=== PATIENT | female | born 1940 | race Caucasian/White ===

== ENCOUNTER 2022-09-30 20:20 | Inpatient (IN) | payer MEDICARE, SELFPAY ==
--- NOTE | ~2022-09-30 | XR_ITS ---
EXAMINATION: XR chest 1V portable DATE: 10/03/2022 05:40 INDICATION: Cough. TECHNIQUE: A single frontal view of the chest was obtained. COMPARISON: Chest one view 10/02/2022, CT abdomen and pelvis 10/02/2022 FINDINGS: There are airspace opacities in all left lung zones with a lower lung predominance, consist ent with pneumonia. There is a small left pleural effusion. No pneumothorax. The heart size is normal . IMPRESSION: 1. Worsened left-sided pneumonia. 2. Stable small left pleural effusion. Reviewed, dictated and finalized at location A. ONAL MARKETING MANAGER
--- NOTE | ~2022-09-30 | XR_ITS ---
EXAMINATION: XR chest 2V DATE: 10/04/2022 11:00 INDICATION: Aspiration pneumonitis. TECHNIQUE: Frontal and lateral views of the chest were obtained. COMPARISON: Chest single view 10/03/2022, CT abdomen and pelvis 10/02/2022 FINDINGS: There are airspace opacities in left mid and lower lung zones. There is mild atelectasis at right lung base. There is a small left pleural effusion. No pneumothorax. The heart size is normal. IMPRESSION: 1. Stable airspace opacities in left mid and lower lung zones, consistent with pneumonia. 2. Stable small left pleural effusion. Reviewed, dictated and finalized at location A. TRIC INSTALLER
--- NOTE | ~2022-09-30 | CT_ITS ---
EXAMINATION: CT abdomen pelvis w con DATE: 10/02/2022 16:44 INDICATION: Cecal mass. TECHNIQUE: Computed tomography (CT) of the abdomen and pelvis was performed with 100 mL Omnipaque 350 intravenous contrast. Automated exposure control and iterative reconstruction technique were employe d. The dose-length product was 605.52 mGy-cm. COMPARISON: None. FINDINGS: The visualized portions of the lung bases demonstrate airspace opacities in left lower lobe and lingula. There are centrilobular nodules in right lower lobe. There is a small left pleural effu franklyn. There is a right posterior diaphragmatic hernia containing fat. The heart size is normal. No pe ricardial effusion. The liver is normal. There are changes of cholecystectomy. There is a 6 mm low-at tenuation mass in the spleen, likely a benign mass such as granulomatous disease or a cyst. The pancr eas and adrenal glands are normal. There is cortical thinning of the kidneys. There are no dilated lo ops of bowel. The appendix is nonvisualized. There is calcified atherosclerosis of the aorta and many of the other arteries. There is moderate stenosis of superior mesenteric artery. There are no pathol ogically enlarged lymph nodes. There is trace pelvic ascites. There is severe lumbar spondylosis. IMPRESSION: 1. No evidence of metastatic disease. 2. Pneumonia, left worse than right. 3. Small left pleural effusion. Reviewed, dictated and finalized at location A. OR CHEMICAL ENGINEER
--- NOTE | ~2022-09-30 | XR_ITS ---
EXAMINATION: XR chest 1V portable DATE: 10/02/2022 08:54 INDICATION: Hypoxia. Vomiting during EGD. Heaviness in the chest. TECHNIQUE: frontal view of the chest was obtained. COMPARISON: None FINDINGS: Airspace opacities in the left lower lung zone. There is asymmetric left perihilar bronchial wall thi ckening. Blunting at the left costophrenic angle which could represent a possible small left pleural effusion. Right lung is clear with no right-sided pleural effusion. No pneumothorax. The cardiomedias tinal silhouette is normal. IMPRESSION: 1. Left perihilar bronchial wall thickening and airspace opacities in the lower lung zone which could represent aspiration and/or pneumonia potentially with small left pleural effusion. Reviewed, dictated and finalized at location A. ET AND DIE CUTTER IMPRESSION: 1. Left perihilar bronchial wall thickening and airspace opacities in the lower lung zone which could represent aspiration and/or pneumonia potentially with s mall left pleural effusion.
--- NOTE | 2022-09-30 20:18 | PC.NURSE ---
This patient, Delilah Wynne, was admitted to IMU Room 204-01. Patient/family oriented to hospital policies and general routines including ID bracelet, bed and alarms, visiting hours, pain management, procedures, bathroom and other care routines, personal items, smoking policy, room service/diet, and visiting hours. Information on how to activate the Rapid Response Team has been discussed. Patient/Family are encouraged to report perceived risks to care and to ask questions if they do not understand what they are told or what they should do.
[2022-09-30 20:20] VITALS: BP 169/91; PULSE 114; RESP 16; TEMP 36.5; O2SAT 98
[2022-09-30 20:30] VITALS: O2SAT 98
[2022-09-30 20:45] VITALS: BMI 29.0
--- NOTE | 2022-09-30 21:47 | PM.IMHP ---
H&P: HPI History of Present Illness Date/Time: 09/30/22 21:47 Chief Complaint: This is an 82-year-old female patient who has a history of anemia and congestive heart failure. The patient was brought to [facility] by her daughter due to complaints of shortness of breath. This shortness of breath is worse with activity. The patient has been sleeping in a recliner and has had some swelling in her lower extremities. The patient does take Lasix for her CHF. The patient has been complaining of itching to her back and she is unable to rest due to the itching. States that she has had dark stools x1 month and the patient has a history of AFib and is taking Xarelto. Patient's hemoglobin was found to be 4.8. The patient was given 2 units of packed red blood cells at [facility] prior to her being transferred to [facility]. Patient's blood pressure is 122/68 and her pulse was 116. The patient was found to be negative for influenza a and B. her creatinine was 1.13. Magnesium 2.1 anion gap 11.8. Her hematocrit was 17.1. Patient's stool for occult blood was positive. The patient was given Bumex 0.5 mg as well as prednisone and Benadryl at [facility]. She was also given IV fluids. The patient's EKG was read as AFib. Her iron was 12. The patient was also started on Protonix. It was reported that GI has already been consulted and agreed to see the patient at [facility]. The patient was transferred from [facility] and was seen by Dr. Rojas. The patient is being admitted here for observation status on the date of service of 09/30/2022. Review of Systems Review of Systems: See HPI All systems reviewed & are unremarkable except as noted in HPI and below Constitutional: Constitutional: Reports as per HPI and Reports no additional constitutional complaints Eyes: Eyes: Reports as per HPI and Reports no additional eye complaints ENT: Reports system reviewed and no additional complaints, except as documented and Reports Normal hearing present Cardiovascular: Cardiovascular: Reports no additional cardiovascular complaints Respiratory: Respiratory: Reports no additional respiratory complaints and Reports no additional respiratory complaints Gastrointestinal: Gastrointestinal: Reports as per HPI and Reports no additional gastrointestinal complaints Musculoskeletal: Musculoskeletal: Reports no additional musculoskeletal complaints Integumentary/Breasts: Skin/Breast: Reports system reviewed and no additional complaints, except as docu and Reports as per HPI Neurologic: Reports system reviewed and no additional complaints, except as documented, Reports as per HPI and Reports Normal hearing present Psychiatric: Psychiatric: Reports no additional psychiatric complaints and Reports as per HPI Endocrine: Endocrine: Reports no additional endocrine complaints Hematologic/Lymphatic: Hematologic/Lymphatic: Reports no additional hematologic/lymphatic complaints Allergic/Immunologic: Allergic/Immunologic: Reports no additional allergic/immunologic complaints FORMERLY [facility], 1928–1983 Past Medical History Medical History (Updated 09/30/22 @ 22:29 by Beckie Rice NP) Abnormal colonoscopy Anemia Arthritis Atrial fibrillation Congestive heart failure COPD (chronic obstructive pulmonary disease) Hyperlipidemia Hypertension Obstructive sleep apnea Surgical History Surgical History (Updated 09/30/22 @ 22:04 by Beckie Rice NP) H/O cervical polypectomy History of bilateral cataract extraction History of colonoscopy with polypectomy Hx of cholecystectomy Family History Family History (Updated 09/30/22 @ 22:04 by Beckie Rice NP) Sibling Cancer Carcinoma of colon Father Acute myocardial infarction Social History Social History (Updated 09/30/22 @ 22:05 by Beckie Rice NP) Social History: The patient lives home alone. She is now . She has 3 children. She has decided to make al
--- NOTE | 2022-09-30 21:50 | ECG_ITS ---
Measurements Intervals [place] Rate: 107 P: [place]: 0 QRS: 42 QRSD: 68 T: 49 QT: 342 QTc: 457 Interpretive Statements ATRIAL FIBRILLATION WITH RAPID VENTRICULAR RESPONSE ABNORMAL ECG NO PREVIOUS ECG AVAILABLE FOR COMPARISON Electronically Signed On 10-01-2022 7:56:12 ADMINISTRATIVE COORDINATOR by Vladislav Mcgarry D.O.
[2022-09-30 22:00] VITALS: PULSE 114
[2022-09-30] MEDS: CLOBETASOL PROPIONATE 0.05% CREAM 15 GM 1 APPLIC TOPICAL (22:29)
[2022-09-30] MEDS: diphenhydrAMINE HCl CAP 25 MG CAPSULE PO (22:29)
[2022-09-30] MEDS: SODIUM CHLORIDE 0.9% IV 1,000 ML 75 ML IV CONT (22:29)
[2022-09-30 22:35] LABS: Basophils Percent Auto 0.5 % (0.2-1.2); Hematocrit 29.7 % (37.0-47.0); Hemoglobin 9.3 g/dL (12.0-15.0); Immature Granulocyte Absolute 0.05 K/mm3 (0.00-0.031); Immature Granulocyte Percent A 0.9 % (0-0.5); Lymphocytes Absolute Auto 0.69 K/mm3 (0.9-3.2); Lymphocytes Percent Auto 11.9 % (18.3-44.2); Mean Corpuscular HGB Conc 31.3 g/dl (32-36); Mean Corpuscular Hemoglobin 25.8 pg (26-34); Mean Corpuscular Volume 82.5 fl (80-100); Mean Platelet Volume 9.5 fl (7.4-10.4); Monocytes Absolute Auto 0.1 K/mm3 (0.1-0.6); Monocytes Percent Auto 1.2 % (2.6-8.5); Neutrophils Absolute Auto 4.9 K/mm3 (1.3-6.7); Neutrophils Percent Auto 85.5 % (45.5-73.1); Platelet Count Result 308 k/mm3 (150-375); Red Cell Distribution Width 19.6 % (11.5-14.5); White Blood Count 5.8 K/mm3 (4.5-10.0)
[2022-09-30] MEDS: ATORVASTATIN 20 MG TABLET PO (22:44)
[2022-09-30] MEDS: DORZOLAMIDE/TIMOLOL OPHTH SOL 10 ML BOTTLE 1 DROP EACH EYE (22:44)
[2022-09-30 22:45] VITALS: PULSE 117
[2022-09-30] MEDS: METOPROLOL TARTRATE INJ 5 MG/5 ML VIAL IV PUSH (22:45)
[2022-09-30 22:46] LABS: Phosphorus 3.5 mg/dL (2.5-4.5)
[2022-09-30 22:48] LABS: Lactic Acid Reflex 1.3 mmol/L (0.7-2.0)
[2022-09-30 23:50] VITALS: BP 147/97; PULSE 125; RESP 20; TEMP 36.3; O2SAT 99
[2022-10-01] VITALS (15 sets, daily range): BP systolic 128–149; BP diastolic 69–89; PULSE 87–115; RESP 12–20; TEMP 36.2–36.6; O2SAT 99–100
--- NOTE | 2022-10-01 | ECHO_ITS ---
Patient Info Name: Delilah Wynne Age: 82 years : 1940 Gender: Female Ht: 61 in Wt: 153 lbs BSA: 1.75 m2 HR: 101 bpm BP: 149 / 72 mmHg Heart Rhythm: Atrial Fibrillation Technical Quality: Good Exam Date: 10/01/2022 7:13 AM Exam Location: [facility] Pulmonary Patient Status: Outpatient Admit Date: 09/30/2022 Staff Ordering Physician: Beckie Rice NP Shop Assistant: Tereza Singleton RDCS Attending Provider: Conrad Raya MD Referring Physician: Dwayne OSHEA; Exam Type: CA echo doppler color flow Study Info Indications I50.20 - Unspecified systolic (congestive) heart failure Complete two-dimensional, color flow and Doppler transthoracic echocardiogram is performed. Summary 1. Complete two-dimensional, color flow and Doppler transthoracic echocardiogram is performed. 2. Left ventricular chamber dimension is normal. 3. Left ventricular systolic function is hyperdynamic, estimated at >70%. 4. There is mildly increased left ventricular wall thickness. 5. Left ventricular septal wall motion is normal. 6. The left ventricular diastolic function is indeterminate. 7. Left atrial chamber dimension is severely enlarged. 8. Right atrial chamber dimension is severely enlarged. 9. There is mild to moderate mitral valve regurgitation. 10. The mitral valve annulus is severely calcified. 11. There is moderate tricuspid valve regurgitation. 12. Moderate pulmonary hypertension, estimated pulmonary arterial systolic pressure is 53 mmHg. Left Ventricle Left ventricular chamber dimension is normal. Left ventricular systolic function is hyperdynamic, estimated at >70%. There is mildly increased left ventricular wall thickness. Left ventricular septal wall motion is normal. The left ventricular diastolic function is indeterminate. Right Ventricle Right ventricular chamber dimension is normal. Right ventricular systolic function is normal. Left Atria Left atrial chamber dimension is severely enlarged. Right Atria Right atrial chamber dimension is severely enlarged. Atrial Septum Intact interatrial septum visualized by color flow imaging. Aortic Valve The aortic valve is trileaflet. There is mild aortic valve sclerosis. There is no aortic valve stenosis. There is trace aortic valve regurgitation. Pulmonic Valve The pulmonic valve is normal. There is no pulmonic valve stenosis. There is trace pulmonic regurgitation. Mitral Valve The mitral valve has thickened leaflets. There is mild mitral valve stenosis. There is mild to moderate mitral valve regurgitation. The mitral valve annulus is severely calcified. Tricuspid Valve The tricuspid valve leaflets are normal. There is no significant tricuspid valve stenosis. There is moderate tricuspid valve regurgitation. Moderate pulmonary hypertension, estimated pulmonary arterial systolic pressure is 53 mmHg. Pericardium/Pleural The pericardium appears normal. There is no pericardial effusion. Inferior Vena Cava Dilated inferior vena cava with <50% collapse upon inspiration consistent with elevated right atrial pressure, 15 mmHg. Aorta The aortic root size at the sinus of Valsalva is normal. There is moderate aortic atherosclerosis. Left Ventricular Outflow Tract Name Value Normal LVOT 2D ----
[2022-10-01 04:44] LABS: Basophils Percent Auto 0.6 % (0.2-1.2); Eosinophils Percent Auto 0.1 % (0-4.4); Hematocrit 26.5 % (37.0-47.0); Hemoglobin 8.5 g/dL (12.0-15.0); Immature Granulocyte Absolute 0.02 K/mm3 (0.00-0.031); Immature Granulocyte Percent A 0.3 % (0-0.5); Lymphocytes Absolute Auto 0.92 K/mm3 (0.9-3.2); Lymphocytes Percent Auto 13.8 % (18.3-44.2); Mean Corpuscular HGB Conc 32.1 g/dl (32-36); Mean Corpuscular Hemoglobin 25.4 pg (26-34); Mean Corpuscular Volume 79.1 fl (80-100); Mean Platelet Volume 10.1 fl (7.4-10.4); Monocytes Absolute Auto 0.4 K/mm3 (0.1-0.6); Monocytes Percent Auto 5.7 % (2.6-8.5); Neutrophils Absolute Auto 5.3 K/mm3 (1.3-6.7); Neutrophils Percent Auto 79.5 % (45.5-73.1); Nucleated Red Blood Cells Perc 0.3 % (0.0-0.2); Platelet Count Result 310 k/mm3 (150-375); Red Blood Count 3.35 M/mm3 (4.2-5.4); Red Cell Distribution Width 19.4 % (11.5-14.5); White Blood Count 6.7 K/mm3 (4.5-10.0)
[2022-10-01 04:53] LABS: Alanine Aminotransferase 23 U/L (6-35); Albumin Level 3.8 g/dL (3.5-5.1); Alkaline Phosphatase 74 U/L (38-126); Anion Gap 15 mmol/L (8-16); Aspartate Amino Transferase 25 U/L (14-36); Bilirubin,Total 0.7 mg/dL (0.2-1.3); Blood Urea Nitrogen 13 mg/dL (7-17); Calcium 8.6 mg/dL (8.4-10.2); Carbon Dioxide 23 mmol/L (22-30); Chloride 102 mmol/L (98-107); Estimated CRCL calculation 38 ml/min; Estimated Glomerular Filt Rate 60; Glucose 120 mg/dL (65-110); Potassium 3.1 mmol/L (3.4-5.0); Sodium 140 mmol/L (137-145)
[2022-10-01 05:25] LABS: Appearance Urine Clear (Clear); Bilirubin Urine Negative (Negative); Blood Urine Negative (Negative); Color Urine Yellow (Yellow); Glucose Urine UA Negative (Negative); Ketones Urine Trace mg/dL (Negative); Leukocyte Esterase Ur Negative LEU/UL (NEGATIVE); Nitrate Urine Negative (Negative); Protein Urine Negative (Negative); Specific Grav Ur 1.015 (1.001-1.035); Urobilinogen Urine 0.2 mg/dL (<2.0); pH Urine 5.5 (5.0-9.0)
[2022-10-01 05:27] LABS: Squamous Epithelial Cell Urine Rare /hpf (Few); WBC Urine 0-3 /hpf (0-3)
[2022-10-01 05:33] LABS: Add Urine Microscopic? YES
[2022-10-01] MEDS: FLUTICASONE/SALMETEROL 45-21 MCG INHALER 1 PUFF 2 PUFF INHALATION ×2 (07:47→20:31)
[2022-10-01] MEDS: VITAMIN B COMPLEX CAPSULE 1 CAP PO (09:06)
[2022-10-01] MEDS: diphenhydrAMINE HCl CAP 25 MG CAPSULE PO ×2 (09:06→17:21)
[2022-10-01] MEDS: METOPROLOL SUCCINATE EXT REL 25 MG TABCR PO (09:07)
[2022-10-01] MEDS: CLOBETASOL PROPIONATE 0.05% CREAM 15 GM 1 APPLIC TOPICAL ×2 (09:08→21:01)
[2022-10-01] MEDS: DORZOLAMIDE/TIMOLOL OPHTH SOL 10 ML BOTTLE 1 DROP EACH EYE ×2 (09:08→21:00)
[2022-10-01] MEDS: ASCORBIC ACID 250 MG TABLET PO (09:09)
[2022-10-01] MEDS: PANTOPRAZOLE SODIUM IV 40 MG VIAL IV PUSH ×2 (09:10→21:00)
--- NOTE | 2022-10-01 09:22 | PM.IMPN ---
Progress Note: A&P Assessment and Plan (1) GI bleed: Code(s): K92.2 - Gastrointestinal hemorrhage, unspecified Status: Acute Assessment and Plan: -H&H every 6 hours. -check stool for occult blood. previous stool for occult blood was positive at [facility] -the patient is on Xarelto and we will hold this for now. -GI has been consulted per Dr. Rojas from [facility]. -IV Protonix. -the patient's last colonoscopy was in 2019 Which was negative. Patient received 2 units of blood transfusion at [facility] before being transferred (2) Congestive heart failure: Code(s): I50.9 - Heart failure, unspecified Status: Acute Assessment and Plan: I stopped the Lasix and switched her to metolazone. due to possible allergy to Lasix -an echo is pending. -continue with metoprolol (3) Hyperlipidemia: Code(s): E78.5 - Hyperlipidemia, unspecified Status: Acute (4) COPD (chronic obstructive pulmonary disease): Code(s): J44.9 - Chronic obstructive pulmonary disease, unspecified Status: Acute Assessment and Plan: Patient advice to quit smoking. Bronchodilators. Evaluation for home O2 if saturations less than 88% on room air (5) Hypertension: Code(s): I10 - Essential (primary) hypertension Status: Acute Assessment and Plan: -continue with metoprolol (6) Atrial fibrillation: Code(s): I48.91 - Unspecified atrial fibrillation Status: Acute Assessment and Plan: continue metoprolol. Heart rate well controlled. No chest pain. Xarelto still on hold due to GI bleed Plan DVT prophylaxis. GI prophylaxis. All records reviewed Discussed plan of care with the nursing staff and with the patient in detail. Answered all questions and concerns from the patient. All labs have been reviewed. Code status updated dictation may have been done utilizing a voice recognition system. Attempts have been made to correct errors. However, there may be uncorrected grammatical, spelling, and recognition errors present. Subjective Date/time seen: 10/01/22 09:22 Exam Narrative: GENERAL: Well appearing, well-nourished, non-toxic, in no acute distress. HEAD: Normocephalic, atraumatic. NECK: Supple. No adenopathy, no masses. RESPIRATORY: Airway patent, respirations nonlabored. Clear to auscultation bilaterally, no rales, rhonchi, wheezing. CARDIOVASCULAR: irRegular rate and rhythm without murmurs, rubs, or gallops. Peripheral pulses 2+ and equal bilaterally. ABDOMINAL: Soft, nontender, nondistended, no hepatosplenomegaly. Normoactive BS. MUSCULOSKELETAL: no Epigastric and no hypochondrial tenderness SKIN: Warm, dry, normal color. No rashes. NEURO: A&O X3. Moves all extremities PSYCHIATRIC: Appropriate mood and affect. Normal interaction. Objective Data Vital Signs Vital Signs: Vital Signs - 24 hr 09/30/22 20:20 09/30/22 20:30 09/30/22 22:45 Temperature 36.5 C Pulse Rate 114 H 117 H Respiratory Rate 16 Blood Pressure 169/91 H Pulse Oximetry 98 98 Oxygen Delivery Room Air 09/30/22 22:00 09/30/22 23:50 10/01/22 00:00 Temperature 36.3 C L Pulse Rate 114 H 125 H 107 H Respiratory Rate 20 Blood Pressure 147/97 H Pulse Oximetry 99 Oxygen Delivery 10/01/22 00:00 10/01/22 02:00 10/01/22 04:00 Temperature Pulse Rate 113 H 104 H Respiratory Rate Blood Pressure Pulse Oximetry 99 Oxygen Delivery Room Air 10/01/22 04:00 10/01/22 04:00 10/01/22 06:00 Temperature 36.4 C Pulse Rate 112 H 107 H Respiratory Rate 18 Blood Pressure 149/72 H Pulse Oximetry 99 99 Oxygen Delivery Room Air 10/01/22 08:00 10/01/22 09:07 Temperature 36.2 C L Pulse Rate 112 H 98 Respiratory Rate 14 Blood Pressure 148/89 H Pulse Oximetry 100 Oxygen Delivery Intake/Output Intake/Output: Intake & Output 09/28/22 09/29/22 09/30/22 10/01/22 23:59
[2022-10-01] MEDS: metOLazone 5 MG TABLET PO (10:08)
[2022-10-01 10:35] LABS: Hemoglobin 8.3 g/dL (12.0-15.0)
[2022-10-01] MEDS: SODIUM CHLORIDE 0.9% IV 1,000 ML 75 ML IV CONT (11:38)
[2022-10-01] MEDS: UMECLIDINIUM BROMIDE 62.5 MCG ELLIPTA 1 PUFF INHALATION (12:00)
--- NOTE | 2022-10-01 13:32 | WPDGICN ---
Assessment and Plan Assessment and plan (1) Acute on chronic blood loss anemia: Code(s): D62 - Acute posthemorrhagic anemia Status: Acute Assessment and Plan: s/p blood transfusion and feeling better probably chronic blood loss and could be due to xarelto use we will proceed with egd and colonoscopy to assess if gi blood loss on protonix (2) GI bleed: Code(s): K92.2 - Gastrointestinal hemorrhage, unspecified Status: Acute Assessment and Plan: stable now trend h/h scopes tomorrow (3) Occult blood in stools: Code(s): R19.5 - Other fecal abnormalities Status: Acute Assessment and Plan: will assess with scopes (4) Atrial fibrillation: Code(s): I48.91 - Unspecified atrial fibrillation Status: Acute Assessment and Plan: xarelto on hold for now (5) Congestive heart failure: Code(s): I50.9 - Heart failure, unspecified Status: Acute GI Consult Note Consult date/time: 10/01/22 13:32 Reason for consult: acute on chronic anemia, FOBT + HPI: Delilah Wynne is a 82 year old female with history of congestive heart failure, A fib on xarelto for almost 3 months.? She first went to [facility] ER because progressive shortness of breath on exertion for last few days, also noted her stools darker than usual for almost 2 weeks but denies otherwise bleeding. No previous history of gib, her last colonoscopy 2019, denies nausea or abdominal pain. Patient's hemoglobin was found to be 4.8, given 2 units of packed red blood cells at [facility] prior to her being transferred to [facility].? The patient was found to be negative for influenza a and B. her creatinine was 1.13.? Patient's stool for occult blood was positive.?? Review of Systems Constitutional: Constitutional: Reports fatigue Eyes: Eyes: Denies blurry vision ENT: Reports Normal hearing present Cardiovascular: Cardiovascular: Reports palpitations Respiratory: Respiratory: Reports dyspnea on exertion Gastrointestinal: Gastrointestinal: Denies abdominal pain Genitourinary: Genitourinary: Denies hematuria Musculoskeletal: Musculoskeletal: Denies back pain Integumentary/Breasts: Skin/Breast: Denies rash Neurologic: Denies Abnormal speech present Psychiatric: Psychiatric: Denies behavioral changes [facility] Past Medical History Medical History (Updated 10/01/22 @ 13:37 by Abhi England MD) Abnormal colonoscopy Acute on chronic blood loss anemia Anemia Arthritis Atrial fibrillation Congestive heart failure COPD (chronic obstructive pulmonary disease) Hyperlipidemia Hypertension Obstructive sleep apnea Occult blood in stools Surgical History Surgical History (Updated 09/30/22 @ 22:04 by Beckie Rice NP) H/O cervical polypectomy History of bilateral cataract extraction History of colonoscopy with polypectomy Hx of cholecystectomy Family History Family History (Updated 09/30/22 @ 22:04 by Beckie Rice NP) Sibling Cancer Carcinoma of colon Father Acute myocardial infarction Social History Social History (Updated 09/30/22 @ 22:05 by Beckie Rice NP) Social History: The patient lives home alone. She is now . She has 3 children. She has decided to make all 3 of her children the power real estate associate attorney for healthcare. The patient states that she drinks approximately 8 cans of beer per week. Some nights she may not drink another night she may drink 3 beers. She denies any marijuana or illicit drugs. 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 Code status full code Smoking packs per day: 1 Smoking cigarettes per day: 20.0 Years smoked: 35 Smoking pack-years: 35.00 Smoking status: Former smoker Alcohol intake: current Drinks per week: 1 Substance use: never Substance use type: does not use Lack of Transportation: No Lack of Food: Never True Current Housing: I Have Hous
[2022-10-01 16:04] LABS: Hematocrit 26.3 % (37.0-47.0); Hemoglobin 8.2 g/dL (12.0-15.0)
[2022-10-01] MEDS: BISACODYL 5 MG TABLET EC 20 MG PO (17:20)
[2022-10-01] MEDS: polyethylene glycoL 3350 238 GM BOTTLE PO (17:22)
[2022-10-01] MEDS: ONDANSETRON INJ 4 MG/2 ML VIAL IV PUSH (21:00)
[2022-10-01] MEDS: ATORVASTATIN 20 MG TABLET PO (21:01)
[2022-10-02] VITALS (20 sets, daily range): BP systolic 80–153; BP diastolic 50–98; PULSE 84–162; RESP 16–32; TEMP 36.3–36.9; O2SAT 91–100
[2022-10-02] MEDS: DEXTROSE 5%/0.45% SOD CHL 1,000 ML 75 ML IV CONT (01:18)
--- NOTE | 2022-10-02 06:47 | PC.NURSE ---
Report given to GI Lab for EGD/Colonoscopy.
[2022-10-02] MEDS: LACTATED RINGERS 1,000 ML 150 ML IV CONT (07:15)
--- NOTE | 2022-10-02 07:29 | WPDANESEPPF ---
Anes - Initial Pre Proc Eval Procedure: Operation Date: 10/02/22 07:30 Proposed Procedures p Esophagogastroduodenoscopy & Colonoscopy - Abhi England MD Date/Time: 10/02/22 07:29 Surgeon: Conrad Raya MD Pre Op Diagnosis: GI Bleed Patient Data Age: 82 Gender: F Height: 1.55 m Weight: 66.4 kg Last Vital Signs Temp 36.3 C L 10/02/22 07:15 Pulse 95 10/02/22 07:15 Resp 18 10/02/22 07:15 BP 141/98 H 10/02/22 07:15 Pulse Ox 100 10/02/22 07:15 O2 Del Method Room Air 10/02/22 07:15 Allergies Allergy/AdvReac Type Severity Reaction Status Date / Time furosemide [From Lasix] AdvReac Rash Verified 09/30/22 20:54 Home Medications Medication Instructions Recorded Confirmed Type albuterol sulfate 90 mcg/actuation 2 inh inhalation Q6H PRN Shortness 09/30/22 09/30/22 History aerosol inhaler (ProAir HFA) Of Breath Or Wheezing ascorbic acid (vitamin C) 500 mg 250 mg PO DAILY 09/30/22 09/30/22 History tablet atorvastatin 20 mg tablet 20 mg PO HS 09/30/22 09/30/22 History budesonide-formoterol HFA 80 2 inh inhalation DAILY 09/30/22 09/30/22 History mcg-4.5 mcg/actuation aerosol inhaler (Symbicort) dorzolamide 22.3 mg-timolol 6.8 1 drp EACH EYE Q12H 09/30/22 10/01/22 History mg/mL eye drops furosemide 20 mg tablet 20 mg PO DAILY 09/30/22 09/30/22 History hydroxyzine HCl 25 mg tablet 25 mg PO TID PRN Itching 09/30/22 09/30/22 History metoprolol succinate 25 mg 25 mg PO POST-TRANSFUSION 09/30/22 09/30/22 History tablet,extended release 24 hr rivaroxaban 15 mg tablet (Xarelto) 15 mg PO DAILY 09/30/22 09/30/22 History tiotropium bromide 18 mcg capsule 1 cap inhalation DAILY 09/30/22 09/30/22 History with inhalation device (Spiriva with HandiHaler) vitamin B complex (B 1 tablet PO DAILY 09/30/22 09/30/22 History Complex-Vitamin B12 tablet) Laboratory Tests 10/01/22 10/01/22 10:25 15:52 Hgb 8.3 g/dL L g/dL 8.2 g/dL L g/dL (12.0-15.0) (12.0-15.0) Hct 26.0 % L % 26.3 % L % (37.0-47.0) (37.0-47.0) Patient hx anesthesia problems: none Family hx anesthesia problems: none Results Review: All pre-operative results and documents have been reviewed as part of the pre-operative evaluation. [facility] Past Medical History Medical History (Updated 10/02/22 @ 07:29 by Bobby Maria DO) Abnormal colonoscopy Acute on chronic blood loss anemia Anemia Arthritis Atrial fibrillation Congestive heart failure EF 70% COPD (chronic obstructive pulmonary disease) Hyperlipidemia Hypertension Obstructive sleep apnea Occult blood in stools Surgical History Surgical History (Updated 09/30/22 @ 22:04 by Beckie Rice NP) H/O cervical polypectomy History of bilateral cataract extraction History of colonoscopy with polypectomy Hx of cholecystectomy Family History Family History (Updated 09/30/22 @ 22:04 by Beckie Rice NP) Sibling Cancer Carcinoma of colon Father Acute myocardial infarction Social History Social History (Updated 09/30/22 @ 22:05 by Beckie Rice NP) Social History: The patient lives home alone. She is now . She has 3 children. She has decided to make all 3 of her children the power director outpatient services for healthcare. The patient states that she drinks approximately 8 cans of beer per week. Some nights she may not drink another night she may drink 3 beers. She denies any marijuana or illicit drugs. 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 Code status full code Smoking packs per day: 1 Smoking cigarettes per day: 20.0 Years smoked: 35 Smoking pack-years: 35.00 Smoking status: Former smoker Alcohol intake: current Drinks per week: 1 Substance use: never Substance use type: does not use Lack of Transportation: No Lack of Food: Never True Current Housing: I Have Housing Concerned About Future Housing: No Difficulty Paying Gas/Electric Bills: No Difficul
--- NOTE | 2022-10-02 07:59 | SUR.OPER ---
EGD START: 730; END: 733. COLONOSCOPY START: 738; END: 0758.
--- NOTE | 2022-10-02 08:37 | ECG_ITS ---
Measurements Intervals [place] Rate: 105 P: [place]: 0 QRS: 28 QRSD: 74 T: 40 QT: 338 QTc: 447 Interpretive Statements ATRIAL FIBRILLATION WITH RAPID VENTRICULAR RESPONSE LOW QRS VOLTAGE IN PRECORDIAL LEADS BASELINE ARTIFACT- I, II, III, AVR, AVL, AVF, V2-V6 ABNORMAL ECG COMPARED TO ECG 09/30/2022 23:36:16 NO SIGNIFICANT CHANGES Electronically Signed On 10-02-2022 10:56:58 SENIOR ENGINEERING ASSOCIATE by Vladislav Mcgarry D.O.
--- NOTE | 2022-10-02 08:57 | SUR.PHASEII ---
Bernard RN on IMU updated to pt's status re low O2 sats/c/o chest pain post procedures. Dr Maria spoke with pt's hospitalist who requested CXR/EKG/trop be done prior to pt being taken back to floor. Requested testing/lab work in process.
[2022-10-02 09:51] LABS: Troponin I < 0.012 ng/mL (0.000-0.034)
--- NOTE | 2022-10-02 10:40 | WPDANESPN ---
Anes - Prog Note Post-Op Date/Time: 10/02/22 10:40 Vital Signs: Last Vital Signs Temp 36.3 C L 10/02/22 07:15 Pulse 95 10/02/22 08:43 Resp 22 H 10/02/22 08:43 BP 140/81 10/02/22 08:43 Pulse Ox 91 10/02/22 08:43 O2 Del Method Room Air 10/02/22 08:43 O2 Flow Rate 10 10/02/22 08:33 Pain Score (VAS): 6 I/O: Intake & Output 10/01/22 10/02/22 10/02/22 23:59 07:59 15:59 Intake Total 50 1800 150 Output Total 1950 1400 Balance -1900 400 150 Laboratory Tests 10/01/22 15:52 10/01/22 04:06 10/01/22 10/02/22 15:52 08:58 Hgb 8.2 L Hct 26.3 L Troponin I < 0.012 Other Findings: Patient O2 saturations dropped to 80% intraoperatively and continued to be low while still sedated after procedure had ended even with oxygen supplementation. When patient was arousable, oxygen level went up to 100% although she still had a facemask with 10L. There was a possible aspiration of bile secretions as bile secretions were present on pillow, however it was not witnessed if it did. Once patient was awake she coughed quite a bit and was complaining of chest pain that she described as a heaviness initially. Chest X ray, EKG and troponin ordered. Chest X ray showed possible aspiration or pneumonia in left lung, with nothing to compare this X ray to, it is hard to know if this is new due to the possible aspiration or not. EKG showed A fib which patient has a history of but no ST changes. Troponin negative so far. Patient stated chest pain was improving and more of a tightness now. Dr. Mast was notified of these events and patient transferred back to IMU for further care.
--- NOTE | 2022-10-02 11:14 | PM.IMPN ---
Progress Note: A&P Assessment and Plan (1) GI bleed: Code(s): K92.2 - Gastrointestinal hemorrhage, unspecified Status: Acute Assessment and Plan: Cecal mass noted on colonoscopy biopsies pending - Status post EGD and colonoscopy. -IV Protonix. -the patient's last colonoscopy was in 2019 Which was negative. (2) Congestive heart failure: Code(s): I50.9 - Heart failure, unspecified Status: Acute Assessment and Plan: appears euvolemic. Continue diuretic. (3) Hyperlipidemia: Code(s): E78.5 - Hyperlipidemia, unspecified Status: Acute (4) COPD (chronic obstructive pulmonary disease): Code(s): J44.9 - Chronic obstructive pulmonary disease, unspecified Status: Acute Assessment and Plan: Patient advice to quit smoking. Bronchodilators. Evaluation for home O2 if saturations less than 88% on room air (5) Hypertension: Code(s): I10 - Essential (primary) hypertension Status: Acute Assessment and Plan: -continue with metoprolol (6) Atrial fibrillation: Code(s): I48.91 - Unspecified atrial fibrillation Status: Acute Assessment and Plan: continue metoprolol. Heart rate well controlled. No chest pain. Xarelto still on hold due to GI bleed (7) Cough: Code(s): R05.9 - Cough, unspecified Status: Acute Assessment and Plan: noted after her EGD. Chest x-ray noted. Mild chest pain noted which has resolved. Will check troponin this afternoon. Repeat chest x-ray in the morning appears to be much improved Subjective Date/time seen: 10/02/22 11:14 patient had a procedure this morning, cecal mass was noted. Biopsies pending. Otherwise after her procedure she was complaining of a little bit of chest pain. This has subsequently resolved. She is having a cough as well. Chest x-ray and workup in the postop area was negative. Exam Narrative: GENERAL: Well appearing, well-nourished, non-toxic, in no acute distress. HEAD: Normocephalic, atraumatic. NECK: Supple. No adenopathy, no masses. RESPIRATORY: Airway patent, respirations nonlabored. Clear to auscultation bilaterally, no rales, rhonchi, wheezing. CARDIOVASCULAR: irRegular rate and rhythm without murmurs, rubs, or gallops. Peripheral pulses 2+ and equal bilaterally. ABDOMINAL: Soft, nontender, nondistended, no hepatosplenomegaly. Normoactive BS. MUSCULOSKELETAL: no Epigastric and no hypochondrial tenderness SKIN: Warm, dry, normal color. No rashes. NEURO: A&O X3. Moves all extremities PSYCHIATRIC: Appropriate mood and affect. Normal interaction. Objective Data Vital Signs Vital Signs: Vital Signs - 24 hr 10/01/22 12:05 10/01/22 12:00 10/01/22 12:00 Temperature 97.6 F Pulse Rate 115 H 99 109 H Respiratory Rate 18 14 Blood Pressure 141/70 H Pulse Oximetry 100 Oxygen Delivery Oxygen Flow Rate 10/01/22 14:00 10/01/22 16:00 10/01/22 16:00 Temperature 97.6 F Pulse Rate 89 87 94 Respiratory Rate 12 Blood Pressure 138/69 Pulse Oximetry 100 Oxygen Delivery Oxygen Flow Rate 10/01/22 16:00 10/01/22 18:00 10/01/22 20:00 Temperature 97.9 F Pulse Rate 87 101 H 103 H Respiratory Rate 20 Blood Pressure 128/86 Pulse Oximetry 99 Oxygen Delivery Room Air Oxygen Flow Rate 10/01/22 20:33 10/01/22 20:00 10/01/22 20:00 Temperature Pulse Rate 104 H 95 Respiratory Rate 18 Blood Pressure Pulse Oximetry 99 Oxygen Delivery Room Air Oxygen Flow Rate 10/01/22 22:00 10/02/22 00:00 10/02/22 00:00 Temperature 97.8 F Pulse Rate 102 H 101 H 114 H Respiratory Rate 16 Blood Pressure 153/83 H Pulse Oximetry 100 Oxygen Delivery Oxygen Flow Rate 10/02/22 00:00 10/02/22 02:00 10/02/22 04:00 Temperature Pulse Rate 90 98 Respiratory Rate Blood Pressure Pulse Oximetry 100 Oxygen Delivery Room Air Oxygen Flow Rate
[2022-10-02] MEDS: METOPROLOL SUCCINATE EXT REL 25 MG TABCR PO (11:25)
[2022-10-02] MEDS: DORZOLAMIDE/TIMOLOL OPHTH SOL 10 ML BOTTLE 1 DROP EACH EYE ×2 (11:27→20:25)
[2022-10-02] MEDS: CLOBETASOL PROPIONATE 0.05% CREAM 15 GM 1 APPLIC TOPICAL ×2 (11:29→20:25)
[2022-10-02] MEDS: PANTOPRAZOLE SODIUM IV 40 MG VIAL IV PUSH (11:32)
[2022-10-02] MEDS: METOPROLOL TARTRATE INJ 5 MG/5 ML VIAL IV PUSH (11:59)
--- NOTE | 2022-10-02 13:59 | PM.CNGS ---
Assessment and Plan Assessment and plan (1) Mass of cecum: Code(s): K63.89 - Other specified diseases of intestine Status: Acute Assessment and Plan: I have reviewed the colonoscopy. Patient has a malignant-appearing mass in the cecum. This does not appear to be actively bleeding. CT abdomen and pelvis as well as CEA level have already been ordered by GI. Will await this further workup to determine best surgical options. Discussed with her that hand assisted laparoscopic right hemicolectomy might be an option, but will await the metastatic workup 1st. Will follow up with patient after imaging done and discuss the next course of action. (2) Acute on chronic blood loss anemia: Code(s): D62 - Acute posthemorrhagic anemia Status: Acute (3) Atrial fibrillation: Code(s): I48.91 - Unspecified atrial fibrillation Status: Acute (4) GI bleed: Code(s): K92.2 - Gastrointestinal hemorrhage, unspecified Status: Acute (5) Congestive heart failure: Code(s): I50.9 - Heart failure, unspecified Status: Acute (6) Obstructive sleep apnea: Code(s): G47.33 - Obstructive sleep apnea (adult) (pediatric) Status: Acute (7) COPD (chronic obstructive pulmonary disease): Code(s): J44.9 - Chronic obstructive pulmonary disease, unspecified Status: Acute (8) Hypertension: Code(s): I10 - Essential (primary) hypertension Status: Acute History of Present Illness Consult details Consult date: 10/02/22 Reason for consult: other (Cecal mass, anemia) Requesting physician: Abhi England MD Narrative: This is an 82-year-old woman who I am asked to see for a newly diagnosed cecal mass. She was transferred here from [facility] in [facility]. She presented to their emergency department with weakness and shortness of breath. She was found to be profoundly anemic with a hemoglobin of 4.8. Fecal occult blood test was positive. She was transfused 2 units of packed red blood cells at [facility] and has been hemodynamically stable since. She states that her last colonoscopy was in 2019 in [place], [place]. She underwent EGD and colonoscopy here this morning and was found to have a malignant appearing mass in the cecum. She takes Xarelto for AFib. That has been held since being transferred. She was noted to have some shortness of breath and chest pain after the colonoscopy this morning. So far cardiac workup has been negative. Her main complaint now is just feeling very cold. Review of Systems Review of Systems: All systems reviewed & are unremarkable except as noted in HPI and below Eyes: Eyes: Denies change in vision ENT: Denies hearing loss, Denies neck pain and Denies sore throat Cardiovascular: Cardiovascular: Reports chest pain and Reports dyspnea Respiratory: Respiratory: Denies cough, Reports dyspnea and Denies wheezing Gastrointestinal: Gastrointestinal: Reports as per HPI Genitourinary: Genitourinary: Denies hematuria and Denies dysuria Musculoskeletal: Musculoskeletal: Denies arthralgias, Denies joint swelling and Denies neck pain Allergic/Immunologic: Allergic/Immunologic: Denies wheezing [facility] Past Medical History Medical History Abnormal colonoscopy Acute on chronic blood loss anemia Anemia Arthritis Atrial fibrillation Congestive heart failure EF 70% COPD (chronic obstructive pulmonary disease) Hyperlipidemia Hypertension Obstructive sleep apnea Occult blood in stools Surgical History Surgical History H/O cervical polypectomy History of bilateral cataract extraction History of colonoscopy with polypectomy Hx of cholecystectomy Family History Family History Sibling Cancer Carcinoma of colon Father
[2022-10-02 14:37] LABS: Anion Gap 12 mmol/L (8-16); Blood Urea Nitrogen 9 mg/dL (7-17); Calcium 8.7 mg/dL (8.4-10.2); Carbon Dioxide 21 mmol/L (22-30); Chloride 103 mmol/L (98-107); Estimated CRCL calculation 37 ml/min; Estimated Glomerular Filt Rate 60; Glucose 103 mg/dL (65-110); Potassium 3.5 mmol/L (3.4-5.0); Sodium 136 mmol/L (137-145)
[2022-10-02 17:50] LABS: Troponin I < 0.012 ng/mL (0.000-0.034)
[2022-10-02] MEDS: ATORVASTATIN 20 MG TABLET PO (20:25)
[2022-10-02] MEDS: FLUTICASONE/SALMETEROL 45-21 MCG INHALER 1 PUFF 2 PUFF INHALATION (20:50)
[2022-10-03] VITALS (11 sets, daily range): BP systolic 111–137; BP diastolic 52–64; PULSE 88–111; RESP 16–20; TEMP 36.6–37.4; O2SAT 94–99
[2022-10-03 04:48] LABS: Anion Gap 8 mmol/L (8-16); Blood Urea Nitrogen 14 mg/dL (7-17); Calcium 7.8 mg/dL (8.4-10.2); Carbon Dioxide 26 mmol/L (22-30); Chloride 99 mmol/L (98-107); Estimated CRCL calculation 26 ml/min; Estimated Glomerular Filt Rate 39; Glucose 122 mg/dL (65-110); Potassium 3.3 mmol/L (3.4-5.0); Sodium 133 mmol/L (137-145)
[2022-10-03 05:53] LABS: Carcinoembryonic Antigen 89.2 ng/mL (0.0-3.0)
[2022-10-03] MEDS: FLUTICASONE/SALMETEROL 45-21 MCG INHALER 1 PUFF 2 PUFF INHALATION ×2 (06:32→20:46)
[2022-10-03] MEDS: UMECLIDINIUM BROMIDE 62.5 MCG ELLIPTA 1 PUFF INHALATION (06:32)
[2022-10-03] MEDS: DORZOLAMIDE/TIMOLOL OPHTH SOL 10 ML BOTTLE 1 DROP EACH EYE ×2 (09:10→20:57)
[2022-10-03] MEDS: VITAMIN B COMPLEX CAPSULE 1 CAP PO (09:10)
[2022-10-03] MEDS: ASCORBIC ACID 250 MG TABLET PO (09:10)
[2022-10-03] MEDS: METOPROLOL SUCCINATE EXT REL 25 MG TABCR PO (09:10)
[2022-10-03] MEDS: POTASSIUM CHLORIDE 20 MEQ PACKET (FOR LIQUID) 40 MEQ PO (09:10)
--- NOTE | 2022-10-03 10:11 | PM.IMPN ---
Progress Note: A&P Assessment and Plan (1) GI bleed: Code(s): K92.2 - Gastrointestinal hemorrhage, unspecified Status: Acute Assessment and Plan: Cecal mass noted on colonoscopy biopsies pending appreciate surgical evaluation. CT scan did not show any metastatic disease oncology consult (2) Congestive heart failure: Code(s): I50.9 - Heart failure, unspecified Status: Acute Assessment and Plan: appears euvolemic. Continue diuretic. (3) Hyperlipidemia: Code(s): E78.5 - Hyperlipidemia, unspecified Status: Acute (4) COPD (chronic obstructive pulmonary disease): Code(s): J44.9 - Chronic obstructive pulmonary disease, unspecified Status: Acute Assessment and Plan: Patient advice to quit smoking. Bronchodilators. Evaluation for home O2 if saturations less than 88% on room air (5) Hypertension: Code(s): I10 - Essential (primary) hypertension Status: Acute Assessment and Plan: -continue with metoprolol (6) Atrial fibrillation: Code(s): I48.91 - Unspecified atrial fibrillation Status: Acute Assessment and Plan: continue metoprolol. Heart rate well controlled. No chest pain. Xarelto still on hold due to GI bleed (7) Cough: Code(s): R05.9 - Cough, unspecified Status: Acute Assessment and Plan: noted after her EGD. Chest x-ray noted. Mild chest pain noted which has resolved. Will check troponin this afternoon. Repeat chest x-ray in the morning appears to be much improved Subjective Date/time seen: 10/03/22 10:11 no more bleeding, hemoglobin stable Exam Narrative: GENERAL: Well appearing, well-nourished, non-toxic, in no acute distress. HEAD: Normocephalic, atraumatic. NECK: Supple. No adenopathy, no masses. RESPIRATORY: Airway patent, respirations nonlabored. Clear to auscultation bilaterally, no rales, rhonchi, wheezing. CARDIOVASCULAR: irRegular rate and rhythm without murmurs, rubs, or gallops. Peripheral pulses 2+ and equal bilaterally. ABDOMINAL: Soft, nontender, nondistended, no hepatosplenomegaly. Normoactive BS. MUSCULOSKELETAL: no Epigastric and no hypochondrial tenderness SKIN: Warm, dry, normal color. No rashes. NEURO: A&O X3. Moves all extremities PSYCHIATRIC: Appropriate mood and affect. Normal interaction. Objective Data Vital Signs Vital Signs: Vital Signs - 24 hr 10/02/22 11:25 10/02/22 11:59 10/02/22 12:00 Temperature 98.4 F Pulse Rate 150 H 162 H 95 Respiratory Rate 32 H Blood Pressure 151/90 H Pulse Oximetry 92 Oxygen Delivery Oxygen Flow Rate 10/02/22 12:00 10/02/22 12:00 10/02/22 14:00 Temperature Pulse Rate 95 95 95 Respiratory Rate 32 H Blood Pressure Pulse Oximetry 92 Oxygen Delivery Room Air Oxygen Flow Rate 10/02/22 16:00 10/02/22 16:00 10/02/22 16:00 Temperature 98.4 F Pulse Rate 95 114 H Respiratory Rate 16 Blood Pressure 80/55 L Pulse Oximetry 92 95 Oxygen Delivery Room Air Oxygen Flow Rate 10/02/22 18:00 10/02/22 20:00 10/02/22 20:00 Temperature 98.0 F Pulse Rate 110 H 96 104 H Respiratory Rate 18 Blood Pressure 95/50 L Pulse Oximetry 94 Oxygen Delivery Oxygen Flow Rate 10/02/22 20:00 10/02/22 22:00 10/02/22 20:50 Temperature Pulse Rate 104 H 103 H 100 Respiratory Rate 18 20 Blood Pressure Pulse Oximetry 94 Oxygen Delivery Room Air Oxygen Flow Rate 10/02/22 23:19 10/03/22 00:00 10/03/22 00:00 Temperature 97.7 F Pulse Rate 99 103 H 103 H Respiratory Rate 20 20 Blood Pressure 91/60 L Pulse Oximetry 94 94 Oxygen Delivery Nasal Cannula Oxygen Flow Rate 2 10/03/22 02:00 10/03/22 04:00 10/03/22 04:00 Temperature Pulse Rate 104 H 106 H 106 H Respiratory Rate 20 Blood Pressure Pulse Oximetry 94 Oxygen Delivery Nasal Cannula Oxygen Flow Rate 2 10/03/22 04:00 10/03/22 06:0
[2022-10-03] MEDS: AMPICILLIN SULB 1.5 GM/NS 50ML 1.5 GM/50 ML VIAL IVPB ×2 (10:47→18:28)
--- NOTE | 2022-10-03 12:18 | P.CDI_ITS ---
CDI Query Clarification Request chronic, combines systolic and diastolic <Amilcar Mast MD - Last Filed: 10/04/22 07:12> Clarified Diagnosis Clarified Diagnosis: Patient with documented history of CHF. CHF noted as problem under Assessment and Plan Patient on PO Lasix at home Patient receiving Metolazone while admitted. Patient with documented edema. Please specify type and acuity of heart failure if known. * Acute * Chronic * Acute on Chronic * Unknown * Systolic * Diastolic * Combined Systolic and Diastolic * Unknown <Mary Miller RN - Last Filed: 10/03/22 12:23>
--- NOTE | 2022-10-03 12:44 | WPDGIPROGNO ---
Progress Note: A&P Assessment and Plan (1) Mass of cecum: Code(s): K63.89 - Other specified diseases of intestine Status: Acute Assessment and Plan: CT scan reviewed, awaiting on path surgery on board most likely cause of yonatan and FOBT + (2) Acute on chronic blood loss anemia: Code(s): D62 - Acute posthemorrhagic anemia Status: Acute Assessment and Plan: no overt gib from cecal mass (3) Atrial fibrillation: Code(s): I48.91 - Unspecified atrial fibrillation Status: Acute Assessment and Plan: blood thinner on hold (4) Pneumonia: Code(s): J18.9 - Pneumonia, unspecified organism Status: Acute Assessment and Plan: on unasyn, no more cough Subjective Date/time seen: 10/03/22 12:44 Interval history: colonoscopy found cecal mass, also after anesthesia with cough and respiratory discomfort, CT scan showed pneumonia, no mets. Today no more cough and she is not even using oxygen, doing better. Review of Systems Review of Systems: All systems reviewed & are unremarkable except as noted in HPI and below Exam Const: General: comfortable and no acute distress HENMT: Face/Nose/Sinus: Normal nares present Eyes: General: appearance normal, both eyes and all related structures Neck: Neck: no JVD Resp: Auscultation: clear to auscultation bilaterally Cardio: Rate: regular rate Rhythm: regular rhythm GI: Inspection: non-distended GI Palp: Yes Soft to palpation Auscultation: normal bowel sounds Skin: General skin exam: normal color Neuro: Speech: normal speech Extrem: General: normal to inspection Psych: Mental Status: mental status grossly normal Objective Data Vital Signs Vital Signs: Vital Signs - 24 hr 10/02/22 14:00 10/02/22 16:00 10/02/22 16:00 Temperature Pulse Rate 95 95 Respiratory Rate Blood Pressure Pulse Oximetry 92 Oxygen Delivery Room Air Oxygen Flow Rate 10/02/22 16:00 10/02/22 18:00 10/02/22 20:00 Temperature 98.4 F 98.0 F Pulse Rate 114 H 110 H 96 Respiratory Rate 16 18 Blood Pressure 80/55 L 95/50 L Pulse Oximetry 95 94 Oxygen Delivery Oxygen Flow Rate 10/02/22 20:00 10/02/22 20:00 10/02/22 22:00 Temperature Pulse Rate 104 H 104 H 103 H Respiratory Rate 18 Blood Pressure Pulse Oximetry 94 Oxygen Delivery Room Air Oxygen Flow Rate 10/02/22 20:50 10/02/22 23:19 10/03/22 00:00 Temperature 97.7 F Pulse Rate 100 99 103 H Respiratory Rate 20 20 Blood Pressure 91/60 L Pulse Oximetry 94 Oxygen Delivery Oxygen Flow Rate 10/03/22 00:00 10/03/22 02:00 10/03/22 04:00 Temperature Pulse Rate 103 H 104 H 106 H Respiratory Rate 20 Blood Pressure Pulse Oximetry 94 Oxygen Delivery Nasal Cannula Oxygen Flow Rate 2 10/03/22 04:00 10/03/22 04:00 10/03/22 06:00 Temperature 97.9 F Pulse Rate 106 H 108 H 110 H Respiratory Rate 20 20 Blood Pressure 121/55 L Pulse Oximetry 94 97 Oxygen Delivery Nasal Cannula Oxygen Flow Rate 2 10/03/22 06:33 10/03/22 08:00 10/03/22 09:10 Temperature 99.3 F Pulse Rate 88 107 H 111 H Respiratory Rate 18 18 Blood Pressure 126/64 Pulse Oximetry 99 Oxygen Delivery Oxygen Flow Rate 10/03/22 08:00 10/03/22 09:10 10/03/22 08:00 Temperature Pulse Rate 110 H Respiratory Rate Blood Pressure Pulse Oximetry 99 98 Oxygen Delivery Nasal Cannula Room Air Oxygen Flow Rate 2 10/03/22 12:00 Temperature 98.9 F Pulse Rate 107 H Respiratory Rate 18 Blood Pressure 111/52 L Pulse Oximetry 98 Oxygen Delivery Oxygen Flow Rate Intake/Output Intake/Output: Intake & Output 09/30/22 10/01/22 10/02/22 10/03/22 23:59 23:59 23:59 23:59 Intake Total 1590 2430 290 Output Total 400 2750 2100 Balance -400 -1160 330 290 Meds/Results Medications: Active Medications Generic Name Dose Route Start Last Admin Trade Name Freq PRN Reason
--- NOTE | 2022-10-03 12:58 | PM.PNGS ---
Progress Note: A&P Assessment and Plan (1) Mass of cecum: Code(s): K63.89 - Other specified diseases of intestine Status: Acute Assessment and Plan: I reviewed the CT. She does not appear to have any evidence of metastases. Her CEA level is elevated. This would be operable mass based on the findings. Patient appears to have aspirated during the endoscopy yesterday and her imaging is showing sign of pneumonia. Since she is not actively bleeding, it would be safest to treat the pneumonia and improve her pulmonary function before undergoing a major abdominal surgery. I discussed this with the hospitalist and can plan to follow up with the patient as an outpatient to schedule hand assisted laparoscopic right hemicolectomy soon. I discussed with patient that she will need to have another bowel prep for this procedure and will be in the hospital anywhere from 3 days to a week. (2) Pneumonia: Code(s): J18.9 - Pneumonia, unspecified organism Status: Acute (3) Acute on chronic blood loss anemia: Code(s): D62 - Acute posthemorrhagic anemia Status: Acute (4) Atrial fibrillation: Code(s): I48.91 - Unspecified atrial fibrillation Status: Acute Subjective Subjective Date/Time Seen: 10/03/22 12:58 Interval history: patient was having some cough yesterday but says that she is feeling better today. No blood in her stool so far. Exam GI: Inspection: normal to inspection and non-distended GI Palp: Yes Soft to palpation, Yes Tenderness to palpation present (GI) ( Mild lower abdominal tenderness) and No Guarding due to palpation present (GI) Auscultation: normal bowel sounds Objective Data Vital Signs Vital Signs: Vital Signs - 24 hr 10/02/22 14:00 10/02/22 16:00 10/02/22 16:00 Temperature Pulse Rate 95 95 Respiratory Rate Blood Pressure Pulse Oximetry 92 Oxygen Delivery Room Air Oxygen Flow Rate 10/02/22 16:00 10/02/22 18:00 10/02/22 20:00 Temperature 36.9 C 36.7 C Pulse Rate 114 H 110 H 96 Respiratory Rate 16 18 Blood Pressure 80/55 L 95/50 L Pulse Oximetry 95 94 Oxygen Delivery Oxygen Flow Rate 10/02/22 20:00 10/02/22 20:00 10/02/22 22:00 Temperature Pulse Rate 104 H 104 H 103 H Respiratory Rate 18 Blood Pressure Pulse Oximetry 94 Oxygen Delivery Room Air Oxygen Flow Rate 10/02/22 20:50 10/02/22 23:19 10/03/22 00:00 Temperature 36.5 C Pulse Rate 100 99 103 H Respiratory Rate 20 20 Blood Pressure 91/60 L Pulse Oximetry 94 Oxygen Delivery Oxygen Flow Rate 10/03/22 00:00 10/03/22 02:00 10/03/22 04:00 Temperature Pulse Rate 103 H 104 H 106 H Respiratory Rate 20 Blood Pressure Pulse Oximetry 94 Oxygen Delivery Nasal Cannula Oxygen Flow Rate 2 10/03/22 04:00 10/03/22 04:00 10/03/22 06:00 Temperature 36.6 C Pulse Rate 106 H 108 H 110 H Respiratory Rate 20 20 Blood Pressure 121/55 L Pulse Oximetry 94 97 Oxygen Delivery Nasal Cannula Oxygen Flow Rate 2 10/03/22 06:33 10/03/22 08:00 10/03/22 09:10 Temperature 37.4 C Pulse Rate 88 107 H 111 H Respiratory Rate 18 18 Blood Pressure 126/64 Pulse Oximetry 99 Oxygen Delivery Oxygen Flow Rate 10/03/22 08:00 10/03/22 09:10 10/03/22 08:00 Temperature Pulse Rate 110 H Respiratory Rate Blood Pressure Pulse Oximetry 99 98 Oxygen Delivery Nasal Cannula Room Air Oxygen Flow Rate 2 10/03/22 12:00 Temperature 37.2 C Pulse Rate 107 H Respiratory Rate 18 Blood Pressure 111/52 L Pulse Oximetry 98 Oxygen Delivery Oxygen Flow Rate Intake/Output Intake/Output: Intake & Output 09/30/22 10/01/22 10/02/22 10/03/22 23:59 23:59 23:59 23:59 Intake Total 1590 2430 290 Output Total 400 2750 2100 Balance -400 -1160 330 290 Meds/Results Medications: Active Medications Generic Name Dose Route Start Last Admin Trade Name Freq PRN Reason Stop Dose Admin
--- NOTE | 2022-10-03 14:27 | PC.NURSE ---
This patient, Delilah Wynne, was transferred to [[facility] ] on 10/03/22 at 1427. Personal belongings sent with patient. Report given to [ALEJANDRO García @ [id number] ]. Appropriate documentation sent with patient.
--- NOTE | 2022-10-03 14:45 | PC.NURSE ---
pt transferred in to room 317 via bed, reviewed plan of care and MD orders, daughters at bedside
[2022-10-03 17:01] LABS: Hematocrit 24.5 % (37.0-47.0); Hemoglobin 7.4 g/dL (12.0-15.0); Mean Corpuscular HGB Conc 30.2 g/dl (32-36); Mean Corpuscular Hemoglobin 24.8 pg (26-34); Mean Corpuscular Volume 82.2 fl (80-100); Platelet Count Result 261 k/mm3 (150-375); Red Blood Count 2.98 M/mm3 (4.2-5.4); Red Cell Distribution Width 20.7 % (11.5-14.5); White Blood Count 16.2 K/mm3 (4.5-10.0)
--- NOTE | 2022-10-03 18:20 | PDONCCN ---
HPI - Date of Consult Date/Time: 10/03/22 18:20 Requesting Physician: Conrad Raya MD Primary Care Provider: Marissa Blas, - Consult Narrative Reason for consult: Colon cancer Narrative: Delilah Wynne is a 82 year old female who has a history of COPD, CHF, atrial fibrillation and anemia came into the hospital transfer from [facility] where she presented with shortness of breath. Patient has been taking Xarelto for atrial fibrillation and has been having some dark maroonish stool for last 1 month duration. She has lost 20 lb weight in last several months. Her labs showed hemoglobin of 4.8. She received 2 units of packed red blood cell prior to the transfer. CT scan showed no evidence of metastatic disease. EGD was performed on October 10 came back normal. Colonoscopy showed malignant appearing colonic mass at the cecum. CEA was elevated at 89.2. Patient prior colonoscopy was done in 2019 and came back normal. She is also complain of constipation for 1 week duration. Denies any abdominal pain. Review of Systems - Review of Systems All systems reviewed & are unremarkable except as noted in HPI and bel - Neurologic Reports system reviewed and no additional complaints, except as documented, Reports hearing normal, Denies abnormal speech, Denies behavioral changes [facility] Medical History: Medical History (Last Updated 10/03/22 @ 12:45 by Abhi England MD) Abnormal colonoscopy Acute on chronic blood loss anemia Anemia Arthritis Atrial fibrillation Congestive heart failure EF 70% COPD (chronic obstructive pulmonary disease) Hyperlipidemia Hypertension Obstructive sleep apnea Occult blood in stools Pneumonia Surgical History: Surgical History (Last Reviewed 10/02/22 @ 14:07 by Jermaine Cruz DO) H/O cervical polypectomy History of bilateral cataract extraction History of colonoscopy with polypectomy Hx of cholecystectomy Family History: Family History (Last Reviewed 10/02/22 @ 14:07 by Jermaine Cruz DO) Sibling Cancer Carcinoma of colon Father Acute myocardial infarction - Social History Social History: Social History (Last Reviewed 10/02/22 @ 14:07 by Jermaine Cruz DO) Alcohol Use: Alcohol intake: current Drinks per week: 1 Substance Use: Substance use: never Substance use type: does not use Others: Spiritual care concerns: No Smoking Status: Smoking status: Former smoker Approximate Smoking End Date: 1998 Smoking Pack-years: Smoking packs per day: 1 Smoking cigarettes per day: 20.0 Years smoked: 35 Smoking pack-years: 35.00 Social Determinants of Health: Has the Lack of Transportation Kept You From Medical Appointments or From Getting Medications?: No Within the Past 12 Months, Were You Worried Whether Your Food Would Run Out Before You Got Money to Buy More?: Never True What is Your Housing Situation Today?: I Have Housing Are You Worried That in the Next 2 Months, You May Not Have Your Own Housing to Live In?: No Do You Have Trouble Paying Your Heating Or Electricity Bill?: No Do You Have Trouble Paying For Medicines?: No Are You Currently Unemployed and Looking for Work?: No Highest Level of Education Completed: Grade School Do You Have Trouble With Childcare or the Care of a Family Member?: No Exam - Vital Signs Vital Signs - 24 hr 10/02/22 20:00 10/02/22 20:00 10/02/22 20:00 Temperature 36.7 C Pulse Rate 96 104 H 104 H Respiratory Rate 18 18 Blood Pressure 95/50 L Pulse Oximetry 94 94 Oxygen Delivery Room Air Oxygen Flow Rate 10/02/22 22:00 10/02/22 20:50 10/02/22 23:19 Temperature 36.5 C Pulse Rate 103 H 100 99 Respiratory Rate 20 20 Blood Pressure 91/60 L Pulse Oximetry 94 Oxygen Delivery Oxygen Flow Rate 10/03/22 00:00 10/03/22 00:00 10/03/22 02:00 Temperature
[2022-10-03 19:02] LABS: Iron 18 ug/dL (37-170)
[2022-10-03 19:21] LABS: Percent Iron Saturation 5 % (20-50)
[2022-10-03 20:29] LABS: Folic Acid 7.4 ng/mL (2.76->20); Vitamin B12 > 1000.0 pg/mL (239-931)
[2022-10-03] MEDS: CLOBETASOL PROPIONATE 0.05% CREAM 15 GM 1 APPLIC TOPICAL (20:50)
[2022-10-03] MEDS: ATORVASTATIN 20 MG TABLET PO (20:56)
[2022-10-04] MEDS: AMPICILLIN SULB 1.5 GM/NS 50ML 1.5 GM/50 ML VIAL IVPB ×4 (00:17→16:49)
[2022-10-04 06:36] LABS: Hematocrit 24.3 % (37.0-47.0); Hemoglobin 7.5 g/dL (12.0-15.0); Mean Corpuscular HGB Conc 30.9 g/dl (32-36); Mean Corpuscular Hemoglobin 25.2 pg (26-34); Mean Corpuscular Volume 81.5 fl (80-100); Mean Platelet Volume 10.2 fl (7.4-10.4); Platelet Count Result 252 k/mm3 (150-375); Red Blood Count 2.98 M/mm3 (4.2-5.4); White Blood Count 15.8 K/mm3 (4.5-10.0)
[2022-10-04 06:44] LABS: Alanine Aminotransferase 13 U/L (6-35); Alkaline Phosphatase 62 U/L (38-126); Anion Gap 9 mmol/L (8-16); Aspartate Amino Transferase 15 U/L (14-36); Bilirubin,Total 0.8 mg/dL (0.2-1.3); Blood Urea Nitrogen 15 mg/dL (7-17); Carbon Dioxide 27 mmol/L (22-30); Chloride 96 mmol/L (98-107); Estimated CRCL calculation 37 ml/min; Estimated Glomerular Filt Rate 60; Glucose 136 mg/dL (65-110); Potassium 3.9 mmol/L (3.4-5.0); Sodium 132 mmol/L (137-145)
[2022-10-04 07:55] VITALS: BP 118/64; PULSE 105; RESP 20; TEMP 36.3; O2SAT 93
[2022-10-04 08:31] VITALS: PULSE 103
[2022-10-04] MEDS: VITAMIN B COMPLEX CAPSULE 1 CAP PO (08:31)
[2022-10-04] MEDS: METOPROLOL SUCCINATE EXT REL 50 MG TABCR PO (08:31)
[2022-10-04] MEDS: ASCORBIC ACID 250 MG TABLET PO (08:31)
[2022-10-04] MEDS: IRON SUCROSE COMPLEX 500 MG in SODIUM CHLORIDE 0.9% IV 250 ML 78.57 MG IVPB (08:32)
[2022-10-04] MEDS: DORZOLAMIDE/TIMOLOL OPHTH SOL 10 ML BOTTLE 1 DROP EACH EYE ×2 (08:32→22:19)
[2022-10-04] MEDS: FLUTICASONE/SALMETEROL 45-21 MCG INHALER 1 PUFF 2 PUFF INHALATION ×2 (09:05→20:07)
--- NOTE | 2022-10-04 11:45 | PM.IMPN ---
Progress Note: A&P Assessment and Plan (1) GI bleed: Code(s): K92.2 - Gastrointestinal hemorrhage, unspecified Status: Acute Assessment and Plan: Cecal mass noted on colonoscopy biopsies pending appreciate surgical evaluation. CT scan did not show any metastatic disease oncology consult (2) Congestive heart failure: Code(s): I50.9 - Heart failure, unspecified Status: Acute Assessment and Plan: appears euvolemic. Continue diuretic. (3) Hyperlipidemia: Code(s): E78.5 - Hyperlipidemia, unspecified Status: Acute (4) COPD (chronic obstructive pulmonary disease): Code(s): J44.9 - Chronic obstructive pulmonary disease, unspecified Status: Acute Assessment and Plan: Patient advice to quit smoking. Bronchodilators. Evaluation for home O2 if saturations less than 88% on room air (5) Hypertension: Code(s): I10 - Essential (primary) hypertension Status: Acute Assessment and Plan: -continue with metoprolol (6) Atrial fibrillation: Code(s): I48.91 - Unspecified atrial fibrillation Status: Acute Assessment and Plan: continue metoprolol. Heart rate well controlled. No chest pain. Xarelto still on hold due to GI bleed (7) Cough: Code(s): R05.9 - Cough, unspecified Status: Acute Assessment and Plan: question of aspiration. During her EGD procedure IV Unasyn, chest x-ray did show possible (8) Acute on chronic blood loss anemia: Code(s): D62 - Acute posthemorrhagic anemia Status: Acute Assessment and Plan: Status post transfusion. Hemoglobin stable. IV iron x3 days. Appreciate Hematology input. Plan Can likely be discharged after IV iron. Will need to follow up with General surgery for surgical removal of colon cancer Subjective Date/time seen: 10/04/22 11:45 no bleeding. Exam Narrative: GENERAL: Well appearing, well-nourished, non-toxic, in no acute distress. HEAD: Normocephalic, atraumatic. NECK: Supple. No adenopathy, no masses. RESPIRATORY: Airway patent, respirations nonlabored. Clear to auscultation bilaterally, no rales, rhonchi, wheezing. CARDIOVASCULAR: irRegular rate and rhythm without murmurs, rubs, or gallops. Peripheral pulses 2+ and equal bilaterally. ABDOMINAL: Soft, nontender, nondistended, no hepatosplenomegaly. Normoactive BS. MUSCULOSKELETAL: no Epigastric and no hypochondrial tenderness SKIN: Warm, dry, normal color. No rashes. NEURO: A&O X3. Moves all extremities PSYCHIATRIC: Appropriate mood and affect. Normal interaction. Objective Data Vital Signs Vital Signs: Vital Signs - 24 hr 10/03/22 12:00 10/03/22 16:00 10/03/22 20:48 Temperature 98.9 F 97.9 F Pulse Rate 107 H 108 H 100 Respiratory Rate 18 16 16 Blood Pressure 111/52 L 113/63 Pulse Oximetry 98 95 Oxygen Delivery 10/03/22 21:38 10/03/22 19:00 10/04/22 07:55 Temperature 98.1 F 97.3 F L Pulse Rate 103 H 105 H Respiratory Rate 18 20 Blood Pressure 137/52 L 118/64 Pulse Oximetry 96 93 Oxygen Delivery Room Air 10/04/22 08:31 10/04/22 08:00 Temperature Pulse Rate 103 H Respiratory Rate Blood Pressure Pulse Oximetry Oxygen Delivery Room Air Intake/Output Intake/Output: Intake & Output 10/01/22 10/02/22 10/03/22 10/04/22 23:59 23:59 23:59 23:59 Intake Total 1590 2430 1260 290 Output Total 2750 2100 200 Balance -7106 508 4624 290 Meds/Results Medications: Active Medications Generic Name Dose Route Start Last Admin Trade Name Freq PRN Reason Stop Dose Admin Albuterol 2 puff 09/30/22 22:05 Albuterol Sulfate (*Sp) Aerosol 1 Puff INHALATION Q6H PRN Shortness Of Breath Or Wheezing Ascorbic Acid 250 mg 10/01/22 09:00 10/04/22 08:31 Ascorbic Acid 250 Mg Tablet PO 250 mg DAILY DAINA Administration Atorvastatin Calcium 20 mg 09/30/22 22:15 10/03/22 20:56 Atorvastat
--- NOTE | 2022-10-04 12:10 | WPDGIPROGNO ---
Progress Note: A&P Assessment and Plan (1) Mass of cecum: Code(s): K63.89 - Other specified diseases of intestine Status: Acute Assessment and Plan: CT scan reviewed, awaiting on path surgery on board most likely cause of yonatan and FOBT + (2) Acute on chronic blood loss anemia: Code(s): D62 - Acute posthemorrhagic anemia Status: Acute Assessment and Plan: no overt gib from cecal mass hb low and she is also getting iv iron (3) Atrial fibrillation: Code(s): I48.91 - Unspecified atrial fibrillation Status: Acute Assessment and Plan: blood thinner on hold (4) Pneumonia: Code(s): J18.9 - Pneumonia, unspecified organism Status: Acute Assessment and Plan: on unasyn, no more cough Subjective Date/time seen: 10/04/22 12:10 Interval history: no changes, no gib. She is getting iv iron infusion Review of Systems Review of Systems: All systems reviewed & are unremarkable except as noted in HPI and below Exam Const: General: comfortable and no acute distress HENMT: Face/Nose/Sinus: Normal nares present Eyes: General: appearance normal, both eyes and all related structures Neck: Neck: no JVD Resp: Auscultation: clear to auscultation bilaterally Cardio: Rate: regular rate Rhythm: regular rhythm GI: Inspection: non-distended GI Palp: Yes Soft to palpation Auscultation: normal bowel sounds Skin: General skin exam: normal color Neuro: Speech: normal speech Extrem: General: normal to inspection Psych: Mental Status: mental status grossly normal Objective Data Vital Signs Vital Signs: Vital Signs - 24 hr 10/03/22 16:00 10/03/22 20:48 10/03/22 21:38 Temperature 97.9 F 98.1 F Pulse Rate 108 H 100 103 H Respiratory Rate 16 16 18 Blood Pressure 113/63 137/52 L Pulse Oximetry 95 96 Oxygen Delivery 10/03/22 19:00 10/04/22 07:55 10/04/22 08:31 Temperature 97.3 F L Pulse Rate 105 H 103 H Respiratory Rate 20 Blood Pressure 118/64 Pulse Oximetry 93 Oxygen Delivery Room Air 10/04/22 08:00 Temperature Pulse Rate Respiratory Rate Blood Pressure Pulse Oximetry Oxygen Delivery Room Air Intake/Output Intake/Output: Intake & Output 11/19/10/02/22 10/03/22 10/04/22 23:59 23:59 23:59 23:59 Intake Total 1590 2430 1260 290 Output Total 2750 2100 200 Balance -5822 107 7208 290 Meds/Results Medications: Active Medications Generic Name Dose Route Start Last Admin Trade Name Freq PRN Reason Stop Dose Admin Albuterol 2 puff 09/30/22 22:05 Albuterol Sulfate (*Sp) Aerosol 1 Puff INHALATION Q6H PRN Shortness Of Breath Or Wheezing Ascorbic Acid 250 mg 10/01/22 09:00 10/04/22 08:31 Ascorbic Acid 250 Mg Tablet PO 250 mg DAILY DAINA Administration Atorvastatin Calcium 20 mg 09/30/22 22:15 10/03/22 20:56 Atorvastatin 20 Mg Tablet PO 20 mg HS DAINA Administration Clobetasol Propionate 1 applic 09/30/22 21:55 10/04/22 08:32 Clobetasol Propionate 0.05% Cream 15 Gm TOPICAL Not Given Q12HR DAINA Diphenhydramine HCl 25 mg 09/30/22 21:52 10/01/22 17:21 Diphenhydramine Hcl Cap 25 Mg Capsule PO 25 mg Q6H PRN Administration Itching Dorzolamide/Timolol 1 drop 10/01/22 21:00 10/04/22 08:32 Dorzolamide/Timolol Ophth Dede 10 Ml Bottle EACH EYE 1 drop Q12HR DAINA Administration Ampicillin Sodium/Sulbactam Sodium 1.5 gm in 50 mls @ 100 mls/hr 10/03/22 10:20 10/04/22 05:57 Unasyn 1.5 Gm/Ns 50 Ml IVPB 100 mls/hr Q6HR DAINA Administration Iron Sucrose 500 mg/ Sodium 275 mls @ 78.571 mls/hr 10/04/22 09:00 10/04/22 08:32 Chloride IVPB 10/06/22 08:59 78.57 mls/hr DAILY DAINA Administration Metoprolol Succinate 50 mg 10/04/22 09:00 10/04/22 08:31 Metoprolol Succinate Ext Rel 50 Mg Tabcr PO 50 mg QAM DAINA Administration Ondansetron HCl 4 mg 09/30/22 21:47 10/01/22 21:00 Ondansetron Inj 4 Mg/2 Ml Vial IV PU
--- NOTE | 2022-10-04 14:00 | PM.PNGS ---
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 Mcgee and patient. Due to significant anemia and risk of ongoing bleeding, it would be safest to proceed with surgery during this hospitalization. This will largely depend on her pulmonary status, but if her respiratory status improves over the next couple days, could proceed with hand assisted laparoscopic right hemicolectomy. She is currently getting iron infusions for the next couple days. Continue inhalers/nebulizers, will add on incentive spirometry and have respiratory therapy see patient. Encourage ambulation to prehabilitate for surgery. (2) Acute on chronic blood loss anemia: Code(s): D62 - Acute posthemorrhagic anemia Status: Acute (3) Congestive heart failure: Code(s): I50.9 - Heart failure, unspecified Status: Acute (4) COPD (chronic obstructive pulmonary disease): Code(s): J44.9 - Chronic obstructive pulmonary disease, unspecified Status: Acute (5) Pneumonia: Code(s): J18.9 - Pneumonia, unspecified organism Status: Acute Subjective Subjective Date/Time Seen: 10/04/22 14:00 Interval history: Patient doing ok. Says she doesn't feel short of breath at rest, but does feel short of breath with walking. No fevers or productive cough. Breathing comfortably on room air. No abdominal pain. Tolerating diet. No BM since colonoscopy. Exam GI: Inspection: non-distended GI Palp: Yes Soft to palpation, No Tenderness to palpation present (GI) and No Guarding due to palpation present (GI) Objective Data Vital Signs Vital Signs: Vital Signs - 24 hr 10/03/22 16:00 10/03/22 20:48 10/03/22 21:38 Temperature 36.6 C 36.7 C Pulse Rate 108 H 100 103 H Respiratory Rate 16 16 18 Blood Pressure 113/63 137/52 L Pulse Oximetry 95 96 Oxygen Delivery 10/03/22 19:00 10/04/22 07:55 10/04/22 08:31 Temperature 36.3 C L Pulse Rate 105 H 103 H Respiratory Rate 20 Blood Pressure 118/64 Pulse Oximetry 93 Oxygen Delivery Room Air 10/04/22 08:00 Temperature Pulse Rate Respiratory Rate Blood Pressure Pulse Oximetry Oxygen Delivery Room Air Intake/Output Intake/Output: Intake & Output 10/01/22 10/02/22 10/03/22 10/04/22 23:59 23:59 23:59 23:59 Intake Total 1590 2430 1260 830 Output Total 2750 2100 200 Balance -6509 560 2033 830 Meds/Results Medications: Active Medications Generic Name Dose Route Start Last Admin Trade Name Freq PRN Reason Stop Dose Admin Albuterol 2 puff 09/30/22 22:05 Albuterol Sulfate (*Sp) Aerosol 1 Puff INHALATION Q6H PRN Shortness Of Breath Or Wheezing Ascorbic Acid 250 mg 10/01/22 09:00 10/04/22 08:31 Ascorbic Acid 250 Mg Tablet PO 250 mg DAILY DAINA Administration Atorvastatin Calcium 20 mg 09/30/22 22:15 10/03/22 20:56 Atorvastatin 20 Mg Tablet PO 20 mg HS DAINA Administration Clobetasol Propionate 1 applic 09/30/22 21:55 10/04/22 08:32 Clobetasol Propionate 0.05% Cream 15 Gm TOPICAL Not Given Q12HR DAINA Diphenhydramine HCl 25 mg 09/30/22 21:52 10/01/22 17:21 Diphenhydramine Hcl Cap 25 Mg Capsule PO 25 mg Q6H PRN Administration Itching Dorzolamide/Timolol 1 drop 10/01/22 21:00 10/04/22 08:32 Dorzolamide/Timolol Ophth Dede 10 Ml Bottle EACH EYE 1 drop Q12HR DAINA Administration Ampicillin Sodium/Sulbactam Sodium 1.5 gm in 50 mls @ 100 mls/hr 10/03/22 10:20 10/04/22 12:23 Unasyn 1.5 Gm/Ns 50 Ml IVPB 100 mls/hr Q6HR DAINA Administration Iron Sucrose 500 mg/ Sodium 275 mls @ 78.571 mls/hr 10/04/22 09:00 10/04/22 12:03 Chloride IVPB 10/06/22 08:59 78.57 mls/hr DAILY DAINA Infusion Metoprolol Succinate 50 mg 10/04/22 09:00 10/04/22 08:31 Metoprolol Succinate Ext Rel 50 Mg Tabcr PO 50 mg QAM DAINA Administration Ondans
[2022-10-04 16:00] VITALS: BP 139/83; PULSE 109; RESP 20; TEMP 36.4; O2SAT 94
[2022-10-04 20:10] VITALS: PULSE 99; RESP 22; O2SAT 92
[2022-10-04 21:29] VITALS: BP 136/66; PULSE 99; RESP 22; TEMP 36.8; O2SAT 92
[2022-10-04] MEDS: CLOBETASOL PROPIONATE 0.05% CREAM 15 GM 1 APPLIC TOPICAL (22:19)
[2022-10-04] MEDS: ATORVASTATIN 20 MG TABLET PO (22:19)
[2022-10-05] MEDS: AMPICILLIN SULB 1.5 GM/NS 50ML 1.5 GM/50 ML VIAL IVPB ×3 (00:28→12:41)
[2022-10-05 06:00] VITALS: BP 128/67; PULSE 103; RESP 22; TEMP 36.5; O2SAT 90
[2022-10-05 07:27] LABS: Hematocrit 23.6 % (37.0-47.0); Hemoglobin 7.1 g/dL (12.0-15.0); Mean Corpuscular HGB Conc 30.1 g/dl (32-36); Mean Corpuscular Hemoglobin 24.7 pg (26-34); Mean Corpuscular Volume 82.2 fl (80-100); Platelet Count Result 244 k/mm3 (150-375); Red Blood Count 2.87 M/mm3 (4.2-5.4)
[2022-10-05 08:00] VITALS: BP 130/72; PULSE 62; RESP 18; TEMP 36.4; O2SAT 95
[2022-10-05] MEDS: DORZOLAMIDE/TIMOLOL OPHTH SOL 10 ML BOTTLE 1 DROP EACH EYE ×2 (08:35→21:13)
[2022-10-05] MEDS: IRON SUCROSE COMPLEX 500 MG in SODIUM CHLORIDE 0.9% IV 250 ML 78.57 MG IVPB (08:41)
[2022-10-05 08:46] VITALS: PULSE 100
[2022-10-05] MEDS: METOPROLOL SUCCINATE EXT REL 50 MG TABCR PO (08:46)
[2022-10-05] MEDS: CLOBETASOL PROPIONATE 0.05% CREAM 15 GM 1 APPLIC TOPICAL ×2 (08:46→21:14)
[2022-10-05] MEDS: VITAMIN B COMPLEX CAPSULE 1 CAP PO (08:46)
[2022-10-05] MEDS: ASCORBIC ACID 250 MG TABLET PO (08:48)
[2022-10-05] MEDS: FLUTICASONE/SALMETEROL 45-21 MCG INHALER 1 PUFF 2 PUFF INHALATION ×2 (09:35→20:42)
--- NOTE | 2022-10-05 10:16 | WPDGIPROGNO ---
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 Status: Acute (3) Acute on chronic blood loss anemia: Code(s): D62 - Acute posthemorrhagic anemia Status: Acute Assessment and Plan: no overt gib from cecal mass hb low and she is also getting iv iron hem-onc on board (4) Atrial fibrillation: Code(s): I48.91 - Unspecified atrial fibrillation Status: Acute Assessment and Plan: blood thinner on hold (5) Pneumonia: Code(s): J18.9 - Pneumonia, unspecified organism Status: Acute Assessment and Plan: on unasyn, no more cough Subjective Date/time seen: 10/05/22 10:16 Interval history: no new events, path c/w adenocarcinoma of colon Review of Systems Review of Systems: All systems reviewed & are unremarkable except as noted in HPI and below Exam Const: General: comfortable and no acute distress HENMT: Face/Nose/Sinus: Normal nares present Eyes: General: appearance normal, both eyes and all related structures Neck: Neck: no JVD Resp: Auscultation: clear to auscultation bilaterally Cardio: Rate: regular rate Rhythm: regular rhythm GI: Inspection: non-distended GI Palp: Yes Soft to palpation Auscultation: normal bowel sounds Skin: General skin exam: normal color Neuro: Speech: normal speech Extrem: General: normal to inspection Psych: Mental Status: mental status grossly normal Objective Data Vital Signs Vital Signs: Vital Signs - 24 hr 10/04/22 14:50 10/04/22 16:00 10/04/22 21:29 Temperature 97.5 F L 98.2 F Pulse Rate 109 H 99 Respiratory Rate 20 22 H Blood Pressure 139/83 136/66 Pulse Oximetry 94 92 Oxygen Delivery Room Air 10/04/22 20:10 10/05/22 06:00 10/05/22 08:00 Temperature 97.7 F 97.5 F L Pulse Rate 99 103 H 62 Respiratory Rate 22 H 22 H 18 Blood Pressure 128/67 130/72 Pulse Oximetry 92 90 95 Oxygen Delivery Room Air 10/05/22 08:46 10/05/22 09:27 Temperature Pulse Rate 100 Respiratory Rate Blood Pressure Pulse Oximetry Oxygen Delivery Room Air Intake/Output Intake/Output: Intake & Output 10/02/22 10/03/22 10/04/22 10/05/22 23:59 23:59 23:59 23:59 Intake Total 2430 1260 2135 250 Output Total 2100 200 Balance 330 1060 2135 250 Meds/Results Medications: Active Medications Generic Name Dose Route Start Last Admin Trade Name Freq PRN Reason Stop Dose Admin Albuterol 2 puff 09/30/22 22:05 Albuterol Sulfate (*Sp) Aerosol 1 Puff INHALATION Q6H PRN Shortness Of Breath Or Wheezing Ascorbic Acid 250 mg 10/01/22 09:00 10/05/22 08:48 Ascorbic Acid 250 Mg Tablet PO 250 mg DAILY DAINA Administration Atorvastatin Calcium 20 mg 09/30/22 22:15 10/04/22 22:19 Atorvastatin 20 Mg Tablet PO 20 mg HS DAINA Administration Clobetasol Propionate 1 applic 09/30/22 21:55 10/05/22 08:46 Clobetasol Propionate 0.05% Cream 15 Gm TOPICAL 1 applic Q12HR DAINA Administration Diphenhydramine HCl 25 mg 09/30/22 21:52 10/01/22 17:21 Diphenhydramine Hcl Cap 25 Mg Capsule PO 25 mg Q6H PRN Administration Itching Dorzolamide/Timolol 1 drop 10/01/22 21:00 10/04/22 22:19 Dorzolamide/Timolol Ophth Dede 10 Ml Bottle EACH EYE 1 drop Q12HR DAINA Administration Ampicillin Sodium/Sulbactam Sodium 1.5 gm in 50 mls @ 100 mls/hr 10/03/22 10:20 10/05/22 06:17 Unasyn 1.5 Gm/Ns 50 Ml IVPB 100 mls/hr Q6HR DAINA Administration Iron Sucrose 500 mg/ Sodium 275 mls @ 78.571 mls/hr 10/04/22 09:00 10/05/22 08:41 Chloride IVPB 10/06/22 08:59 78.57 mls/hr DAILY DAINA Administration
--- NOTE | 2022-10-05 13:00 | PM.IMPN ---
Progress Note: A&P Assessment and Plan (1) GI bleed: Code(s): K92.2 - Gastrointestinal hemorrhage, unspecified Status: Acute Assessment and Plan: Cecal mass noted on colonoscopy biopsies suggestive for adenocarcinoma appreciate surgical evaluation. Patient may undergo surgery during this admission CT scan did not show any metastatic disease oncology consult (2) Pneumonia: Code(s): J18.9 - Pneumonia, unspecified organism Status: Acute Assessment and Plan: Discontinue IV Unasyn. Start oral Augmentin (3) Acute on chronic blood loss anemia: Code(s): D62 - Acute posthemorrhagic anemia Status: Acute Assessment and Plan: Status post transfusion. Hemoglobin stable. IV iron x3 days. Appreciate Hematology input. (4) COPD (chronic obstructive pulmonary disease): Code(s): J44.9 - Chronic obstructive pulmonary disease, unspecified Status: Acute Assessment and Plan: Patient advice to quit smoking. Continue Bronchodilators. (5) Hypertension: Code(s): I10 - Essential (primary) hypertension Status: Acute Assessment and Plan: -continue with metoprolol (6) Atrial fibrillation: Code(s): I48.91 - Unspecified atrial fibrillation Status: Acute Assessment and Plan: continue metoprolol. Heart rate well controlled. No chest pain. Xarelto still on hold due to GI bleed (7) Congestive heart failure: Code(s): I50.9 - Heart failure, unspecified Status: Acute Assessment and Plan: appears euvolemic. Subjective Date/time seen: 10/05/22 13:00 Patient reports some nausea and constipation. No other complaints. No abdominal pain Review of Systems Review of Systems: All systems reviewed & are unremarkable except as noted in HPI and below Exam Const: General: comfortable and no acute distress HENMT: Face/Nose/Sinus: Normal nares present Eyes: General: appearance normal, both eyes and all related structures Neck: Neck: no JVD Resp: Auscultation: clear to auscultation bilaterally Cardio: Rate: regular rate Rhythm: regular rhythm GI: Inspection: non-distended GI Palp: Yes Soft to palpation Auscultation: normal bowel sounds Skin: General skin exam: normal color Neuro: Speech: normal speech Extrem: General: normal to inspection Psych: Mental Status: mental status grossly normal Objective Data Vital Signs Vital Signs: Vital Signs - 24 hr 10/04/22 14:50 10/04/22 16:00 10/04/22 21:29 Temperature 97.5 F L 98.2 F Pulse Rate 109 H 99 Respiratory Rate 20 22 H Blood Pressure 139/83 136/66 Pulse Oximetry 94 92 Oxygen Delivery Room Air 10/04/22 20:10 10/05/22 06:00 10/05/22 08:00 Temperature 97.7 F 97.5 F L Pulse Rate 99 103 H 62 Respiratory Rate 22 H 22 H 18 Blood Pressure 128/67 130/72 Pulse Oximetry 92 90 95 Oxygen Delivery Room Air 10/05/22 08:46 10/05/22 09:27 10/05/22 08:00 Temperature Pulse Rate 100 Respiratory Rate Blood Pressure Pulse Oximetry Oxygen Delivery Room Air Room Air Intake/Output Intake/Output: Intake & Output 10/02/22 10/03/22 10/04/22 10/05/22 23:59 23:59 23:59 23:59 Intake Total 2430 / 2430 1260 / 1260 2135 / 2135 540 / 540 Output Total 2100 / 2100 200 / 200 Balance 330 / 330 1060 / 1060 2135 / 2135 540 / 540 Meds/Results Medications: Active Medications Generic Name Dose Route Start Last Admin Trade Name Freq PRN Reason Stop Dose Admin Albuterol 2 puff 09/30/22 22:05 Albuterol Sulfate (*Sp) Aerosol 1 Puff INHALATION Q6H PRN Shortness Of Breath Or Wheezing Amoxicillin/Clavulanate Potassium 1 tablet 10/05/22 13:00 Amoxicillin/Clavulanate K 875-125 Mg Tab PO Q12HR DAINA Ascorbic Acid 250 mg 10/01/22 09:00 10/05/22 08:48 Ascorbic Acid 250 Mg Tablet PO 250 mg DAILY DAINA Administration Atorvastatin Calcium 20 mg 09/30/22 22:15 10/04/22 2
--- NOTE | 2022-10-05 15:07 | PM.PNGS ---
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 She is currently getting iron infusions. If hemoglobin drops any further, then I would recommend keeping patient here proceeding with hand assisted laparoscopic right hemicolectomy. If hemoglobin is up tomorrow, okay to discharge home and will schedule surgery soon. Place patient clear liquids tomorrow morning in case she needs to be prepped for surgery. Also will start stimulating bowels with stool softener and laxative today. She has not had a bowel movement since colonoscopy. Discussed plan with case management and anesthesia. (2) Acute on chronic blood loss anemia: Code(s): D62 - Acute posthemorrhagic anemia Status: Acute (3) Congestive heart failure: Code(s): I50.9 - Heart failure, unspecified Status: Acute (4) COPD (chronic obstructive pulmonary disease): Code(s): J44.9 - Chronic obstructive pulmonary disease, unspecified Status: Acute (5) Pneumonia: Code(s): J18.9 - Pneumonia, unspecified organism Status: Acute Subjective Subjective Date/Time Seen: 10/05/22 15:07 Interval history: Patient only feels short of breath with ambulating. Denies cough or shortness of breath at rest. Bowels have not moved since colonoscopy. Exam GI: Inspection: non-distended GI Palp: Yes Soft to palpation, No Tenderness to palpation present (GI) and No Guarding due to palpation present (GI) Objective Data Vital Signs Vital Signs: Vital Signs - 24 hr 10/04/22 16:00 10/04/22 21:29 10/04/22 20:10 Temperature 36.4 C L 36.8 C Pulse Rate 109 H 99 99 Respiratory Rate 20 22 H 22 H Blood Pressure 139/83 136/66 Pulse Oximetry 94 92 92 Oxygen Delivery Room Air 10/05/22 06:00 10/05/22 08:00 10/05/22 08:46 Temperature 36.5 C 36.4 C L Pulse Rate 103 H 62 100 Respiratory Rate 22 H 18 Blood Pressure 128/67 130/72 Pulse Oximetry 90 95 Oxygen Delivery 10/05/22 09:27 10/05/22 08:00 Temperature Pulse Rate Respiratory Rate Blood Pressure Pulse Oximetry Oxygen Delivery Room Air Room Air Intake/Output Intake/Output: Intake & Output 10/02/22 10/03/22 10/04/22 10/05/22 23:59 23:59 23:59 23:59 Intake Total 2430 1260 2135 780 Output Total 2100 200 Balance 330 1060 2135 780 Meds/Results Medications: Active Medications Generic Name Dose Route Start Last Admin Trade Name Freq PRN Reason Stop Dose Admin Albuterol 2 puff 09/30/22 22:05 Albuterol Sulfate (*Sp) Aerosol 1 Puff INHALATION Q6H PRN Shortness Of Breath Or Wheezing Amoxicillin/Clavulanate Potassium 1 tablet 10/05/22 13:00 10/05/22 13:43 Amoxicillin/Clavulanate K 875-125 Mg Tab PO Not Given Q12HR DAINA Ascorbic Acid 250 mg 10/01/22 09:00 10/05/22 08:48 Ascorbic Acid 250 Mg Tablet PO 250 mg DAILY DAINA Administration Atorvastatin Calcium 20 mg 09/30/22 22:15 10/04/22 22:19 Atorvastatin 20 Mg Tablet PO 20 mg HS DAINA Administration Clobetasol Propionate 1 applic 09/30/22 21:55 10/05/22 08:46 Clobetasol Propionate 0.05% Cream 15 Gm TOPICAL 1 applic Q12HR DAINA Administration Diphenhydramine HCl 25 mg 09/30/22 21:52 10/01/22 17:21 Diphenhydramine Hcl Cap 25 Mg Capsule PO 25 mg Q6H PRN Administration Itching Docusate Sodium 100 mg 10/05/22 21:00 Docusate Sodium 100 Mg Capsule PO Q12HR DAINA Dorzolamide/Timolol 1 drop 10/01/22 21:00 10/04/22 22:19 Dorzolamide/Timolol Ophth Dede 10 Ml Bottle EACH EYE 1 drop Q12HR DAINA Administration Iron Sucrose 500 mg/ Sodium 275 mls @ 78.571 mls/hr 10/04/22 09:00 10/05/22 08:41 Chloride IVPB 10/06/22 08:59 78.57 mls/hr DAILY DAINA Administration Metoprolol Succinate 50 mg 10/04/22 09:00 10/05/22 08:46 Metoprolol Succinate Ext Rel
[2022-10-05 16:00] VITALS: BP 119/65; PULSE 86; RESP 18; TEMP 36.1; O2SAT 95
[2022-10-05 20:00] VITALS: PULSE 75; RESP 18; O2SAT 94
[2022-10-05] MEDS: DOCUSATE SODIUM 100 MG CAPSULE PO (21:12)
[2022-10-05] MEDS: ATORVASTATIN 20 MG TABLET PO (21:12)
[2022-10-05] MEDS: AMOXICILLIN/CLAVULANATE K 875-125 MG TAB 1 TABLET PO (21:13)
[2022-10-05 21:31] VITALS: BP 125/72; PULSE 75; RESP 18; TEMP 36.6; O2SAT 94
[2022-10-06 05:25] VITALS: BP 131/74; PULSE 95; RESP 20; TEMP 36.5; O2SAT 94
[2022-10-06 05:57] LABS: Mean Corpuscular HGB Conc 30.9 g/dl (32-36); Mean Corpuscular Hemoglobin 25.4 pg (26-34); Mean Corpuscular Volume 82.1 fl (80-100); Mean Platelet Volume 10.8 fl (7.4-10.4); Platelet Count Result 262 k/mm3 (150-375); Red Cell Distribution Width 20.9 % (11.5-14.5)
[2022-10-06 06:01] LABS: Hemoglobin 7.1 g/dL (12.0-15.0)
[2022-10-06 06:02] LABS: Anion Gap 9 mmol/L (8-16); Blood Urea Nitrogen 11 mg/dL (7-17); Carbon Dioxide 24 mmol/L (22-30); Chloride 98 mmol/L (98-107); Estimated CRCL calculation 38 ml/min; Estimated Glomerular Filt Rate 60; Glucose 115 mg/dL (65-110); Potassium 3.5 mmol/L (3.4-5.0); Sodium 131 mmol/L (137-145)
[2022-10-06] MEDS: DOCUSATE SODIUM 100 MG CAPSULE PO (08:57)
[2022-10-06 08:58] VITALS: PULSE 95
[2022-10-06] MEDS: VITAMIN B COMPLEX CAPSULE 1 CAP PO (08:58)
[2022-10-06] MEDS: METOPROLOL SUCCINATE EXT REL 50 MG TABCR PO (08:58)
[2022-10-06] MEDS: AMOXICILLIN/CLAVULANATE K 875-125 MG TAB 1 TABLET PO (08:58)
[2022-10-06] MEDS: ASCORBIC ACID 250 MG TABLET PO (08:59)
[2022-10-06] MEDS: DORZOLAMIDE/TIMOLOL OPHTH SOL 10 ML BOTTLE 1 DROP EACH EYE (09:00)
--- NOTE | 2022-10-06 09:37 | PM.IMPN ---
Progress Note: A&P Assessment and Plan (1) GI bleed: Code(s): K92.2 - Gastrointestinal hemorrhage, unspecified Status: Acute Assessment and Plan: Cecal mass noted on colonoscopy. biopsies suggestive for adenocarcinoma appreciate surgical evaluation. Patient may undergo surgery during this admission if hemoglobin remains low CT scan did not show any metastatic disease oncology consult (2) Pneumonia: Code(s): J18.9 - Pneumonia, unspecified organism Status: Acute Assessment and Plan: on oral Augmentin (3) Acute on chronic blood loss anemia: Code(s): D62 - Acute posthemorrhagic anemia Status: Acute Assessment and Plan: Status post transfusion. IV iron x3 days. Hemoglobin remains low Appreciate Hematology input. (4) COPD (chronic obstructive pulmonary disease): Code(s): J44.9 - Chronic obstructive pulmonary disease, unspecified Status: Acute Assessment and Plan: Patient advice to quit smoking. Continue Bronchodilators. (5) Hypertension: Code(s): I10 - Essential (primary) hypertension Status: Acute Assessment and Plan: -continue with metoprolol (6) Atrial fibrillation: Code(s): I48.91 - Unspecified atrial fibrillation Status: Acute Assessment and Plan: continue metoprolol. Heart rate well controlled. Xarelto on hold due to GI bleed (7) Congestive heart failure: Code(s): I50.9 - Heart failure, unspecified Status: Acute Assessment and Plan: appears euvolemic. Subjective Date/time seen: 10/06/22 09:37 No nausea vomiting. No bowel movement yet Review of Systems Review of Systems: All systems reviewed & are unremarkable except as noted in HPI and below Exam Const: General: comfortable HENMT: Face/Nose/Sinus: Normal nares present Eyes: General: appearance normal, both eyes and all related structures Resp: Effort & Inspection: normal respiratory effort Cardio: Rate: regular rate Heart sounds: no murmurs GI: Inspection: non-distended GI Palp: Yes Soft to palpation, No Tenderness to palpation present (GI) and No Guarding due to palpation present (GI) Neuro: General: gait normal Motor exam (neuro): 5/5 motor strength present throughout Sensory Exam: normal sensation Extrem: General: normal to inspection Psych: Mental Status: mental status grossly normal Objective Data Vital Signs Vital Signs: Vital Signs - 24 hr 10/05/22 16:00 10/05/22 21:31 10/05/22 20:00 Temperature 97.0 F L 97.8 F Pulse Rate 86 75 75 Respiratory Rate 18 18 18 Blood Pressure 119/65 125/72 Pulse Oximetry 95 94 94 Oxygen Delivery Room Air 10/06/22 05:25 10/06/22 08:58 Temperature 97.7 F Pulse Rate 95 95 Respiratory Rate 20 Blood Pressure 131/74 Pulse Oximetry 94 Oxygen Delivery Intake/Output Intake/Output: Intake & Output 10/03/22 10/04/22 10/05/22 10/06/22 23:59 23:59 23:59 23:59 Intake Total 1260 / 1260 2135 / 2135 1370 / 1370 150 / 150 Output Total 200 / 200 Balance 1060 / 1060 2135 / 2135 1370 / 1370 150 / 150 Meds/Results Medications: Active Medications Generic Name Dose Route Start Last Admin Trade Name Freq PRN Reason Stop Dose Admin Albuterol 2 puff 09/30/22 22:05 Albuterol Sulfate (*Sp) Aerosol 1 Puff INHALATION Q6H PRN Shortness Of Breath Or Wheezing Amoxicillin/Clavulanate Potassium 1 tablet 10/05/22 13:00 10/06/22 08:58 Amoxicillin/Clavulanate K 875-125 Mg Tab PO 1 tablet Q12HR DAINA Administration Ascorbic Acid 250 mg 10/01/22 09:00 10/06/22 08:59 Ascorbic Acid 250 Mg Tablet PO 250 mg DAILY DAINA Administration Atorvastatin Calcium 20 mg 09/30/22 22:15 10/05/22 21:12 Atorvastatin 20 Mg Tablet PO 20 mg HS DAINA Administration Clobetasol Propionate 1 applic 09/30/22 21:55 10/06/22 09:00 Clobetasol Propionate 0.05% Cream 15 Gm TOPICAL Not Given Q12HR DAINA
--- NOTE | 2022-10-06 12:00 | PM.PNGS ---
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 - Malignant neoplasm of cecum Status: Acute Assessment and Plan: no evidence of further acute bleeding at this point, long d/w pt and she would like to go home and proceed with elective resection at a later date, ok to dc from surgical standpoint c plans to f/u as outpt for R colectomy (2) Pneumonia: Code(s): J18.9 - Pneumonia, unspecified organism Status: Acute Assessment and Plan: still quite compromised, cont supportive mgmt Subjective Subjective Date/Time Seen: 10/06/22 12:00 feels ok, still c/o SOB sampson c exertion, no further s/s active GI bleed Review of Systems Review of Systems: All systems reviewed & are unremarkable except as noted in HPI and below Exam Const: General: cooperative, comfortable, no acute distress and ill appearing Resp: Auscultation: diminished lung sounds Cardio: Rate: regular rate Rhythm: regular rhythm GI: Inspection: normal to inspection and non-distended GI Palp: No abdominal tenderness, Yes Soft to palpation, No Tenderness to palpation present (GI), No Guarding due to palpation present (GI) and No Rigid due to palpation Objective Data Vital Signs Vital Signs: Vital Signs - 24 hr 10/05/22 16:00 10/05/22 21:31 10/05/22 20:00 Temperature 36.1 C L 36.6 C Pulse Rate 86 75 75 Respiratory Rate 18 18 18 Blood Pressure 119/65 125/72 Pulse Oximetry 95 94 94 Oxygen Delivery Room Air 10/06/22 05:25 10/06/22 08:58 Temperature 36.5 C Pulse Rate 95 95 Respiratory Rate 20 Blood Pressure 131/74 Pulse Oximetry 94 Oxygen Delivery Intake/Output Intake/Output: Intake & Output 10/03/22 10/04/22 10/05/22 10/06/22 23:59 23:59 23:59 23:59 Intake Total 1260 2135 1370 150 Output Total 200 Balance 1060 2135 1370 150 Meds/Results Medications: Active Medications Generic Name Dose Route Start Last Admin Trade Name Freq PRN Reason Stop Dose Admin Albuterol 2 puff 09/30/22 22:05 Albuterol Sulfate (*Sp) Aerosol 1 Puff INHALATION Q6H PRN Shortness Of Breath Or Wheezing Amoxicillin/Clavulanate Potassium 1 tablet 10/05/22 13:00 10/06/22 08:58 Amoxicillin/Clavulanate K 875-125 Mg Tab PO 1 tablet Q12HR DAINA Administration Ascorbic Acid 250 mg 10/01/22 09:00 10/06/22 08:59 Ascorbic Acid 250 Mg Tablet PO 250 mg DAILY DAINA Administration Atorvastatin Calcium 20 mg 09/30/22 22:15 10/05/22 21:12 Atorvastatin 20 Mg Tablet PO 20 mg HS [facility] Administration Clobetasol Propionate 1 applic 09/30/22 21:55 10/06/22 09:00 Clobetasol Propionate 0.05% Cream 15 Gm TOPICAL Not Given Q12HR [facility] Diphenhydramine HCl 25 mg 09/30/22 21:52 10/01/22 17:21 Diphenhydramine Hcl Cap 25 Mg Capsule PO 25 mg Q6H PRN Administration Itching Docusate Sodium 100 mg 10/05/22 21:00 10/06/22 08:57 Docusate Sodium 100 Mg Capsule PO 100 mg Q12HR DAINA Administration Dorzolamide/Timolol 1 drop 10/01/22 21:00 10/06/22 09:00 Dorzolamide/Timolol Ophth Dede 10 Ml Bottle EACH EYE 1 drop Q12HR DAINA Administration Metoprolol Succinate 50 mg 10/04/22 09:00 10/06/22 08:58 Metoprolol Succinate Ext Rel 50 Mg Tabcr PO 50 mg QAM DAINA Administration Ondansetron HCl 4 mg 09/30/22 21:47 10/01/22 21:00 Ondansetron Inj 4 Mg/2 Ml Vial IV PUSH 4 mg Q6H PRN Administration Nausea And Vomiting Polyethylene Glycol 17 gm 10/05/22 13:41 Polyethylene Glycol 3350 17 Gm Powd.Pack PO QAM PRN Constipation Fluticasone/Salmeterol 2 puff 10/01/22 08:00 10/05/22 20:42 Fluticasone/Salmeterol 45-21 Mcg Inhaler 1 Puff INHALATION 2 puff Q12HRT [facility] Administration Umeclidinium [place] 1 puff 10/01/22 09:00 10/05/22 09:35 Umeclidinium [place] 62.5 Mcg Ellipta INHALATION Not Given DAILY [facility] Vitamin B Complex 1 cap 10/01/22 09:00 10/06/22 08:58 Vitamin B Complex Capsule
[2022-10-06 14:00] VITALS: BP 166/72; PULSE 90; RESP 18; TEMP 36.4; O2SAT 97
--- NOTE | 2022-10-06 14:29 | PCRCNOTE ---
Window of time for administration has passed. See next scheduled administration.
[2022-10-06] MEDS: UMECLIDINIUM BROMIDE 62.5 MCG ELLIPTA 1 PUFF INHALATION (15:12)
--- NOTE | 2022-10-06 15:16 | PM.DS ---
DS: Admitting Diagnosis Discharge Date 10/06/22 Admitting Diagnosis anemia DS: Summary Hospital Course Hospital Course: (1) GI bleed: ?Code(s): K92.2 - Gastrointestinal hemorrhage, unspecified ?Status:?Acute ?Assessment and Plan: Cecal mass noted on colonoscopy.? biopsies suggestive for adenocarcinoma ?appreciate surgical evaluation.? plan for elective surgery after patient discussion with surgeon. ? CT scan did not show any metastatic? disease ?oncology consult (2) Pneumonia: ?Code(s): J18.9 - Pneumonia, unspecified organism ?Status:?Acute ?Assessment and Plan: on oral Augmentin. finished 5 day course of abx total. (3) Acute on chronic blood loss anemia: ?Code(s): D62 - Acute posthemorrhagic anemia ?Status:?Acute ?Assessment and Plan: ? Status post transfusion.? ? IV iron x3 days.? Hemoglobin remains low but stable. ? Appreciate Hematology input. (4) COPD (chronic obstructive pulmonary disease): ?Code(s): J44.9 - Chronic obstructive pulmonary disease, unspecified ?Status:?Acute ?Assessment and Plan: ?Patient advice to quit smoking. Continue Bronchodilators. (5) Hypertension: ?Code(s): I10 - Essential (primary) hypertension ?Status:?Acute ?Assessment and Plan: -continue with metoprolol (6) Atrial fibrillation: ?Code(s): I48.91 - Unspecified atrial fibrillation ?Status:?Acute ?Assessment and Plan: ?continue metoprolol.? Heart rate well controlled.? hold?Xarelto due to gi bleed. (7) Congestive heart failure: ?Code(s): I50.9 - Heart failure, unspecified ?Status:?Acute ?Assessment and Plan: ?appears euvolemic. patient is stable and is being discharged home. patient to discuss with PCP abut restatring Xarelto if Hb remains stable. Time Spent with Patient Time attestation: Total time spent providing and/or coordinating discharge services: Exam Const: General: cooperative, comfortable, no acute distress and ill appearing Resp: Auscultation: diminished lung sounds Cardio: Rate: regular rate Rhythm: regular rhythm GI: Inspection: normal to inspection and non-distended GI Palp: No abdominal tenderness, Yes Soft to palpation, No Tenderness to palpation present (GI), No Guarding due to palpation present (GI) and No Rigid due to palpation DS: Data Data Completed and Pending Completed studies during hospitalization: Pending at discharge 10/02/22 08:01 Surgical [PTH] Routine Labs on day of discharge: Labs from last 24 hours 10/06/22 10/06/22 05:32 05:32 WBC 9.0 RBC 2.80 L Hgb 7.1 L Hct 23.0 L MCV 82.1 MCH 25.4 L MCHC 30.9 L RDW 20.9 H Plt Count 262 MPV 10.8 H Sodium 131 L Potassium 3.5 Chloride 98 Carbon Dioxide 24 Anion Gap 9 BUN 11 Creatinine 0.90 Estim Creat Clear Calc 38 Estimated GFR 60 Glucose 115 H Calcium 8.0 L Discharge Plan Discharge Consulting providers: Abhi England ; Jermaine Cruz ; Waldemar Mcgee Discharging Clinician: Jf Schilling Anticipated Discharge Date/Time: 10/06/22 15:13 Patient Disposition: Home, Self-Care Activity: march shower Diet: heart healthy Patient Instructions: Antibiotic Form, Rivaroxaban (By mouth), Heart Failure (DC), A-fib (Atrial Fibrillation) (DC), Gastrointestinal Bleeding (DC) Stand Alone Forms: General Discharge Information Follow-up/Referrals: Jermaine Cruz DO [Physician] - Discharge Medications: New docusate sodium 100 mg Capsule 100 mg PO Q12HR PRN (Reason: Constipation) Qty: 30 0RF Continued atorvastatin 20 mg tablet 20 mg PO HS hydroxyzine HCl 25 mg tablet 25 mg PO TID PRN (Reason: Itching) furosemide 20 mg tablet 20 mg PO DAILY metoprolol succinate 25 mg tablet extended release 24 hr 25 mg PO POST-TRANSFUSION albuterol sulfate [ProAir HFA] 90 mcg/actuation HFA aerosol inhaler 2 inh INHALA
== END 2022-10-06 15:40 | disposition home or self-care (01) | DRG 374 ==
LOC: ANHIMU 10-03 10:48 → ANH3MEDSUR 10-03 14:46
PROVIDERS: Anesthesiology; Chiropractor; Internal Medicine Gastroenterology; Internal Medicine Hematology & Oncology; Nurse Practitioner; Nurse Practitioner Family; Surgery; Admitting Provider Internal Medicine; PCP Internal Medicine; Visit Provider Hospitalist
PROC: 0DJ08ZZ Inspection of Upper Intestinal Tract, Via Natural or Artificial Opening Endoscopic (ICD-10-PCS; CPT 43235; principal; 2022-10-02 07:30)
DX: C18.0 Malignant neoplasm of cecum (principal); J69.0 Pneumonitis due to inhalation of food and vomit; D62 Acute posthemorrhagic anemia; I50.42 Chronic combined systolic (congestive) and diastolic (congestive) heart failure; K57.30 Diverticulosis of large intestine without perforation or abscess without bleeding; E78.5 Hyperlipidemia, unspecified; G47.33 Obstructive sleep apnea (adult) (pediatric); I48.91 Unspecified atrial fibrillation; I11.0 Hypertensive heart disease with heart failure; J44.9 Chronic obstructive pulmonary disease, unspecified; K64.8 Other hemorrhoids; L30.9 Dermatitis, unspecified; M19.90 Unspecified osteoarthritis, unspecified site; R19.5 Other fecal abnormalities; Z79.01 Long term (current) use of anticoagulants; Z90.49 Acquired absence of other specified parts of digestive tract; Z98.41 Cataract extraction status, right eye; Z98.42 Cataract extraction status, left eye; Z87.891 Personal history of nicotine dependence
CPT/HCPCS: 36415; 71045; 71046; 74177; 80048; 80053; 81001; 82378; 82607; 82728; 82746; 83540; 83550; 83605; 83735; 84100; 84484; 85014; 85018; 85025; 85027; 86850; 86900; 86901; 88305; 93005; 93306; 94640; 96361; 96374; 97161; 97166; 97535; A9270; C9113; G0378; G0379; J0295; J1756; J2405; J2704; J7030; J7050; J7120; Q9967

== ENCOUNTER 2022-10-14 11:32 | Outpatient (CLI) | payer MEDICARE, SELFPAY ==
[2022-10-14 13:07] LABS: Hematocrit 31.7 % (37.0-47.0); Hemoglobin 9.7 g/dL (12.0-15.0)
[2022-10-14 13:13] LABS: Sodium 129 mmol/L (137-145)
== END 2022-10-14 11:33 | disposition home or self-care (01) ==
LOC: ANHSURGERY 11:36
PROVIDERS: Anesthesiology; PCP Internal Medicine; Visit Provider Surgery
DX: C18.0 Malignant neoplasm of cecum (principal); I10 Essential (primary) hypertension
CPT/HCPCS: 36415; 84295; 85014; 85018

== ENCOUNTER 2022-10-21 16:27 | Inpatient (IN) | payer MEDICARE, SELFPAY ==
[2022-10-14 12:29] VITALS: BMI 26.9
--- NOTE | 2022-10-14 12:30 | PC.NURSE ---
Addendum entered by Ailyn Escobar RN 10/14/22 12:38: [place] SHOWER DAY BEFORE SURGERY AND MORNING OF SURGERY Original Note: Report to the Outpatient Waiting Room, entrance under the green pavilion located off [address], at time __1000 on date __10/21/22 . Planned Procedure Time: _1200 . Time changes happen often and if your time is changed the preop area will call you the afternoon before. - You and your visitor will be asked to self-screen and do not enter if you have any COVID symptoms. - Only one visitor is requested with a max of two and NO children visitors are allowed at this time. - The patient visitor may be requested to leave or wait in car when not with patient due to distancing restrictions. - A mask is optional within the hospital. Patients may have clear liquids (water, carbonated beverages, clear teas, apple juice) until 3 hours prior to surgery with a maximum of 20 ounces. - No food from midnight until time of surgery - Infants may have breast milk until 4 hours before surgery, formula 6 hours prior to surgery. - Children will be allowed to drink immediately following surgery. If applicable, please bring a bottle or sippy cup to assist with drinking. Juice, water, soda, and popsicles are readily available. For infants on formula, please bring formula the day of surgery. Pacifiers are allowed. Take the following medications with a SIP of water the morning of surgery: ____SPIRIVA INHALER,SYMBICORT INHALER, EYE DROPS AND METOPROLOL Medications to discontinue per physician __PT STATES LAST DOSE OF XARELTO WAS 10/06/22 ALL VITAMINS AND SUPPLEMENTS 3 DAYS PRE OP Date to take last dose____10/17/22 Please no make-up, nail bengali, hairspray, perfume, deodorant, or body powder the day of surgery. No jewelry (including any body piercings) or valuables the day of surgery, leave them at home. Please take a shower or bath the night before, or the morning of, surgery with an antibacterial soap. Wear comfortable, loose fitting clothing. Children are encouraged to wear pajamas. - Jewelry must be removed prior to entering the operating room. Rings and piercings that are not removed may be cut off. - The hospital will not accept responsibility for valuables. - Please leave all valuables, including medications, at home the day of surgery. If you are going home after surgery, a licensed regional otr company driver must drive you home. - NO public transportation without another adult if you receive anesthesia. - We recommend that an adult stay with you for 24 hours following discharge. - We also recommend that you do not drive, make important decision, drink alcoholic beverages, or take any drugs that were not prescribed by your health care provider for at least 24 hours after your discharge time. For Pediatric surgeries, we recommend two adults accompany the child home. Follow any additional instructions given to you from your surgeon. If you or anyone in your household have experienced Covid symptoms in the past week, please notify your surgeon or the nurse liaison at the phone number below for possible testing. VERBAL AND WRITTEN instructions given to ___PATIENT AND DAUGHTER BALA and asked if any additional questions and then verbalized understanding. Patient advised to call surgeon office or pre surgery nurse liaison [phone] if any additional questions.
[2022-10-14 12:58] VITALS: BP 150/98; PULSE 67; RESP 18; TEMP 36.6; O2SAT 96
[2022-10-21] VITALS (16 sets, daily range): BP systolic 85–158; BP diastolic 46–91; PULSE 82–109; RESP 14–20; TEMP 36.2–36.5; O2SAT 2–100
--- NOTE | 2022-10-21 11:18 | PM.IMHP ---
H&P: HPI History of Present Illness Date/Time: 10/21/22 11:18 Chief Complaint: colon cancer Narrative: 82 yo woman presents for right hemicolectomy for colon cancer. She was recently hospitalized with severe anemia and colonoscopy showed evidence of a cecal mass. Biopsies confirmed adenocarcinoma. Review of Systems Review of Systems: All systems reviewed & are unremarkable except as noted in HPI and below Constitutional: Constitutional: Denies chills, Denies fever(s), Denies headache(s) and Denies weight loss Eyes: Eyes: Denies change in vision ENT: Denies dizziness, Denies headache(s), Denies neck mass and Denies throat swelling Cardiovascular: Cardiovascular: Denies chest pain, Denies lightheadedness and Denies dyspnea Respiratory: Respiratory: Denies cough, Denies dyspnea and Denies wheezing Gastrointestinal: Gastrointestinal: Denies abdominal pain, Denies change in bowel habits, Denies nausea and Denies vomiting Genitourinary: Genitourinary: Denies hematuria and Denies dysuria Musculoskeletal: Musculoskeletal: Reports as per HPI Integumentary/Breasts: Skin/Breast: Reports as per HPI Neurologic: Denies dizziness and Denies headache(s) Allergic/Immunologic: Allergic/Immunologic: Denies throat swelling and Denies wheezing [facility] Past Medical History Medical History (Updated 10/04/22 @ 14:02 by Jermaine Cruz DO) Abnormal colonoscopy Acute on chronic blood loss anemia Anemia Arthritis Atrial fibrillation Congestive heart failure EF 70% COPD (chronic obstructive pulmonary disease) Hyperlipidemia Hypertension Obstructive sleep apnea Occult blood in stools Pneumonia Surgical History Surgical History (Updated 10/03/22 @ 18:25 by Waldemar Mcgee MD) H/O cervical polypectomy History of bilateral cataract extraction History of colonoscopy with polypectomy Hx of cholecystectomy Family History Family History Sibling Cancer Carcinoma of colon Father Acute myocardial infarction Social History Social History Social History: The patient lives home alone. She is now . She has 3 children. She has decided to make all 3 of her children the power employment attorney for healthcare. The patient states that she drinks approximately 8 cans of beer per week. Some nights she may not drink another night she may drink 3 beers. She denies any marijuana or illicit drugs. 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 Code status full code Smoking packs per day: 1 Smoking cigarettes per day: 20.0 Years smoked: 35 Smoking pack-years: 35.00 Smoking status: Former smoker Tobacco type: cigarettes Smoking end date: 11/13/98 Alcohol intake: current Drinks per week: 6 Alcohol use details: BEER Substance use: never Substance use type: does not use Lack of Transportation: No Lack of Food: Never True Current Housing: I Have Housing Concerned About Future Housing: No Difficulty Paying Gas/Electric Bills: No Difficulty Paying for Meds: No Currently Unemployed: No Education: Grade School Difficulty w/ Childcare or Family Care: No Living arrangements: alone Spiritual care concerns: No Meds Home Medications and Allergies Home Medications Medication Instructions Recorded Confirmed Type albuterol sulfate 90 mcg/actuation 2 inh inhalation Q6H PRN Shortness 09/30/22 10/14/22 History aerosol inhaler (ProAir HFA) Of Breath Or Wheezing ascorbic acid (vitamin C) 500 mg 250 mg PO DAILY 09/30/22 10/14/22 History tablet atorvastatin 20 mg tablet 20 mg PO HS 09/30/22 10/14/22 History budesonide-formoterol HFA 80 2 inh inhalation DAILY 09/30/22 10/14/22 History mcg-4.5 mcg/actuation aerosol inhaler (Symbicort) dorzolamide 22.3 mg-timolol 6.8 1 drp EACH EYE Q12H 09/30/22 10/14/22 History mg/mL eye drops hydroxyzine HCl 25 mg tablet 25 mg PO
--- NOTE | 2022-10-21 11:19 | WPDANESEPPF ---
Anes - Initial Pre Proc Eval Procedure: Operation Date: 10/21/22 12:00 Proposed Procedures p Hand Assisted Laparoscopic Right Hemicolectomy - Jermaine Cruz DO Date/Time: 10/21/22 11:19 Surgeon: Jermaine Cruz DO Pre Op Diagnosis: Adenocarcinoma of Cecum Patient Data Age: 82 Gender: F Height: 1.52 m Weight: 62.7 kg Last Vital Signs Temp 36.6 C 10/14/22 12:58 Pulse 67 10/14/22 12:58 Resp 18 10/14/22 12:58 BP 150/98 H 10/14/22 12:58 Pulse Ox 96 10/14/22 12:58 O2 Del Method Room Air 10/14/22 12:58 Allergies Allergy/AdvReac Type Severity Reaction Status Date / Time furosemide [From Lasix] AdvReac Itching Verified 10/14/22 11:51 Home Medications Medication Instructions Recorded Confirmed Type albuterol sulfate 90 mcg/actuation 2 inh inhalation Q6H PRN Shortness 09/30/22 10/14/22 History aerosol inhaler (ProAir HFA) Of Breath Or Wheezing ascorbic acid (vitamin C) 500 mg 250 mg PO DAILY 09/30/22 10/14/22 History tablet atorvastatin 20 mg tablet 20 mg PO HS 09/30/22 10/14/22 History budesonide-formoterol HFA 80 2 inh inhalation DAILY 09/30/22 10/14/22 History mcg-4.5 mcg/actuation aerosol inhaler (Symbicort) dorzolamide 22.3 mg-timolol 6.8 1 drp EACH EYE Q12H 09/30/22 10/14/22 History mg/mL eye drops hydroxyzine HCl 25 mg tablet 25 mg PO TID PRN Itching 09/30/22 10/14/22 History metoprolol succinate 25 mg 25 mg PO POST-TRANSFUSION 09/30/22 10/14/22 History tablet,extended release 24 hr tiotropium bromide 18 mcg capsule 1 cap inhalation DAILY 09/30/22 10/14/22 History with inhalation device (Spiriva with HandiHaler) docusate sodium 100 mg capsule 100 mg PO Q12HR PRN Constipation 10/06/22 10/14/22 Rx #30 caps ciprofloxacin HCl 500 mg tablet See Rx Instructions .Route 10/12/22 10/14/22 Rx (Cipro) .COMPLEX #2 tabs metronidazole 500 mg tablet See Rx Instructions .Route 10/12/22 10/14/22 Rx .COMPLEX #3 tabs cyanocobalamin (vitamin B-12) 2,500 mcg PO DAILY 10/14/22 10/14/22 History 2,500 mcg tablet rivaroxaban 15 mg tablet (Xarelto) 15 mg PO DAILY 10/14/22 10/14/22 History Laboratory Tests 10/21/22 10:58 Sodium Pending Patient hx anesthesia problems: none Family hx anesthesia problems: none Results Review: All pre-operative results and documents have been reviewed as part of the pre-operative evaluation. REPLACED BY [facility] Past Medical History Medical History Abnormal colonoscopy Acute on chronic blood loss anemia Anemia Arthritis Atrial fibrillation Congestive heart failure EF 70% COPD (chronic obstructive pulmonary disease) Hyperlipidemia Hypertension Obstructive sleep apnea Occult blood in stools Pneumonia Surgical History Surgical History H/O cervical polypectomy History of bilateral cataract extraction History of colonoscopy with polypectomy Hx of cholecystectomy Family History Family History Sibling Cancer Carcinoma of colon Father Acute myocardial infarction Social History Social History Social History: The patient lives home alone. She is now . She has 3 children. She has decided to make all 3 of her children the power claim attorney for healthcare. The patient states that she drinks approximately 8 cans of beer per week. Some nights she may not drink another night she may drink 3 beers. She denies any marijuana or illicit drugs. 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 Code status full code Smoking packs per day: 1 Smoking cigarettes per day: 20.0 Years smoked: 35 Smoking pack-years: 35.00 Smoking status: Former smoker Tobacco type: cigarettes Smoking end date: 11/13/98 Alcohol intake: current Drinks per week: 6 Alcohol use details: BE
[2022-10-21 11:22] LABS: Sodium 125 mmol/L (137-145)
--- NOTE | 2022-10-21 11:27 | WPDHPUPDATE1 ---
History and Physical Update Update Date/Time: 10/21/22 11:27 History and Physical has been reviewed, including an updated exam of the patient. There are NO changes in the patient's condition. Risks, benefits, and alternatives have been discussed and questions answered. Patient agrees to proceed with procedure.
[2022-10-21] MEDS: KETOROLAC 15 MG/ML VIAL (*BKC) IV PUSH (11:45)
[2022-10-21] MEDS: LACTATED RINGERS 1,000 ML 30 ML IV CONT (11:45)
[2022-10-21] MEDS: ACETAMINOPHEN 500 MG TABLET 1000 MG PO ×2 (11:45→17:15)
[2022-10-21] MEDS: ceFAZolin 2 GM/D5W 50 ML 2 GM/50 ML BAG IVPB (12:11)
[2022-10-21] MEDS: SODIUM CHLORIDE 0.9% IV 1,000 ML 30 ML IV CONT (12:12)
[2022-10-21] MEDS: metroNIDAZOLE 500 MG/ISO 100ML 500 MG/100 ML BAG 100 MG IVPB (12:29)
[2022-10-21] MEDS: INDOCYANINE GREEN 25 MG VIAL IV PUSH (13:17)
--- NOTE | 2022-10-21 14:07 | SUR.OPER ---
200mL of clear yellow urine drained from bales. Bales removed at the end of the case per Dr. Cruz
--- NOTE | 2022-10-21 14:35 | W.PM.PROC2 ---
Procedure Note - Detailed Date of Procedure 10/21/22 Pre-op Diagnosis Adenocarcinoma of Cecum Post-op Diagnosis Same Procedure Performed Hand assisted laparoscopic right hemicolectomy with ileocolic anastomosis Surgeon Jermaine Cruz, DO Anesthesia General and Local (Exparel) Indications This is an 82-year-old woman who presented with anemia and a cecal mass. She was admitted to the hospital 2 weeks ago for severe anemia and was transfused 2 units of packed red blood cells. Colonoscopy was performed and biopsies of the cecal mass confirmed adenocarcinoma. She had aspirated after the EGD and colonoscopy therefore she was not taken urgently for colon resection. Her anemia appeared stable with no further signs of bleeding and her blood thinners were held due to risk of recurrent bleeding. Discussions were made with the patient about treatment options and decision was made to proceed with hand assisted laparoscopic right hemicolectomy, possible open. Findings Hand assisted laparoscopic right hemicolectomy was performed. The patient had a few adhesions in her right upper quadrant from her previous cholecystectomy. Otherwise no significant intra-abdominal abnormalities were noted. The mass was palpable at the cecum, but no clearly enlarged lymph nodes were identified. A high ligation of the ileocolic vessels was performed. ICG was used to confirm adequate perfusion to the proximal and distal margins. Right hemicolectomy was then performed with a [id number] ileocolic anastomosis. The right colon was sent to the lab for pathology. Description of Procedure Procedure as well as risks benefits and alternatives were explained to the patient. Written consent was obtained and placed in chart prior to procedure. Patient was brought back to surgical suite. She was placed supine on operating table. Time-out was done to confirm patient procedure. She was then intubated by the anesthesia department. Her abdomen was prepped and draped in sterile fashion using chlorhexidine prep. A 7 centimeter vertical incision was made just superior to the umbilicus using a 15 blade scalpel. Electrocautery was used for hemostasis and for dissection down through Mp's fascia. The linea alba was identified, and incised using electrocautery. Two Valeriano clamps were used to lift the fascia anteriorly, and the peritoneum was then entered using electrocautery. The abdomen was inspected and no acute abnormalities were noted. The wound protector was placed at this incision, and the GelPort was applied with a 5 millimeter port placed through it. Carbon dioxide insufflation was used to create a pneumoperitoneum. The camera was inserted and the abdominal cavity was inspected. The mass was identified at the cecum, and no other abnormalities were noted. The patient was placed in Trendelenburg position and rotated slightly to the left. A 5 millimeter incision was made in the lower midline and a 5 millimeter trocar was inserted under direct visualization. Another 5 millimeter incision was made in the left lower quadrant, and a 5 millimeter trocar was inserted under direct visualization. A transversus abdominis plane block with Exparel was performed under laparoscopic visualization bilaterally. After carefully inspecting the abdominal cavity, I began my dissection from a medial to lateral direction along the ileocolic pedicle. The cecum was tented anteriorly and laterally and this allowed me to visualize the ileocolic pedicle. The medial side and inferior side of the peritoneum was scored using hook electrocautery and the retroperitoneal plane was entered. Careful dissection was performed using hook electrocautery in this relatively avascular plane. The duodenum was identified and swept posteriorly. I then continued to dissect proximally along the ileocolic pedicle. I isolated the ileocolic vein and artery individually and performed a high ligation using bipolar cautery. Aditya
[2022-10-21] MEDS: NEOSTIGMINE 1:1000 10 MG/10 ML VIAL 2 MG IV PUSH (14:52)
[2022-10-21] MEDS: SUGAMMADEX SODIUM 200 MG/2 ML VIAL IV PUSH (14:52)
[2022-10-21] MEDS: GLYCOPYRROLATE INJ (*SP) 0.2 MG/ML VIAL IV PUSH (14:52)
[2022-10-21] MEDS: diazePAM INJ (*CRX) 10 MG/2 ML SYRINGE 2 MG IV PUSH (15:14)
[2022-10-21] MEDS: SODIUM CHLORIDE 0.9% IV 1,000 ML 100 ML IV CONT (17:15)
--- NOTE | 2022-10-21 20:16 | PM.IMCN ---
Assessment and Plan Assessment and plan (1) Chronic hyponatremia: Code(s): E87.1 - Hypo-osmolality and hyponatremia Status: Acute (2) Adenocarcinoma of colon: Code(s): C18.9 - Malignant neoplasm of colon, unspecified Status: Acute (3) COPD (chronic obstructive pulmonary disease): Code(s): J44.9 - Chronic obstructive pulmonary disease, unspecified Status: Acute (4) Obstructive sleep apnea: Code(s): G47.33 - Obstructive sleep apnea (adult) (pediatric) Status: Acute Plan Her consult for management of hyponatremia. The patient's sodium was down to 125. But the patient does have some component of chronic hyponatremia ever since her last hospitalization with sodium of 129 at time of her last discharge. She did undergo bowel prep for surgery with probably exacerbated her hyponatremia. Patient has received IV fluids after surgery. Repeat sodium after IV fluid hydration has improved up to 130. This is likely the patient's new baseline is setting of her chronic COPD and colon cancer. Will repeat sodium in the morning and monitor fluid status. The patient does have COPD but is had no change in her shortness of breath from baseline. She reports that her shortness of breath from her aspiration pneumonia has finally resolved. Will continue the patient's home p.r.n. albuterol and scheduled inhaled corticosteroid/bronchodilator. The patient had a colectomy with reanastomosis. Will monitor hemoglobin as the patient did did need blood transfusion during her last hospitalization. Postoperative management including DVT prophylaxis and pain and nausea management per Surgical Service. The patient does not want CPAP currently. HPI Data of Consult Consult date: 10/22/22 Requesting Physician: Jermaine Cruz DO Primary Care Provider: Marissa BlasMD Consult Narrative Reason for consult: Hyponatremia, COPD Narrative: Delilah Wynne is a 82 year old female with past medical history of adenocarcinoma of colon, recent GI bleed, COPD and pulmonary hypertension who presented to the hospital today for planned/scheduled right hemicolectomy due to recent diagnosis of colon cancer. The patient recently presented to outside hospital and was transferred here on 09/30/2022 with symptoms of shortness of breath and was found to be profoundly anemic. She received blood transfusions of 2 units and colonoscopy that demonstrated a cecal mass. Biopsies confirmed adenocarcinoma. She also had an EGD at that time and aspirated during the EGD and was treated for aspiration pneumonia. Today she will underwent hand assisted laparoscopic right hemicolectomy with ileaocolic anastomosis. She had a reported estimated blood loss of 20 mL. The patient has been stable since surgery. During last hospitalization the patient was noted to be hyponatremic. Her sodium at that time ranged from 140 down to 131. She had outpatient sodium performed preop on October 14 which was 129. She had repeat sodiums postop today which is down to 125. Her hemoglobin on discharge from hospital on 10/06 was 7.1. Her preop hemoglobin on 08/14/2022 with 9.7. The patient reports that postoperatively she has not having any pain unless her abdomen is palpated. She has not yet passed gas. She denies any current shortness of breath. She denies any chest pain. She has not noticed any lower extremity swelling. She reports poor appetite for the last 6-8 months. She thinks her weight is relatively stable. However on review over prior weights it looks like she has down somewhere between 2-4 kg from her last hospital stay. She denies any further hematochezia or melena since her last hospital stay. She denies any dysuria your or difficulty urinating prior to surgery. However, she has not yet voided since surgery. Review of Systems Review of Systems: 12 systems were reviewed with pertinent positives and negatives per HPI. Except as
[2022-10-21] MEDS: ATORVASTATIN 20 MG TABLET PO (20:30)
[2022-10-21] MEDS: DORZOLAMIDE/TIMOLOL OPHTH SOL 10 ML BOTTLE 1 DROP EACH EYE (20:35)
[2022-10-21 21:21] LABS: Basophils Percent Auto 0.2 % (0.2-1.2); Hematocrit 31.2 % (37.0-47.0); Hemoglobin 9.6 g/dL (12.0-15.0); Immature Granulocyte Absolute 0.05 K/mm3 (0.00-0.031); Immature Granulocyte Percent A 0.4 % (0-0.5); Lymphocytes Absolute Auto 0.57 K/mm3 (0.9-3.2); Lymphocytes Percent Auto 4.9 % (18.3-44.2); Mean Corpuscular HGB Conc 30.8 g/dl (32-36); Mean Corpuscular Hemoglobin 27.6 pg (26-34); Mean Corpuscular Volume 89.7 fl (80-100); Mean Platelet Volume 9.6 fl (7.4-10.4); Monocytes Absolute Auto 0.3 K/mm3 (0.1-0.6); Monocytes Percent Auto 2.5 % (2.6-8.5); Neutrophils Absolute Auto 10.7 K/mm3 (1.3-6.7); Platelet Count Result 352 k/mm3 (150-375); Red Blood Count 3.48 M/mm3 (4.2-5.4); Red Cell Distribution Width 24.7 % (11.5-14.5); White Blood Count 11.6 K/mm3 (4.5-10.0)
[2022-10-21 21:33] LABS: Alanine Aminotransferase 16 U/L (6-35); Albumin Level 3.1 g/dL (3.5-5.1); Alkaline Phosphatase 76 U/L (38-126); Anion Gap 8 mmol/L (8-16); Aspartate Amino Transferase 22 U/L (14-36); Bilirubin,Total 0.3 mg/dL (0.2-1.3); Blood Urea Nitrogen 9 mg/dL (7-17); Calcium 7.7 mg/dL (8.4-10.2); Carbon Dioxide 22 mmol/L (22-30); Chloride 100 mmol/L (98-107); Estimated CRCL calculation 31 ml/min; Estimated Glomerular Filt Rate 53; Glucose 169 mg/dL (65-110); Magnesium 1.7 mg/dL (1.6-2.3); Potassium 3.6 mmol/L (3.4-5.0); Sodium 130 mmol/L (137-145)
[2022-10-21 21:41] LABS: Platelet Estimate Adequate (Adequate)
[2022-10-21 21:42] LABS: Anisocytosis 2+ (NORMAL); Poikilocytosis 1+ (NORMAL)
[2022-10-21] MEDS: FLUTICASONE/SALMETEROL 45-21 MCG INHALER 1 PUFF 2 PUFF INHALATION (21:50)
[2022-10-22 03:25] VITALS: BP 124/65; PULSE 96; RESP 18; TEMP 36.3; O2SAT 93
[2022-10-22] MEDS: SODIUM CHLORIDE 0.9% IV 1,000 ML 100 ML IV CONT ×2 (05:02→19:01)
[2022-10-22] MEDS: ACETAMINOPHEN 500 MG TABLET 1000 MG PO ×4 (05:06→23:00)
[2022-10-22] MEDS: DORZOLAMIDE/TIMOLOL OPHTH SOL 10 ML BOTTLE 1 DROP EACH EYE ×2 (05:07→17:25)
[2022-10-22 06:10] LABS: Creatinine Urine 138.9 mg/dL; Total Protein Urine Random 9 mg/dL; Ur Ttl Prot Creatinine Ratio 0.06 mg/mg (0-0.20)
[2022-10-22 06:11] LABS: Sodium Urine Random 23 meq/L
[2022-10-22 06:22] LABS: Basophils Percent Auto 0.3 % (0.2-1.2); Eosinophils Percent Auto 0.1 % (0-4.4); Hemoglobin 9.3 g/dL (12.0-15.0); Immature Granulocyte Absolute 0.05 K/mm3 (0.00-0.031); Immature Granulocyte Percent A 0.5 % (0-0.5); Lymphocytes Absolute Auto 0.86 K/mm3 (0.9-3.2); Mean Corpuscular Hemoglobin 26.6 pg (26-34); Mean Corpuscular Volume 88.8 fl (80-100); Mean Platelet Volume 9.7 fl (7.4-10.4); Monocytes Absolute Auto 0.5 K/mm3 (0.1-0.6); Monocytes Percent Auto 4.3 % (2.6-8.5); Neutrophils Absolute Auto 9.3 K/mm3 (1.3-6.7); Neutrophils Percent Auto 86.8 % (45.5-73.1); Platelet Count Result 371 k/mm3 (150-375); Red Blood Count 3.49 M/mm3 (4.2-5.4); Red Cell Distribution Width 24.5 % (11.5-14.5); White Blood Count 10.7 K/mm3 (4.5-10.0)
[2022-10-22 06:36] LABS: Anion Gap 6 mmol/L (8-16); Blood Urea Nitrogen 8 mg/dL (7-17); Calcium 7.9 mg/dL (8.4-10.2); Carbon Dioxide 22 mmol/L (22-30); Chloride 100 mmol/L (98-107); Estimated CRCL calculation 37 ml/min; Estimated Glomerular Filt Rate 60; Glucose 113 mg/dL (65-110); Potassium 3.8 mmol/L (3.4-5.0); Sodium 128 mmol/L (137-145)
--- NOTE | 2022-10-22 07:42 | PM.IMPN ---
Progress Note: A&P Assessment and Plan (1) Chronic hyponatremia: Code(s): E87.1 - Hypo-osmolality and hyponatremia Status: Acute Assessment and Plan: Consult for management of hyponatremia. Patient's sodium was down to 125. Pt does have hx of hyponatremia, Na of 129, from last hospitalization. Pt underwent bowel prep for surgery with probably exacerbated her hyponatremia. Patient has received IV fluids after surgery. Repeat sodium after IV fluid hydration has improved up to 130. This is likely the patient's new baseline is setting of her chronic COPD and colon cancer. Morning sodium of 128. Continue to monitor sodium Q6hr FENa: 0.1% (2) Adenocarcinoma of colon: Code(s): C18.9 - Malignant neoplasm of colon, unspecified Status: Acute Assessment and Plan: Admitted under care of surgery for colectomy with reanastomosis (3) COPD (chronic obstructive pulmonary disease): Code(s): J44.9 - Chronic obstructive pulmonary disease, unspecified Status: Acute Assessment and Plan: The patient does have COPD but is had no change in her shortness of breath from baseline. She reports that her shortness of breath from her aspiration pneumonia has finally resolved. Will continue the patient's home p.r.n. albuterol and scheduled inhaled corticosteroid/bronchodilator. (4) Obstructive sleep apnea: Code(s): G47.33 - Obstructive sleep apnea (adult) (pediatric) Status: Acute Assessment and Plan: The patient does not want CPAP currently. (5) Anemia: Code(s): D64.9 - Anemia, unspecified Status: Acute Assessment and Plan: The patient had a colectomy with reanastomosis. Will monitor hemoglobin as the patient did did need blood transfusion during her last hospitalization. Hbg of 9.3 H&H q6hr Continue to monitor Plan Postoperative management including DVT prophylaxis and pain and nausea management per Surgical Service. Subjective Date/time seen: 10/22/22 07:42 Interval history: E 2-year-old female admitted to the hospital under surgery for colectomy and reanastomosis of adenocarcinoma. Hospitalist consulted due to hyponatremia and anemia. When interviewing patient patient states that she does have abdominal pain postoperatively. Patient has asthma and chronic shortness of breath. Denies fever, fatigue, body aches, chills, lightheadedness, worsening shortness of breath, chest pain, nausea and vomiting. Review of Systems Review of Systems: All systems reviewed & are unremarkable except as noted in HPI and below Exam Narrative: GENERAL: Comfortable, no acute distress HENMT: moist mucous membranes EYES: EOM intact b/l NECK: no lymphadenopathy RESPIRATORY: clear to auscultation CARDIO: RRR GI: soft, tenderness, bandages over surgical site, bowel sounds present SKIN: no rashes EXTREMITIES: no edema, redness or tenderness Objective Data Vital Signs Vital Signs: Vital Signs - 24 hr 10/21/22 11:47 10/21/22 14:32 10/21/22 14:45 Temperature 97.7 F Pulse Rate 96 100 109 H Respiratory Rate 14 15 19 Blood Pressure 158/81 H 114/66 148/71 H Pulse Oximetry 100 100 99 Oxygen Delivery Room Air Simple Face Mask Simple Face Mask Oxygen Flow Rate 8 8 10/21/22 15:00 10/21/22 15:15 10/21/22 15:30 Temperature Pulse Rate 99 106 H 94 Respiratory Rate 20 16 18 Blood Pressure 115/91 H 108/83 90/51 L Pulse Oximetry 98 95 100 Oxygen Delivery Nasal Cannula Simple Face Mask Simple Face Mask Oxygen Flow Rate 2 10 5 10/21/22 15:45 10/21/22 16:00 10/21/22 16:15 Temperature Pulse Rate 90 92 86 Respiratory Rate 20 18 20 Blood Pressure 85/46 L 96/54 L 103/62 Pulse Oximetry 2 L 97 99 Oxygen Delivery Nasal Cannula Nasal Cannula Nasal Cannula Oxygen Flow Rate 2 2 2 10/21/22 16:25 10/21/22 16:45 10/21/22 17:00 Temperature 97.5 F L 97.6 F Pulse Rate 82 83 90 Respiratory Rate 16 16 16 Blood Pressure 105/62 106/60 109/60 Pul
[2022-10-22] MEDS: ENOXAPARIN 40 MG/0.4 ML SYRINGE SUB-Q (09:34)
[2022-10-22 10:42] LABS: Hematocrit 32.1 % (37.0-47.0); Hemoglobin 9.7 g/dL (12.0-15.0)
[2022-10-22 10:49] VITALS: BP 145/74; PULSE 86; RESP 18; TEMP 36.3; O2SAT 97
[2022-10-22 10:50] LABS: Sodium 126 mmol/L (137-145)
--- NOTE | 2022-10-22 11:18 | WPDANESPN ---
Anes - Prog Note Post-Op Date/Time: 10/22/22 11:18 Cardiovascular status: normal Respiratory status: normal Airway patency: baseline Mental status: baseline Post-Op hydration status: normal Vital Signs: Last Vital Signs Temp 36.3 C L 10/22/22 10:49 Pulse 86 10/22/22 10:49 Resp 18 10/22/22 10:49 BP 145/74 H 10/22/22 10:49 Pulse Ox 97 10/22/22 10:49 O2 Del Method Room Air 10/22/22 09:36 O2 Flow Rate 2 10/21/22 16:25 Pain Score (VAS): 12/23 I/O: Intake & Output 10/21/22 10/22/22 10/22/22 23:59 07:59 15:59 Intake Total 230 1300 240 Output Total 400 Balance 230 900 240 Laboratory Tests 10/22/22 10:14 10/22/22 10:14 10/21/22 10/21/22 10/21/22 10:58 10:58 20:58 WBC 11.6 H RBC 3.48 L Hgb 9.6 L Hct 31.2 L MCV 89.7 MCH 27.6 MCHC 30.8 L RDW 24.7 H Plt Count 352 MPV 9.6 Immature Gran % (Auto) 0.4 Neut % (Auto) 92.0 H Lymph % (Auto) 4.9 L Bradford % (Auto) 2.5 L Eos % (Auto) 0.0 Baso % (Auto) 0.2 Lymph # (Auto) 0.57 L Bradford # (Auto) 0.3 Eos # (Auto) 0.0 Baso # (Auto) 0.0 Abs Immat Gran (auto) 0.05 H Absolute Neuts (auto) 10.7 H Absolute Nucleated RBC 0.0 Nucleated RBC % 0.0 Platelet Estimate Adequate Poikilocytosis 1+ Anisocytosis 2+ Schistocytes Not Reportable Sodium 125 L Potassium Chloride Carbon Dioxide Anion Gap BUN Creatinine Estim Creat Clear Calc Estimated GFR Glucose Calcium Magnesium Total Bilirubin AST ALT Alkaline Phosphatase Total Protein Albumin Urine Osmolality Ur Random Creatinine U Random Total Protein Ur Random Sodium Ur Random Chloride U Random Chloride/Creat Urine Creatinine Protein/Creat Ratio 2 Blood Type A Positive Antibody Screen Negative 10/21/22 10/22/22 10/22/22 20:58 05:50 05:50 WBC RBC Hgb Hct MCV MCH MCHC RDW Plt Count MPV Immature Gran % (Auto) Neut % (Auto) Lymph % (Auto) Bradford % (Auto) Eos % (Auto) Baso % (Auto) Lymph # (Auto) Bradford # (Auto) Eos # (Auto) Baso # (Auto) Abs Immat Gran (auto) Absolute Neuts (auto) Absolute Nucleated RBC Nucleated RBC % Platelet Estimate Poikilocytosis Anisocytosis Schistocytes Sodium 130 L Potassium 3.6 Chloride 100 Carbon Dioxide 22 Anion Gap 8 BUN 9 Creatinine 1.00 Estim Creat Clear Calc 31 Estimated GFR 53 L Glucose 169 H Calcium 7.7 L Magnesium 1.7 Total Bilirubin 0.3 AST 22 ALT 16 Alkaline Phosphatase 76 Total Protein 6.0 L Albumin 3.1 L Urine Osmolality Pending Ur Random Creatinine Pending U Random Total Protein 9 Ur Random Sodium 23 Ur Random Chloride Pending U Random Chloride/Creat Pending Urine Creatinine 138.9 Protein/Creat Ratio 2 0.06 Blood Type Antibody Screen 10/22/22 10/22/22 10/22/22 06:07 06:07 10:14 WBC 10.7 H RBC 3.49 L Hgb 9.3 L Hct 31.0 L MCV 88.8 MCH 26.6 MCHC 30.0 L RDW 24.5 H Plt Count 371 MPV 9.7 Immature Gran % (Auto) 0.5 Neut % (Auto) 86.8 H Lymph % (Auto) 8.0 L Bradford % (Auto) 4.3 Eos % (Auto) 0.1 Baso % (Auto) 0.3 Lymph # (Auto) 0.86 L Bradford # (Auto) 0.5 Eos # (Auto) 0.0 Baso # (Auto) 0.0 Abs Immat Gran (auto) 0.05 H Absolute Neuts (auto) 9.3 H Absolute Nucleated RBC 0.0 Nucleated RBC % 0.0 Platelet Estimate Poikilocytosis Anisocytosis Schistocytes Sodium 128 L 126 L Potassium 3.8 Chloride 100 Carbon Dioxide 22 Anion Gap 6 L BUN 8 Creatinine 0.90 Estim Creat Clear Calc 37 Estimated GFR 60 Glucose 113 H Calcium 7.9 L Magnesium Total Bilirubin AST ALT Alkaline Phosphatase Total Protein Albumin Urine Osmolality Ur Random Creatinine
[2022-10-22] MEDS: UMECLIDINIUM BROMIDE 62.5 MCG ELLIPTA 1 PUFF INHALATION (12:24)
[2022-10-22] MEDS: FLUTICASONE/SALMETEROL 45-21 MCG INHALER 1 PUFF 2 PUFF INHALATION ×2 (12:31→20:36)
[2022-10-22 14:40] VITALS: BP 150/80; PULSE 90; RESP 18; TEMP 36.4; O2SAT 97
--- NOTE | 2022-10-22 14:56 | PM.PNGS ---
Progress Note: A&P Assessment and Plan (1) Mass of cecum: Code(s): K63.89 - Other specified diseases of intestine Status: Acute Assessment and Plan: Doing well postop day 1. Tolerating clear liquids well so will advance to full liquids now. (2) Chronic hyponatremia: Code(s): E87.1 - Hypo-osmolality and hyponatremia Status: Acute Assessment and Plan: Sodium 126 today. (3) Atrial fibrillation: Code(s): I48.91 - Unspecified atrial fibrillation Status: Acute Assessment and Plan: Holding anticoagulation until discharge and were sure she is doing well after surgery (4) Anemia: Code(s): D64.9 - Anemia, unspecified Status: Acute Assessment and Plan: H&H stable at this time. Hemoglobin 9.7 (5) Obstructive sleep apnea: Code(s): G47.33 - Obstructive sleep apnea (adult) (pediatric) Status: Acute Assessment and Plan: Recommend usual care. (6) COPD (chronic obstructive pulmonary disease): Code(s): J44.9 - Chronic obstructive pulmonary disease, unspecified Status: Acute Assessment and Plan: Hospitalist on board to help treat as necessary (7) Hypertension: Code(s): I10 - Essential (primary) hypertension Status: Acute Assessment and Plan: Hospitalist on board to help treat as necessary. Subjective Subjective Date/Time Seen: 10/22/22 11:56 Post Op day: 1 (Seems to be doing well) Patient reports: tolerating liquids well and no bowel movement Interval history: Patient states that she does not yet remembering being able to void. Early this morning the night nurse did have to straight catheter for 200 cc. Patient does not feel right now that she needs to have either a bowel movement or to urinate. Denies nausea and is not in very much pain. Review of Systems Review of Systems: All systems reviewed & are unremarkable except as noted in HPI and below Constitutional: Constitutional: Reports as per HPI, Denies chills and Denies fever(s) Cardiovascular: Cardiovascular: Denies chest pain and Denies dyspnea Respiratory: Respiratory: Reports no additional respiratory complaints and Denies dyspnea Gastrointestinal: Gastrointestinal: Reports as per HPI and Denies bloating Musculoskeletal: Musculoskeletal: Reports no additional musculoskeletal complaints Psychiatric: Psychiatric: Denies anxiety Exam Const: General: cooperative, comfortable, alert and awake Orientation/consciousness: patient oriented x3 HENMT: Head: normal to inspection Mouth: Yes moist mucous membranes Eyes: Sclera: sclerae normal Pupils: Equal, round and reactive pupils present Neck: Neck: normal visual inspection Chest: Chest palpation & inspection: normal inspection of the chest Resp: Effort & Inspection: normal respiratory effort Auscultation: clear to auscultation bilaterally Cardio: Jugular venous distension: no JVD Rate: regular rate GI: Inspection: incision (Clean and dry with surgical glue in place) GI Palp: Yes abdominal tenderness (Appropriate for recent surgery) Auscultation: Hypoactive bowel sounds present Rectal Exam: deferred Neuro: General: patient oriented x3 Objective Data Vital Signs Vital Signs: Vital Signs - 24 hr 10/21/22 15:00 10/21/22 15:15 10/21/22 15:30 Temperature Pulse Rate 99 106 H 94 Respiratory Rate 20 16 18 Blood Pressure 115/91 H 108/83 90/51 L Pulse Oximetry 98 95 100 Oxygen Delivery Nasal Cannula Simple Face Mask Simple Face Mask Oxygen Flow Rate 2 10 5 10/21/22 15:45 10/21/22 16:00 10/21/22 16:15 Temperature Pulse Rate 90 92 86 Respiratory Rate 20 18 20 Blood Pressure 85/46 L 96/54 L 103/62 Pulse Oximetry 2 L 97 99 Oxygen Delivery Nasal Cannula Nasal Cannula Nasal Cannula Oxygen Flow Rate 2 2 2 10/21/22 16:25 10/21/22 16:45 10/21/22 17:00 Temperature 36.4 C L 36.4 C Pulse Rate 82 83 90 Respiratory Rate 16 16 16 Blood Pressure 105/62 106/60
[2022-10-22 17:09] LABS: Hemoglobin 9.7 g/dL (12.0-15.0)
[2022-10-22 17:17] LABS: Sodium 129 mmol/L (137-145)
[2022-10-22 18:42] VITALS: BP 160/82; PULSE 98; RESP 18; TEMP 36.4; O2SAT 98
[2022-10-22 19:27] VITALS: BP 166/75; PULSE 87; RESP 16; TEMP 36.4; O2SAT 100
[2022-10-22] MEDS: diphenhydrAMINE HCl CAP 25 MG CAPSULE PO (20:12)
[2022-10-22] MEDS: ATORVASTATIN 20 MG TABLET PO (20:12)
[2022-10-23 01:22] VITALS: BP 146/78; PULSE 84; RESP 16; TEMP 36.5; O2SAT 98
[2022-10-23 01:39] LABS: Hematocrit 28.5 % (37.0-47.0); Hemoglobin 8.4 g/dL (12.0-15.0)
[2022-10-23 01:45] LABS: Sodium 128 mmol/L (137-145)
[2022-10-23] MEDS: SODIUM CHLORIDE 0.9% IV 1,000 ML 100 ML IV CONT (05:08)
[2022-10-23] MEDS: ACETAMINOPHEN 500 MG TABLET 1000 MG PO ×3 (05:11→17:27)
[2022-10-23] MEDS: DORZOLAMIDE/TIMOLOL OPHTH SOL 10 ML BOTTLE 1 DROP EACH EYE ×2 (05:11→17:27)
[2022-10-23 05:15] VITALS: BP 162/85; PULSE 93; RESP 16; TEMP 36.5; O2SAT 97
--- NOTE | 2022-10-23 07:56 | PM.IMPN ---
Progress Note: A&P Assessment and Plan (1) Chronic hyponatremia: Code(s): E87.1 - Hypo-osmolality and hyponatremia Status: Acute Assessment and Plan: Consult for management of hyponatremia. Patient's sodium was down to 125. Pt does have hx of hyponatremia, Na of 129, from last hospitalization. Pt underwent bowel prep for surgery with probably exacerbated her hyponatremia. Patient has received IV fluids after surgery. Repeat sodium after IV fluid hydration has improved up to 130. This is likely the patient's new baseline is setting of her chronic COPD and colon cancer. Continue to monitor sodium Q6hr FENa: 0.1% 10/23 Patient's sodium this morning was 130. Repeat sodium at noon was 133. Patient has a history of hyponatremia and has sodium in the low 130s. Patient stable and may be discharged from hospitalist point of view. (2) Adenocarcinoma of colon: Code(s): C18.9 - Malignant neoplasm of colon, unspecified Status: Acute Assessment and Plan: Admitted under care of surgery for colectomy with reanastomosis (3) COPD (chronic obstructive pulmonary disease): Code(s): J44.9 - Chronic obstructive pulmonary disease, unspecified Status: Acute Assessment and Plan: The patient does have COPD but is had no change in her shortness of breath from baseline. She reports that her shortness of breath from her aspiration pneumonia has finally resolved. Will continue the patient's home p.r.n. albuterol and scheduled inhaled corticosteroid/bronchodilator. (4) Obstructive sleep apnea: Code(s): G47.33 - Obstructive sleep apnea (adult) (pediatric) Status: Acute Assessment and Plan: The patient does not want CPAP currently. (5) Anemia: Code(s): D64.9 - Anemia, unspecified Status: Acute Assessment and Plan: The patient had a colectomy with reanastomosis. Will monitor hemoglobin as the patient did did need blood transfusion during her last hospitalization. Patient's hemoglobin this morning was 9.6. H&H q6hr Discussed with General surgery today and stated that a hemoglobin this low after surgery is not uncommon. Continue to monitor Plan Postoperative management including DVT prophylaxis and pain and nausea management per Surgical Service. Time Spent With Patient Time with patient: Greater than 35 minutes Subjective Date/time seen: 10/23/22 07:56 Interval history: E 2-year-old female admitted to the hospital under surgery for colectomy and reanastomosis of adenocarcinoma. Hospitalist consulted due to hyponatremia and anemia. Patient sitting up in bed pleasantly. General surgeon in the room at the time of consult. Patient continues to have abdominal pain postoperatively. Patient has asthma and chronic shortness of breath. Denies fever, fatigue, body aches, chills, lightheadedness, worsening shortness of breath, chest pain, nausea and vomiting. Review of Systems Review of Systems: All systems reviewed & are unremarkable except as noted in HPI and below Exam Narrative: GENERAL: Comfortable, no acute distress HENMT: moist mucous membranes EYES: EOM intact b/l NECK: no lymphadenopathy RESPIRATORY: clear to auscultation CARDIO: RRR GI: soft, tenderness, bandages over surgical site, bowel sounds present SKIN: no rashes EXTREMITIES: no edema, redness or tenderness Objective Data Vital Signs Vital Signs: Vital Signs - 24 hr 10/22/22 09:36 10/22/22 10:49 10/22/22 14:40 Temperature 97.4 F L 97.6 F Pulse Rate 86 90 Respiratory Rate 18 18 Blood Pressure 145/74 H 150/80 H Pulse Oximetry 97 97 Oxygen Delivery Room Air 10/22/22 18:42 10/22/22 19:27 10/22/22 20:00 Temperature 97.5 F L 97.6 F Pulse Rate 98 87 Respiratory Rate 18 16 Blood Pressure 160/82 H 166/75 H Pulse Oximetry 98 100 Oxygen Delivery Room Air 10/23/22 01:22 10/23/22 05:15 Temperature 97.7 F
[2022-10-23 08:14] LABS: Hematocrit 31.2 % (37.0-47.0); Hemoglobin 9.6 g/dL (12.0-15.0)
[2022-10-23 08:22] LABS: Sodium 130 mmol/L (137-145)
[2022-10-23] MEDS: UMECLIDINIUM BROMIDE 62.5 MCG ELLIPTA 1 PUFF INHALATION (08:43)
[2022-10-23] MEDS: ENOXAPARIN 40 MG/0.4 ML SYRINGE SUB-Q (08:43)
[2022-10-23] MEDS: FLUTICASONE/SALMETEROL 45-21 MCG INHALER 1 PUFF 2 PUFF INHALATION (08:43)
[2022-10-23 09:35] VITALS: BP 137/81; PULSE 88; RESP 16; TEMP 36.4; O2SAT 99
[2022-10-23 10:42] LABS: Transferrin 158 mg/dL (206-381)
[2022-10-23 10:48] LABS: Iron 45 ug/dL (37-170); Percent Iron Saturation 19 % (20-50)
[2022-10-23 11:47] LABS: Folic Acid 10.3 ng/mL (2.76->20); Vitamin B12 > 1000.0 pg/mL (239-931)
[2022-10-23 11:59] LABS: Hematocrit 29.5 % (37.0-47.0)
[2022-10-23 12:16] LABS: Sodium 133 mmol/L (137-145)
[2022-10-23 13:54] VITALS: BP 143/54; PULSE 95; RESP 16; TEMP 36.5; O2SAT 100
--- NOTE | 2022-10-23 18:06 | PM.DS ---
DS: Admitting Diagnosis Discharge Date 10/23/2022 Admitting Diagnosis adenocarcinoma of the cecum with bleeding DS: Discharge Diagnosis Discharge Diagnosis (1) Adenocarcinoma of cecum: Code(s): C18.0 - Malignant neoplasm of cecum Status: Acute Assessment and Plan: This was the main reason for the patient's admission. She had a hand assisted laparoscopic right hemicolectomy on 10/21/2022. She had a fight fairly uneventful postoperative course. She was passing gas on the day following surgery. She had a little bit of urinary retention for the 1st 24 hours but this resolved and on the day of discharge she had a 24 cc residual by bladder scan after voiding. She was tolerating a soft diet upon discharge and requiring only Tylenol for pain every 6 hours. Appropriate instructions given see details below. (2) Chronic hyponatremia: Code(s): E87.1 - Hypo-osmolality and hyponatremia Status: Acute Assessment and Plan: This was checked several times through her hospital stay and was always in the range of 128-130 but this is fairly normal for her. (3) Occult blood in stools: Code(s): R19.5 - Other fecal abnormalities Status: Acute Assessment and Plan: This is however her tumor was discovered preop. (4) Acute on chronic blood loss anemia: Code(s): D62 - Acute posthemorrhagic anemia Status: Acute Assessment and Plan: Patient's hemoglobin remains stable at drop some after surgery. Multiple rechecks tire on the day prior to discharge showed it to be stable without significant decrease. (5) Atrial fibrillation: Code(s): I48.91 - Unspecified atrial fibrillation Status: Acute Assessment and Plan: Patient was off her Xarelto for several days prior to her admission and surgery. Since she is doing well she will resume it on the day following her discharge. (6) COPD (chronic obstructive pulmonary disease): Code(s): J44.9 - Chronic obstructive pulmonary disease, unspecified Status: Acute Assessment and Plan: Inhalers an appropriate medication resume once she was able to take p.o. meds. She will continue these at home. DS: Summary Hospital Course Hospital Course: The previously discovered adenocarcinoma of the cecum was the main reason for the patient's admission. She had a hand assisted laparoscopic right hemicolectomy on 10/21/2022. She had a fight fairly uneventful postoperative course. She was passing gas on the day following surgery. She had a little bit of urinary retention for the 1st 24 hours but this resolved and on the day of discharge she had a 24 cc residual by bladder scan after voiding. She was tolerating a soft diet upon discharge and requiring only Tylenol for pain every 6 hours. Appropriate instructions given see details below. because of her atrial fibrillation she will resume her Xarelto day following her discharge home. Status at Discharge Cognitive/behavioral status at discharge: Normal for her Functional status at discharge: independent ambulation Overall status at discharge: patient is not back to baseline ( moving slower but beginning to return to baseline.) Time Spent with Patient Time attestation: Total time spent providing and/or coordinating discharge services: Time spent: Less than 30 minutes Exam Const: General: cooperative, comfortable, alert and awake Orientation/consciousness: patient oriented x3 HENMT: Head: normal to inspection Mouth: Yes moist mucous membranes Eyes: Sclera: sclerae normal Pupils: Equal, round and reactive pupils present Neck: Neck: normal visual inspection Chest: Chest palpation & inspection: normal inspection of the chest Resp: Effort & Inspection: normal respiratory effort Auscultation: clear to auscultation bilaterally Cardio: Rate: regular rate GI: Inspection: normal to inspection, incision ( Clean and dry with surgical glue in place) and no
[2022-10-26 21:28] LABS: Osmolality, Urine 414 mOsm/kg (50-1200)
[2022-10-27 16:08] LABS: Chloride Rand Ur 20 mmol/L (32-290); Chloride/Creatinine Rand Ur 17 (38-318); Creatinine Random Urine 117 mg/dL (20-275)
== END 2022-10-23 18:30 | disposition home or self-care (01) | DRG 330 ==
LOC: ANH2MED 17:44
PROVIDERS: Anesthesiology; Internal Medicine; Internal Medicine Critical Care Medicine; Admitting Provider Surgery; PCP Internal Medicine; Visit Provider Surgery
PROC: 0DTF4ZZ Resection of Right Large Intestine, Percutaneous Endoscopic Approach (ICD-10-PCS; CPT 44204; principal; 2022-10-21 12:00)
DX: C18.0 Malignant neoplasm of cecum (principal); D62 Acute posthemorrhagic anemia; E87.1 Hypo-osmolality and hyponatremia; J44.9 Chronic obstructive pulmonary disease, unspecified; G47.33 Obstructive sleep apnea (adult) (pediatric); I48.91 Unspecified atrial fibrillation; Z80.0 Family history of malignant neoplasm of digestive organs; Z82.49 Family history of ischemic heart disease and other diseases of the circulatory system; Z87.891 Personal history of nicotine dependence; Z79.51 Long term (current) use of inhaled steroids; Z79.899 Other long term (current) drug therapy; Z79.01 Long term (current) use of anticoagulants
CPT/HCPCS: 36415; 80048; 80053; 81301; 82436; 82570; 82607; 82728; 82746; 83540; 83550; 83735; 83935; 84156; 84295; 84300; 84466; 85014; 85018; 85025; 86850; 86900; 86901; 88309; 88341; 88342; 88381; 94640; A9270; C9290; J0690; J1100; J1170; J1650; J1885; J2370; J2405; J2704; J2710; J3010; J3360; J7030; J7120

== ENCOUNTER 2022-10-27 15:53 | Inpatient (IN) | payer MEDICARE, SELFPAY ==
[2022-10-27] VITALS (21 sets, daily range): BP systolic 148–175; BP diastolic 95–103; PULSE 106–124; RESP 15–23; TEMP 36.9–37.2; O2SAT 92–95
--- NOTE | ~2022-10-27 | XR_ITS ---
EXAMINATION: XR abdomen/kub 1V DATE: 11/14/2022 06:18 INDICATION: Abdominal pain. Adynamic ileus. TECHNIQUE: A supine view of the abdomen on 2 radiographs was obtained. COMPARISON: CT abdomen and pelvis 11/12/2022 FINDINGS: There are mildly dilated loops of small bowel. The colon is decompressed. Surgical clips in the right upper quadrant are likely from cholecystectomy. IMPRESSION: 1. Persistently dilated small bowel, likely adynamic ileus. Reviewed, dictated and finalized at location A. TREATING BLUER
--- NOTE | ~2022-10-27 | US_ITS ---
EXAMINATION: US paracentesis abd w/image DATE: 11/15/2022 13:21 INDICATION: Ascites. TECHNIQUE: The procedure and its risks, benefits, and alternatives were discussed with the patient. P otential risks discussed included bleeding and infection. The skin was prepped and draped in sterile fashion. 1% lidocaine was used for local anesthesia. Under ultrasound guidance, a 5 Fr catheter with trochar was advanced into the ascites in the right upper quadrant. Fluid was aspirated. The catheter was removed, and a dressing was applied. There were no immediate complications. FINDINGS: Ultrasound images demonstrate ascites and the catheter within the fluid. IMPRESSION: 1. Successful ultrasound-guided paracentesis yielding 100 mL of opaque, yellow-mcnair fluid. Reviewed, dictated and finalized at location A. ING SPECIALIST IMPRESSION: 1. Successful ultrasound-guided paracentesis yielding 100 mL of opaque, yellow -mcnair fluid.
--- NOTE | ~2022-10-27 | XR_ITS ---
EXAMINATION: XR chest 1V portable DATE: 11/21/2022 06:28 INDICATION: Intubated. TECHNIQUE: A single frontal view of the chest was obtained. COMPARISON: Chest single view 11/20/2022, CT abdomen and pelvis 11/20/2022 FINDINGS: There is a small left pleural effusion. There is mild atelectasis at left lung base. No pne umothorax. The heart size is normal. The endotracheal tube tip is 3.2 cm above the rashi. The nasoga stric tube tip is in the stomach. A right upper extremity peripherally inserted central venous cathet er (PICC) is seen with tip in the superior vena cava. IMPRESSION: 1. Stable small left pleural effusion. 2. Mild atelectasis at left lung base. Reviewed, dictated and finalized at location A. NESS HEALTH COACH
--- NOTE | ~2022-10-27 | XR_ITS ---
Portable chest x-ray Comparison: 10/27/2022 Clinical History: Shortness of breath Findings: Small left pleural effusion is present. Right lung remains clear. Cardiomediastinal silho uette is stable. Bones and soft tissues are unremarkable. Impression: Stable small left pleural effusion and probable left basilar atelectasis. Reviewed, dictated and finalized at [facility]. OR VALIDATION ENGINEER Impression: Stable small left pleural effusion and probable left basilar atelectasis.
--- NOTE | ~2022-10-27 | XR_ITS ---
EXAMINATION: XR chest 1V portable DATE: 11/03/2022 06:31 INDICATION: Shortness of breath. TECHNIQUE: A single frontal view of the chest was obtained. COMPARISON: Chest single view 11/02/2022, CT abdomen and pelvis 10/02/2022 FINDINGS: There are airspace opacities in left mid and lower lung zones with a basilar predominance. There are interstitial opacities in right lower lung zone. There is a small left pleural effusion. No pneumothorax. The heart size is normal. IMPRESSION: 1. Interstitial opacities in right lower lung zone and airspace opacities in left mid and lower lung zones with slight improvement, consistent with mild pulmonary edema and left-sided atelectasis versus pneumonia. 2. Stable small left pleural effusion. Reviewed, dictated and finalized at location A. MEAT PROCESSOR IMPRESSION: 1. Interstitial opacities in right lower lung zone and airspace opacities in le ft mid and lower lung zones with slight improvement, consistent with mild pulmo nary edema and left-sided atelectasis versus pneumonia. 2. Stable small left pleural effusion.
--- NOTE | ~2022-10-27 | XR_ITS ---
EXAMINATION: XR chest 1V portable DATE: 11/22/2022 05:39 INDICATION: Intubated. TECHNIQUE: A single frontal view of the chest was obtained. COMPARISON: Chest single view 11/21/2022, CT abdomen and pelvis 11/20/2022 FINDINGS: There is a small left pleural effusion. There are airspace opacities at left lung base. No pneumothorax. The heart size is normal. The endotracheal tube tip is 2.4 cm above the rashi. A right upper extremity peripherally inserted central venous catheter (PICC) is seen with tip in the superio r vena cava. The nasogastric tube tip is in the stomach. IMPRESSION: 1. Stable small left pleural effusion. 2. Stable airspace opacities at left lung base, likely atelectasis. Reviewed, dictated and finalized at location A. ETTER
--- NOTE | ~2022-10-27 | CT_ITS ---
Clinical Indication: Right lower quadrant pain, influenza CT Scan of the Chest, Abdomen, and Pelvis with Contrast: Technique: Contiguous sections were acquired throughout the chest, abdomen, and pelvis after intraven ous administration of 100 cc of Omnipaque 350. Dose reduction technique was used on this scan by uti lizing automated exposure control and iterative reconstruction technique. The dose-length product (DL P) was 748.19 mGy-cm. COMPARISON: 10/02/2022 Findings: There is no evidence of any significant mediastinal, hilar or axillary lymphadenopathy. The mediastin al soft tissues and vascular structures appear normal. No pericardial effusion. Small left pleural effusion is present, with partial left lower lobe atelectasis. There are mild patc hy groundglass opacities in the lungs bilaterally, predominantly peripherally, most extensive, slight ly more confluent, in the lingula. The liver, pancreas, gallbladder, adrenals and kidneys are within normal limits. Large area in the ce ntral aspect of the spleen demonstrates slightly decreased enhancement as compared to the surrounding portions. No evidence of aortic aneurysm. No lymphadenopathy. No bowel obstruction or bowel wall thickening. Evidence of prior partial right colectomy. No abscess or free air. Nguyen catheter in place. No adnexal mass evident. Trace free fluid noted in the pelvis. Impression: Small left pleural effusion with partial left lower lobe atelectasis. Patchy ground glass opacities in the lungs, with most extensive confluent involvement in the lingula. Findings are consistent with atypical or viral infection, including possibility of influenza and/or Covid 19. Large area of decreased enhancement in the central spleen, raising possibility of splenic infarct. Trace free fluid in the pelvis. Reviewed, dictated and finalized at [facility]. NCT PHLEBOTOMY INSTRUCTOR Impression: Small left pleural effusion with partial left lower lobe atelectasis. Patchy ground glass opacities in the lungs, with most extensive confluent invol vement in the lingula. Findings are consistent with atypical or viral infection , including possibility of influenza and/or Covid 19. Large area of decreased enhancement in the central spleen, raising possibility of splenic infarct. Trace free fluid in the pelvis.
--- NOTE | ~2022-10-27 | CT_ITS ---
EXAMINATION: CT chest abdomen pelvis w con DATE: 11/12/2022 13:21 INDICATION: Cough. Chest pain. Abdominal pain. TECHNIQUE: Computed tomography (CT) of the chest, abdomen, and pelvis was performed with 100 mL Omnip aque 350 intravenous contrast. Automated exposure control and iterative reconstruction technique were employed. The dose-length product was 1062.98 mGy-cm. COMPARISON: CT 11/03/2022 FINDINGS: CHEST CT: There is a moderate-sized left pleural effusion. There are centrilobular nodules in right upper lobe and right lower lobe. There are small groundglass opacities in the upper lobes. Cardiomegaly is noted . There are coronary artery calcifications. No pericardial effusion. A right upper extremity peripher ally inserted central venous catheter (PICC) is seen with tip in the superior vena cava. There is sev ere thoracic spondylosis. ABDOMEN/PELVIS CT: There is liver surface nodularity. There is focal steatosis in the liver adjacent to the falciform li gament. There is geographic decreased attenuation in the spleen, consistent with infarct. The pancrea s and adrenal glands are normal. There are changes of cholecystectomy. There is cortical thinning of the kidneys. There is a Nguyen catheter in expected position. There is wall thickening of the sigmoid colon. There are changes of right hemicolectomy. There is prominent stool in the distal ileum and pro ximal colon. There is wall thickening of ileum. There are dilated loops of small bowel without focal transition point. There is a small volume of ascites with peritoneal thickening and enhancement. Ther e is calcified atherosclerosis of the aorta and many of the other arteries. There is moderate stenosi s of celiac axis and superior mesenteric artery. There is total occlusion of proximal inferior mesent angela artery. There are no pathologically enlarged lymph nodes. There is severe lumbar spondylosis. IMPRESSION: 1. Mild bilateral pneumonia with interval improvement. 2. Stable moderate-sized left pleural effusion. 3. Subacute splenic infarct. 4. Worsened small volume of ascites with peritoneal thickening and enhancement. Consider diagnostic p aracentesis. 5. Dilated small bowel without focal transition point, likely adynamic ileus. 6. Wall thickening of the ileum and sigmoid colon, consistent with interstitial edema versus enteroco litis. 7. Liver surface nodularity suspicious for cirrhosis. 8. 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 Reviewed, dictated and finalized at location A. SALES CONSULTANT IMPRESSION: 1. Mild bilateral pneumonia with interval improvement. 2. Stable moderate-sized left pleural effusion. 3. Subacute splenic infarct. 4. Worsened small volume of ascites with peritoneal thickening and enhancement. Consider diagnostic paracentesis. 5. Dilated small bowel without focal transition point, likely adynamic ileus. 6. Wall thickening of the ileum and sigmoid colon, consistent with interstitial edema versus enterocolitis. 7. Liver surface nodularity suspicious for cirrhosis. 8. 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 Total occlu franklyn of proximal inferior mesenteric artery.
--- NOTE | ~2022-10-27 | XR_ITS ---
EXAM: XR abdomen/kub 1V DATE: 11/09/2022 15:05 HISTORY: RLQ pain . COMPARISON: 11/04/2022. FINDINGS: Left basilar airspace disease and costophrenic angle blunting. Interval NG tube removal Ch olecystectomy clips Normal bowel gas pattern. No organomegaly. Vascular calcifications. Degenerative changes in the lumbar spine and bilateral hips. IMPRESSION: No radiographic evidence of obstruction or ileus. Left basilar atelectasis/consolidation and possible small effusion. Reviewed, dictated and finalized at location K. INE CERAMIC COATER IMPRESSION: No radiographic evidence of obstruction or ileus. Left basilar atel ectasis/consolidation and possible small effusion.
--- NOTE | ~2022-10-27 | XR_ITS ---
Portable chest x-ray Comparison: 11/01/2022 Clinical History: Shortness of breath Findings: Small layering left pleural effusion present with probable left basilar atelectasis. There is mild bibasilar pulmonary edema. Cardiomediastinal silhouette is stable. Bones and soft tissues a re unremarkable. Impression: Small left pleural effusion and probable left lower lobe atelectasis. Mild bibasilar pulmonary edema. Reviewed, dictated and finalized at location . IAL INVESTIGATOR Impression: Small left pleural effusion and probable left lower lobe atelectasis. Mild bibasilar pulmonary edema.
--- NOTE | ~2022-10-27 | XR_ITS ---
EXAMINATION: XR fl guid NG/feed tube insert DATE: 11/04/2022 12:19 INDICATION: Nasogastric tube placement TECHNIQUE: Portable AP supine view of the abdomen was obtained. COMPARISON: CT dated 11/03/2022 FINDINGS: Nasogastric tube tip in proximal side port in the body of the stomach. No dilated loops of gas-filled bowel to suggest obstruction. Cholecystectomy clips in right upper quadrant. Opacities at the bilate ral lung bases, left greater than right which could represent atelectasis and/or pneumonia. Heart siz e is normal. Dense mitral annular calcification. Severe lower lumbar spondylosis. IMPRESSION: 1. Nasogastric tube in stomach. Reviewed, dictated and finalized at location A. HASING SUPERVISOR
--- NOTE | ~2022-10-27 | XR_ITS ---
EXAMINATION: XR chest ET placement DATE: 11/20/2022 22:09 INDICATION: Declining respiratory drive. TECHNIQUE: A single frontal view of the chest was obtained. COMPARISON: Chest single view 11/03/2022, CT abdomen and pelvis 11/20/22 FINDINGS: There is mild atelectasis at the lung bases. There is a small left pleural effusion. No pne umothorax. The heart size is normal. The endotracheal tube tip is 4.8 cm above the rashi. A right up per extremity peripherally inserted central venous catheter (PICC) is seen with tip in the superior v venkata cava. The nasogastric tube tip is beyond the inferior margin of the radiograph, but at least to t he stomach. IMPRESSION: 1. Small left pleural effusion with improvement from 11/03/2022. 2. Mild atelectasis at the lung bases. Reviewed, dictated and finalized at location A. NOLOGY STRATEGIST
--- NOTE | ~2022-10-27 | CT_ITS ---
EXAMINATION: CT brain wo con DATE: 11/20/2022 23:58 INDICATION: Mental status change. TECHNIQUE: Computed tomography (CT) of the head was performed without intravenous contrast. The mA wa s adjusted according to patient size. Iterative reconstruction technique was employed. The dose-lengt h product was 605.33 mGy-cm. COMPARISON: None FINDINGS: There are scattered areas of low attenuation in the cerebral white matter. There is no intr acranial hemorrhage, acute infarction, or abnormal intracranial mass lesion. The ventricles are therese l in size. There are likely changes of right ocular lens replacement surgery. There is mucosal thicke bret in the paranasal sinuses. The mastoid air cells are normal. IMPRESSION: 1. Moderate nonspecific cerebral white matter disease, which likely represents chronic small vessel i schemic disease. Reviewed, dictated and finalized at location A. GER FILE IMPRESSION: 1. Moderate nonspecific cerebral white matter disease, which likely represents chronic small vessel ischemic disease.
--- NOTE | ~2022-10-27 | US_ITS ---
EXAMINATION: US venous doppler UE RT DATE: 11/15/2022 13:16 INDICATION: Right upper limb swelling. TECHNIQUE: Grayscale ultrasound images without and with compression and Doppler ultrasound images of the right upper extremity veins were obtained. COMPARISON: Ultrasound 11/10/2022 FINDINGS: The visualized portions of the right internal jugular vein, subclavian vein, axillary vein, brachial veins, basilic vein, cephalic vein, radial vein, and ulnar vein are patent. IMPRESSION: 1. No deep venous thrombosis. Reviewed, dictated and finalized at location A. ING MACHINE OPERATOR
--- NOTE | ~2022-10-27 | NM_ITS ---
EXAMINATION: NM GI bleeding DATE: 11/08/2022 15:24 INDICATION: Gastrointestinal bleed with acute anemia TECHNIQUE: 20 mCi Tc 99m in vitro labeled red cells administered intravenously. Scintigraphic images of the abdomen were obtained through 1 hour. FINDINGS: No pattern of abnormal activity is seen in the abdomen or pelvis to suggest gastrointestina l hemorrhage. IMPRESSION: 1. No scintigraphic evidence for active gastrointestinal bleeding. Reviewed, dictated and finalized at location A. F DEVELOPMENT OFFICER
--- NOTE | ~2022-10-27 | CT_ITS ---
EXAMINATION: CT abdomen pelvis wo con DATE: 11/20/2022 13:04 INDICATION: Peritonitis. TECHNIQUE: Computed tomography (CT) of the abdomen and pelvis was performed without intravenous contr ast. The dose-length product was 774.64 mGy-cm. Automated exposure control and iterative reconstructi on technique were employed. COMPARISON: CT dated 11/12/2022. FINDINGS: Persistent moderate left and small right pleural effusions. There is underlying compressive atelectasis. Cannot exclude superimposed pneumonia. Heart size normal. There is atherosclerosis. The re is an NG tube in the stomach. There is a single locule of free air in the upper abdomen, image 62, possibly from recent paracentesis procedure there is cirrhosis of the liver. There is ascites. There is diffuse subcutaneous edema. There is Nguyen catheter in a decompressed bladder. There is stenosis at the origin of the celiac axis and SMA. There is residual barium in the bowel. No definite obstruct ion. There is severe lumbar spondylosis. No pathologically enlarged lymph nodes. IMPRESSION: 1. Bilateral pleural effusions, left greater than right with underlying compressive atelectasis. Unde rlying pneumonia not excluded. 2: Small volume of ascites. Mild mesenteric edema. 3: Cirrhosis of the liver. 4: Single locule of free gas in the nondependent aspect of the upper abdomen anteriorly, image 62. T his likely relates to recent paracentesis procedure. 5: Improved small bowel dilation which may represent resolving ileus. Reviewed, dictated and finalized at location A. Y SPECIALISTS IMPRESSION: 1. Bilateral pleural effusions, left greater than right with underlying juanis sive atelectasis. Underlying pneumonia not excluded. 2: Small volume of ascites. Mild mesenteric edema. 3: Cirrhosis of the liver. 4: Single locule of free gas in the nondependent aspect of the upper abdomen a nteriorly, image 62. This likely relates to recent paracentesis procedure. 5: Improved small bowel dilation which may represent resolving ileus.
--- NOTE | ~2022-10-27 | XR_ITS ---
Clinical Indication: Shortness of breath AP and lateral views of the chest: Comparison: 10/04/2022 Findings: Fbwhx-en-gubhlnlk left pleural effusion present. Minimal right pleural effusion present.. Cardiomediastinal silhouette is within normal limits. Bones and soft tissues are unremarkable. Impression: Jbadv-yh-fjeqzgzq left pleural effusion. Minimal right pleural effusion. Reviewed, dictated and finalized at location [] ER CASHIER Impression: Efdqq-sv-[id number] left pleural effusion. Minimal right pleural effusion.
--- NOTE | ~2022-10-27 | XR_ITS ---
Portable chest x-ray Comparison: 11/03/2022 at 5:52 AM Clinical History: PICC line placement Findings: Right-sided PICC line is present, tip in the SVC. Small left pleural effusion present with hazy left basilar airspace disease. Questionable minimal haziness right lung base. Cardiomediastina l silhouette is stable. Bones and soft tissues are unremarkable. Impression: Right-sided PICC line in satisfactory position. Small left pleural effusion with left basilar atelectatic change. Probable associated minimal bibasilar pulmonary edema. Reviewed, dictated and finalized at location . UNT DEVELOPMENT REPRESENTATIVE Impression: Right-sided PICC line in satisfactory position. Small left pleural effusion with left basilar atelectatic change. Probable associated minimal bibasilar pulmonary edema.
--- NOTE | ~2022-10-27 | XR_ITS ---
Portable chest x-ray Comparison: 10/31/2022 Clinical History: Shortness of breath Findings: Bvzae-mn-faoegcfy left pleural effusion is present with hazy left basilar and left perihil ar airspace disease. Right lung remains clear. Cardiomediastinal silhouette is stable. Bones and sof t tissues are unremarkable. Impression: Reity-po-ibonxsud left pleural effusion. Left basilar and left perihilar airspace disease could represent pulmonary edema/atelectasis versus p neumonia. Correlate clinically. Reviewed, dictated and finalized at [facility]. AGENT Impression: Kmkkh-bl-orspuewt left pleural effusion. Left basilar and left perihilar airspace disease could represent pulmonary danita a/atelectasis versus pneumonia. Correlate clinically.
--- NOTE | ~2022-10-27 | XR_ITS ---
EXAMINATION: XR abdomen NG/feed tube insert DATE: 11/14/2022 11:04 INDICATION: Nasogastric tube placement. TECHNIQUE: An upright view of the abdomen was obtained. COMPARISON: Abdomen radiographs 11/14/22 FINDINGS: The lower abdomen is excluded. The nasogastric tube tip is in the stomach. A right upper ex tremity peripherally inserted central venous catheter (PICC) is seen with tip in the superior vena ca va. IMPRESSION: 1. Nasogastric tube tip in the stomach. Reviewed, dictated and finalized at location A. OLL BOOKKEEPER
--- NOTE | ~2022-10-27 | US_ITS ---
EXAMINATION: US venous doppler UE DATE: 11/10/2022 15:59 INDICATION: Upper limb pain and swelling. TECHNIQUE: Grayscale ultrasound images without and with compression and Doppler ultrasound images of the bilateral upper extremity veins were obtained. COMPARISON: None. FINDINGS: The visualized portions of the right internal jugular vein, subclavian vein, axillary vein, brachial veins, basilic vein, cephalic vein, radial vein, and ulnar vein are patent. The visualized portions of the left internal jugular vein, subclavian vein, axillary vein, brachial v eins, basilic vein, cephalic vein, radial vein, and ulnar vein are patent. IMPRESSION: 1. No deep venous thrombosis. Reviewed, dictated and finalized at location A. CHANGE CREW MEMBER
--- NOTE | ~2022-10-27 | XR_ITS ---
SMALL BOWEL SERIES ONLY INDICATION: Abdominal pain. Evaluate for anastomotic leak. TECHNIQUE: Serial plain films and fluoroscopic spot films are performed following in G-tube administr ation of water-soluble contrast. COMPARISON: CT dated 11/12/2022 FINDINGS: Contrast was followed sequentially through the small bowel. There is delayed transit through the small bowel to the colon. Small bowel pattern is nonobstructive. There is mild distention of the distal small bowel without transition point. NG tube in the stomach. No evidence for extravasation of contrast. IMPRESSION: 1: Mildly distended small bowel distally with delayed transit through the small bowel to the colon, most likely adynamic ileus. No definite obstruction or extravasation of contrast. Reviewed, dictated and finalized at location A. CIATE DOCTOR IMPRESSION: 1: Mildly distended small bowel distally with delayed transit through the smal l bowel to the colon, most likely adynamic ileus. No definite obstruction or ex travasation of contrast.
--- NOTE | ~2022-10-27 | XR_ITS ---
EXAM: XR abdomen/kub 1V DATE: 11/13/2022 16:51 HISTORY: low abdominal pain . COMPARISON: 11/01/2022. FINDINGS: Left basilar atelectasis/consolidation. Cholecystectomy clips. Air distended stomach, othe rwise normal bowel gas pattern. No organomegaly. Vascular calcifications. Lumbar degenerative disc di sease. Bilateral hip osteoarthritis. IMPRESSION: Left lower lobe atelectasis/consolidation. Air distended stomach. Reviewed, dictated and finalized at location K. NIZER
--- NOTE | 2022-10-27 15:58 | ECG_ITS ---
Measurements Intervals [place] Rate: 127 P: TN: 0 QRS: 26 QRSD: 74 T: 31 QT: 307 QTc: 446 Interpretive Statements ATRIAL FIBRILLATION WITH RAPID VENTRICULAR RESPONSE NONSPECIFIC ST & T-WAVE ABNORMALITY ABNORMAL RHYTHM ECG COMPARED TO ECG 10/02/2022 09:08:17 HEART RATE IS NOW FASTER Electronically Signed On 10-27-2022 16:13:32 NETWORK OPERATIONS CENTER ENGINEER by Salazar Stroud M.D.
[2022-10-27 16:25] LABS: Basophils Absolute Auto 0.1 K/mm3 (0.0-0.1); Basophils Percent Auto 1.5 % (0.2-1.2); Eosinophils Absolute Auto 0.2 K/mm3 (0-0.3); Eosinophils Percent Auto 1.9 % (0-4.4); Hematocrit 33.6 % (37.0-47.0); Hemoglobin 10.6 g/dL (12.0-15.0); Immature Granulocyte Absolute 0.02 K/mm3 (0.00-0.031); Immature Granulocyte Percent A 0.2 % (0-0.5); Lymphocytes Absolute Auto 0.85 K/mm3 (0.9-3.2); Lymphocytes Percent Auto 9.7 % (18.3-44.2); Mean Corpuscular HGB Conc 31.5 g/dl (32-36); Mean Corpuscular Hemoglobin 27.5 pg (26-34); Mean Platelet Volume 9.6 fl (7.4-10.4); Monocytes Absolute Auto 0.7 K/mm3 (0.1-0.6); Monocytes Percent Auto 7.6 % (2.6-8.5); Neutrophils Absolute Auto 6.9 K/mm3 (1.3-6.7); Neutrophils Percent Auto 79.1 % (45.5-73.1); Platelet Count Result 308 k/mm3 (150-375); Red Blood Count 3.86 M/mm3 (4.2-5.4); Red Cell Distribution Width 24.8 % (11.5-14.5); White Blood Count 8.8 K/mm3 (4.5-10.0)
[2022-10-27 16:27] LABS: Alveolar/Arterial O2 Gradient 40.8 mmHg; Base Excess ABG 2.9 mEq/l (+/-2.0); Carboxyhemoglobin 0.9 % THb (0-2.0); Fractional Inspired Oxygen 21 %; HCO3 ABG 26.7 mEq/l (22.0-26.0); Methemoglobin ABG 0.1 %THb (0-1.5); Oxygen Content ABG 15.1 %vol (16.0-22.0); Oxygen Saturation ABG 93.5 % (95.0-100.0); Oxyhemoglobin 90.9 % THb (90.0-100.0); PO2 ABG 63.4 mmHg (80.0-100.0); PO2 FiO2 Ratio Arterial Blood 3.02 %; Reduced Hemoglobin 8.1 %THb (0-5.0); Total Hemoglobin 11.8 g/dL (12.0-18.0); pH ABG 7.465 (7.350-7.450)
[2022-10-27 16:32] LABS: Modified Allen's Test Pass; Site Drawn LEFT RADIAL
[2022-10-27 16:38] LABS: Alanine Aminotransferase 21 U/L (6-35); Albumin Level 3.6 g/dL (3.5-5.1); Alkaline Phosphatase 83 U/L (38-126); Anion Gap 4 mmol/L (8-16); Aspartate Amino Transferase 32 U/L (14-36); Bilirubin,Total 0.6 mg/dL (0.2-1.3); Blood Urea Nitrogen 4 mg/dL (7-17); Calcium 8.4 mg/dL (8.4-10.2); Carbon Dioxide 30 mmol/L (22-30); Chloride 94 mmol/L (98-107); Estimated Glomerular Filt Rate > 60; Glucose 118 mg/dL (65-110); Potassium 3.5 mmol/L (3.4-5.0); Sodium 128 mmol/L (137-145)
[2022-10-27 16:41] LABS: Anisocytosis 2+ (NORMAL); Hypochromasia 1+ (NORMAL); Platelet Estimate Adequate (Adequate)
[2022-10-27 16:45] LABS: NT Pro B Type Natriuretic Pept 4240 pg/mL (5-100)
[2022-10-27 16:48] LABS: INR 2.3; Prothrombin Time 24.4 Seconds (11.1-14.7)
[2022-10-27 16:49] LABS: Partial Thromboplastin Time 41.4 SECONDS (22.3-36.8)
[2022-10-27 16:53] LABS: Schistocytes None Seen (NORMAL)
[2022-10-27 16:57] LABS: Influenza A QL RT-PCR Positive (Negative); Influenza B QL RT-PCR Negative (Negative); RSV RNA, RT-PCR Negative (Negative); SARS-CoV-2 RNA PCR Negative
[2022-10-27] MEDS: IPRATROPIUM BR 0.02% INH SOLN 0.5 MG/2.5 ML VIAL INHALATION (17:17)
[2022-10-27] MEDS: ALBUTEROL SULFATE NEB 2.5 MG/3 ML INH 5 MG INHALATION (17:18)
[2022-10-27] MEDS: BUMETANIDE INJ 1 MG/4 ML VIAL IV PUSH (17:37)
--- NOTE | 2022-10-27 19:35 | ED.SOB ---
HPI - SOB/Dyspnea General Chief Complaint: Shortness of Breath/Dyspnea Stated Complaint: SOB Time Seen by Provider: 10/27/22 16:11 Source: patient Mode of arrival: wheelchair Limitations: no limitations History of Present Illness HPI Narrative: 82-year-old with a history of CHF, AF on Xarelto COPD not on any home oxygen s/p cholecystectomy a month ago here with complaints of shortness of breath, cough and not feeling well since yesterday. She denies any chest pain. No history of nausea or vomiting or abdominal pain. MD elicited complaint: shortness of breath and cough Pertinent past history: COPD and congestive heart failure Onset (ago): day(s) (1) Severity: moderate Exacerbating factors: exertion Relieving factors: oxygen Known history of: COPD and congestive heart failure Associated symptoms: cough and wheezing Treatment prior to arrival: none Related Data Home oxygen amount: none Home Medications Medication Instructions Recorded Confirmed albuterol sulfate 90 mcg/actuation 2 inh inhalation Q6H PRN Shortness 09/30/22 10/21/22 aerosol inhaler (ProAir HFA) Of Breath Or Wheezing ascorbic acid (vitamin C) 500 mg 250 mg PO DAILY 09/30/22 10/21/22 tablet atorvastatin 20 mg tablet 20 mg PO HS 09/30/22 10/21/22 budesonide-formoterol HFA 80 2 inh inhalation DAILY 09/30/22 10/21/22 mcg-4.5 mcg/actuation aerosol inhaler (Symbicort) dorzolamide 22.3 mg-timolol 6.8 1 drp EACH EYE Q12H 09/30/22 10/21/22 mg/mL eye drops hydroxyzine HCl 25 mg tablet 25 mg PO TID PRN Itching 09/30/22 10/21/22 metoprolol succinate 25 mg 25 mg PO POST-TRANSFUSION 09/30/22 10/21/22 tablet,extended release 24 hr tiotropium bromide 18 mcg capsule 1 cap inhalation DAILY 09/30/22 10/21/22 with inhalation device (Spiriva with HandiHaler) cyanocobalamin (vitamin B-12) 2,500 mcg PO DAILY 10/14/22 10/21/22 2,500 mcg tablet rivaroxaban 15 mg tablet (Xarelto) 15 mg PO DAILY 10/14/22 10/21/22 Allergies Allergy/AdvReac Type Severity Reaction Status Date / Time amlodipine AdvReac Itching Verified 10/21/22 16:50 furosemide [From Lasix] AdvReac Itching Verified 10/21/22 12:03 Review of Systems Review of Systems: All systems reviewed & are unremarkable except as noted in HPI and below Constitutional: Constitutional: Reports no additional constitutional complaints Eyes: Eyes: Reports no additional eye complaints ENT: Reports system reviewed and no additional complaints, except as documented Cardiovascular: Cardiovascular: Reports no additional cardiovascular complaints Respiratory: Respiratory: Reports as per HPI Gastrointestinal: Gastrointestinal: Reports no additional gastrointestinal complaints Musculoskeletal: Musculoskeletal: Reports no additional musculoskeletal complaints Neurologic: Reports system reviewed and no additional complaints, except as documented [facility] Past Medical History Medical History Adenocarcinoma of colon Anemia Anemia due to GI blood loss Arthritis Atrial fibrillation Congestive heart failure EF 70%, indeterminate diastolic function, mildly increased left ventricular wall thickness, severe biatrial enlargement, [id number] mitral valve regurgitation, moderate tricuspid regurgitation moderate pulmonary hypertension COPD (chronic obstructive pulmonary disease) Glaucoma Hyperlipidemia Hypertension Obstructive sleep apnea Pulmonary hypertension Moderate pulmonary hypertension with RVSP of 53 on echocardiogram 09/2022 Surgical History Surgical History H/O cervical polypectomy History of bilateral cataract extraction History of colonoscopy with polypectomy Hx of cholecystectomy Status post cataract extraction of both eyes with insertion of intraocular lens Family History Family History Sibling Cancer Carcinoma of colon Father Acute m
--- NOTE | 2022-10-27 19:49 | PM.IMHP ---
H&P: HPI History of Present Illness Date/Time: 10/27/22 19:49 Chief Complaint: SOB Narrative: This is an 82-year-old female with past medical history significant for colon cancer, COPD,/ emphysema, atrial fibrillation rate controlled anticoagulated, congestive heart failure, hypertension, stroke with sleep apnea, pulmonary hypertension. Patient presented to emergency room due to shortness of breath, she has family members sick with flu she has had a cough that is nonproductive. Patient denies any nausea, vomiting, abdominal pain, diarrhea. Preliminary workup was significant for sodium 128, brain natriuretic peptide upwards force 4000, tested positive for influenza type A. a chest x-ray was reported as: Impression: ? [id number] left pleural effusion. Minimal right pleural effusion. Review of Systems Review of Systems: shortness of breath Constitutional: Constitutional: Denies chills, Reports fatigue, Denies fever(s), Reports lethargy, Reports malaise, Reports poor appetite and Reports weakness Eyes: Eyes: Denies change in vision ENT: Denies dysphagia, Denies vertigo, Denies dizziness, Denies odynophagia and Denies disequilibrium Cardiovascular: Cardiovascular: Denies chest pain, Denies syncope, Denies lightheadedness and Denies palpitations Respiratory: Respiratory: Denies chest congestion, Reports cough, Denies excessive phlegm production and Reports dyspnea Gastrointestinal: Gastrointestinal: Denies abdominal pain, Denies dyspepsia, Denies heartburn, Denies diarrhea, Denies nausea and Denies vomiting Genitourinary: Genitourinary: Denies dysuria Musculoskeletal: Musculoskeletal: Reports myalgias Integumentary/Breasts: Skin/Breast: Denies rash Neurologic: Denies vertigo, Denies dizziness, Denies focal weakness and Denies Sensory deficit (Neuro) Psychiatric: Psychiatric: Reports no additional psychiatric complaints and Reports as per HPI Endocrine: Endocrine: Denies cold intolerance, Denies flushing, Denies heat intolerance, Denies polyphagia, Denies polydipsia and Denies palpitations Hematologic/Lymphatic: Hematologic/Lymphatic: Reports no additional hematologic/lymphatic complaints and Reports as per HPI Allergic/Immunologic: Allergic/Immunologic: Reports no additional allergic/immunologic complaints and Reports as per HPI PMFSH Past Medical History Medical History Adenocarcinoma of colon Anemia Anemia due to GI blood loss Arthritis Atrial fibrillation Congestive heart failure EF 70%, indeterminate diastolic function, mildly increased left ventricular wall thickness, severe biatrial enlargement, [id number] mitral valve regurgitation, moderate tricuspid regurgitation moderate pulmonary hypertension COPD (chronic obstructive pulmonary disease) Glaucoma Hyperlipidemia Hypertension Obstructive sleep apnea Pulmonary hypertension Moderate pulmonary hypertension with RVSP of 53 on echocardiogram 09/2022 Surgical History Surgical History H/O cervical polypectomy History of bilateral cataract extraction History of colonoscopy with polypectomy Hx of cholecystectomy Status post cataract extraction of both eyes with insertion of intraocular lens Family History Family History Sibling Cancer Carcinoma of colon Father Acute myocardial infarction Social History Social History Social History: The patient lives home alone. She is now . She has 3 children. She has decided to make all 3 of her children the power tax attorney for healthcare. The patient states that she drinks approximately 8 cans of beer per week. Some nights she may not drink another night she may drink 3 beers. She denies any marijuana or illicit drugs. 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 Code status full co
[2022-10-27] MEDS: dilTIAZem 100 MG/100 ML 100 MG/100 ML BAG IV CONT (21:35)
--- NOTE | 2022-10-27 21:44 | ADMGEN ---
This patient, Delilah Wynne, was admitted to IMU Room 211-01 at 2144. Patient/family oriented to hospital policies and general routines including ID bracelet, bed and alarms, visiting hours, pain management, procedures, bathroom and other care routines, personal items, smoking policy, room service/diet, and visiting hours. Information on how to activate the Rapid Response Team has been discussed. Patient/Family are encouraged to report perceived risks to care and to ask questions if they do not understand what they are told or what they should do.
--- NOTE | 2022-10-27 23:00 | PCRCNOTE ---
Window of time for administration has passed. See next scheduled administration.
[2022-10-27] MEDS: methylPREDNISolone SOD SUCC 125 MG VIAL 60 MG IV PUSH (23:10)
[2022-10-28] VITALS (25 sets, daily range): BP systolic 123–150; BP diastolic 56–103; PULSE 88–110; RESP 14–24; TEMP 36.2–37.2; O2SAT 90–96
[2022-10-28] MEDS: IPRATROPIUM BR 0.02% INH SOLN 0.5 MG/2.5 ML VIAL INHALATION ×4 (03:00→20:46)
[2022-10-28] MEDS: ALBUTEROL SULFATE NEB 2.5 MG/3 ML INH 5 MG INHALATION ×4 (03:00→20:46)
[2022-10-28 05:04] LABS: Basophils Percent Auto 0.5 % (0.2-1.2); Hematocrit 31.1 % (37.0-47.0); Hemoglobin 9.8 g/dL (12.0-15.0); Immature Granulocyte Absolute 0.02 K/mm3 (0.00-0.031); Immature Granulocyte Percent A 0.5 % (0-0.5); Lymphocytes Absolute Auto 0.66 K/mm3 (0.9-3.2); Lymphocytes Percent Auto 17.1 % (18.3-44.2); Mean Corpuscular HGB Conc 31.5 g/dl (32-36); Mean Corpuscular Hemoglobin 27.7 pg (26-34); Mean Corpuscular Volume 87.9 fl (80-100); Mean Platelet Volume 9.9 fl (7.4-10.4); Monocytes Absolute Auto 0.1 K/mm3 (0.1-0.6); Monocytes Percent Auto 1.8 % (2.6-8.5); Neutrophils Absolute Auto 3.1 K/mm3 (1.3-6.7); Neutrophils Percent Auto 80.1 % (45.5-73.1); Platelet Count Result 268 k/mm3 (150-375); Red Blood Count 3.54 M/mm3 (4.2-5.4); Red Cell Distribution Width 24.8 % (11.5-14.5); White Blood Count 3.9 K/mm3 (4.5-10.0)
[2022-10-28 05:18] LABS: Anion Gap 7 mmol/L (8-16); Blood Urea Nitrogen 6 mg/dL (7-17); Calcium 8.3 mg/dL (8.4-10.2); Carbon Dioxide 30 mmol/L (22-30); Chloride 92 mmol/L (98-107); Estimated Glomerular Filt Rate > 60; Glucose 128 mg/dL (65-110); Potassium 3.3 mmol/L (3.4-5.0); Sodium 129 mmol/L (137-145)
[2022-10-28] MEDS: methylPREDNISolone SOD SUCC 125 MG VIAL 60 MG IV PUSH ×4 (05:30→23:57)
[2022-10-28 06:01] LABS: Hypochromasia 2+ (NORMAL); Platelet Estimate Adequate (Adequate)
[2022-10-28 06:02] LABS: Macrocytosis 2+ (NORMAL)
[2022-10-28 06:03] LABS: Schistocytes None Seen (NORMAL)
[2022-10-28] MEDS: FLUTICASONE/SALMETEROL 45-21 MCG INHALER 1 PUFF 2 PUFF INHALATION (07:47)
--- NOTE | 2022-10-28 09:32 | PC.NURSE ---
27-Pt. in polymorphic v-tach. Pulse present. 28-200 joule shock delivered. 928-another 200 joule shock delivered. 29-150 mg amiodarone IVP administered.
[2022-10-28] MEDS: DORZOLAMIDE/TIMOLOL OPHTH SOL 10 ML BOTTLE 1 DROP EACH EYE ×2 (09:48→21:03)
[2022-10-28] MEDS: ASCORBIC ACID 500 MG TABLET PO (09:49)
[2022-10-28] MEDS: CYANOCOBALAMIN 500 MCG TABLET 2500 MCG PO (09:49)
[2022-10-28] MEDS: METOPROLOL SUCCINATE EXT REL 25 MG TABCR PO (09:49)
[2022-10-28] MEDS: BUMETANIDE INJ 1 MG/4 ML VIAL IV PUSH ×2 (09:50→17:44)
--- NOTE | 2022-10-28 11:15 | PM.IMPN ---
Progress Note: A&P Assessment and Plan (1) CHF (congestive heart failure): Qualifiers: Heart failure chronicity: acute on chronic Heart failure type: unspecified Qualified Code(s): I50.9 - Heart failure, unspecified Code(s): I50.9 - Heart failure, unspecified Status: Acute Assessment and Plan: BNP elevated. Echo 10/01/22 with EF 70%, intermediate diastolic dysfunction, left atrial enlargement, mild to moderate mitral valve regurgitation, moderate pulmonary hypertenison. Had improvement with bumetanide in the morning. Patient has allergy to furosemide, so will continue with bumetanide as this was given in the ED without issue. -Echo -Bumetanide 1 mg IV BID -Scheduled potassium chloride 20 mEq BIDWM -Strict I&Os -Daily weights -Fluid restriction to 1500 cc daily (2) Influenza A: Code(s): J10.1 - Influenza due to other identified influenza virus with other respiratory manifestations Status: Acute Assessment and Plan: Oseltamivir 30 mg BID x 5 days (3) Atrial fibrillation with RVR: Code(s): I48.91 - Unspecified atrial fibrillation Status: Acute Assessment and Plan: Takes metoprolol and rivaroxaban. Continue. (4) Chronic hyponatremia: Code(s): E87.1 - Hypo-osmolality and hyponatremia Status: Acute Assessment and Plan: Stable. Will monitor with diuresis. (5) Obstructive sleep apnea: Code(s): G47.33 - Obstructive sleep apnea (adult) (pediatric) Status: Acute Assessment and Plan: unclear if use of CPAP at nighttime (6) COPD (chronic obstructive pulmonary disease): Qualifiers: COPD type: COPD with acute exacerbation Qualified Code(s): J44.1 - Chronic obstructive pulmonary disease with (acute) exacerbation Code(s): J44.9 - Chronic obstructive pulmonary disease, unspecified Status: Acute Assessment and Plan: Takes Spiriva and Symbicort at home. Will continue home med or formulary equivalent. Subjective Date/time seen: 10/28/22 10:15 Patient says she feels better. Says she feels her breathing is better. Review of Systems Respiratory: Respiratory: Denies dyspnea Exam Narrative: GENERAL: NAD, cooperative HEENT: Normocephalic, atraumatic, anicteric NECK: Supple CV: Normal S1, S2, RRR, No MRG RESP: CTAB, Normal work of breathing. Abdomen: Soft, non-tender, non-distended, +BS EXTREMITIES: Warm and well perfused, no clubbing, cyanosis, or edema. SKIN: warm, dry and intact. NEURO: CN II-XII grossly intact. Objective Data Vital Signs Vital Signs: Vital Signs - 24 hr 10/27/22 23:57 10/28/22 00:00 10/28/22 00:00 Temperature 36.9 C Pulse Rate 110 H 109 H 109 H Respiratory Rate 20 20 Blood Pressure 159/103 H Pulse Oximetry 95 95 Oxygen Delivery Nasal Cannula Oxygen Flow Rate 2 10/28/22 03:07 10/28/22 03:10 10/28/22 03:20 Temperature Pulse Rate 101 H 99 Respiratory Rate 20 20 Blood Pressure Pulse Oximetry 95 Oxygen Delivery Nasal Cannula Oxygen Flow Rate 2 10/28/22 02:00 10/28/22 04:00 10/28/22 04:00 Temperature Pulse Rate 99 104 H 104 H Respiratory Rate 20 Blood Pressure Pulse Oximetry 95 Oxygen Delivery Nasal Cannula Oxygen Flow Rate 2 10/28/22 05:32 10/28/22 06:00 10/28/22 07:49 Temperature 37.0 C Pulse Rate 99 104 H Respiratory Rate 19 Blood Pressure 150/103 H Pulse Oximetry 96 95 Oxygen Delivery Nasal Cannula Oxygen Flow Rate 2 10/28/22 07:49 10/28/22 08:01 10/28/22 08:00 Temperature Pulse Rate 95 102 H 106 H Respiratory Rate 20 20 Blood Pressure Pulse Oximetry Oxygen Delivery Oxygen Flow Rate 10/28/22 08:00 10/28/22 09:49 10/28/22 08:00 Temperature 36.2 C L Pulse Rate 110 H 107 H 107 H Respiratory Rate 24 H 20 Blood Pressure 141/86 H Pulse Oximetry 94 94 Oxygen Delivery Nasal Cannula Oxygen Flow Rate
[2022-10-28] MEDS: dilTIAZem 100 MG/100 ML 100 MG/100 ML BAG IV CONT (13:48)
[2022-10-28] MEDS: RIVAROXABAN 15 MG TABLET PO (17:43)
[2022-10-28] MEDS: ATORVASTATIN 20 MG TABLET PO (21:03)
[2022-10-28] MEDS: OSELTAMIVIR PHOSPHATE 30 MG CAPSULE PO (23:55)
[2022-10-28] MEDS: POTASSIUM CHLORIDE 20 MEQ TABLET 40 MEQ PO (23:55)
[2022-10-28] MEDS: POTASSIUM CHLORIDE 10 MEQ TABLET 20 MEQ PO (23:59)
[2022-10-29] VITALS (26 sets, daily range): BP systolic 131–237; BP diastolic 58–95; PULSE 87–112; RESP 16–20; TEMP 36.3–37.1; O2SAT 88–100
[2022-10-29] MEDS: ALBUTEROL SULFATE NEB 2.5 MG/3 ML INH 5 MG INHALATION ×4 (02:20→21:30)
[2022-10-29] MEDS: IPRATROPIUM BR 0.02% INH SOLN 0.5 MG/2.5 ML VIAL INHALATION ×4 (02:20→21:30)
[2022-10-29] MEDS: methylPREDNISolone SOD SUCC 125 MG VIAL 60 MG IV PUSH ×4 (05:42→23:32)
[2022-10-29] MEDS: CYANOCOBALAMIN 500 MCG TABLET 2500 MCG PO (08:36)
[2022-10-29] MEDS: OSELTAMIVIR PHOSPHATE 30 MG CAPSULE PO ×2 (08:36→21:09)
[2022-10-29] MEDS: ASCORBIC ACID 500 MG TABLET PO (08:36)
[2022-10-29] MEDS: BUMETANIDE INJ 1 MG/4 ML VIAL IV PUSH ×2 (08:37→16:17)
[2022-10-29] MEDS: METOPROLOL SUCCINATE EXT REL 25 MG TABCR PO ×2 (08:37→14:54)
[2022-10-29] MEDS: DORZOLAMIDE/TIMOLOL OPHTH SOL 10 ML BOTTLE 1 DROP EACH EYE ×2 (08:38→21:09)
[2022-10-29] MEDS: FLUTICASONE/SALMETEROL 45-21 MCG INHALER 1 PUFF 2 PUFF INHALATION ×2 (08:41→21:31)
[2022-10-29] MEDS: POTASSIUM CHLORIDE 20 MEQ TABLET.ER 40 MEQ PO (09:06)
[2022-10-29 10:06] LABS: Hematocrit 31.9 % (37.0-47.0); Hemoglobin 10.1 g/dL (12.0-15.0); Mean Corpuscular HGB Conc 31.7 g/dl (32-36); Mean Corpuscular Hemoglobin 28.3 pg (26-34); Mean Corpuscular Volume 89.4 fl (80-100); Mean Platelet Volume 10.1 fl (7.4-10.4); Platelet Count Result 315 k/mm3 (150-375); Red Blood Count 3.57 M/mm3 (4.2-5.4); Red Cell Distribution Width 25.6 % (11.5-14.5); White Blood Count 11.4 K/mm3 (4.5-10.0)
[2022-10-29 10:20] LABS: Anion Gap 7 mmol/L (8-16); Blood Urea Nitrogen 15 mg/dL (7-17); Calcium 8.4 mg/dL (8.4-10.2); Carbon Dioxide 29 mmol/L (22-30); Chloride 93 mmol/L (98-107); Estimated Glomerular Filt Rate 53; Glucose 225 mg/dL (65-110); Magnesium 1.6 mg/dL (1.6-2.3); Sodium 129 mmol/L (137-145)
--- NOTE | 2022-10-29 12:09 | PM.IMPN ---
Progress Note: A&P Assessment and Plan (1) CHF (congestive heart failure): Qualifiers: Heart failure chronicity: acute on chronic Heart failure type: unspecified Qualified Code(s): I50.9 - Heart failure, unspecified Code(s): I50.9 - Heart failure, unspecified Status: Acute Assessment and Plan: BNP elevated. Echo 10/01/22 with EF 70%, intermediate diastolic dysfunction, left atrial enlargement, mild to moderate mitral valve regurgitation, moderate pulmonary hypertenison. Had improvement with bumetanide in the morning. Patient has allergy to furosemide, so will continue with bumetanide as this was given in the ED without issue. -Echo -Bumetanide 1 mg IV BID -Scheduled potassium chloride 20 mEq BIDWM -Strict I&Os -Daily weights -Fluid restriction to 1500 cc daily (2) Influenza A: Code(s): J10.1 - Influenza due to other identified influenza virus with other respiratory manifestations Status: Acute Assessment and Plan: Oseltamivir 30 mg BID x 5 days (3) Atrial fibrillation with RVR: Code(s): I48.91 - Unspecified atrial fibrillation Status: Acute Assessment and Plan: Takes metoprolol and rivaroxaban. Continue. 10/29 Currently on diltiazem at 5 mg/hr, d/c (4) Chronic hyponatremia: Code(s): E87.1 - Hypo-osmolality and hyponatremia Status: Acute Assessment and Plan: Stable. Will monitor with diuresis. 10/29 129 (5) Obstructive sleep apnea: Code(s): G47.33 - Obstructive sleep apnea (adult) (pediatric) Status: Acute Assessment and Plan: unclear if use of CPAP at nighttime (6) COPD (chronic obstructive pulmonary disease): Qualifiers: COPD type: COPD with acute exacerbation Qualified Code(s): J44.1 - Chronic obstructive pulmonary disease with (acute) exacerbation Code(s): J44.9 - Chronic obstructive pulmonary disease, unspecified Status: Acute Assessment and Plan: Takes Spiriva and Symbicort at home. Will continue home med or formulary equivalent. Subjective Date/time seen: 10/29/22 12:09 Interval history: Feeling tired and weak. Had 2 loose bowel movements this morning. No bleeding. No chest pain. Still with dry cough. Short of breath with exertion. No swelling. Review of Systems Review of Systems: All systems reviewed & are unremarkable except as noted in HPI and below Exam Narrative: Elderly female in no acute distress lying comfortably in hospital bed with intermittent dry cough pharyngeal mucosa pink and intact. Sclerae nonicteric. Neck without JVD chest with coarse breath sounds scattered lower lobe rhonchi heart irregular without audible murmur extremities no edema abdomen bowel sounds intact, soft, nontender, no mass musculoskeletal without gross deformity to visual inspection neurologic cranial nerves symmetric to visual inspection Objective Data Vital Signs Vital Signs: Vital Signs - 24 hr 10/28/22 13:48 10/28/22 14:00 10/28/22 14:27 Temperature Pulse Rate 98 102 H 91 Respiratory Rate 20 Blood Pressure 123/67 Pulse Oximetry Oxygen Delivery Oxygen Flow Rate 10/28/22 14:40 10/28/22 16:00 10/28/22 16:00 Temperature 98.3 F Pulse Rate 92 97 91 Respiratory Rate 20 14 22 H Blood Pressure 126/63 Pulse Oximetry 94 94 Oxygen Delivery Room Air Oxygen Flow Rate 10/28/22 16:00 10/28/22 18:00 10/28/22 20:04 Temperature 98.9 F Pulse Rate 88 105 H 96 Respiratory Rate 20 Blood Pressure 126/56 L Pulse Oximetry 90 Oxygen Delivery Oxygen Flow Rate 10/28/22 20:47 10/28/22 20:59 10/28/22 20:00 Temperature Pulse Rate 99 100 105 H Respiratory Rate 22 H 20 Blood Pressure Pulse Oximetry 90 Oxygen Delivery Nasal Cannula Oxygen Flow Rate 1 10/28/22 20:00 10/28/22 22:00 10/29/22 00:03 Temperature 98.7 F Pulse Rate 105 H 98 95 Respira
[2022-10-29] MEDS: MAGNESIUM SULF 2 GM/WATER 50ML 2 GM/50 ML BAG IVPB (13:01)
[2022-10-29] MEDS: RIVAROXABAN 15 MG TABLET PO (16:17)
[2022-10-29] MEDS: POTASSIUM CHLORIDE 20 MEQ TABLET.ER PO (16:17)
[2022-10-29] MEDS: ATORVASTATIN 20 MG TABLET PO (21:09)
[2022-10-30] VITALS (21 sets, daily range): BP systolic 137–176; BP diastolic 91–98; PULSE 53–146; RESP 16–24; TEMP 36.4–37.1; O2SAT 90–98
[2022-10-30 04:59] LABS: Anion Gap 6 mmol/L (8-16); Blood Urea Nitrogen 16 mg/dL (7-17); Calcium 8.4 mg/dL (8.4-10.2); Carbon Dioxide 32 mmol/L (22-30); Chloride 95 mmol/L (98-107); Estimated Glomerular Filt Rate 60; Glucose 159 mg/dL (65-110); Potassium 3.8 mmol/L (3.4-5.0); Sodium 133 mmol/L (137-145)
--- NOTE | 2022-10-30 04:59 | PCRCNOTE ---
Window of time for administration has passed. See next scheduled administration.
[2022-10-30] MEDS: methylPREDNISolone SOD SUCC 125 MG VIAL 60 MG IV PUSH ×3 (05:40→17:56)
[2022-10-30] MEDS: ALBUTEROL SULFATE NEB 2.5 MG/3 ML INH 5 MG INHALATION ×3 (08:34→20:28)
[2022-10-30] MEDS: FLUTICASONE/SALMETEROL 45-21 MCG INHALER 1 PUFF 2 PUFF INHALATION ×2 (08:35→20:28)
[2022-10-30] MEDS: IPRATROPIUM BR 0.02% INH SOLN 0.5 MG/2.5 ML VIAL INHALATION ×3 (08:35→20:28)
[2022-10-30] MEDS: POTASSIUM CHLORIDE 20 MEQ TABLET.ER PO ×2 (08:36→17:56)
[2022-10-30] MEDS: CYANOCOBALAMIN 500 MCG TABLET 2500 MCG PO (08:37)
[2022-10-30] MEDS: ASCORBIC ACID 500 MG TABLET PO (08:37)
[2022-10-30] MEDS: BUMETANIDE INJ 1 MG/4 ML VIAL IV PUSH ×2 (08:37→17:56)
[2022-10-30] MEDS: OSELTAMIVIR PHOSPHATE 30 MG CAPSULE PO ×2 (08:38→21:19)
[2022-10-30] MEDS: DORZOLAMIDE/TIMOLOL OPHTH SOL 10 ML BOTTLE 1 DROP EACH EYE ×2 (08:38→21:20)
[2022-10-30] MEDS: METOPROLOL SUCCINATE EXT REL 50 MG TABCR PO ×2 (08:38→09:34)
--- NOTE | 2022-10-30 13:09 | PM.IMPN ---
Progress Note: A&P Assessment and Plan (1) CHF (congestive heart failure): Qualifiers: Heart failure chronicity: acute on chronic Heart failure type: unspecified Qualified Code(s): I50.9 - Heart failure, unspecified Code(s): I50.9 - Heart failure, unspecified Status: Acute Assessment and Plan: BNP elevated. Echo 10/01/22 with EF 70%, intermediate diastolic dysfunction, left atrial enlargement, mild to moderate mitral valve regurgitation, moderate pulmonary hypertenison. Had improvement with bumetanide in the morning. Patient has allergy to furosemide, so will continue with bumetanide as this was given in the ED without issue. -Echo -Bumetanide 1 mg IV BID -Scheduled potassium chloride 20 mEq BIDWM -Strict I&Os -Daily weights -Fluid restriction to 1500 cc daily (2) Influenza A: Code(s): J10.1 - Influenza due to other identified influenza virus with other respiratory manifestations Status: Acute Assessment and Plan: Oseltamivir 30 mg BID x 5 days (3) Atrial fibrillation with RVR: Code(s): I48.91 - Unspecified atrial fibrillation Status: Acute Assessment and Plan: Takes metoprolol and rivaroxaban. Continue. 10/29 Currently on diltiazem at 5 mg/hr, d/c (4) Chronic hyponatremia: Code(s): E87.1 - Hypo-osmolality and hyponatremia Status: Acute Assessment and Plan: Stable. Will monitor with diuresis. 10/29 129 (5) Obstructive sleep apnea: Code(s): G47.33 - Obstructive sleep apnea (adult) (pediatric) Status: Acute Assessment and Plan: unclear if use of CPAP at nighttime (6) COPD (chronic obstructive pulmonary disease): Qualifiers: COPD type: COPD with acute exacerbation Qualified Code(s): J44.1 - Chronic obstructive pulmonary disease with (acute) exacerbation Code(s): J44.9 - Chronic obstructive pulmonary disease, unspecified Status: Acute Assessment and Plan: Takes Spiriva and Symbicort at home. Will continue home med or formulary equivalent. Subjective Date/time seen: 10/30/22 13:09 no complaints Exam Narrative: Elderly female in no acute distress lying comfortably in hospital bed with intermittent dry cough pharyngeal mucosa pink and intact. Sclerae nonicteric. Neck without JVD chest with coarse breath sounds scattered lower lobe rhonchi heart irregular without audible murmur extremities no edema abdomen bowel sounds intact, soft, nontender, no mass musculoskeletal without gross deformity to visual inspection neurologic cranial nerves symmetric to visual inspection Objective Data Vital Signs Vital Signs: Vital Signs - 24 hr 10/29/22 13:24 10/29/22 13:49 10/29/22 14:00 Temperature Pulse Rate 90 87 98 Respiratory Rate 20 20 Blood Pressure Pulse Oximetry Oxygen Delivery Oxygen Flow Rate 10/29/22 14:54 10/29/22 16:00 10/29/22 16:00 Temperature 97.8 F Pulse Rate 97 90 102 H Respiratory Rate 20 Blood Pressure 159/95 H Pulse Oximetry 96 Oxygen Delivery Oxygen Flow Rate 10/29/22 18:00 10/29/22 19:47 10/29/22 21:30 Temperature 98.4 F Pulse Rate 96 105 H 110 H Respiratory Rate 20 20 Blood Pressure 131/78 Pulse Oximetry 91 Oxygen Delivery Oxygen Flow Rate 10/29/22 21:37 10/29/22 20:00 10/29/22 22:00 Temperature Pulse Rate 109 H 100 Respiratory Rate Blood Pressure Pulse Oximetry 92 Oxygen Delivery Room Air Oxygen Flow Rate 10/29/22 20:00 10/30/22 00:00 10/30/22 02:00 Temperature Pulse Rate 106 H 111 H Respiratory Rate Blood Pressure Pulse Oximetry 94 Oxygen Delivery Room Air Oxygen Flow Rate 10/30/22 04:19 10/30/22 04:00 10/30/22 06:00 Temperature 98.8 F Pulse Rate 108 H 110 H 111 H Respiratory Rate 20 Blood Pressure 150/98 H Pulse Oximetry 90 Oxygen Delivery Oxygen Flow Rate
[2022-10-30] MEDS: RIVAROXABAN 15 MG TABLET PO (17:56)
[2022-10-30] MEDS: ATORVASTATIN 20 MG TABLET PO (21:19)
[2022-10-31] VITALS (23 sets, daily range): BP systolic 138–169; BP diastolic 87–110; PULSE 97–137; RESP 16–20; TEMP 36.4–36.7; O2SAT 92–96
[2022-10-31] MEDS: methylPREDNISolone SOD SUCC 125 MG VIAL 60 MG IV PUSH ×3 (00:21→11:54)
[2022-10-31] MEDS: ALBUTEROL SULFATE NEB 2.5 MG/3 ML INH 5 MG INHALATION ×4 (02:54→21:34)
[2022-10-31] MEDS: IPRATROPIUM BR 0.02% INH SOLN 0.5 MG/2.5 ML VIAL INHALATION ×4 (02:54→21:33)
[2022-10-31] MEDS: OSELTAMIVIR PHOSPHATE 30 MG CAPSULE PO ×2 (08:35→20:28)
[2022-10-31] MEDS: POTASSIUM CHLORIDE 20 MEQ TABLET.ER PO ×2 (08:35→16:49)
[2022-10-31] MEDS: DORZOLAMIDE/TIMOLOL OPHTH SOL 10 ML BOTTLE 1 DROP EACH EYE ×2 (08:35→20:28)
[2022-10-31] MEDS: ASCORBIC ACID 500 MG TABLET PO (08:35)
[2022-10-31] MEDS: METOPROLOL SUCCINATE EXT REL 100 MG TABCR PO ×2 (08:35→13:36)
[2022-10-31] MEDS: CYANOCOBALAMIN 500 MCG TABLET 2500 MCG PO (08:36)
[2022-10-31] MEDS: BUMETANIDE INJ 1 MG/4 ML VIAL IV PUSH (08:36)
[2022-10-31] MEDS: FLUTICASONE/SALMETEROL 45-21 MCG INHALER 1 PUFF 2 PUFF INHALATION ×2 (09:36→21:35)
--- NOTE | 2022-10-31 12:13 | PM.IMPN ---
Progress Note: A&P Assessment and Plan (1) CHF (congestive heart failure): Qualifiers: Heart failure chronicity: acute on chronic Heart failure type: unspecified Qualified Code(s): I50.9 - Heart failure, unspecified Code(s): I50.9 - Heart failure, unspecified Status: Acute Assessment and Plan: BNP elevated. Echo 10/01/22 with EF 70%, intermediate diastolic dysfunction, left atrial enlargement, mild to moderate mitral valve regurgitation, moderate pulmonary hypertenison. Had improvement with bumetanide in the morning. Patient has allergy to furosemide, so will continue with bumetanide as this was given in the ED without issue. -Echo -Bumetanide 1 mg daily -Scheduled potassium chloride 20 mEq BIDWM -Strict I&Os -Daily weights -Fluid restriction to 1500 cc daily (2) Influenza A: Code(s): J10.1 - Influenza due to other identified influenza virus with other respiratory manifestations Status: Acute Assessment and Plan: Oseltamivir 30 mg BID x 5 days (3) Atrial fibrillation with RVR: Code(s): I48.91 - Unspecified atrial fibrillation Status: Acute Assessment and Plan: Takes metoprolol and rivaroxaban. Continue. 10/29 Currently on diltiazem at 5 mg/hr, d/c (4) Chronic hyponatremia: Code(s): E87.1 - Hypo-osmolality and hyponatremia Status: Acute Assessment and Plan: bb continue anticoagulation (5) Obstructive sleep apnea: Code(s): G47.33 - Obstructive sleep apnea (adult) (pediatric) Status: Acute Assessment and Plan: unclear if use of CPAP at nighttime (6) COPD (chronic obstructive pulmonary disease): Qualifiers: COPD type: COPD with acute exacerbation Qualified Code(s): J44.1 - Chronic obstructive pulmonary disease with (acute) exacerbation Code(s): J44.9 - Chronic obstructive pulmonary disease, unspecified Status: Acute Assessment and Plan: Takes Spiriva and Symbicort at home. Will continue home med or formulary equivalent. Subjective Date/time seen: 10/31/22 12:13 Exam Narrative: Elderly female in no acute distress lying comfortably in hospital bed with intermittent dry cough pharyngeal mucosa pink and intact. Sclerae nonicteric. Neck without JVD chest with coarse breath sounds scattered lower lobe rhonchi heart irregular without audible murmur extremities no edema abdomen bowel sounds intact, soft, nontender, no mass musculoskeletal without gross deformity to visual inspection neurologic cranial nerves symmetric to visual inspection Objective Data Vital Signs Vital Signs: Vital Signs - 24 hr 10/30/22 14:05 10/30/22 14:00 10/30/22 16:00 Temperature 98.1 F Pulse Rate 106 H 113 H 53 L Respiratory Rate 18 16 Blood Pressure 137/91 H Pulse Oximetry 94 Oxygen Delivery Oxygen Flow Rate 10/30/22 16:00 10/30/22 18:00 10/30/22 20:33 Temperature Pulse Rate 118 H 115 H 129 H Respiratory Rate 20 Blood Pressure Pulse Oximetry Oxygen Delivery Oxygen Flow Rate 10/30/22 20:34 10/30/22 20:46 10/30/22 21:00 Temperature 97.5 F L Pulse Rate 124 H 146 H Respiratory Rate 20 16 Blood Pressure 145/97 H Pulse Oximetry 93 95 Oxygen Delivery Nasal Cannula Oxygen Flow Rate 1 10/31/22 00:10 10/30/22 20:00 10/30/22 20:00 Temperature 97.5 F L Pulse Rate 101 H 123 H 101 H Respiratory Rate 20 20 Blood Pressure 147/87 H Pulse Oximetry 96 96 Oxygen Delivery Nasal Cannula Oxygen Flow Rate 2 10/31/22 00:00 10/31/22 02:58 10/31/22 03:08 Temperature Pulse Rate 137 H 108 H 110 H Respiratory Rate 20 20 Blood Pressure Pulse Oximetry Oxygen Delivery Oxygen Flow Rate 10/31/22 04:37 10/31/22 04:00 10/31/22 08:00 Temperature 97.6 F 97.7 F Pulse Rate 121 H 130 H 112 H Respiratory Rate 18 18 Blood Pressure 138/96 H 151/104 H Pulse Oximetry 95 93
--- NOTE | 2022-10-31 16:06 | PM.CNCAR ---
Assessment and Plan Assessment and plan (1) CHF (congestive heart failure): Qualifiers: Heart failure chronicity: acute on chronic Heart failure type: unspecified Qualified Code(s): I50.9 - Heart failure, unspecified Code(s): I50.9 - Heart failure, unspecified Status: Acute Assessment and Plan: Heart failure with preserved ejection fraction. Improving with diuresis. Continue IV Bumex for now. Check daily BMP. (2) Influenza A: Code(s): J10.1 - Influenza due to other identified influenza virus with other respiratory manifestations Status: Acute Assessment and Plan: Management per hospitalist. (3) Atrial fibrillation with RVR: Code(s): I48.91 - Unspecified atrial fibrillation Status: Acute Assessment and Plan: History of paroxysmal atrial fibrillation previously rate controlled on metoprolol at. She is anticoagulated with rivaroxaban. Metoprolol dosage has been increased no success in controlling her heart rate. Therefore, will shift her to IV amiodarone. Hopefully her rate will be better controlled with this. Would anticipate that her heart rate would improve as she recovers from her viral illness. Would not want her to be amiodarone long-term. History of Present Illness History of Present Illness Consult date/time: 10/31/22 16:06 Reason For Visit: CHF,Influenza A,Afib w/RVR Narrative: Ms. Wynne is a 82-year-old female with a history of paroxysmal atrial fibrillation, hypertension, dyslipidemia, colon cancer, and COPD who is hospitalized with shortness of breath. She has been found to be positive for influenza A. Her initial EKG for this hospitalization shows that she was in atrial fibrillation with rapid ventricular response. Her metoprolol dosage has been advanced but she remains tachycardic at this time. She denies any symptoms such as chest pain, palpitations, shortness of breath. She is also being treated for mild CHF exacerbation. She reports that her swelling has improved significantly since being in the hospital. Currently, she is lying comfortably in bed and does not have any complaints at the time of my visit. Review of Systems Constitutional: Constitutional: Denies chills, Denies fever(s), Denies headache(s) and Denies malaise Eyes: Eyes: Denies change in vision ENT: Reports Normal hearing present, Denies dizziness, Denies headache(s) and Denies hearing loss Cardiovascular: Cardiovascular: Denies chest pain, Denies chest pain at rest, Denies chest pain with activity, Denies syncope, Reports pedal edema, Reports leg edema, Denies palpitations, Reports dyspnea and Reports dyspnea on exertion Respiratory: Respiratory: Denies cough, Reports dyspnea, Reports dyspnea on exertion and Denies wheezing Gastrointestinal: Gastrointestinal: Denies abdominal pain, Denies constipation and Denies diarrhea Genitourinary: Genitourinary: Denies hematuria and Denies dysuria Musculoskeletal: Musculoskeletal: Denies myalgias, Denies arthralgias and Denies muscle cramps Integumentary/Breasts: Skin/Breast: Denies wounds Neurologic: Reports Normal hearing present, Denies confusion, Denies dizziness, Denies syncope and Denies headache(s) Psychiatric: Psychiatric: Denies anxiety, Denies confusion and Denies depression Endocrine: Endocrine: Denies cold intolerance, Denies flushing, Denies heat intolerance and Denies palpitations Hematologic/Lymphatic: Hematologic/Lymphatic: Denies easy bleeding and Denies easy bruising Allergic/Immunologic: Allergic/Immunologic: Denies wheezing PMFSH Past Medical History Medical History Adenocarcinoma of colon Anemia Anemia due to GI blood loss Arthritis Atrial fibrillation Congestive heart failure EF 70%, indeterminate diastolic function, mildly increased left ventricular wall thickness, severe biatrial enlargement, [id number] mitral valve regurgitation, moderat
[2022-10-31] MEDS: RIVAROXABAN 15 MG TABLET PO (16:49)
[2022-10-31] MEDS: AMIODARONE 150 MG/D5W 100 ML 150 MG/100 ML BAG 600 MG IV CONT (16:54)
[2022-10-31] MEDS: AMIODARONE 360 MG/D5W 200 ML 360 MG/200 ML BAG 33.33 MG IV CONT (17:16)
[2022-10-31] MEDS: ATORVASTATIN 20 MG TABLET PO (20:28)
[2022-10-31] MEDS: AMIODARONE 360 MG/D5W 200 ML 360 MG/200 ML BAG 16.67 MG IV CONT (22:40)
[2022-11-01] VITALS (22 sets, daily range): BP systolic 144–159; BP diastolic 88–106; PULSE 88–124; RESP 18–28; TEMP 36.1–36.6; O2SAT 92–98
[2022-11-01] MEDS: hydrALAZINE HCL 20 MG/ML VIAL 10 MG IV PUSH ×2 (01:25→17:28)
[2022-11-01] MEDS: IPRATROPIUM BR 0.02% INH SOLN 0.5 MG/2.5 ML VIAL INHALATION ×4 (02:36→18:12)
[2022-11-01] MEDS: ALBUTEROL SULFATE NEB 2.5 MG/3 ML INH 5 MG INHALATION ×4 (02:37→18:12)
[2022-11-01 05:05] LABS: Hematocrit 33.7 % (37.0-47.0); Hemoglobin 10.6 g/dL (12.0-15.0); Mean Corpuscular HGB Conc 31.5 g/dl (32-36); Mean Corpuscular Hemoglobin 27.6 pg (26-34); Mean Corpuscular Volume 87.8 fl (80-100); Mean Platelet Volume 10.5 fl (7.4-10.4); Platelet Count Result 332 k/mm3 (150-375); Red Blood Count 3.84 M/mm3 (4.2-5.4); Red Cell Distribution Width 25.3 % (11.5-14.5); White Blood Count 17.3 K/mm3 (4.5-10.0)
[2022-11-01 05:18] LABS: Anion Gap 8 mmol/L (8-16); Blood Urea Nitrogen 33 mg/dL (7-17); Calcium 8.8 mg/dL (8.4-10.2); Carbon Dioxide 36 mmol/L (22-30); Chloride 90 mmol/L (98-107); Estimated Glomerular Filt Rate 48; Glucose 196 mg/dL (65-110); Potassium 3.8 mmol/L (3.4-5.0); Sodium 134 mmol/L (137-145)
[2022-11-01 05:50] LABS: Anisocytosis 1+ (NORMAL); Hypochromasia 2+ (NORMAL); Lymphocytes Absolute Manual 1.73 K/mm3 (1.1-4.5); Macrocytosis 1+ (NORMAL); Microcytosis 1+ (NORMAL); Myelocytes Percent 1 %; Neutrophils Percent Manual 89 % (46-73); Platelet Estimate Adequate (Adequate); Schistocytes 1+ (NORMAL); Total Cells Counted 100
[2022-11-01] MEDS: FLUTICASONE/SALMETEROL 45-21 MCG INHALER 1 PUFF 2 PUFF INHALATION ×2 (09:12→20:31)
--- NOTE | 2022-11-01 09:16 | PM.PNCARD ---
Progress Note: A&P Assessment and Plan (1) CHF (congestive heart failure): Qualifiers: Heart failure chronicity: acute on chronic Heart failure type: unspecified Qualified Code(s): I50.9 - Heart failure, unspecified Code(s): I50.9 - Heart failure, unspecified Status: Acute Assessment and Plan: Heart failure with preserved ejection fraction. IV Bumex has been stopped presumably because of some prerenal azotemia. Increased shortness of breath today perhaps because of worsening CHF. Will check CXR. Hopefully can resume some diuretic tomorrow. Daily BMP. (2) Influenza A: Code(s): J10.1 - Influenza due to other identified influenza virus with other respiratory manifestations Status: Acute Assessment and Plan: Management per hospitalist. (3) Atrial fibrillation with RVR: Code(s): I48.91 - Unspecified atrial fibrillation Status: Acute Assessment and Plan: History of paroxysmal atrial fibrillation previously rate controlled on metoprolol at home. Unable to achieve rate control with increased doses of metoprolol. Therefore, she was shifted to IV amiodarone yesterday and is achieving adequate rate control. Will shift her to p.o. amiodarone today. She is anticoagulated with rivaroxaban. Would prefer that she not be on amiodarone residential. This can be discussed with and decided upon with her vocational ed instructor, Dr. Heller as an outpatient. Subjective Date/time seen: 11/01/22 09:16 Cardiology follow up for atrial fibrillation Remains in atrial fibrillation but rate better controlled with IV amiodarone. She's feeling worse today from a respiratory standpoint, more short of breath. Review of Systems Constitutional: Constitutional: Denies chills, Denies fever(s), Denies headache(s) and Denies malaise Eyes: Eyes: Denies change in vision ENT: Reports Normal hearing present, Denies dizziness, Denies headache(s) and Denies hearing loss Cardiovascular: Cardiovascular: Denies chest pain, Denies chest pain at rest, Denies chest pain with activity, Denies syncope, Reports pedal edema, Reports leg edema, Denies palpitations, Reports dyspnea and Reports dyspnea on exertion Respiratory: Respiratory: Denies cough, Reports dyspnea, Reports dyspnea on exertion and Denies wheezing Gastrointestinal: Gastrointestinal: Denies abdominal pain, Denies constipation and Denies diarrhea Genitourinary: Genitourinary: Denies hematuria and Denies dysuria Musculoskeletal: Musculoskeletal: Denies myalgias, Denies arthralgias and Denies muscle cramps Integumentary/Breasts: Skin/Breast: Denies wounds Neurologic: Reports Normal hearing present, Denies confusion, Denies dizziness, Denies syncope and Denies headache(s) Psychiatric: Psychiatric: Denies anxiety, Denies confusion and Denies depression Endocrine: Endocrine: Denies cold intolerance, Denies flushing, Denies heat intolerance and Denies palpitations Hematologic/Lymphatic: Hematologic/Lymphatic: Denies easy bleeding and Denies easy bruising Allergic/Immunologic: Allergic/Immunologic: Denies wheezing Exam Const: General: comfortable, no acute distress, alert and awake; No confusion Orientation/consciousness: patient oriented x3 and No confusion HENMT: Head: normal to inspection Eyes: General: appearance normal, both eyes and all related structures Pupils: Equal, round and reactive pupils present Neck: Neck: normal visual inspection, supple and no JVD Carotids: normal carotid upstroke Resp: Effort & Inspection: normal respiratory effort Auscultation: not clear to auscultation bilaterally, crackles and diminished lung sounds Cardio: Rate: tachycardic Rhythm: abnormal rhythm Heart sounds: S1 normal heart sound present, S2 normal heart sound present and no murmurs GI: Auscultation: normal bowel sounds Skin: General skin exam: normal color Neuro: General: patient oriented x3 and No confusion Cranial nerves: Yes Equal, ro
--- NOTE | 2022-11-01 09:44 | P.CDI_ITS ---
CDI Query Clarified Diagnosis Clarified Diagnosis: Elevated BNP on 10/27/22 lab work. Pt with documented history of CHF. Pt receiving Bumex. CHF noted on the assessment and plan. Please specify type and acuity of heart failure if known. * Acute * Chronic * Acute on Chronic * Unknown * Systolic * Diastolic * Combined Systolic and Diastolic * Unknown <Mary Miller RN - Last Filed: 11/01/22 09:48> Provider Comments acute on chronic diastolic <Amilcar Mast MD - Last Filed: 11/01/22 11:49>
[2022-11-01] MEDS: OSELTAMIVIR PHOSPHATE 30 MG CAPSULE PO (09:48)
[2022-11-01] MEDS: methylPREDNISolone SOD SUCC 125 MG VIAL 60 MG IV PUSH (09:48)
[2022-11-01] MEDS: ASCORBIC ACID 500 MG TABLET PO (09:49)
[2022-11-01] MEDS: CYANOCOBALAMIN 500 MCG TABLET 2500 MCG PO (09:49)
[2022-11-01] MEDS: DORZOLAMIDE/TIMOLOL OPHTH SOL 10 ML BOTTLE 1 DROP EACH EYE ×2 (09:49→21:02)
[2022-11-01] MEDS: POTASSIUM CHLORIDE 20 MEQ TABLET.ER PO ×2 (09:49→16:11)
[2022-11-01] MEDS: AMIODARONE 360 MG/D5W 200 ML 360 MG/200 ML BAG 16.67 MG IV CONT (10:33)
--- NOTE | 2022-11-01 11:46 | PM.IMPN ---
Progress Note: A&P Assessment and Plan (1) CHF (congestive heart failure): Qualifiers: Heart failure chronicity: acute on chronic Heart failure type: unspecified Qualified Code(s): I50.9 - Heart failure, unspecified Code(s): I50.9 - Heart failure, unspecified Status: Acute Assessment and Plan: Heart failure with preserved ejection fraction. IV Bumex has been stopped presumably because of some prerenal azotemia. Increased shortness of breath today perhaps because of worsening CHF. Volume status appears to be improved. Continue to hold diuretic. (2) Influenza A: Code(s): J10.1 - Influenza due to other identified influenza virus with other respiratory manifestations Status: Acute Assessment and Plan: Management per hospitalist. (3) Atrial fibrillation with RVR: Code(s): I48.91 - Unspecified atrial fibrillation Status: Acute Assessment and Plan: Managed per Cardiology. Continue amiodarone. Currently on Xarelto (4) Chronic hyponatremia: Code(s): E87.1 - Hypo-osmolality and hyponatremia Status: Acute (5) Obstructive sleep apnea: Code(s): G47.33 - Obstructive sleep apnea (adult) (pediatric) Status: Acute (6) COPD (chronic obstructive pulmonary disease): Qualifiers: COPD type: COPD with acute exacerbation Qualified Code(s): J44.1 - Chronic obstructive pulmonary disease with (acute) exacerbation Code(s): J44.9 - Chronic obstructive pulmonary disease, unspecified Status: Acute Subjective Date/time seen: 11/01/22 11:46 still short of breath. No new complaints. No chest pain. Heart rate under better control. Exam Const: General: comfortable, no acute distress, well developed, alert, awake and average body habitus; No confusion Nutritional Appearance: average body habitus Orientation/consciousness: patient oriented x3 and No confusion HENMT: Head: normal to inspection, normocephalic and atraumatic Ears: hearing grossly normal bilaterally Face/Nose/Sinus: normal facial exam Face and sinus: normal facial exam Eyes: General: appearance normal, both eyes and all related structures Pupils: Equal, round and reactive pupils present EOM: EOMs intact bilaterally Neck: Neck: normal visual inspection, full ROM, no lymphadenopathy, supple and no JVD Thyroid: thyroid normal Carotids: normal carotid upstroke Lymphatic: no lymphadenopathy noted Resp: Effort & Inspection: normal respiratory effort and able to speak in complete sentences Auscultation: not clear to auscultation bilaterally, crackles and diminished lung sounds Cardio: Jugular venous distension: no JVD Rate: regular rate and tachycardic Rhythm: regular rhythm and abnormal rhythm Heart sounds: S1 normal heart sound present, S2 normal heart sound present and no murmurs GI: Auscultation: normal bowel sounds : General: Yes deferred Skin: General skin exam: normal color Rashes: no rashes Wounds: no wounds Neuro: General: patient oriented x3, CN's II-XI intact bilaterally, No confusion and Unable to assess gait Cranial nerves: Yes CN's II-XII intact bilaterally, Yes Equal, round and reactive pupils present and Yes Normal hearing present Cognition (Neuro): normal cognition Speech: normal speech Gait exam (Neuro): Unable to assess gait Motor exam (neuro): 5/5 motor strength present throughout Sensory Exam: No Sensory deficit (Neuro) Extrem: General: normal to inspection, full ROM, no joint enlargement and no pedal edema Psych: Appearance: grossly normal Mental Status: mental status grossly normal Objective Data Vital Signs Vital Signs: Vital Signs - 24 hr 10/31/22 12:00 10/31/22 12:00 10/31/22 14:01 Temperature Pulse Rate 123 H 122 H Respiratory Rate 20 Blood Pressure 139/101 H Pulse Oximetry Oxygen Delivery Oxygen Flow Rate 10/31/22 14:12 10/31/22 16:00 10/31/22 16:00 Temperature 98.0 F Pulse Rat
[2022-11-01] MEDS: guaiFENesin 12 HR 600 MG TABCR PO (16:10)
[2022-11-01] MEDS: AMIODARONE HCL 200 MG TABLET 400 MG PO (16:10)
[2022-11-01] MEDS: RIVAROXABAN 15 MG TABLET PO (16:10)
--- NOTE | 2022-11-01 16:25 | PC.NURSE ---
BP 154/106. Dr. Mast made aware. New orders noted for Hydralazine 10mg x 1 dose.
[2022-11-01] MEDS: LOSARTAN POTASSIUM 12.5 MG TABLET PO (17:28)
--- NOTE | 2022-11-01 20:19 | PC.NURSE ---
Pt sitting in room with complaints of SOB. RR 24. O2 97% on 2L. Already received neb tx. ARELIS Butts made aware. New orders noted for 1 mg Bumex IVP x 1 dose and 0.5mg Ativan IVP x 1 dose.
[2022-11-01] MEDS: METOPROLOL TARTRATE 25 MG TABLET PO (21:01)
[2022-11-01] MEDS: BUMETANIDE INJ 1 MG/4 ML VIAL IV PUSH (21:02)
[2022-11-01] MEDS: ATORVASTATIN 20 MG TABLET PO (21:02)
[2022-11-01] MEDS: LORazepam INJ (*CRX) 2 MG/ML VIAL 0.5 MG IV PUSH (21:02)
[2022-11-01] MEDS: OSELTAMIVIR PHOSPHATE ORAL SUSP 30 MG/5 ML SYRINGE PO (21:02)
[2022-11-02] VITALS (21 sets, daily range): BP systolic 154–184; BP diastolic 87–118; PULSE 93–122; RESP 16–36; TEMP 36.3–36.8; O2SAT 90–97
[2022-11-02] MEDS: IPRATROPIUM BR 0.02% INH SOLN 0.5 MG/2.5 ML VIAL INHALATION ×4 (01:39→19:59)
[2022-11-02] MEDS: ALBUTEROL SULFATE NEB 2.5 MG/3 ML INH 5 MG INHALATION ×4 (01:40→19:59)
--- NOTE | 2022-11-02 08:50 | PC.NURSE ---
Resting in bed. Respirations 36, O2 95% on 3L via NC, BP 200/100 manual BP with doppler. Patient speaking in one word sentences. States panic , panic attack . Dr. Davis and Candy Hopper, ARELIS notified. New orders noted to give 5mg Zyprexa IM by Dr. Webster. New orders from Candy Hopper for Nitro and 1 mg Bumex via IVP.
[2022-11-02] MEDS: FLUTICASONE/SALMETEROL 45-21 MCG INHALER 1 PUFF 2 PUFF INHALATION (09:04)
[2022-11-02] MEDS: OLANZapine 10 MG INJ VIAL 5 MG IM (09:08)
[2022-11-02] MEDS: methylPREDNISolone SOD SUCC 125 MG VIAL 60 MG IV PUSH ×2 (09:10→10:36)
[2022-11-02] MEDS: WATER, STERILE FOR INJECTION 10 ML VIAL XX (09:11)
--- NOTE | 2022-11-02 09:15 | PC.NURSE ---
Lying in bed guppy breathing. Unresponsive to verbal and physical stimuli. Provider called at bedside. Charge nurse, Director, and RT at bedside. Patient placed on bipap. Dr. Braswell consulted. New orders noted for STAT ABG and CXR.
[2022-11-02 09:35] LABS: Anion Gap 9 mmol/L (8-16); Blood Urea Nitrogen 34 mg/dL (7-17); Calcium 8.7 mg/dL (8.4-10.2); Carbon Dioxide 32 mmol/L (22-30); Chloride 89 mmol/L (98-107); Estimated Glomerular Filt Rate 60; Glucose 286 mg/dL (65-110); Potassium 5.4 mmol/L (3.4-5.0); Sodium 130 mmol/L (137-145)
--- NOTE | 2022-11-02 10:00 | PC.NURSE ---
Resting in bed with Bipap on. O2 93%. Daughter Becca made aware of respiratory event this morning. Was also notified about event by Dr. Webster.
[2022-11-02 10:33] LABS: Alveolar/Arterial O2 Gradient 224.4 mmHg; Fractional Inspired Oxygen 60 %; HCO3 ABG 36.6 mEq/l (22.0-26.0); Oxygen Content ABG 17.1 %vol (16.0-22.0); Oxygen Saturation ABG 96.3 % (95.0-100.0); Oxyhemoglobin 95.5 % THb (90.0-100.0); PO2 ABG 103.6 mmHg (80.0-100.0); PO2 FiO2 Ratio Arterial Blood 1.73 %; Total Hemoglobin 12.6 g/dL (12.0-18.0)
[2022-11-02 10:35] LABS: PCO2 ABG 90.7 mmHg (35.0-45.0); pH ABG 7.224 (7.350-7.450)
[2022-11-02 10:36] LABS: Device NON-INVASIVE VENT; Site Drawn LEFT RADIAL
[2022-11-02 10:37] LABS: Non-Invasive Expiratory Pressure 6 CMH2O; Non-Invasive Inspiratory Pressure 12 CMH2O; Non-Invasive Vent Rate 14 /MIN
[2022-11-02] MEDS: BUMETANIDE INJ 1 MG/4 ML VIAL IV PUSH ×2 (10:37→16:25)
[2022-11-02 12:18] LABS: Alveolar/Arterial O2 Gradient 167.5 mmHg; Base Excess ABG 9.7 mEq/l (+/-2.0); Fractional Inspired Oxygen 50 %; HCO3 ABG 38.3 mEq/l (22.0-26.0); Oxygen Content ABG 16.7 %vol (16.0-22.0); Oxygen Saturation ABG 97.2 % (95.0-100.0); Oxyhemoglobin 96.4 % THb (90.0-100.0); PO2 ABG 105.3 mmHg (80.0-100.0); PO2 FiO2 Ratio Arterial Blood 2.11 %; Total Hemoglobin 12.2 g/dL (12.0-18.0); pH ABG 7.329 (7.350-7.450)
[2022-11-02 12:19] LABS: PCO2 ABG 74.4 mmHg (35.0-45.0)
[2022-11-02 12:21] LABS: Device NON-INVASIVE VENT; Non-Invasive Expiratory Pressure 5 CMH2O; Non-Invasive Inspiratory Pressure 16 CMH2O; Non-Invasive Vent Rate 20 /MIN; Site Drawn LEFT RADIAL
[2022-11-02] MEDS: ENOXAPARIN 80 MG/0.8 ML SYRINGE 65 MG SUB-Q ×2 (12:57→21:27)
--- NOTE | 2022-11-02 14:42 | PM.PNCARD ---
Progress Note: A&P Assessment and Plan (1) CHF (congestive heart failure): Qualifiers: Heart failure chronicity: acute on chronic Heart failure type: unspecified Qualified Code(s): I50.9 - Heart failure, unspecified Code(s): I50.9 - Heart failure, unspecified Status: Acute Assessment and Plan: Heart failure with preserved ejection fraction. Increased shortness of breath this morning. She did receive 1 dose of IV Bumex last evening. CXR yesterday showed worsening pleural effusions. Pulmonary exam is worse this morning. Will give 1 dose of IV Bumex now as well as 0.4 mg nitroglycerin sublingual now (SBP 200mmHg). (2) Atrial fibrillation with RVR: Code(s): I48.91 - Unspecified atrial fibrillation Status: Acute Assessment and Plan: History of paroxysmal atrial fibrillation previously rate controlled on metoprolol at home. Unable to achieve rate control with increased doses of metoprolol. Started on IV amiodarone then shifted to p.o. amiodarone yesterday. Also on low dose metoprolol tartrate 25mg b.i.d. She is anticoagulated with rivaroxaban. 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 This can be discussed with and decided upon with her corn grinder, Dr. Heller as an outpatient. (3) Influenza A: Code(s): J10.1 - Influenza due to other identified influenza virus with other respiratory manifestations Status: Acute Assessment and Plan: Management per hospitalist. Subjective Date/time seen: 11/02/22 08:54 Cardiology follow up for atrial fibrillation, CHF She's more short of breath this morning. Denies any chest pain or palpitations. Review of Systems Constitutional: Constitutional: Denies chills, Denies fever(s), Denies headache(s) and Denies malaise Eyes: Eyes: Denies change in vision ENT: Reports Normal hearing present, Denies dizziness, Denies headache(s) and Denies hearing loss Cardiovascular: Cardiovascular: Denies chest pain, Denies chest pain at rest, Denies chest pain with activity, Denies syncope, Reports pedal edema, Reports leg edema, Denies palpitations, Reports dyspnea and Reports dyspnea on exertion Respiratory: Respiratory: Denies cough, Reports dyspnea, Reports dyspnea on exertion and Denies wheezing Gastrointestinal: Gastrointestinal: Denies abdominal pain, Denies constipation and Denies diarrhea Genitourinary: Genitourinary: Denies hematuria and Denies dysuria Musculoskeletal: Musculoskeletal: Denies myalgias, Denies arthralgias and Denies muscle cramps Integumentary/Breasts: Skin/Breast: Denies wounds Neurologic: Reports Normal hearing present, Denies confusion, Denies dizziness, Denies syncope and Denies headache(s) Psychiatric: Psychiatric: Denies anxiety, Denies confusion and Denies depression Endocrine: Endocrine: Denies cold intolerance, Denies flushing, Denies heat intolerance and Denies palpitations Hematologic/Lymphatic: Hematologic/Lymphatic: Denies easy bleeding and Denies easy bruising Allergic/Immunologic: Allergic/Immunologic: Denies wheezing Exam Const: General: no acute distress, alert, awake, anxious and uncomfortable; No confusion Orientation/consciousness: patient oriented x3 and No confusion HENMT: Head: normal to inspection Eyes: General: appearance normal, both eyes and all related structures Pupils: Equal, round and reactive pupils present Neck: Neck: normal visual inspection, supple and no JVD Carotids: normal carotid upstroke Resp: Effort & Inspection: tachypneic Auscultation: not clear to auscultation bilaterally, crackles and diminished lung sounds Cardio: Rate: regular rate Rhythm: abnormal rhythm Heart sounds: S1 normal heart sound present, S2 normal heart sound present and no murmurs GI: Auscultation: normal bowel sounds Skin: General skin exam: normal color Neuro: General: patient oriented x3 and No confusion Cranial nerves: Yes Equal, round and reactive pupils pr
[2022-11-02 15:29] LABS: Partial Thromboplastin Time 33.8 SECONDS (22.3-36.8)
[2022-11-02 15:37] LABS: Basophils Percent Auto 0.2 % (0.2-1.2); Eosinophils Percent Auto 0.1 % (0-4.4); Hemoglobin 10.6 g/dL (12.0-15.0); Immature Granulocyte Absolute 0.13 K/mm3 (0.00-0.031); Immature Granulocyte Percent A 0.7 % (0-0.5); Lymphocytes Absolute Auto 0.39 K/mm3 (0.9-3.2); Lymphocytes Percent Auto 2.2 % (18.3-44.2); Mean Corpuscular HGB Conc 30.3 g/dl (32-36); Mean Corpuscular Hemoglobin 28.6 pg (26-34); Mean Corpuscular Volume 94.6 fl (80-100); Mean Platelet Volume 11.1 fl (7.4-10.4); Monocytes Absolute Auto 0.5 K/mm3 (0.1-0.6); Monocytes Percent Auto 2.5 % (2.6-8.5); Neutrophils Absolute Auto 16.8 K/mm3 (1.3-6.7); Neutrophils Percent Auto 94.3 % (45.5-73.1); Nucleated Red Blood Cells Perc 0.1 % (0.0-0.2); Platelet Count Result 302 k/mm3 (150-375); Red Cell Distribution Width 25.2 % (11.5-14.5); White Blood Count 17.8 K/mm3 (4.5-10.0)
[2022-11-02] MEDS: FAT EMULSIONS IV 20% 250 ML 20.83 ML IVPB (16:23)
[2022-11-02] MEDS: AMINO ACIDS 4.25%/D5W/LYTES/CA 2,000 ML 80 ML IV CONT (16:24)
[2022-11-02 16:33] LABS: Alanine Aminotransferase 39 U/L (6-35); Albumin Level 3.4 g/dL (3.5-5.1); Alkaline Phosphatase 58 U/L (38-126); Anion Gap 9 mmol/L (8-16); Aspartate Amino Transferase 44 U/L (14-36); Bilirubin,Total 0.8 mg/dL (0.2-1.3); Blood Urea Nitrogen 37 mg/dL (7-17); Calcium 8.6 mg/dL (8.4-10.2); Carbon Dioxide 31 mmol/L (22-30); Chloride 94 mmol/L (98-107); Estimated CRCL calculation 33 ml/min; Estimated Glomerular Filt Rate 53; Glucose 150 mg/dL (65-110); Magnesium 1.9 mg/dL (1.6-2.3); Potassium 4.9 mmol/L (3.4-5.0); Sodium 134 mmol/L (137-145)
[2022-11-02 16:39] LABS: Transferrin 178 mg/dL (206-381)
[2022-11-02 17:44] LABS: Anisocytosis 3+ (NORMAL); Hypochromasia 1+ (NORMAL); Platelet Estimate Adequate (Adequate)
[2022-11-02 17:45] LABS: Schistocytes None Seen (NORMAL)
--- NOTE | 2022-11-02 18:18 | PM.IMPN ---
Progress Note: A&P Assessment and Plan (1) CHF (congestive heart failure): Qualifiers: Heart failure chronicity: acute on chronic Heart failure type: unspecified Qualified Code(s): I50.9 - Heart failure, unspecified Code(s): I50.9 - Heart failure, unspecified Status: Acute Assessment and Plan: Heart failure with preserved ejection fraction. IV Bumex has been stopped presumably because of some prerenal azotemia. Increased shortness of breath today perhaps because of worsening CHF. Volume status appears to be improved. Continue to hold diuretic. 11/02/2022 interval history: today patient is somnolent and hypoxic patient was placed on BiPAP, initial ABG showed 7.224/ 90.7/ 103, discussed with religion department chair and came and saw the patient adjusted her BiPAP and recommended to repeat ABG in 2 hours repeat ABG showed 7.329 74.4/ 105, patient remains clinically stable, call her daughter and discussed the case patient continue to be full cor, patient with a atrial fibrillation with RVR seen by the Cardiology as patient was unable to take oral medication was switched to Lopressor p.r.n. also patient is being gently diuresed with Bumex, will continue to monitor (2) Influenza A: Code(s): J10.1 - Influenza due to other identified influenza virus with other respiratory manifestations Status: Acute Assessment and Plan: Management per hospitalist. (3) Atrial fibrillation with RVR: Code(s): I48.91 - Unspecified atrial fibrillation Status: Acute Assessment and Plan: Managed per Cardiology. Continue amiodarone. Currently on Xarelto (4) Chronic hyponatremia: Code(s): E87.1 - Hypo-osmolality and hyponatremia Status: Acute (5) Obstructive sleep apnea: Code(s): G47.33 - Obstructive sleep apnea (adult) (pediatric) Status: Acute (6) COPD (chronic obstructive pulmonary disease): Qualifiers: COPD type: COPD with acute exacerbation Qualified Code(s): J44.1 - Chronic obstructive pulmonary disease with (acute) exacerbation Code(s): J44.9 - Chronic obstructive pulmonary disease, unspecified Status: Acute Subjective Date/time seen: 11/02/22 18:18 Heart failure with preserved ejection fraction. IV Bumex has been stopped presumably because of some prerenal azotemia. Increased shortness of breath today perhaps because of worsening CHF. Volume status appears to be improved. Continue to hold diuretic. 11/02/2022 interval history: today patient is somnolent and hypoxic patient was placed on BiPAP, initial ABG showed 7.224/ 90.7/ 103, discussed with religion department chair and came and saw the patient adjusted her BiPAP and recommended to repeat ABG in 2 hours repeat ABG showed 7.329 74.4/ 105, patient remains clinically stable, call her daughter and discussed the case patient continue to be full cor, patient with a atrial fibrillation with RVR seen by the Cardiology as patient was unable to take oral medication was switched to Lopressor p.r.n. also patient is being gently diuresed with Bumex, will continue to monitor Review of Systems Review of Systems: ROS unobtainable: Yes unobtainable due to medical condition Exam Narrative: Patient is comfortable, NAD HEENT: eyes are clear and none icteric, BiPAP in place LUNGS: bilateral fair air entry with harsh breath sounds and rales HEART: RR S1S2 ABD: BS+, Soft and nontender Lower extremities: no edema SKIN: nonjaundiced Neuro: grossly intact. Objective Data Vital Signs Vital Signs: Vital Signs - 24 hr 11/01/22 18:31 11/01/22 20:33 11/01/22 20:33 Temperature Pulse Rate 111 H 111 H Respiratory Rate 26 H 26 H Blood Pressure Pulse Oximetry 96 98 Oxygen Delivery Nasal Cannula Nasal Cannula Oxygen Flow Rate 2 3 11/01/22 20:44 11/01/22 21:01 11/02/22 00:00 Temperature 97.6 F 98.2 F Pulse Rate 124 H 114 H 104 H Respiratory Rate 26 H 22 H Blood Pressure 144/
[2022-11-02 19:30] LABS: Glucose Point of Care 250 mg/dl (65-105)
[2022-11-02] MEDS: DORZOLAMIDE/TIMOLOL OPHTH SOL 10 ML BOTTLE 1 DROP EACH EYE (21:27)
[2022-11-02] MEDS: ATORVASTATIN 20 MG TABLET PO (21:28)
[2022-11-02] MEDS: METOPROLOL TARTRATE 25 MG TABLET PO (21:28)
[2022-11-02] MEDS: MELATONIN 5 MG TABLET PO (23:11)
[2022-11-02 23:45] LABS: Glucose Point of Care 261 mg/dl (65-105)
[2022-11-03] VITALS (26 sets, daily range): BP systolic 96–155; BP diastolic 72–113; PULSE 89–136; RESP 16–28; TEMP 36.1–36.7; O2SAT 93–97
[2022-11-03 04:38] LABS: Hematocrit 29.9 % (37.0-47.0); Hemoglobin 9.5 g/dL (12.0-15.0); Mean Corpuscular HGB Conc 31.8 g/dl (32-36); Mean Corpuscular Hemoglobin 28.4 pg (26-34); Mean Corpuscular Volume 89.5 fl (80-100); Mean Platelet Volume 10.8 fl (7.4-10.4); Platelet Count Result 214 k/mm3 (150-375); Red Blood Count 3.34 M/mm3 (4.2-5.4); Red Cell Distribution Width 24.8 % (11.5-14.5); White Blood Count 14.3 K/mm3 (4.5-10.0)
[2022-11-03 04:57] LABS: Alanine Aminotransferase 27 U/L (6-35); Albumin Level 3.1 g/dL (3.5-5.1); Alkaline Phosphatase 56 U/L (38-126); Anion Gap 4 mmol/L (8-16); Aspartate Amino Transferase 24 U/L (14-36); Bilirubin,Total 0.4 mg/dL (0.2-1.3); Blood Urea Nitrogen 43 mg/dL (7-17); Calcium 8.2 mg/dL (8.4-10.2); Carbon Dioxide 37 mmol/L (22-30); Chloride 88 mmol/L (98-107); Estimated CRCL calculation 30 ml/min; Estimated Glomerular Filt Rate 48; Glucose 217 mg/dL (65-110); Magnesium 1.9 mg/dL (1.6-2.3); Phosphorus 3.9 mg/dL (2.5-4.5); Potassium 3.9 mmol/L (3.4-5.0); Sodium 129 mmol/L (137-145)
[2022-11-03 05:32] LABS: Alveolar/Arterial O2 Gradient 66.4 mmHg; Base Excess ABG 9.7 mEq/l (+/-2.0); Carboxyhemoglobin 0.2 % THb (0-2.0); Fractional Inspired Oxygen 30 %; HCO3 ABG 34.6 mEq/l (22.0-26.0); Methemoglobin ABG 0.3 %THb (0-1.5); Oxygen Content ABG 14.8 %vol (16.0-22.0); Oxygen Saturation ABG 97.2 % (95.0-100.0); Oxyhemoglobin 95.7 % THb (90.0-100.0); PCO2 ABG 48.7 mmHg (35.0-45.0); PO2 ABG 90.3 mmHg (80.0-100.0); PO2 FiO2 Ratio Arterial Blood 3.01 %; Reduced Hemoglobin 3.8 %THb (0-5.0); Total Hemoglobin 10.9 g/dL (12.0-18.0)
[2022-11-03 05:33] LABS: Anisocytosis 1+ (NORMAL); Lymphocytes Absolute Manual 0.28 K/mm3 (1.1-4.5); Metamyelocytes Percent 1 %; Microcytosis 2+ (NORMAL); Monocytes Absolute Manual 0.28 K/mm3 (0.1-0.90); Monocytes Percent Manual 2 % (3-9); Myelocytes Percent 1 %; Neutrophils Percent Manual 94 % (46-73); Platelet Estimate Adequate (Adequate); Total Cells Counted 100
[2022-11-03 05:33] LABS: Device BIPAP; Modified Allen's Test Pass; Site Drawn RIGHT RADIAL
[2022-11-03 05:34] LABS: Hypochromasia 2+ (NORMAL); Macrocytosis 1+ (NORMAL); Ovalocytes 1+ (NORMAL); Poikilocytosis 1+ (NORMAL); Schistocytes 1+ (NORMAL); Spherocytes 1+ (NORMAL); Target Cells 1+ (NORMAL); Tear Drop Cells 1+ (NORMAL)
[2022-11-03 05:34] LABS: Expiratory Pressure 5 cmH2O; Inspiratory Pressure 16 cmH2O
[2022-11-03 05:35] LABS: Atypical Lymphocytes Present; Burr Cells 1+ (NORMAL); Smudge Cells FEW
[2022-11-03] MEDS: METOPROLOL TARTRATE INJ 5 MG/5 ML VIAL IV PUSH ×5 (05:39→23:48)
--- NOTE | 2022-11-03 06:28 | PC.NURSE ---
patient has been extremely anxious all night. patients respirations have been in the 30's and 40's. patient seems more anxious with daughter at her side. i checked on her when her daughter was asleep and she was calmer. still a little anxious but not as bad as when the daughter is hovering. she kept saying that she wasn't breathing. we had to show her multiple times that it was working. i explained that her abg's were good and showing improvement. and her o2 saturation has been in the low to mid nineties. had to explain this to daughter because she is anxious that her mom can't breathe. when that was finished about her breathing she then said that her rt side is hurting. she has not c/o this all night. she will flinch if abdomen is pressed in. unable to reach hospitalist at this time.
[2022-11-03] MEDS: IPRATROPIUM BR 0.02% INH SOLN 0.5 MG/2.5 ML VIAL INHALATION ×3 (08:10→20:56)
[2022-11-03] MEDS: ALBUTEROL SULFATE NEB 2.5 MG/3 ML INH 5 MG INHALATION (08:10)
[2022-11-03] MEDS: ALPRAZolam (*CRX) 0.5 MG TABLET PO (08:22)
[2022-11-03] MEDS: DORZOLAMIDE/TIMOLOL OPHTH SOL 10 ML BOTTLE 1 DROP EACH EYE ×2 (08:22→20:27)
[2022-11-03] MEDS: ENOXAPARIN 80 MG/0.8 ML SYRINGE 65 MG SUB-Q ×2 (08:23→20:27)
[2022-11-03] MEDS: BUMETANIDE INJ 1 MG/4 ML VIAL IV PUSH ×2 (09:36→17:27)
--- NOTE | 2022-11-03 10:14 | PM.PNGS ---
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 Will get CT chest/abd/pelvis today. Currently NPO due to continuous BiPap. Will await CT results for further recommendations. (2) RLQ abdominal pain: Code(s): R10.31 - Right lower quadrant pain Status: Acute (3) Influenza A: Code(s): J10.1 - Influenza due to other identified influenza virus with other respiratory manifestations Status: Acute (4) CHF (congestive heart failure): Qualifiers: Heart failure chronicity: acute on chronic Heart failure type: unspecified Qualified Code(s): I50.9 - Heart failure, unspecified Code(s): I50.9 - Heart failure, unspecified Status: Acute (5) Atrial fibrillation with RVR: Code(s): I48.91 - Unspecified atrial fibrillation Status: Acute Subjective Subjective Date/Time Seen: 11/03/22 10:14 Interval history: Patient has been in hospital with Influenza and respiratory failure. She had JUANITA right hemicolectomy 10/21. She is complaining of more RLQ pain today. Bowels have been moving. Exam GI: Inspection: non-distended and incision (healing well) GI Palp: Yes Soft to palpation, Yes Tenderness to palpation present (GI) (RLQ) and Yes Guarding due to palpation present (GI) (RLQ) Objective Data Vital Signs Vital Signs: Vital Signs - 24 hr 11/02/22 12:00 11/02/22 13:50 11/02/22 13:50 Temperature 36.3 C L Pulse Rate 110 H 103 H 103 H Respiratory Rate 24 H 20 21 H Blood Pressure 166/98 H Pulse Oximetry 90 92 Oxygen Delivery BiPAP Fraction of Inspired Oxygen 11/02/22 16:00 11/02/22 18:15 11/02/22 20:03 Temperature 36.4 C L Pulse Rate 121 H 119 H 116 H Respiratory Rate 23 H 25 H 20 Blood Pressure 157/87 H Pulse Oximetry 94 96 Oxygen Delivery BiPAP Fraction of Inspired Oxygen 11/02/22 20:03 11/02/22 12:00 11/02/22 14:00 Temperature Pulse Rate 112 H 108 H 110 H Respiratory Rate 20 Blood Pressure Pulse Oximetry 94 Oxygen Delivery BiPAP Fraction of Inspired Oxygen 11/02/22 16:00 11/02/22 18:00 11/02/22 12:00 Temperature Pulse Rate 110 H 112 H Respiratory Rate Blood Pressure Pulse Oximetry Oxygen Delivery BiPAP Fraction of Inspired Oxygen 30 11/02/22 16:00 11/02/22 20:00 11/02/22 21:28 Temperature 36.6 C Pulse Rate 122 H 120 H Respiratory Rate 17 Blood Pressure 155/93 H Pulse Oximetry 93 Oxygen Delivery BiPAP Fraction of Inspired Oxygen 30 11/02/22 20:00 11/02/22 20:00 11/02/22 22:00 Temperature Pulse Rate 120 H 120 H 118 H Respiratory Rate 20 Blood Pressure Pulse Oximetry 94 Oxygen Delivery BiPAP Fraction of Inspired Oxygen 30 11/02/22 23:15 11/03/22 00:00 11/03/22 00:00 Temperature Pulse Rate 99 116 H 116 H Respiratory Rate 24 H 24 H Blood Pressure Pulse Oximetry 94 94 Oxygen Delivery BiPAP BiPAP Fraction of Inspired Oxygen 30 11/03/22 00:00 11/03/22 02:00 11/03/22 04:00 Temperature 36.2 C L Pulse Rate 117 H 129 H 123 H Respiratory Rate 16 Blood Pressure 153/109 H Pulse Oximetry 95 Oxygen Delivery Fraction of Inspired Oxygen 11/03/22 04:00 11/03/22 04:00 11/03/22 05:39 Temperature 36.1 C L Pulse Rate 123 H 111 H 89 Respiratory Rate 16 18 Blood Pressure 125/105 H Pulse Oximetry 95 96 Oxygen Delivery BiPAP Fraction of Inspired Oxygen 30 11/03/22 06:00 11/03/22 02:15 11/03/22 05:15 Temperature Pulse Rate 112 H 97 90 Respiratory Rate 22 H 24 H Blood Pressure Pulse Oximetry 95 97 Oxygen Delivery BiPAP BiPAP Fraction of Inspired Oxygen 11/03/22 08:11 11/03/22 08:15 11/03/22 08:16 Temperature Pulse Rate 112 H 112 H 112 H Respiratory Rate 28 H 27 H Blood Pressure Pulse Oximetry 95 95 Oxygen Delivery BiPAP Bi
[2022-11-03 11:31] LABS: Glucose Point of Care 207 mg/dl (65-105)
[2022-11-03] MEDS: LIDOCAINE HCL 1% PF INJ 5 ML VIAL INFILTRATE (12:03)
--- NOTE | 2022-11-03 12:27 | PM.PNCARD ---
Progress Note: A&P Assessment and Plan (1) CHF (congestive heart failure): Qualifiers: Heart failure chronicity: acute on chronic Heart failure type: unspecified Qualified Code(s): I50.9 - Heart failure, unspecified Code(s): I50.9 - Heart failure, unspecified Status: Acute Assessment and Plan: Heart failure with preserved ejection fraction. Still short of breath. Portable x-ray today. Continue IV Bumex 1 mg q.12. (2) Atrial fibrillation with RVR: Code(s): I48.91 - Unspecified atrial fibrillation Status: Acute Assessment and Plan: History of paroxysmal atrial fibrillation previously rate controlled on metoprolol at home. Will discontinue amiodarone. Will give her an extra dose of metoprolol 5 mg IV x1 now. Follow-up with her medical office clerk, Dr. Heller as an outpatient. She has difficulty swallowing pills at this point and therefore she is on enoxaparin rather than Xarelto for anticoagulation (3) Influenza A: Code(s): J10.1 - Influenza due to other identified influenza virus with other respiratory manifestations Status: Acute Assessment and Plan: Management per hospitalist. Subjective Date/time seen: 11/03/22 12:27 Interval history: 82-year-old with flu and Cardiology consultation because of atrial fibrillation Date of service 11/03/2022: Feels about the same today. Still short of breath at rest. No chest pain. Review of Systems Constitutional: Constitutional: Denies chills, Denies fever(s), Denies headache(s) and Denies malaise Eyes: Eyes: Denies change in vision ENT: Reports Normal hearing present, Denies dizziness, Denies headache(s) and Denies hearing loss Cardiovascular: Cardiovascular: Denies chest pain, Denies chest pain at rest, Denies chest pain with activity, Denies syncope, Reports pedal edema, Reports leg edema, Denies palpitations, Reports dyspnea and Reports dyspnea on exertion Respiratory: Respiratory: Denies cough, Reports dyspnea, Reports dyspnea on exertion and Denies wheezing Gastrointestinal: Gastrointestinal: Denies abdominal pain, Denies constipation and Denies diarrhea Genitourinary: Genitourinary: Denies hematuria and Denies dysuria Musculoskeletal: Musculoskeletal: Denies myalgias, Denies arthralgias and Denies muscle cramps Integumentary/Breasts: Skin/Breast: Denies wounds Neurologic: Reports Normal hearing present, Denies confusion, Denies dizziness, Denies syncope and Denies headache(s) Psychiatric: Psychiatric: Denies anxiety, Denies confusion and Denies depression Endocrine: Endocrine: Denies cold intolerance, Denies flushing, Denies heat intolerance and Denies palpitations Hematologic/Lymphatic: Hematologic/Lymphatic: Denies easy bleeding and Denies easy bruising Allergic/Immunologic: Allergic/Immunologic: Denies wheezing Exam Const: General: comfortable, no acute distress, alert, awake, anxious and uncomfortable; No confusion Orientation/consciousness: patient oriented x3 and No confusion HENMT: Head: normal to inspection Eyes: General: appearance normal, both eyes and all related structures Sclera: sclerae normal Neck: Neck: normal visual inspection, supple and no JVD Carotids: normal carotid upstroke Resp: Effort & Inspection: normal respiratory effort and tachypneic Auscultation: not clear to auscultation bilaterally, crackles and diminished lung sounds Cardio: Rate: regular rate and tachycardic Rhythm: abnormal rhythm Heart sounds: S1 normal heart sound present, S2 normal heart sound present and no murmurs GI: Auscultation: normal bowel sounds Skin: General skin exam: normal color Neuro: General: patient oriented x3 and No confusion Cranial nerves: Yes Equal, round and reactive pupils present and Yes Normal hearing present Extrem: General: normal to inspection Psych: Appearance: grossly normal Mental Status: mental status grossly normal Objective Data Vital Signs Vital Signs: V
[2022-11-03] MEDS: CENTRAL LINE FLUSH 10 ML IV PUSH ×2 (12:55→20:28)
--- NOTE | 2022-11-03 13:37 | PM.IMPN ---
Progress Note: A&P Assessment and Plan (1) CHF (congestive heart failure): Qualifiers: Heart failure chronicity: acute on chronic Heart failure type: unspecified Qualified Code(s): I50.9 - Heart failure, unspecified Code(s): I50.9 - Heart failure, unspecified Status: Acute Assessment and Plan: Heart failure with preserved ejection fraction. IV Bumex has been stopped presumably because of some prerenal azotemia. Increased shortness of breath today perhaps because of worsening CHF. Volume status appears to be improved. Continue to hold diuretic. 11/03/2022 interval history: on 11/02 patient was somnolent and hypoxic patient was placed on BiPAP, initial ABG showed 7.224/ 90.7/ 103, discussed with toe stripper, came and saw the patient adjusted her BiPAP and recommended to repeat ABG in 2 hours repeat ABG showed 7.329 74.4/ 105, today patient remains clinically stable still on BIPAP, daughter is pesent in the room and discussed, patient with a atrial fibrillation with RVR seen by the Cardiology as patient was unable to take oral medication was switched to Lopressor p.r.n. also patient is being gently diuresed with Bumex, patient was positive for influenza A had been treated with Tamiflu, will continue to monitor (2) Influenza A: Code(s): J10.1 - Influenza due to other identified influenza virus with other respiratory manifestations Status: Acute Assessment and Plan: Management per hospitalist. (3) Atrial fibrillation with RVR: Code(s): I48.91 - Unspecified atrial fibrillation Status: Acute Assessment and Plan: Managed per Cardiology. Continue amiodarone. Currently on Xarelto (4) Chronic hyponatremia: Code(s): E87.1 - Hypo-osmolality and hyponatremia Status: Acute (5) Obstructive sleep apnea: Code(s): G47.33 - Obstructive sleep apnea (adult) (pediatric) Status: Acute (6) COPD (chronic obstructive pulmonary disease): Qualifiers: COPD type: COPD with acute exacerbation Qualified Code(s): J44.1 - Chronic obstructive pulmonary disease with (acute) exacerbation Code(s): J44.9 - Chronic obstructive pulmonary disease, unspecified Status: Acute Subjective Date/time seen: 11/03/22 13:37 11/03/2022 interval history: on 11/02 patient was somnolent and hypoxic patient was placed on BiPAP, initial ABG showed 7.224/ 90.7/ 103, discussed with toe stripper, came and saw the patient adjusted her BiPAP and recommended to repeat ABG in 2 hours repeat ABG showed 7.329 74.4/ 105, today patient remains clinically stable still on BIPAP, daughter is pesent in the room and discussed, patient with a atrial fibrillation with RVR seen by the Cardiology as patient was unable to take oral medication was switched to Lopressor p.r.n. also patient is being gently diuresed with Bumex, patient was positive for influenza A had been treated with Tamiflu, will continue to monitor Review of Systems Review of Systems: ROS unobtainable: Yes unobtainable due to medical condition Exam Narrative: Patient is comfortable, NAD HEENT: eyes are clear and none icteric, BiPAP in place LUNGS: bilateral fair air entry with harsh breath sounds and rales HEART: RR S1S2 ABD: BS+, Soft and nontender Lower extremities: no edema SKIN: nonjaundiced Neuro: grossly intact. Objective Data Vital Signs Vital Signs: Vital Signs - 24 hr 11/02/22 13:50 11/02/22 13:50 11/02/22 16:00 Temperature 97.5 F L Pulse Rate 103 H 103 H 121 H Respiratory Rate 20 21 H 23 H Blood Pressure 157/87 H Pulse Oximetry 92 94 Oxygen Delivery BiPAP Fraction of Inspired Oxygen 11/02/22 18:15 11/02/22 20:03 11/02/22 20:03 Temperature Pulse Rate 119 H 116 H 112 H Respiratory Rate 25 H 20 20 Blood Pressure Pulse Oximetry 96 94 Oxygen Delivery BiPAP BiPAP Fraction of Inspired Oxygen 11/02/22 14:00 11/02/22 16:00 11/02/22 18
[2022-11-03 14:46] LABS: Triglycerides 202 mg/dL (<150)
[2022-11-03] MEDS: LORazepam INJ (*CRX) 2 MG/ML VIAL 0.5 MG IV PUSH ×2 (14:48→20:25)
[2022-11-03] MEDS: FAT EMULSIONS IV 20% 250 ML 20.83 ML IVPB (15:35)
[2022-11-03] MEDS: AMINO ACIDS 4.25%/D5W/LYTES/CA 2,000 ML 80 ML IV CONT (15:35)
[2022-11-03] MEDS: INSULIN ASPART (*BKC) 100 UNITS/ML SUB-Q (17:32)
[2022-11-03 17:49] LABS: Glucose Point of Care 229 mg/dl (65-105)
[2022-11-03] MEDS: FLUTICASONE/SALMETEROL 45-21 MCG INHALER 1 PUFF 2 PUFF INHALATION (20:55)
[2022-11-04] VITALS (27 sets, daily range): BP systolic 107–165; BP diastolic 57–125; PULSE 97–135; RESP 20–96; TEMP 36.2–36.7; O2SAT 20–100
[2022-11-04 04:06] LABS: Glucose Point of Care 161 mg/dl (65-105)
[2022-11-04] MEDS: METOPROLOL TARTRATE INJ 5 MG/5 ML VIAL IV PUSH ×3 (05:29→17:26)
[2022-11-04] MEDS: CENTRAL LINE FLUSH 10 ML IV PUSH ×3 (05:30→22:14)
[2022-11-04 05:56] LABS: Anion Gap 4 mmol/L (8-16); Blood Urea Nitrogen 55 mg/dL (7-17); Calcium 7.9 mg/dL (8.4-10.2); Carbon Dioxide 39 mmol/L (22-30); Chloride 89 mmol/L (98-107); Estimated CRCL calculation 37 ml/min; Estimated Glomerular Filt Rate 60; Glucose 147 mg/dL (65-110); Phosphorus 3.9 mg/dL (2.5-4.5); Potassium 3.6 mmol/L (3.4-5.0); Sodium 132 mmol/L (137-145)
[2022-11-04] MEDS: IPRATROPIUM BR 0.02% INH SOLN 0.5 MG/2.5 ML VIAL INHALATION ×3 (08:14→20:15)
[2022-11-04] MEDS: BUMETANIDE INJ 1 MG/4 ML VIAL IV PUSH ×2 (08:56→17:25)
[2022-11-04] MEDS: DORZOLAMIDE/TIMOLOL OPHTH SOL 10 ML BOTTLE 1 DROP EACH EYE ×2 (08:56→20:50)
[2022-11-04] MEDS: ENOXAPARIN 80 MG/0.8 ML SYRINGE 65 MG SUB-Q ×2 (08:57→20:51)
[2022-11-04] MEDS: methylPREDNISolone SOD SUCC 125 MG VIAL 60 MG IV PUSH (08:59)
--- NOTE | 2022-11-04 09:14 | PCNFU ---
Nutrition Follow-Up Complete: Inadequate oral intake related to continuous bipap, shortness of breath, loss of appetite as evidenced by need for full parenteral nutrition Goal:Meet estimated nutrition needs Pt current nutrition is NPO, PPN @ 80ml/hr. Nutrition recommendation: Continue with current plan of care. Last recorded weight is 63.3 kg - stable at this time. Bowel Motility: +BM 11/02 Labs Reviewed: Hgb:9.5, HCT:29.9, NA:132, BUN:55, Glu:147, Tri Meds Noted: Bumex, lovenox, novolog, solumedrol Skin: abdominal incision Additional Notes: Pt is on PPN and it is providing 1153kcals, 82g protein over 22 hrs. Current PPN is running at recommendation rate and meeting 75% of estimated needs. Monitor labs, plan of care, tolerance, weights. Follow up Monday/Monday
--- NOTE | 2022-11-04 10:29 | PM.PNCARD ---
Progress Note: A&P Assessment and Plan (1) Atrial fibrillation with RVR: Code(s): I48.91 - Unspecified atrial fibrillation Status: Acute Plan 82-year-old woman with chronic/persistent atrial fibrillation receives her cardiology care elsewhere. Hospitalized here with influenza and now has some abdominal pain raising concern regarding recent colon cancer surgery. It appears that she is NPO for that reason and now receiving metoprolol intravenously for rate control. She seems otherwise hemodynamically stable will continue this regimen and assist with her rhythm management while she is hospitalized here at [facility]. Normally sees a [place] Manager Sql Amilcar Aguila MD [facility] Subjective Date/time seen: Date of service: 11/04/22 10:29 Interval history: 82-year-old with flu and Cardiology consultation because of atrial fibrillation Date of service 11/03/2022: Feels about the same today. Still short of breath at rest. No chest pain. Date of service 11/04/2022: Patient resting comfortably in her room with BiPAP in place denies any cardiovascular complaints. Now receiving intravenous metoprolol for rate control as she is NPO. Exam Const: General: comfortable, no acute distress, alert, awake, anxious and uncomfortable; No confusion Orientation/consciousness: patient oriented x3 and No confusion HENMT: Head: normal to inspection Eyes: General: appearance normal, both eyes and all related structures Sclera: sclerae normal Pupils: Equal, round and reactive pupils present Neck: Neck: normal visual inspection, supple and no JVD Carotids: normal carotid upstroke Resp: Effort & Inspection: normal respiratory effort and tachypneic Auscultation: not clear to auscultation bilaterally, crackles and diminished lung sounds Cardio: Rate: regular rate and tachycardic Rhythm: abnormal rhythm Heart sounds: S1 normal heart sound present, S2 normal heart sound present and no murmurs GI: Auscultation: normal bowel sounds Skin: General skin exam: normal color Neuro: General: patient oriented x3 and No confusion Cranial nerves: Yes Equal, round and reactive pupils present and Yes Normal hearing present Extrem: General: normal to inspection Psych: Appearance: grossly normal Mental Status: mental status grossly normal Objective Data Vital Signs Vital Signs: Vital Signs - 24 hr 11/03/22 12:54 11/03/22 12:54 11/03/22 12:00 Temperature 36.7 C Pulse Rate 114 H 114 H 120 H Respiratory Rate 20 Blood Pressure 135/82 Pulse Oximetry 94 Oxygen Delivery Fraction of Inspired Oxygen 11/03/22 15:30 11/03/22 15:30 11/03/22 17:27 Temperature Pulse Rate 111 H 111 H 118 H Respiratory Rate 24 H 24 H Blood Pressure Pulse Oximetry 95 Oxygen Delivery BiPAP Fraction of Inspired Oxygen 11/03/22 17:36 11/03/22 12:00 11/03/22 16:00 Temperature Pulse Rate 110 H Respiratory Rate 21 H Blood Pressure Pulse Oximetry 95 94 94 Oxygen Delivery BiPAP BiPAP BiPAP Fraction of Inspired Oxygen 30 30 11/03/22 16:00 11/03/22 12:00 11/03/22 14:00 Temperature 36.1 C L Pulse Rate 114 H 112 H 110 H Respiratory Rate 22 H Blood Pressure 112/96 H Pulse Oximetry 96 Oxygen Delivery Fraction of Inspired Oxygen 11/03/22 16:00 11/03/22 18:00 11/03/22 20:00 Temperature 36.3 C L Pulse Rate 111 H 107 H 136 H Respiratory Rate 22 H Blood Pressure 96/72 L Pulse Oximetry 93 Oxygen Delivery Fraction of Inspired Oxygen 11/03/22 20:00 11/03/22 20:58 11/03/22 21:02 Temperature Pulse Rate 136 H 122 H 100 Respiratory Rate 22 H 25 H 26 H Blood Pressure Pulse Oximetry 93 97 Oxygen Delivery BiPAP BiPAP Fraction of Inspired Oxygen 30 11/03/22 20:00 11/03/22 22:00 11/03/22 23:48 Temperature Pulse Rate 126 H 122 H 132 H Respiratory Rate Blood Pressure Pulse Oximetry Oxygen Delivery Fraction of Inspired Oxygen 1
--- NOTE | 2022-11-04 10:49 | PM.PNGS ---
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 - Malignant neoplasm of cecum Status: Acute Assessment and Plan: CT shows no significant abnormality that would explain the RLQ pain. She remains NPO due to the BiPap. OK to resume oral feedings once respiratory status improved. Will sign off. (2) RLQ abdominal pain: Code(s): R10.31 - Right lower quadrant pain Status: Acute (3) Influenza A: Code(s): J10.1 - Influenza due to other identified influenza virus with other respiratory manifestations Status: Acute (4) CHF (congestive heart failure): Qualifiers: Heart failure chronicity: acute on chronic Heart failure type: unspecified Qualified Code(s): I50.9 - Heart failure, unspecified Code(s): I50.9 - Heart failure, unspecified Status: Acute (5) Atrial fibrillation with RVR: Code(s): I48.91 - Unspecified atrial fibrillation Status: Acute Subjective Subjective Date/Time Seen: 11/04/22 10:49 Interval history: Patient somnolent this AM. Continues to be on BiPap. Still having some abdominal pain. Exam GI: Inspection: non-distended GI Palp: Yes Soft to palpation and Yes Tenderness to palpation present (GI) (non-focal) Objective Data Vital Signs Vital Signs: Vital Signs - 24 hr 11/03/22 12:54 11/03/22 12:54 11/03/22 12:00 Temperature 36.7 C Pulse Rate 114 H 114 H 120 H Respiratory Rate 20 Blood Pressure 135/82 Pulse Oximetry 94 Oxygen Delivery Fraction of Inspired Oxygen 11/03/22 15:30 11/03/22 15:30 11/03/22 17:27 Temperature Pulse Rate 111 H 111 H 118 H Respiratory Rate 24 H 24 H Blood Pressure Pulse Oximetry 95 Oxygen Delivery BiPAP Fraction of Inspired Oxygen 11/03/22 17:36 11/03/22 12:00 11/03/22 16:00 Temperature Pulse Rate 110 H Respiratory Rate 21 H Blood Pressure Pulse Oximetry 95 94 94 Oxygen Delivery BiPAP BiPAP BiPAP Fraction of Inspired Oxygen 30 30 11/03/22 16:00 11/03/22 12:00 11/03/22 14:00 Temperature 36.1 C L Pulse Rate 114 H 112 H 110 H Respiratory Rate 22 H Blood Pressure 112/96 H Pulse Oximetry 96 Oxygen Delivery Fraction of Inspired Oxygen 11/03/22 16:00 11/03/22 18:00 11/03/22 20:00 Temperature 36.3 C L Pulse Rate 111 H 107 H 136 H Respiratory Rate 22 H Blood Pressure 96/72 L Pulse Oximetry 93 Oxygen Delivery Fraction of Inspired Oxygen 11/03/22 20:00 11/03/22 20:58 11/03/22 21:02 Temperature Pulse Rate 136 H 122 H 100 Respiratory Rate 22 H 25 H 26 H Blood Pressure Pulse Oximetry 93 97 Oxygen Delivery BiPAP BiPAP Fraction of Inspired Oxygen 30 11/03/22 20:00 11/03/22 22:00 11/03/22 23:48 Temperature Pulse Rate 126 H 122 H 132 H Respiratory Rate Blood Pressure Pulse Oximetry Oxygen Delivery Fraction of Inspired Oxygen 11/04/22 00:00 11/04/22 00:00 11/04/22 00:00 Temperature 36.6 C Pulse Rate 126 H 117 H 117 H Respiratory Rate 96 H 96 H Blood Pressure 107/57 L Pulse Oximetry 20 L 20 L Oxygen Delivery BiPAP Fraction of Inspired Oxygen 30 11/04/22 02:10 11/04/22 04:24 11/04/22 02:00 Temperature Pulse Rate 99 97 121 H Respiratory Rate 29 H 21 H Blood Pressure Pulse Oximetry 95 94 Oxygen Delivery BiPAP BiPAP Fraction of Inspired Oxygen 11/04/22 04:00 11/04/22 04:00 11/04/22 04:00 Temperature 36.5 C Pulse Rate 128 H 128 H 119 H Respiratory Rate 21 H 20 Blood Pressure 154/100 H Pulse Oximetry 94 100 Oxygen Delivery BiPAP Fraction of Inspired Oxygen 30 11/04/22 05:29 11/04/22 06:00 11/04/22 08:10 Temperature 36.7 C Pulse Rate 123 H 116 H 105 H Respiratory Rate 20 Blood Pressure 154/78 H Pulse Oximetry 100 Oxygen Delivery Fraction of Inspired Oxygen 11/04/22 08:10 11/04/22 08:10 11/04/22 08:20 Temperature Pulse Rate 116 H 116 H 117 H Respiratory
--- NOTE | 2022-11-04 11:21 | PC.NURSE ---
Called Becca (daughter) to update her on patient's condition and obtain consent for inserting a NG tube. Informed Becca that with her mothers confusion, this insertion would likely involve a second person holding her mother to allow us to insert it and that most patient's think they are choking and that it is very unpleasant. Daughter stated that she understood this, but wanted the NG tube inserted so that medications could be given. Information verified with second RN, Laci.
[2022-11-04 12:09] LABS: Glucose Point of Care 195 mg/dl (65-105)
--- NOTE | 2022-11-04 17:07 | PM.IMPN ---
Progress Note: A&P Assessment and Plan (1) CHF (congestive heart failure): Qualifiers: Heart failure chronicity: acute on chronic Heart failure type: unspecified Qualified Code(s): I50.9 - Heart failure, unspecified Code(s): I50.9 - Heart failure, unspecified Status: Acute Assessment and Plan: Heart failure with preserved ejection fraction. IV Bumex has been stopped presumably because of some prerenal azotemia. Increased shortness of breath today perhaps because of worsening CHF. Volume status appears to be improved. Continue to hold diuretic. 11/04/2022 interval history: on 11/02 patient was somnolent and hypoxic patient was placed on BiPAP, initial ABG showed 7.224/ 90.7/ 103, discussed with supervisor paint, came and saw the patient adjusted her BiPAP and recommended to repeat ABG in 2 hours repeat ABG showed 7.329 74.4/ 105, today patient remains clinically stable still on BIPAP, general surgery had ordered CT scan of the abdomen and chest, there was no concern regarding previous abdominal surgery scan showed persistenting influenza A changes, patient completed course of Tamiflu, patient is being treated with steroid and bronchodilator, also on 11/02 patient was unable to take any p.o. due to BiPAP, and was start PPN, will continue to monitor, patient with a atrial fibrillation with RVR seen by the Cardiology as patient was unable to take oral medication was switched to Lopressor p.r.n. also patient is being gently diuresed with Bumex, patient was positive for influenza A had been treated with Tamiflu, will continue to monitor (2) Influenza A: Code(s): J10.1 - Influenza due to other identified influenza virus with other respiratory manifestations Status: Acute Assessment and Plan: Management per hospitalist. (3) Atrial fibrillation with RVR: Code(s): I48.91 - Unspecified atrial fibrillation Status: Acute Assessment and Plan: Managed per Cardiology. Continue amiodarone. Currently on Xarelto (4) Chronic hyponatremia: Code(s): E87.1 - Hypo-osmolality and hyponatremia Status: Acute (5) Obstructive sleep apnea: Code(s): G47.33 - Obstructive sleep apnea (adult) (pediatric) Status: Acute (6) COPD (chronic obstructive pulmonary disease): Qualifiers: COPD type: COPD with acute exacerbation Qualified Code(s): J44.1 - Chronic obstructive pulmonary disease with (acute) exacerbation Code(s): J44.9 - Chronic obstructive pulmonary disease, unspecified Status: Acute Subjective Date/time seen: 11/04/22 17:07 11/04/2022 interval history: on 11/02 patient was somnolent and hypoxic patient was placed on BiPAP, initial ABG showed 7.224/ 90.7/ 103, discussed with supervisor paint, came and saw the patient adjusted her BiPAP and recommended to repeat ABG in 2 hours repeat ABG showed 7.329 74.4/ 105, today patient remains clinically stable still on BIPAP, general surgery had ordered CT scan of the abdomen and chest, there was no concern regarding previous abdominal surgery scan showed persistenting influenza A changes, patient completed course of Tamiflu, patient is being treated with steroid and bronchodilator, also on 11/02 patient was unable to take any p.o. due to BiPAP, and was start PPN, will continue to monitor, patient with a atrial fibrillation with RVR seen by the Cardiology as patient was unable to take oral medication was switched to Lopressor p.r.n. also patient is being gently diuresed with Bumex, patient was positive for influenza A had been treated with Tamiflu, will continue to monitor Review of Systems Review of Systems: ROS unobtainable: Yes unobtainable due to medical condition Exam Narrative: Patient is comfortable, NAD HEENT: eyes are clear and none icteric, BiPAP in place LUNGS: bilateral fair air entry with harsh breath sounds and rales HEART: RR S1S2 ABD: BS+, Soft and nontend
[2022-11-04] MEDS: AMINO ACIDS 4.25%/D5W/LYTES/CA 2,000 ML 80 ML IV CONT (17:18)
[2022-11-04] MEDS: FAT EMULSIONS IV 20% 250 ML 20.83 ML IVPB (17:18)
[2022-11-04] MEDS: POTASSIUM CHLORIDE 20 MEQ TABLET.ER PO (17:26)
[2022-11-04] MEDS: FLUTICASONE/SALMETEROL 45-21 MCG INHALER 1 PUFF 2 PUFF INHALATION (20:15)
[2022-11-04] MEDS: ATORVASTATIN 20 MG TABLET PO (20:52)
[2022-11-04] MEDS: INSULIN ASPART (*BKC) 100 UNITS/ML SUB-Q (20:58)
[2022-11-04 21:00] LABS: Glucose Point of Care 255 mg/dl (65-105)
[2022-11-04] MEDS: MELATONIN 5 MG TABLET PO (21:07)
[2022-11-05] VITALS (34 sets, daily range): BP systolic 128–151; BP diastolic 65–93; PULSE 108–136; RESP 16–20; TEMP 35.9–36.6; O2SAT 87–100
[2022-11-05] MEDS: METOPROLOL TARTRATE INJ 5 MG/5 ML VIAL IV PUSH ×5 (00:57→23:56)
[2022-11-05 01:09] LABS: Glucose Point of Care 236 mg/dl (65-105)
[2022-11-05] MEDS: INSULIN ASPART (*BKC) 100 UNITS/ML SUB-Q ×3 (01:10→23:51)
[2022-11-05] MEDS: IPRATROPIUM BR 0.02% INH SOLN 0.5 MG/2.5 ML VIAL INHALATION ×4 (02:20→21:11)
[2022-11-05] MEDS: CENTRAL LINE FLUSH 10 ML IV PUSH ×3 (06:27→22:05)
[2022-11-05 06:41] LABS: Anion Gap 5 mmol/L (8-16); Blood Urea Nitrogen 61 mg/dL (7-17); Calcium 7.8 mg/dL (8.4-10.2); Carbon Dioxide 37 mmol/L (22-30); Chloride 90 mmol/L (98-107); Estimated CRCL calculation 37 ml/min; Estimated Glomerular Filt Rate 60; Glucose 186 mg/dL (65-110); Potassium 3.7 mmol/L (3.4-5.0); Sodium 132 mmol/L (137-145)
[2022-11-05] MEDS: FLUTICASONE/SALMETEROL 45-21 MCG INHALER 1 PUFF 2 PUFF INHALATION ×2 (08:31→21:11)
[2022-11-05] MEDS: methylPREDNISolone SOD SUCC 125 MG VIAL 60 MG IV PUSH (09:18)
[2022-11-05] MEDS: DORZOLAMIDE/TIMOLOL OPHTH SOL 10 ML BOTTLE 1 DROP EACH EYE ×2 (09:19→22:04)
[2022-11-05] MEDS: LOSARTAN POTASSIUM 12.5 MG TABLET PO (09:19)
[2022-11-05] MEDS: ENOXAPARIN 80 MG/0.8 ML SYRINGE 65 MG SUB-Q ×2 (09:19→22:04)
[2022-11-05] MEDS: ASCORBIC ACID 500 MG TABLET PO (09:20)
[2022-11-05] MEDS: BUMETANIDE INJ 1 MG/4 ML VIAL IV PUSH ×2 (09:20→17:21)
[2022-11-05] MEDS: CYANOCOBALAMIN 500 MCG TABLET 2500 MCG PO (09:26)
[2022-11-05 11:29] LABS: Glucose Point of Care 175 mg/dl (65-105)
--- NOTE | 2022-11-05 11:41 | PM.PNCARD ---
Progress Note: A&P Assessment and Plan (1) Atrial fibrillation with RVR: Code(s): I48.91 - Unspecified atrial fibrillation Status: Acute Assessment and Plan: Persistent with RVR although heart rate reasonably controlled. Continue metoprolol 5 mg IV q.6 hours while NPO. Transition to oral regimen. May escalate as warranted. (2) CHF (congestive heart failure): Qualifiers: Heart failure chronicity: acute on chronic Heart failure type: unspecified Qualified Code(s): I50.9 - Heart failure, unspecified Code(s): I50.9 - Heart failure, unspecified Status: Acute Assessment and Plan: Fairly compensated at this time. Continue Bumex 1 mg IV b.i.d., transition to oral regimen when able to take p.o.. (3) Influenza A: Code(s): J10.1 - Influenza due to other identified influenza virus with other respiratory manifestations Status: Acute Assessment and Plan: Per primary service (4) Obstructive sleep apnea: Code(s): G47.33 - Obstructive sleep apnea (adult) (pediatric) Status: Acute Assessment and Plan: CPAP (5) Hypertension: Code(s): I10 - Essential (primary) hypertension Status: Acute Assessment and Plan: Hemodynamically stable. (6) Adenocarcinoma of colon: Code(s): C18.9 - Malignant neoplasm of colon, unspecified Status: Acute Assessment and Plan: Management per surgery. Appreciate their recommendations. Subjective Date/time seen: 11/05/22 11:41 Interval history: 82-year-old with flu and Cardiology consultation because of atrial fibrillation Date of service 11/03/2022: Feels about the same today. Still short of breath at rest. No chest pain. Date of service 11/04/2022: Patient resting comfortably in her room with BiPAP in place denies any cardiovascular complaints. Now receiving intravenous metoprolol for rate control as she is NPO. Date of service 11/05/2022: Patient denies pain. Breathing okay. NG tube in place inquired with this pain be taken out. She remains NPO. IV metoprolol for AFib with RVR heart rate 110-120bpm denies palpitations, chest pain. Afebrile. Patient states she is passing gas. Review of Systems Constitutional: Constitutional: Denies chills, Denies fever(s), Denies headache(s) and Denies malaise Eyes: Eyes: Denies change in vision ENT: Reports Normal hearing present, Denies dizziness, Denies headache(s) and Denies hearing loss Cardiovascular: Cardiovascular: Denies chest pain, Denies chest pain at rest, Denies chest pain with activity, Denies syncope, Reports pedal edema, Reports leg edema, Denies palpitations, Reports dyspnea and Reports dyspnea on exertion Respiratory: Respiratory: Denies cough, Reports dyspnea, Reports dyspnea on exertion and Denies wheezing Gastrointestinal: Gastrointestinal: Denies abdominal pain, Denies constipation and Denies diarrhea Genitourinary: Genitourinary: Denies hematuria and Denies dysuria Musculoskeletal: Musculoskeletal: Denies myalgias, Denies arthralgias and Denies muscle cramps Integumentary/Breasts: Skin/Breast: Denies wounds Neurologic: Reports Normal hearing present, Denies confusion, Denies dizziness, Denies syncope and Denies headache(s) Psychiatric: Psychiatric: Denies anxiety, Denies confusion and Denies depression Endocrine: Endocrine: Denies cold intolerance, Denies flushing, Denies heat intolerance and Denies palpitations Hematologic/Lymphatic: Hematologic/Lymphatic: Denies easy bleeding and Denies easy bruising Allergic/Immunologic: Allergic/Immunologic: Denies wheezing Exam Const: General: comfortable, no acute distress, alert, awake, anxious and uncomfortable; No confusion Orientation/consciousness: patient oriented x3 and No confusion Other: NG tube in place HENMT: Head: normal to inspection Eyes: General: appearance normal, both eyes and all related structures Sclera: sclerae normal Pupils: Equal,
[2022-11-05 12:05] LABS: Glucose Point of Care 180 mg/dl (65-105)
[2022-11-05 14:09] LABS: Triglycerides 127 mg/dL (<150)
[2022-11-05] MEDS: AMINO ACIDS 4.25%/D5W/LYTES/CA 2,000 ML 80 ML IV CONT (16:25)
[2022-11-05] MEDS: FAT EMULSIONS IV 20% 250 ML 20.8 ML IVPB (16:26)
[2022-11-05] MEDS: POTASSIUM CHLORIDE 20 MEQ PACKET (FOR LIQUID) FEED TUBE (17:21)
--- NOTE | 2022-11-05 17:32 | PM.IMPN ---
Progress Note: A&P Assessment and Plan (1) CHF (congestive heart failure): Qualifiers: Heart failure chronicity: acute on chronic Heart failure type: unspecified Qualified Code(s): I50.9 - Heart failure, unspecified Code(s): I50.9 - Heart failure, unspecified Status: Acute Assessment and Plan: Heart failure with preserved ejection fraction. IV Bumex has been stopped presumably because of some prerenal azotemia. Increased shortness of breath today perhaps because of worsening CHF. Volume status appears to be improved. Continue to hold diuretic. 11/05/2022 interval history: on 11/02 patient was somnolent and hypoxic patient was placed on BiPAP, initial ABG showed 7.224/ 90.7/ 103, discussed with hand drawer in helper, came and saw the patient adjusted her BiPAP and recommended to repeat ABG in 2 hours repeat ABG showed 7.329 74.4/ 105, today patient remains clinically stable still on BIPAP, general surgery had ordered CT scan of the abdomen and chest, there was no concern regarding previous abdominal surgery scan showed persistenting influenza A changes, patient completed course of Tamiflu, patient is being treated with steroid and bronchodilator, also on 11/02 patient was unable to take any p.o. due to BiPAP, and was start PPN, will continue to monitor, today patient clinically symptoms improved patient is off BiPAP, an attempt to give water orally patient had persistent cough, NG tube was placed to get the patient oral medication and start G-tube feeding, today patient is daughter and son-in-law abrasion and give updates, patient with a atrial fibrillation with RVR seen by the Cardiology as patient was unable to take oral medication was switched to Lopressor p.r.n. also patient is being gently diuresed with Bumex, patient was positive for influenza A had been treated with Tamiflu, will continue to monitor (2) Influenza A: Code(s): J10.1 - Influenza due to other identified influenza virus with other respiratory manifestations Status: Acute Assessment and Plan: Management per hospitalist. (3) Atrial fibrillation with RVR: Code(s): I48.91 - Unspecified atrial fibrillation Status: Acute Assessment and Plan: Managed per Cardiology. Continue amiodarone. Currently on Xarelto (4) Chronic hyponatremia: Code(s): E87.1 - Hypo-osmolality and hyponatremia Status: Acute (5) Obstructive sleep apnea: Code(s): G47.33 - Obstructive sleep apnea (adult) (pediatric) Status: Acute (6) COPD (chronic obstructive pulmonary disease): Qualifiers: COPD type: COPD with acute exacerbation Qualified Code(s): J44.1 - Chronic obstructive pulmonary disease with (acute) exacerbation Code(s): J44.9 - Chronic obstructive pulmonary disease, unspecified Status: Acute Subjective Date/time seen: 11/05/22 17:32 11/05/2022 interval history: on 11/02 patient was somnolent and hypoxic patient was placed on BiPAP, initial ABG showed 7.224/ 90.7/ 103, discussed with hand drawer in helper, came and saw the patient adjusted her BiPAP and recommended to repeat ABG in 2 hours repeat ABG showed 7.329 74.4/ 105, today patient remains clinically stable still on BIPAP, general surgery had ordered CT scan of the abdomen and chest, there was no concern regarding previous abdominal surgery scan showed persistenting influenza A changes, patient completed course of Tamiflu, patient is being treated with steroid and bronchodilator, also on 11/02 patient was unable to take any p.o. due to BiPAP, and was start PPN, will continue to monitor, today patient clinically symptoms improved patient is off BiPAP, an attempt to give water orally patient had persistent cough, NG tube was placed to get the patient oral medication and start G-tube feeding, today patient is daughter and son-in-law abrasion and give updates, patient with a atrial fibrillation with RVR seen by the Cardiolog
[2022-11-05 18:17] LABS: Glucose Point of Care 242 mg/dl (65-105)
[2022-11-05] MEDS: ATORVASTATIN 20 MG TABLET FEED TUBE (22:04)
[2022-11-05] MEDS: MELATONIN 5 MG TABLET FEED TUBE (22:04)
[2022-11-05] MEDS: ACETAMINOPHEN ELIXIR 325 MG/10.15 ML UDC 650 MG FEED TUBE (22:21)
[2022-11-05 23:52] LABS: Glucose Point of Care 278 mg/dl (65-105)
[2022-11-05] MEDS: LORazepam INJ (*CRX) 2 MG/ML VIAL 0.5 MG IV PUSH (23:52)
[2022-11-06] VITALS (31 sets, daily range): BP systolic 134–159; BP diastolic 79–96; PULSE 106–130; RESP 16–20; TEMP 35.8–36.4; O2SAT 95–99
[2022-11-06] MEDS: IPRATROPIUM BR 0.02% INH SOLN 0.5 MG/2.5 ML VIAL INHALATION ×4 (02:58→22:05)
[2022-11-06] MEDS: METOPROLOL TARTRATE INJ 5 MG/5 ML VIAL IV PUSH ×5 (05:40→22:22)
[2022-11-06] MEDS: CENTRAL LINE FLUSH 10 ML IV PUSH ×3 (05:41→22:22)
[2022-11-06 05:58] LABS: Anion Gap 5 mmol/L (8-16); Blood Urea Nitrogen 61 mg/dL (7-17); Calcium 8.3 mg/dL (8.4-10.2); Carbon Dioxide 35 mmol/L (22-30); Chloride 89 mmol/L (98-107); Estimated CRCL calculation 37 ml/min; Estimated Glomerular Filt Rate 60; Glucose 223 mg/dL (65-110); Phosphorus 4.1 mg/dL (2.5-4.5); Potassium 4.1 mmol/L (3.4-5.0); Sodium 129 mmol/L (137-145)
[2022-11-06] MEDS: INSULIN ASPART (*BKC) 100 UNITS/ML SUB-Q ×3 (06:44→18:47)
[2022-11-06] MEDS: FLUTICASONE/SALMETEROL 45-21 MCG INHALER 1 PUFF 2 PUFF INHALATION ×2 (08:06→22:05)
[2022-11-06] MEDS: POTASSIUM CHLORIDE 20 MEQ PACKET (FOR LIQUID) FEED TUBE ×2 (08:24→17:25)
[2022-11-06] MEDS: CYANOCOBALAMIN 500 MCG TABLET 2500 MCG FEED TUBE (08:25)
[2022-11-06] MEDS: ASCORBIC ACID 500 MG TABLET FEED TUBE (08:26)
[2022-11-06] MEDS: LOSARTAN POTASSIUM 12.5 MG TABLET FEED TUBE (08:26)
[2022-11-06] MEDS: methylPREDNISolone SOD SUCC 125 MG VIAL 60 MG IV PUSH (08:28)
[2022-11-06] MEDS: BUMETANIDE INJ 1 MG/4 ML VIAL IV PUSH ×2 (08:28→17:25)
[2022-11-06 10:00] LABS: Hematocrit 23.9 % (37.0-47.0); Hemoglobin 7.3 g/dL (12.0-15.0); Mean Corpuscular HGB Conc 30.5 g/dl (32-36); Mean Corpuscular Hemoglobin 28.4 pg (26-34); Mean Platelet Volume 12.6 fl (7.4-10.4); Platelet Count Result 183 k/mm3 (150-375); Red Blood Count 2.57 M/mm3 (4.2-5.4); Red Cell Distribution Width 24.5 % (11.5-14.5); White Blood Count 11.5 K/mm3 (4.5-10.0)
[2022-11-06] MEDS: DORZOLAMIDE/TIMOLOL OPHTH SOL 10 ML BOTTLE 1 DROP EACH EYE ×2 (10:28→22:21)
[2022-11-06 11:23] LABS: Alanine Aminotransferase 15 U/L (6-35); Alkaline Phosphatase 47 U/L (38-126); Anion Gap 2 mmol/L (8-16); Aspartate Amino Transferase 20 U/L (14-36); Bilirubin,Total 0.5 mg/dL (0.2-1.3); Blood Urea Nitrogen 63 mg/dL (7-17); Calcium 8.2 mg/dL (8.4-10.2); Carbon Dioxide 38 mmol/L (22-30); Chloride 89 mmol/L (98-107); Estimated CRCL calculation 41 ml/min; Estimated Glomerular Filt Rate > 60; Glucose 207 mg/dL (65-110); Magnesium 2.3 mg/dL (1.6-2.3); Potassium 4.5 mmol/L (3.4-5.0); Sodium 129 mmol/L (137-145)
[2022-11-06 11:37] LABS: Glucose Point of Care 231 mg/dl (65-105)
--- NOTE | 2022-11-06 13:48 | WPDGICN ---
Assessment and Plan Assessment and plan (1) Melena: Code(s): K92.1 - Melena Status: Acute Assessment and Plan: new concern is new onset of melena and noted drop in h/h xarelto is on hold now started on iv protonix monitor for more signs of bleeding egd tomorrow (2) Acute on chronic blood loss anemia: Code(s): D62 - Acute posthemorrhagic anemia Status: Acute Assessment and Plan: trend h/h transfuse if hb<7 ? upper GI source (3) Adenocarcinoma of colon: Code(s): C18.9 - Malignant neoplasm of colon, unspecified Status: Acute Assessment and Plan: had rt hemicolectomy about 3 weeks ago surgery was on the case (4) RLQ abdominal pain: Code(s): R10.31 - Right lower quadrant pain Status: Acute (5) Influenza A: Code(s): J10.1 - Influenza due to other identified influenza virus with other respiratory manifestations Status: Acute Assessment and Plan: reason of recent hospitalization (6) Atrial fibrillation with RVR: Code(s): I48.91 - Unspecified atrial fibrillation Status: Acute Assessment and Plan: by cardiology (7) CHF (congestive heart failure): Qualifiers: Heart failure chronicity: acute on chronic Heart failure type: unspecified Qualified Code(s): I50.9 - Heart failure, unspecified Code(s): I50.9 - Heart failure, unspecified Status: Acute (8) Atrial fibrillation: Code(s): I48.91 - Unspecified atrial fibrillation Status: Acute GI Consult Note Consult date/time: 11/06/22 13:48 Reason for consult: melena, recent rt colectomy after colon cancer HPI: Delilah Wynne is a 82 year old female with newly diagnosed of cecal cancer about 3 weeks ago s/p rt hemicolectomy after she was found to have RU. Also history of COPD, atrial fibrillation anticoagulated, congestive heart failure, hypertension, stroke with sleep apnea, pulmonary hypertension.? she came to emergency room about 10 days ago due to shortness of breath and found to have influenza treated with tamiflu, also c/o RLQ pain but evaluated by surgery, also had Afib with RVR and CHF. I am called because new onset of melena x2 and drop in h/h. She has NGT in place. Review of Systems Constitutional: Constitutional: Denies chills and Denies fever(s) Eyes: Eyes: Denies change in vision ENT: Reports Normal hearing present, Denies dizziness, Denies headache(s) and Denies hearing loss Cardiovascular: Cardiovascular: Denies chest pain, Denies chest pain with activity, Denies syncope, Reports pedal edema, Reports leg edema, Denies palpitations, Reports dyspnea and Reports dyspnea on exertion Respiratory: Respiratory: Denies cough, Reports dyspnea, Reports dyspnea on exertion and Denies wheezing Gastrointestinal: Gastrointestinal: Reports abdominal pain and Reports melena Genitourinary: Genitourinary: Denies hematuria Musculoskeletal: Musculoskeletal: Denies myalgias, Denies arthralgias and Denies muscle cramps Integumentary/Breasts: Skin/Breast: Denies wounds Neurologic: Reports Normal hearing present and Denies confusion Psychiatric: Psychiatric: Denies confusion Endocrine: Endocrine: Denies cold intolerance and Denies palpitations Hematologic/Lymphatic: Hematologic/Lymphatic: Denies easy bruising Allergic/Immunologic: Allergic/Immunologic: Denies wheezing [facility] Past Medical History Medical History (Updated 11/06/22 @ 13:59 by Abhi England MD) Adenocarcinoma of colon Anemia Anemia due to GI blood loss Arthritis Atrial fibrillation Congestive heart failure EF 70%, indeterminate diastolic function, mildly increased left ventricular wall thickness, severe biatrial enlargement, [id number] mitral valve regurgitation, moderate tricuspid regurgitation moderate pulmonary hypertension COPD (chronic obstructive pulmonary disease) Glaucoma Hyperlipidemia Hypertension Melena Obstructive sleep
--- NOTE | 2022-11-06 15:11 | PM.IMPN ---
Progress Note: A&P Assessment and Plan (1) CHF (congestive heart failure): Qualifiers: Heart failure chronicity: acute on chronic Heart failure type: unspecified Qualified Code(s): I50.9 - Heart failure, unspecified Code(s): I50.9 - Heart failure, unspecified Status: Acute Assessment and Plan: Heart failure with preserved ejection fraction. IV Bumex has been stopped presumably because of some prerenal azotemia. Increased shortness of breath today perhaps because of worsening CHF. Volume status appears to be improved. Continue to hold diuretic. 11/06/2022 interval history: on 11/02 patient was somnolent and hypoxic patient was placed on BiPAP, initial ABG showed 7.224/ 90.7/ 103, discussed with truck rental manager, came and saw the patient adjusted her BiPAP and recommended to repeat ABG in 2 hours repeat ABG showed 7.329 74.4/ 105, today patient remains clinically stable still on BIPAP, general surgery had ordered CT scan of the abdomen and chest, there was no concern regarding previous abdominal surgery scan showed persistenting influenza A changes, patient completed course of Tamiflu, patient is being treated with steroid and bronchodilator, also on 11/02 patient was unable to take any p.o. due to BiPAP, and was start PPN, will continue to monitor, today patient clinically symptoms improved patient is off BiPAP, an attempt to give water orally patient had persistent cough, NG tube was placed to get the patient oral medication and start G-tube feeding, patient is daughter and son-in-law abrasion and give updates, patient with a atrial fibrillation with RVR seen by the Cardiology as patient was unable to take oral medication was switched to Lopressor p.r.n. also patient is being gently diuresed with Bumex, patient was positive for influenza A had been treated with Tamiflu, today patient has rectal bleeding and seen by GI to further evaluate patient will have EGD tomorrow, will hold G-tube feeding, will hold anticoagulation, will continue to monitor (2) Influenza A: Code(s): J10.1 - Influenza due to other identified influenza virus with other respiratory manifestations Status: Acute Assessment and Plan: Management per hospitalist. (3) Atrial fibrillation with RVR: Code(s): I48.91 - Unspecified atrial fibrillation Status: Acute Assessment and Plan: Managed per Cardiology. Continue amiodarone. Currently on Xarelto (4) Chronic hyponatremia: Code(s): E87.1 - Hypo-osmolality and hyponatremia Status: Acute (5) Obstructive sleep apnea: Code(s): G47.33 - Obstructive sleep apnea (adult) (pediatric) Status: Acute (6) COPD (chronic obstructive pulmonary disease): Qualifiers: COPD type: COPD with acute exacerbation Qualified Code(s): J44.1 - Chronic obstructive pulmonary disease with (acute) exacerbation Code(s): J44.9 - Chronic obstructive pulmonary disease, unspecified Status: Acute Subjective Date/time seen: 11/06/22 15:11 11/06/2022 interval history: on 11/02 patient was somnolent and hypoxic patient was placed on BiPAP, initial ABG showed 7.224/ 90.7/ 103, discussed with truck rental manager, came and saw the patient adjusted her BiPAP and recommended to repeat ABG in 2 hours repeat ABG showed 7.329 74.4/ 105, today patient remains clinically stable still on BIPAP, general surgery had ordered CT scan of the abdomen and chest, there was no concern regarding previous abdominal surgery scan showed persistenting influenza A changes, patient completed course of Tamiflu, patient is being treated with steroid and bronchodilator, also on 11/02 patient was unable to take any p.o. due to BiPAP, and was start PPN, will continue to monitor, today patient clinically symptoms improved patient is off BiPAP, an attempt to give water orally patient had persistent cough, NG tube was placed to get the patient oral medication and start G
--- NOTE | 2022-11-06 15:25 | PM.PNCARD ---
Progress Note: A&P Assessment and Plan (1) Atrial fibrillation with RVR: Code(s): I48.91 - Unspecified atrial fibrillation Status: Acute Assessment and Plan: Persistent with RVR although heart rate reasonably controlled. Continue metoprolol 5 mg IV but increased to q.4 hours while NPO. If no improvement may need to transition to diltiazem infusion for heart rate control. Discussed at bedside with the patient and family. Hold Rivaroxaban given concern for GI bleed and worsening anemia. (2) CHF (congestive heart failure): Qualifiers: Heart failure chronicity: acute on chronic Heart failure type: unspecified Qualified Code(s): I50.9 - Heart failure, unspecified Code(s): I50.9 - Heart failure, unspecified Status: Acute Assessment and Plan: Fairly compensated at this time. Continue Bumex 1 mg IV b.i.d., transition to oral regimen when able to take p.o.. (3) Acute on chronic blood loss anemia: Code(s): D62 - Acute posthemorrhagic anemia Status: Acute Assessment and Plan: Hemoglobin has declined significantly. Concern for bleeding. GI consult. Hold rivaroxaban. (4) Influenza A: Code(s): J10.1 - Influenza due to other identified influenza virus with other respiratory manifestations Status: Acute Assessment and Plan: Per primary service (5) Hypertension: Code(s): I10 - Essential (primary) hypertension Status: Acute Assessment and Plan: Hemodynamically stable thus far. (6) Adenocarcinoma of colon: Code(s): C18.9 - Malignant neoplasm of colon, unspecified Status: Acute Assessment and Plan: Management per surgery. Awaiting further recommendations. She remains NPO with NG tube. (7) Obstructive sleep apnea: Code(s): G47.33 - Obstructive sleep apnea (adult) (pediatric) Status: Acute Assessment and Plan: CPAP Subjective Date/time seen: Date of service: 11/06/22 11:25 Interval history: 82-year-old with flu and Cardiology consultation because of atrial fibrillation Date of service 11/03/2022: Feels about the same today. Still short of breath at rest. No chest pain. Date of service 11/04/2022: Patient resting comfortably in her room with BiPAP in place denies any cardiovascular complaints. Now receiving intravenous metoprolol for rate control as she is NPO. Date of service 11/05/2022: Patient denies pain. Breathing okay. NG tube in place inquired with this pain be taken out. She remains NPO. IV metoprolol for AFib with RVR heart rate 110-120bpm denies palpitations, chest pain. Afebrile. Patient states she is passing gas. Date of service 11/06/2022: Patient feels quite fatigued. Family bedside. She denies chest pain, palpitations or shortness of breath. Admits to mild abdominal discomfort. She remains in AFib with RVR heart rate 110's- 120s+ hemodynamically stable. Remains NPO per surgery with NG. Review of Systems Constitutional: Constitutional: Denies chills, Denies fever(s), Denies headache(s) and Denies malaise Eyes: Eyes: Denies change in vision ENT: Reports Normal hearing present, Denies dizziness, Denies headache(s) and Denies hearing loss Cardiovascular: Cardiovascular: Denies chest pain, Denies chest pain at rest, Denies chest pain with activity, Denies syncope, Reports pedal edema, Reports leg edema, Denies palpitations, Reports dyspnea and Reports dyspnea on exertion Respiratory: Respiratory: Denies cough, Reports dyspnea, Reports dyspnea on exertion and Denies wheezing Gastrointestinal: Gastrointestinal: Denies abdominal pain, Denies constipation and Denies diarrhea Genitourinary: Genitourinary: Denies hematuria and Denies dysuria Musculoskeletal: Musculoskeletal: Denies myalgias, Denies arthralgias and Denies muscle cramps Integumentary/Breasts: Skin/Breast: Denies wounds Neurologic: Reports Normal hearing present, Denies confusion, Denies dizzi
[2022-11-06] MEDS: FAT EMULSIONS IV 20% 250 ML 20.8 ML IVPB (17:24)
[2022-11-06] MEDS: AMINO ACIDS 4.25%/D5W/LYTES/CA 2,000 ML 80 ML IV CONT (17:24)
[2022-11-06 18:37] LABS: Glucose Point of Care 251 mg/dl (65-105)
[2022-11-06] MEDS: PANTOPRAZOLE SODIUM IV 40 MG VIAL IV PUSH (22:22)
[2022-11-06 23:48] LABS: Glucose Point of Care 262 mg/dl (65-105)
[2022-11-07] VITALS (41 sets, daily range): BP systolic 138–164; BP diastolic 66–105; PULSE 88–134; RESP 2–24; TEMP 35.9–36.7; O2SAT 91–100
[2022-11-07] MEDS: diphenhydrAMINE HCl INJ 50 MG/ML VIAL 25 MG IV PUSH ×2 (01:34→21:34)
[2022-11-07] MEDS: INSULIN ASPART (*BKC) 100 UNITS/ML SUB-Q ×2 (01:35→12:14)
[2022-11-07] MEDS: METOPROLOL TARTRATE INJ 5 MG/5 ML VIAL IV PUSH ×6 (01:35→21:33)
[2022-11-07] MEDS: IPRATROPIUM BR 0.02% INH SOLN 0.5 MG/2.5 ML VIAL INHALATION ×4 (03:22→20:33)
[2022-11-07] MEDS: CENTRAL LINE FLUSH 10 ML IV PUSH ×3 (04:43→21:30)
[2022-11-07 05:37] LABS: Basophils Percent Auto 0.1 % (0.2-1.2); Hematocrit 22.1 % (37.0-47.0); Immature Granulocyte Absolute 0.22 K/mm3 (0.00-0.031); Immature Granulocyte Percent A 1.7 % (0-0.5); Lymphocytes Absolute Auto 0.56 K/mm3 (0.9-3.2); Lymphocytes Percent Auto 4.2 % (18.3-44.2); Mean Corpuscular HGB Conc 30.8 g/dl (32-36); Mean Corpuscular Hemoglobin 28.5 pg (26-34); Mean Corpuscular Volume 92.5 fl (80-100); Mean Platelet Volume 12.4 fl (7.4-10.4); Monocytes Absolute Auto 0.7 K/mm3 (0.1-0.6); Monocytes Percent Auto 5.5 % (2.6-8.5); Neutrophils Absolute Auto 11.7 K/mm3 (1.3-6.7); Neutrophils Percent Auto 88.5 % (45.5-73.1); Platelet Count Result 171 k/mm3 (150-375); Red Blood Count 2.39 M/mm3 (4.2-5.4); White Blood Count 13.3 K/mm3 (4.5-10.0)
[2022-11-07 05:41] LABS: Potassium 4.4 mmol/L (3.4-5.0)
[2022-11-07 05:50] LABS: Prothrombin Time 13.1 Seconds (11.1-14.7)
[2022-11-07 05:51] LABS: Partial Thromboplastin Time 29.3 SECONDS (22.3-36.8)
[2022-11-07 05:55] LABS: Hemoglobin 6.8 g/dL (12.0-15.0)
[2022-11-07 05:57] LABS: Platelet Estimate Adequate (Adequate)
[2022-11-07 05:58] LABS: Hypochromasia 1+ (NORMAL); Tear Drop Cells 1+ (NORMAL)
[2022-11-07 06:25] LABS: Glucose Point of Care 176 mg/dl (65-105)
--- NOTE | 2022-11-07 07:17 | WPDANESEPPF ---
Anes - Initial Pre Proc Eval Procedure: Operation Date: 11/07/22 07:30 Proposed Procedures p Esophagogastroduodenoscopy EGD(Not Applicable) - Abhi England MD Date/Time: 11/07/22 07:17 Surgeon: Amilcar Mast MD Pre Op Diagnosis: CHF,Influenza A,Afib w/RVR Patient Data Age: 82 Gender: F Height: 1.63 m Weight: 63.5 kg Last Vital Signs Temp 36.2 C L 11/07/22 05:08 Pulse 122 H 11/07/22 06:00 Resp 20 11/07/22 05:08 BP 146/86 H 11/07/22 05:08 Pulse Ox 97 11/07/22 05:08 O2 Del Method Nasal Cannula 11/07/22 04:00 O2 Flow Rate 2 11/07/22 04:00 FiO2 25 11/07/22 04:00 Allergies Allergy/AdvReac Type Severity Reaction Status Date / Time amlodipine AdvReac Itching Verified 11/07/22 07:15 furosemide [From Lasix] AdvReac Itching Verified 11/07/22 07:15 Home Medications Medication Instructions Recorded Confirmed Type albuterol sulfate 90 mcg/actuation 2 inh inhalation Q6H PRN Shortness 09/30/22 10/27/22 History aerosol inhaler (ProAir HFA) Of Breath Or Wheezing ascorbic acid (vitamin C) 500 mg 250 mg PO DAILY 09/30/22 10/27/22 History tablet atorvastatin 20 mg tablet 20 mg PO HS 09/30/22 10/27/22 History budesonide-formoterol HFA 80 2 inh inhalation DAILY 09/30/22 10/27/22 History mcg-4.5 mcg/actuation aerosol inhaler (Symbicort) dorzolamide 22.3 mg-timolol 6.8 1 drp EACH EYE Q12H 09/30/22 10/27/22 History mg/mL eye drops hydroxyzine HCl 25 mg tablet 25 mg PO TID PRN Itching 09/30/22 10/27/22 History metoprolol succinate 25 mg 25 mg PO DAILY 09/30/22 10/27/22 History tablet,extended release 24 hr tiotropium bromide 18 mcg capsule 1 cap inhalation DAILY 09/30/22 10/27/22 History with inhalation device (Spiriva with HandiHaler) cyanocobalamin (vitamin B-12) 2,500 mcg PO DAILY 10/14/22 10/27/22 History 2,500 mcg tablet rivaroxaban 15 mg tablet (Xarelto) 15 mg PO DAILY 10/14/22 10/27/22 History Laboratory Tests 11/06/22 11/06/22 11/06/22 09:51 10:37 11:19 WBC 11.5 K/mm3 H K/mm3 (4.5-10.0) RBC 2.57 M/mm3 L M/mm3 (4.2-5.4) Hgb 7.3 g/dL L g/dL (12.0-15.0) Hct 23.9 % L % (37.0-47.0) MCV 93.0 fl fl (80-100) MCH 28.4 pg pg (26-34) MCHC 30.5 g/dl L g/dl (32-36) RDW 24.5 % H % (11.5-14.5) Plt Count 183 k/mm3 k/mm3 (150-375) MPV 12.6 fl H fl (7.4-10.4) Immature Gran % (Auto) Neut % (Auto) Lymph % (Auto) [place] % (Auto) Eos % (Auto) Baso % (Auto) Lymph # (Auto) [place] # (Auto) Eos # (Auto) Baso # (Auto) Abs Immat Gran (auto) Absolute Neuts (auto) Absolute Nucleated RBC Nucleated RBC % Platelet Estimate Hypochromasia Tear Drop Cells Schistocytes PT INR APTT Sodium 129 mmol/L L mmol/L (137-145) Potassium 4.5 mmol/L mmol/L (3.4-5.0) Chloride 89 mmol/L L mmol/L (98-107) Carbon Dioxide 38 mmol/L H mmol/L (22-30) Anion Gap 2 mmol/L L mmol/L (8-16) BUN 63 mg/dL H mg/dL (7-17) Creatinine 0.80 mg/dL mg/dL (0.7-1.0) Estim Creat Clear Calc 41 ml/min ml/min Estimated GFR > 60 (59 - ) Glucose 207 mg/dL H mg/dL (65-110) POC Capillary Glucose 231 mg/dl H mg/dl (65-105) Calcium 8.2 mg/dL L mg/dL (8.4-10.2) Magnesium 2.3 mg/dL mg/dL (1.6-2.3) Total Bilirubin 0.5 mg/dL mg/dL (0.2-1.3) AST 20 U/L U/L (14-36) ALT 15 U/L U/L (6-35) Alkaline Phosphatase 47 U/L U/L (38-126) Total Protein 6.0 g/dL L g/dL (6.3-8.2) Albumin 3.0 g/dL L g/dL (3.5-5.1) 11/06/22 11/06/2211/07
[2022-11-07] MEDS: LACTATED RINGERS 1,000 ML 150 ML IV CONT (07:20)
[2022-11-07] MEDS: LOSARTAN POTASSIUM 12.5 MG TABLET FEED TUBE (09:08)
[2022-11-07] MEDS: PANTOPRAZOLE SODIUM IV 40 MG VIAL IV PUSH ×2 (09:08→21:30)
[2022-11-07] MEDS: BUMETANIDE INJ 1 MG/4 ML VIAL IV PUSH ×2 (09:08→17:05)
[2022-11-07] MEDS: ASCORBIC ACID 500 MG TABLET FEED TUBE (09:08)
[2022-11-07] MEDS: DORZOLAMIDE/TIMOLOL OPHTH SOL 10 ML BOTTLE 1 DROP EACH EYE ×2 (09:09→21:30)
[2022-11-07] MEDS: POTASSIUM CHLORIDE 20 MEQ PACKET (FOR LIQUID) FEED TUBE ×2 (09:09→17:06)
[2022-11-07] MEDS: CYANOCOBALAMIN 500 MCG TABLET 2500 MCG FEED TUBE (09:09)
--- NOTE | 2022-11-07 09:27 | PC.NURSE ---
Called and discussed need for NG with provider after EGD. He ordered a nursing bedside swallow evaluation with water. Patient swallowed sips of water with no coughing or choking. Will hold on placing NG for now.
[2022-11-07] MEDS: methylPREDNISolone SOD SUCC 125 MG VIAL 60 MG IV PUSH (09:34)
--- NOTE | 2022-11-07 10:33 | PCNFU ---
Nutrition Follow-Up Complete: Inadequate oral intake related to continuous bipap, shortness of breath, loss of appetite as evidenced by need for full parenteral nutrition Goal:Meet estimated nutrition needs, Pt is progressing towards goal via PPN Pt current nutrition is Clear liquids. Nutrition recommendation: Advance diet as tolerated, supplements TID w/ meals Last recorded weight is 63.5 kg - stable at this time Bowel Motility: +BM 11/07 Labs Reviewed: Hgb:9.5, HCT:29.9, NA:132, BUN:55, Glu:147, Tri Meds Noted: bumex, lovenox, novolog, solumedrol Skin: abd incision Additional Notes: Pt continue on PPN @ 80ml/hr providing 1153kcals, 82g protein. Tube feeds were started but are no longer running. Dr Webster states getting SLICING MACHINE OPERATOR involved and working towards po intake. Clear liquids ordered for today. Pt will need supplementation as po intake will very likely be inadequate, pt reports trouble swallowing. Recommend Ensure Clear on liquids, advanced to Ensure compact TID with diet is advanced further. Current PPN to continue to run and is providing 75% of estimated needs. Monitor labs, plan of care, tolerance, weights. Follow up Monday/Monday
[2022-11-07] MEDS: FLUTICASONE/SALMETEROL 45-21 MCG INHALER 1 PUFF 2 PUFF INHALATION ×2 (10:37→20:34)
[2022-11-07] MEDS: SODIUM CHLORIDE 0.9% IV 250 ML 30 ML IV CONT (11:14)
[2022-11-07] MEDS: TUBING, BLOOD PLUM PUMP TUBING 1 EACH XX (11:15)
[2022-11-07 12:01] LABS: Glucose Point of Care 241 mg/dl (65-105)
[2022-11-07] MEDS: guaiFENesin 200 MG/10 ML UDC 600 MG FEED TUBE (14:41)
--- NOTE | 2022-11-07 14:43 | PM.IMPN ---
Progress Note: A&P Assessment and Plan (1) CHF (congestive heart failure): Qualifiers: Heart failure chronicity: acute on chronic Heart failure type: unspecified Qualified Code(s): I50.9 - Heart failure, unspecified Code(s): I50.9 - Heart failure, unspecified Status: Acute Assessment and Plan: Heart failure with preserved ejection fraction. IV Bumex has been stopped presumably because of some prerenal azotemia. Increased shortness of breath today perhaps because of worsening CHF. Volume status appears to be improved. Continue to hold diuretic. 11/07/2022 interval history: on 11/02 patient was somnolent and hypoxic patient was placed on BiPAP, initial ABG showed 7.224/ 90.7/ 103, discussed with mechanical engineering technologist, came and saw the patient adjusted her BiPAP and recommended to repeat ABG in 2 hours repeat ABG showed 7.329 74.4/ 105, today patient remains clinically stable still on BIPAP, general surgery had ordered CT scan of the abdomen and chest, there was no concern regarding previous abdominal surgery scan showed persistenting influenza A changes, patient completed course of Tamiflu, patient is being treated with steroid and bronchodilator, also on 11/02 patient was unable to take any p.o. due to BiPAP, and was start PPN, will continue to monitor, today patient clinically symptoms improved patient is off BiPAP, an attempt to give water orally patient had persistent cough, NG tube was placed to get the patient oral medication and start G-tube feeding, patient is daughter and son-in-law abrasion and give updates, patient with a atrial fibrillation with RVR seen by the Cardiology as patient was unable to take oral medication was switched to Lopressor p.r.n. and increased to q4 PRN, if needed may need to start diltiazem drip, also patient is being gently diuresed with Bumex, patient was positive for influenza A had been treated with Tamiflu, on 11/06 patient had rectal bleeding and seen by GI to further evaluate patient had EGD today, which did not show source of bleeding, recommended [facility] GI bleeding test, will follow up, will hold anticoagulation, will continue to monitor, patient's daughter and son-in-law are present in the answered all their questions (2) Influenza A: Code(s): J10.1 - Influenza due to other identified influenza virus with other respiratory manifestations Status: Acute Assessment and Plan: Management per hospitalist. (3) Atrial fibrillation with RVR: Code(s): I48.91 - Unspecified atrial fibrillation Status: Acute Assessment and Plan: Managed per Cardiology. Continue amiodarone. Currently on Xarelto (4) Chronic hyponatremia: Code(s): E87.1 - Hypo-osmolality and hyponatremia Status: Acute (5) Obstructive sleep apnea: Code(s): G47.33 - Obstructive sleep apnea (adult) (pediatric) Status: Acute (6) COPD (chronic obstructive pulmonary disease): Qualifiers: COPD type: COPD with acute exacerbation Qualified Code(s): J44.1 - Chronic obstructive pulmonary disease with (acute) exacerbation Code(s): J44.9 - Chronic obstructive pulmonary disease, unspecified Status: Acute Subjective Date/time seen: 11/07/22 14:43 11/07/2022 interval history: on 11/02 patient was somnolent and hypoxic patient was placed on BiPAP, initial ABG showed 7.224/ 90.7/ 103, discussed with mechanical engineering technologist, came and saw the patient adjusted her BiPAP and recommended to repeat ABG in 2 hours repeat ABG showed 7.329 74.4/ 105, today patient remains clinically stable still on BIPAP, general surgery had ordered CT scan of the abdomen and chest, there was no concern regarding previous abdominal surgery scan showed persistenting influenza A changes, patient completed course of Tamiflu, patient is being treated with steroid and bronchodilator, also on 11/02 patient was unable to take any p.o. due to BiPAP, and was start PPN, will ann
--- NOTE | 2022-11-07 15:21 | PM.PNCARD ---
Progress Note: A&P Assessment and Plan (1) Atrial fibrillation with RVR: Code(s): I48.91 - Unspecified atrial fibrillation Status: Acute Assessment and Plan: Persistent with RVR although heart rate reasonably controlled. Continue metoprolol 5 mg IV q.4 hours while NPO. Transition to oral regimen when able. Discussed at bedside with the patient and family. Hold Rivaroxaban given concern for GI bleed and worsening anemia. (2) CHF (congestive heart failure): Qualifiers: Heart failure chronicity: acute on chronic Heart failure type: unspecified Qualified Code(s): I50.9 - Heart failure, unspecified Code(s): I50.9 - Heart failure, unspecified Status: Acute Assessment and Plan: Fairly compensated at this time. Continue Bumex 1 mg IV b.i.d., transition to oral regimen when able to take p.o.. Check BMP in a.m.. (3) Acute on chronic blood loss anemia: Code(s): D62 - Acute posthemorrhagic anemia Status: Acute Assessment and Plan: Hemoglobin has declined significantly. Concern for bleeding. GI consult. Hold rivaroxaban. Hemoglobin 6.8. If any further decline transfusion per primary service. (4) Influenza A: Code(s): J10.1 - Influenza due to other identified influenza virus with other respiratory manifestations Status: Acute Assessment and Plan: Per primary service (5) Hypertension: Code(s): I10 - Essential (primary) hypertension Status: Acute Assessment and Plan: Hemodynamically stable thus far. (6) Adenocarcinoma of colon: Code(s): C18.9 - Malignant neoplasm of colon, unspecified Status: Acute Assessment and Plan: Management per surgery. Awaiting further recommendations. She remains NPO with NG tube. (7) Obstructive sleep apnea: Code(s): G47.33 - Obstructive sleep apnea (adult) (pediatric) Status: Acute Assessment and Plan: CPAP Subjective Date/time seen: Date of service: 11/07/22 15:21 Interval history: 82-year-old with flu and Cardiology consultation because of atrial fibrillation Date of service 11/03/2022: Feels about the same today. Still short of breath at rest. No chest pain. Date of service 11/04/2022: Patient resting comfortably in her room with BiPAP in place denies any cardiovascular complaints. Now receiving intravenous metoprolol for rate control as she is NPO. Date of service 11/05/2022: Patient denies pain. Breathing okay. NG tube in place inquired with this pain be taken out. She remains NPO. IV metoprolol for AFib with RVR heart rate 110-120bpm denies palpitations, chest pain. Afebrile. Patient states she is passing gas. Date of service 11/06/2022: Patient feels quite fatigued. Family bedside. She denies chest pain, palpitations or shortness of breath. Admits to mild abdominal discomfort. She remains in AFib with RVR heart rate 110's- 120s+ hemodynamically stable. Remains NPO per surgery with NG. Date of service 11/07/2022: H&H decline, evidence of GI bleed yesterday EGD performed this morning. Red cell tagged scan planned. Anticoagulation has been held, hemoglobin 6.8 this morning. Heart rate elevated but reasonable low 100s to 110s on average, asymptomatic. She feels better today other than feeling fatigued. She denies pain, shortness of breath or chest pain or palpitations. Family at bedside. All questions answered to their satisfaction. Review of Systems Constitutional: Constitutional: Denies chills, Denies fever(s), Denies headache(s) and Denies malaise Eyes: Eyes: Denies change in vision ENT: Reports Normal hearing present, Denies dizziness, Denies headache(s) and Denies hearing loss Cardiovascular: Cardiovascular: Denies chest pain, Denies chest pain at rest, Denies chest pain with activity, Denies syncope, Reports pedal edema, Reports leg edema, Denies palpitations, Reports dyspnea and Reports dyspnea on exertion Respirator
[2022-11-07] MEDS: FAT EMULSIONS IV 20% 250 ML 20.8 ML IVPB (17:04)
[2022-11-07] MEDS: AMINO ACIDS 4.25%/D5W/LYTES/CA 2,000 ML 80 ML IV CONT (17:04)
[2022-11-07 17:54] LABS: Glucose Point of Care 305 mg/dl (65-105)
[2022-11-07] MEDS: ATORVASTATIN 20 MG TABLET FEED TUBE (21:30)
[2022-11-07] MEDS: MELATONIN 5 MG TABLET FEED TUBE (21:30)
[2022-11-07 23:25] LABS: Glucose Point of Care 306 mg/dl (65-105)
[2022-11-07 23:39] LABS: Alanine Aminotransferase 21 U/L (6-35); Albumin Level 3.1 g/dL (3.5-5.1); Alkaline Phosphatase 57 U/L (38-126); Anion Gap 6 mmol/L (8-16); Aspartate Amino Transferase 22 U/L (14-36); Bilirubin,Total 1.1 mg/dL (0.2-1.3); Blood Urea Nitrogen 66 mg/dL (7-17); Carbon Dioxide 33 mmol/L (22-30); Chloride 90 mmol/L (98-107); Estimated CRCL calculation 37 ml/min; Estimated Glomerular Filt Rate 60; Glucose 259 mg/dL (65-110); Magnesium 2.2 mg/dL (1.6-2.3); Phosphorus 4.5 mg/dL (2.5-4.5); Potassium 4.7 mmol/L (3.4-5.0); Sodium 129 mmol/L (137-145)
[2022-11-07 23:52] LABS: Transferrin 198 mg/dL (206-381)
[2022-11-08] VITALS (22 sets, daily range): BP systolic 138–178; BP diastolic 90–120; PULSE 104–132; RESP 16–26; TEMP 36.1–36.4; O2SAT 91–98
[2022-11-08] MEDS: METOPROLOL TARTRATE INJ 5 MG/5 ML VIAL IV PUSH ×6 (01:22→21:56)
[2022-11-08] MEDS: INSULIN ASPART (*BKC) 100 UNITS/ML SUB-Q ×5 (01:23→21:59)
[2022-11-08] MEDS: IPRATROPIUM BR 0.02% INH SOLN 0.5 MG/2.5 ML VIAL INHALATION ×3 (02:00→22:53)
[2022-11-08] MEDS: CENTRAL LINE FLUSH 10 ML IV PUSH ×3 (04:46→22:00)
[2022-11-08] MEDS: guaiFENesin 200 MG/10 ML UDC 600 MG FEED TUBE (07:30)
[2022-11-08 07:47] LABS: Phosphorus 4.5 mg/dL (2.5-4.5)
[2022-11-08] MEDS: FLUTICASONE/SALMETEROL 45-21 MCG INHALER 1 PUFF 2 PUFF INHALATION ×2 (08:12→22:53)
[2022-11-08 08:24] LABS: Glucose Point of Care 334 mg/dl (65-105)
[2022-11-08] MEDS: CYANOCOBALAMIN 500 MCG TABLET 2500 MCG FEED TUBE (08:25)
[2022-11-08] MEDS: POTASSIUM CHLORIDE 20 MEQ PACKET (FOR LIQUID) FEED TUBE ×2 (08:26→16:23)
[2022-11-08] MEDS: ASCORBIC ACID 500 MG TABLET FEED TUBE (08:27)
[2022-11-08] MEDS: DORZOLAMIDE/TIMOLOL OPHTH SOL 10 ML BOTTLE 1 DROP EACH EYE ×2 (08:27→21:57)
[2022-11-08] MEDS: PANTOPRAZOLE SODIUM IV 40 MG VIAL IV PUSH ×2 (08:28→21:56)
[2022-11-08] MEDS: BUMETANIDE INJ 1 MG/4 ML VIAL IV PUSH ×2 (08:28→16:23)
[2022-11-08] MEDS: methylPREDNISolone SOD SUCC 125 MG VIAL 60 MG IV PUSH (08:28)
[2022-11-08] MEDS: LOSARTAN POTASSIUM 12.5 MG TABLET FEED TUBE (08:28)
--- NOTE | 2022-11-08 09:25 | PCSTNOTE ---
Patient refused, stating she was coughing, was not feeling well, waiting for a procedure, and stated she already did swallowing exercises with ALEJANDRO Senior, (when he gave her pills). Omit visit today.
[2022-11-08 12:39] LABS: Hematocrit 29.8 % (37.0-47.0); Hemoglobin 9.6 g/dL (12.0-15.0); Mean Corpuscular HGB Conc 32.2 g/dl (32-36); Mean Corpuscular Hemoglobin 29.8 pg (26-34); Mean Corpuscular Volume 92.5 fl (80-100); Mean Platelet Volume 12.7 fl (7.4-10.4); Platelet Count Result 201 k/mm3 (150-375); Red Blood Count 3.22 M/mm3 (4.2-5.4); Red Cell Distribution Width 21.5 % (11.5-14.5); White Blood Count 22.9 K/mm3 (4.5-10.0)
[2022-11-08 12:45] LABS: Alanine Aminotransferase 21 U/L (6-35); Albumin Level 3.1 g/dL (3.5-5.1); Alkaline Phosphatase 63 U/L (38-126); Anion Gap 5 mmol/L (8-16); Aspartate Amino Transferase 20 U/L (14-36); Bilirubin,Total 0.9 mg/dL (0.2-1.3); Blood Urea Nitrogen 66 mg/dL (7-17); Calcium 8.4 mg/dL (8.4-10.2); Carbon Dioxide 34 mmol/L (22-30); Chloride 92 mmol/L (98-107); Estimated CRCL calculation 33 ml/min; Estimated Glomerular Filt Rate 53; Glucose 339 mg/dL (65-110); Magnesium 2.3 mg/dL (1.6-2.3); Sodium 131 mmol/L (137-145)
--- NOTE | 2022-11-08 15:35 | PC.NURSE ---
Patient transferred to [facility] in stable condition. Report called to Angela ALLEN.
--- NOTE | 2022-11-08 15:44 | PC.NURSE ---
This patient, Delilah Wynne, was received from IMU on 11/08/22 at 1535. Report received from ALEJANDRO Senior. Patient/family oriented to unit policies and routines
[2022-11-08] MEDS: AMINO ACIDS 4.25%/D5W/LYTES/CA 2,000 ML 80 ML IV CONT (16:07)
[2022-11-08] MEDS: FAT EMULSIONS IV 20% 250 ML 20.8 ML IVPB (16:08)
[2022-11-08 16:34] LABS: Glucose Point of Care 221 mg/dl (65-105)
--- NOTE | 2022-11-08 17:48 | PM.IMPN ---
Progress Note: A&P Assessment and Plan (1) CHF (congestive heart failure): Qualifiers: Heart failure chronicity: acute on chronic Heart failure type: unspecified Qualified Code(s): I50.9 - Heart failure, unspecified Code(s): I50.9 - Heart failure, unspecified Status: Acute Assessment and Plan: Heart failure with preserved ejection fraction. IV Bumex has been stopped presumably because of some prerenal azotemia. Increased shortness of breath today perhaps because of worsening CHF. Volume status appears to be improved. Continue to hold diuretic. 11/08/2022 interval history: on 11/02 patient was somnolent and hypoxic patient was placed on BiPAP, initial ABG showed 7.224/ 90.7/ 103, discussed with director of global marketing, came and saw the patient adjusted her BiPAP and recommended to repeat ABG in 2 hours repeat ABG showed 7.329 74.4/ 105, today patient remains clinically stable still on BIPAP, general surgery had ordered CT scan of the abdomen and chest, there was no concern regarding previous abdominal surgery scan showed persistenting influenza A changes, patient completed course of Tamiflu, patient is being treated with steroid and bronchodilator, also on 11/02 patient was unable to take any p.o. due to BiPAP, and was start PPN, will continue to monitor, 11/07 patient clinically symptoms improved patient was off BiPAP, an attempt to give water orally patient had persistent cough, NG tube was placed to get the patient oral medication and start G-tube feeding, patient is daughter and son-in-law abrasion and give updates, patient with a atrial fibrillation with RVR seen by the Cardiology as patient was unable to take oral medication was switched to Lopressor p.r.n. and increased to q4 PRN, if needed may need to start diltiazem drip, also patient is being gently diuresed with Bumex, patient was positive for influenza A had been treated with Tamiflu, on 11/06 patient had rectal bleeding and seen by GI to further evaluate patient had EGD on 11/07, which did not show source of bleeding, recommended NM GI bleeding test will follow up, will hold anticoagulation, will continue to monitor, patient's daughter and son-in-law are present in the answered all their questions (2) Influenza A: Code(s): J10.1 - Influenza due to other identified influenza virus with other respiratory manifestations Status: Acute Assessment and Plan: Management per hospitalist. (3) Atrial fibrillation with RVR: Code(s): I48.91 - Unspecified atrial fibrillation Status: Acute Assessment and Plan: Managed per Cardiology. Continue amiodarone. Currently on Xarelto (4) Chronic hyponatremia: Code(s): E87.1 - Hypo-osmolality and hyponatremia Status: Acute (5) Obstructive sleep apnea: Code(s): G47.33 - Obstructive sleep apnea (adult) (pediatric) Status: Acute (6) COPD (chronic obstructive pulmonary disease): Qualifiers: COPD type: COPD with acute exacerbation Qualified Code(s): J44.1 - Chronic obstructive pulmonary disease with (acute) exacerbation Code(s): J44.9 - Chronic obstructive pulmonary disease, unspecified Status: Acute Subjective Date/time seen: 11/08/22 17:48 11/08/2022 interval history: on 11/02 patient was somnolent and hypoxic patient was placed on BiPAP, initial ABG showed 7.224/ 90.7/ 103, discussed with director of global marketing, came and saw the patient adjusted her BiPAP and recommended to repeat ABG in 2 hours repeat ABG showed 7.329 74.4/ 105, today patient remains clinically stable still on BIPAP, general surgery had ordered CT scan of the abdomen and chest, there was no concern regarding previous abdominal surgery scan showed persistenting influenza A changes, patient completed course of Tamiflu, patient is being treated with steroid and bronchodilator, also on 11/02 patient was unable to take any p.o. due to BiPAP, and was start PPN, will
[2022-11-08 21:54] LABS: Glucose Point of Care 344 mg/dl (65-105)
[2022-11-09] VITALS (14 sets, daily range): BP systolic 140–157; BP diastolic 90–102; PULSE 79–112; RESP 12–20; TEMP 36.7–36.8; O2SAT 95–96
[2022-11-09 03:00] LABS: Glucose Point of Care 311 mg/dl (65-105)
[2022-11-09] MEDS: IPRATROPIUM BR 0.02% INH SOLN 0.5 MG/2.5 ML VIAL INHALATION ×4 (04:30→20:48)
[2022-11-09] MEDS: INSULIN ASPART (*BKC) 100 UNITS/ML SUB-Q ×4 (06:00→20:34)
[2022-11-09] MEDS: METOPROLOL TARTRATE INJ 5 MG/5 ML VIAL IV PUSH ×5 (06:01→20:18)
[2022-11-09 06:06] LABS: Glucose Point of Care 336 mg/dl (65-105)
[2022-11-09 06:58] LABS: Phosphorus 9.2 mg/dL (2.5-4.5)
[2022-11-09 07:52] LABS: Glucose Point of Care 281 mg/dl (65-105)
[2022-11-09] MEDS: ASCORBIC ACID 500 MG TABLET FEED TUBE (08:48)
[2022-11-09] MEDS: CYANOCOBALAMIN 500 MCG TABLET 2500 MCG FEED TUBE (08:48)
[2022-11-09] MEDS: BUMETANIDE INJ 1 MG/4 ML VIAL IV PUSH ×2 (08:49→17:23)
[2022-11-09] MEDS: PANTOPRAZOLE SODIUM IV 40 MG VIAL IV PUSH ×2 (08:49→20:18)
[2022-11-09] MEDS: POTASSIUM CHLORIDE 20 MEQ PACKET (FOR LIQUID) FEED TUBE (08:49)
[2022-11-09] MEDS: methylPREDNISolone SOD SUCC 125 MG VIAL 60 MG IV PUSH (08:49)
[2022-11-09] MEDS: LOSARTAN POTASSIUM 12.5 MG TABLET FEED TUBE (08:50)
[2022-11-09] MEDS: DORZOLAMIDE/TIMOLOL OPHTH SOL 10 ML BOTTLE 1 DROP EACH EYE ×2 (09:00→20:18)
[2022-11-09] MEDS: FLUTICASONE/SALMETEROL 45-21 MCG INHALER 1 PUFF 2 PUFF INHALATION ×2 (09:50→20:48)
[2022-11-09 11:36] LABS: Glucose Point of Care 276 mg/dl (65-105)
[2022-11-09 11:54] LABS: Hematocrit 29.4 % (37.0-47.0); Hemoglobin 9.4 g/dL (12.0-15.0); Mean Corpuscular Hemoglobin 28.6 pg (26-34); Mean Corpuscular Volume 89.4 fl (80-100); Mean Platelet Volume 12.1 fl (7.4-10.4); Platelet Count Result 216 k/mm3 (150-375); Red Blood Count 3.29 M/mm3 (4.2-5.4); Red Cell Distribution Width 21.1 % (11.5-14.5); White Blood Count 19.1 K/mm3 (4.5-10.0)
[2022-11-09 11:57] LABS: Alanine Aminotransferase 22 U/L (6-35); Albumin Level 3.3 g/dL (3.5-5.1); Alkaline Phosphatase 67 U/L (38-126); Anion Gap 5 mmol/L (8-16); Aspartate Amino Transferase 19 U/L (14-36); Blood Urea Nitrogen 61 mg/dL (7-17); Calcium 8.2 mg/dL (8.4-10.2); Carbon Dioxide 35 mmol/L (22-30); Chloride 91 mmol/L (98-107); Estimated CRCL calculation 37 ml/min; Estimated Glomerular Filt Rate 60; Glucose 262 mg/dL (65-110); Magnesium 2.3 mg/dL (1.6-2.3); Potassium 5.2 mmol/L (3.4-5.0); Sodium 131 mmol/L (137-145)
[2022-11-09] MEDS: guaiFENesin 200 MG/10 ML UDC 600 MG FEED TUBE (12:52)
[2022-11-09] MEDS: BENZONATATE 100 MG CAPSULE 200 MG PO ×2 (12:52→17:20)
[2022-11-09] MEDS: CENTRAL LINE FLUSH 10 ML IV PUSH ×2 (14:40→21:55)
[2022-11-09] MEDS: FAT EMULSIONS IV 20% 250 ML 20.8 ML IVPB (15:11)
[2022-11-09] MEDS: AMINO ACIDS 4.25%/D5W/LYTES/CA 2,000 ML 80 ML IV CONT (15:12)
--- NOTE | 2022-11-09 15:37 | WPDGIPROGNO ---
Progress Note: A&P Assessment and Plan (1) Acute on chronic blood loss anemia: Code(s): D62 - Acute posthemorrhagic anemia Status: Acute Assessment and Plan: GI blood NM negative, egd also normal no more signs of bleeding monitor h/h (2) RLQ abdominal pain: Code(s): R10.31 - Right lower quadrant pain Status: Acute Assessment and Plan: since surgery will add miralax (also has been complaining of more constipation) she has been eating but poor appetite (3) Influenza A: Code(s): J10.1 - Influenza due to other identified influenza virus with other respiratory manifestations Status: Acute (4) Atrial fibrillation with RVR: Code(s): I48.91 - Unspecified atrial fibrillation Status: Acute (5) Adenocarcinoma of colon: Code(s): C18.9 - Malignant neoplasm of colon, unspecified Status: Acute Assessment and Plan: will need follow up with oncology (6) Constipation: Code(s): K59.00 - Constipation, unspecified Status: Acute Subjective Date/time seen: 11/09/22 15:37 Interval history: no signs of bleeding, still with pain in rlq and constipation Review of Systems Review of Systems: All systems reviewed & are unremarkable except as noted in HPI and below Exam Const: General: comfortable and no acute distress HENMT: Face/Nose/Sinus: Normal nares present Eyes: General: appearance normal, both eyes and all related structures Neck: Neck: no JVD Resp: Auscultation: clear to auscultation bilaterally Cardio: Rate: regular rate Rhythm: regular rhythm GI: Inspection: non-distended GI Palp: Yes Soft to palpation and Yes Tenderness to palpation present (GI) (mild ttp in rlq, no rebound) Skin: General skin exam: normal color Neuro: Speech: normal speech Extrem: General: normal to inspection Psych: Mental Status: mental status grossly normal Objective Data Vital Signs Vital Signs: Vital Signs - 24 hr 11/08/22 21:31 11/08/22 21:56 11/08/22 22:36 Temperature 97.6 F Pulse Rate 122 H 132 H 126 H Respiratory Rate 26 H 16 Blood Pressure 165/90 H Pulse Oximetry 98 96 Oxygen Delivery Oxygen Flow Rate 11/08/22 22:54 11/08/22 23:00 11/08/22 23:16 Temperature Pulse Rate 110 H 110 H 109 H Respiratory Rate 22 H 20 Blood Pressure Pulse Oximetry 96 Oxygen Delivery Nasal Cannula Oxygen Flow Rate 2 11/08/22 20:00 11/09/22 04:30 11/09/22 06:01 Temperature Pulse Rate 105 H 90 Respiratory Rate 20 Blood Pressure Pulse Oximetry 95 Oxygen Delivery Nasal Cannula Oxygen Flow Rate 2 11/09/22 06:35 11/09/22 09:04 11/09/22 09:46 Temperature 98.1 F Pulse Rate 110 H 110 H 104 H Respiratory Rate 12 20 Blood Pressure 140/90 Pulse Oximetry 95 Oxygen Delivery Oxygen Flow Rate 11/09/22 09:57 11/09/22 12:52 11/09/22 13:25 Temperature Pulse Rate 112 H 108 H Respiratory Rate 20 Blood Pressure Pulse Oximetry Oxygen Delivery Nasal Cannula Oxygen Flow Rate 2 11/09/22 15:25 Temperature Pulse Rate 108 H Respiratory Rate 20 Blood Pressure Pulse Oximetry Oxygen Delivery Oxygen Flow Rate Intake/Output Intake/Output: Intake & Output 11/06/22 11/07/22 11/08/22 11/09/22 23:59 23:59 23:59 23:59 Intake Total 2250 3820 2590 2790 Output Total 1525 3700 2800 1200 Balance 725 120 -210 1590 Meds/Results Medications: Active Medications Generic Name Dose Route Start Last Admin Trade Name Freq PRN Reason Stop Dose Admin Acetaminophen 650 mg 11/09/22 14:00 Acetaminophen 325 Mg Tablet PO Q6H PRN Mild Pain (1-5) Or Fever Hydrocodone Bitart/Acetaminophen 1 tab 11/09/22 14:01 Hydrocodone/Acetaminophen (*Crx) 5-325 Mg Tablet PO Q6H PRN pain 6-10 Albuterol 2 puff 10/28/22 04:19 Albuterol Sulfate (*Sp) Aerosol 1 Puff INHALATION Q6H PRN Shortness Of Breath Or Wheezing Ascorbic Acid 500
[2022-11-09 16:52] LABS: Glucose Point of Care 357 mg/dl (65-105)
[2022-11-09] MEDS: polyethylene glycoL 3350 17 GM POWD.PACK PO (17:21)
--- NOTE | 2022-11-09 18:37 | PM.IMPN ---
Progress Note: A&P Assessment and Plan (1) CHF (congestive heart failure): Qualifiers: Heart failure chronicity: acute on chronic Heart failure type: unspecified Qualified Code(s): I50.9 - Heart failure, unspecified Code(s): I50.9 - Heart failure, unspecified Status: Acute Assessment and Plan: Heart failure with preserved ejection fraction. IV Bumex has been stopped presumably because of some prerenal azotemia. Increased shortness of breath today perhaps because of worsening CHF. Volume status appears to be improved. Continue to hold diuretic. 11/09/2022 interval history: on 11/02 patient was somnolent and hypoxic patient was placed on BiPAP, initial ABG showed 7.224/ 90.7/ 103, discussed with instrument person, came and saw the patient adjusted her BiPAP and recommended to repeat ABG in 2 hours repeat ABG showed 7.329 74.4/ 105, today patient remains clinically stable still on BIPAP, general surgery had ordered CT scan of the abdomen and chest, there was no concern regarding previous abdominal surgery scan showed persistenting influenza A changes, patient completed course of Tamiflu, patient is being treated with steroid and bronchodilator, also on 11/02 patient was unable to take any p.o. due to BiPAP, and was start PPN, will continue to monitor, 11/07 patient clinically symptoms improved patient was off BiPAP, an attempt to give water orally patient had persistent cough, NG tube was placed to get the patient oral medication and start G-tube feeding, patient is daughter and son-in-law abrasion and give updates, patient with a atrial fibrillation with RVR seen by the Cardiology as patient was unable to take oral medication was switched to Lopressor p.r.n. and increased to q4 PRN, if needed may need to start diltiazem drip, also patient is being gently diuresed with Bumex, patient was positive for influenza A had been treated with Tamiflu, on 11/06 patient had rectal bleeding and seen by GI to further evaluate patient had EGD on 11/07, which did not show source of bleeding, recommended NM GI bleeding test which is also negative for any source of bleeding, will hold anticoagulation, patient had been complaining of RLQ pain seen by surgery had CT of abdomen, on pathology, seen by GI suspect constipation and starte Miralax, will continue to monitor, patient's daughter and son-in-law are present in the answered all their questions (2) Influenza A: Code(s): J10.1 - Influenza due to other identified influenza virus with other respiratory manifestations Status: Acute Assessment and Plan: Management per hospitalist. (3) Atrial fibrillation with RVR: Code(s): I48.91 - Unspecified atrial fibrillation Status: Acute Assessment and Plan: Managed per Cardiology. Continue amiodarone. Currently on Xarelto (4) Chronic hyponatremia: Code(s): E87.1 - Hypo-osmolality and hyponatremia Status: Acute (5) Obstructive sleep apnea: Code(s): G47.33 - Obstructive sleep apnea (adult) (pediatric) Status: Acute (6) COPD (chronic obstructive pulmonary disease): Qualifiers: COPD type: COPD with acute exacerbation Qualified Code(s): J44.1 - Chronic obstructive pulmonary disease with (acute) exacerbation Code(s): J44.9 - Chronic obstructive pulmonary disease, unspecified Status: Acute Subjective Date/time seen: 11/09/22 18:37 11/09/2022 interval history: on 11/02 patient was somnolent and hypoxic patient was placed on BiPAP, initial ABG showed 7.224/ 90.7/ 103, discussed with instrument person, came and saw the patient adjusted her BiPAP and recommended to repeat ABG in 2 hours repeat ABG showed 7.329 74.4/ 105, today patient remains clinically stable still on BIPAP, general surgery had ordered CT scan of the abdomen and chest, there was no concern regarding previous abdominal surgery scan showed persistenting influenza A changes, patient
[2022-11-09] MEDS: DOCUSATE SODIUM LIQ 100 MG/10 ML UDC PO (20:18)
[2022-11-09] MEDS: MELATONIN 5 MG TABLET FEED TUBE (20:18)
[2022-11-09] MEDS: ATORVASTATIN 20 MG TABLET FEED TUBE (20:18)
[2022-11-09 21:06] LABS: Glucose Point of Care 328 mg/dl (65-105)
[2022-11-10] VITALS (20 sets, daily range): BP systolic 109–152; BP diastolic 85–94; PULSE 94–132; RESP 15–20; TEMP 36.3–36.7; O2SAT 94–98
[2022-11-10] MEDS: HYDROcodone/acetaminophen (*CRX) 5-325 MG TABLET 1 TAB PO (01:54)
[2022-11-10] MEDS: METOPROLOL TARTRATE INJ 5 MG/5 ML VIAL IV PUSH ×6 (01:54→20:56)
[2022-11-10] MEDS: guaiFENesin 200 MG/10 ML UDC 600 MG FEED TUBE (01:55)
[2022-11-10] MEDS: IPRATROPIUM BR 0.02% INH SOLN 0.5 MG/2.5 ML VIAL INHALATION ×4 (02:40→20:38)
[2022-11-10] MEDS: CENTRAL LINE FLUSH 10 ML IV PUSH ×3 (05:57→20:57)
[2022-11-10 06:22] LABS: Basophils Absolute Auto 0.1 K/mm3 (0.0-0.1); Basophils Percent Auto 0.2 % (0.2-1.2); Eosinophils Absolute Auto 0.1 K/mm3 (0-0.3); Eosinophils Percent Auto 0.3 % (0-4.4); Hematocrit 29.6 % (37.0-47.0); Hemoglobin 9.5 g/dL (12.0-15.0); Immature Granulocyte Absolute 0.25 K/mm3 (0.00-0.031); Immature Granulocyte Percent A 1.1 % (0-0.5); Lymphocytes Absolute Auto 0.52 K/mm3 (0.9-3.2); Lymphocytes Percent Auto 2.2 % (18.3-44.2); Mean Corpuscular HGB Conc 32.1 g/dl (32-36); Mean Corpuscular Hemoglobin 29.7 pg (26-34); Mean Corpuscular Volume 92.5 fl (80-100); Mean Platelet Volume 12.9 fl (7.4-10.4); Monocytes Absolute Auto 0.7 K/mm3 (0.1-0.6); Monocytes Percent Auto 2.9 % (2.6-8.5); Neutrophils Absolute Auto 22.2 K/mm3 (1.3-6.7); Neutrophils Percent Auto 93.3 % (45.5-73.1); Platelet Count Result 209 k/mm3 (150-375); Red Cell Distribution Width 20.9 % (11.5-14.5); White Blood Count 23.7 K/mm3 (4.5-10.0)
[2022-11-10 06:31] LABS: Magnesium 2.3 mg/dL (1.6-2.3)
[2022-11-10 08:05] LABS: Glucose Point of Care 327 mg/dl (65-105)
[2022-11-10] MEDS: FLUTICASONE/SALMETEROL 45-21 MCG INHALER 1 PUFF 2 PUFF INHALATION ×2 (08:06→20:42)
[2022-11-10] MEDS: BUMETANIDE INJ 1 MG/4 ML VIAL IV PUSH ×2 (09:03→17:40)
[2022-11-10] MEDS: polyethylene glycoL 3350 17 GM POWD.PACK PO ×2 (09:03→17:38)
[2022-11-10] MEDS: CYANOCOBALAMIN 500 MCG TABLET 2500 MCG FEED TUBE (09:03)
[2022-11-10] MEDS: BENZONATATE 100 MG CAPSULE 200 MG PO ×3 (09:03→17:39)
[2022-11-10] MEDS: DOCUSATE SODIUM LIQ 100 MG/10 ML UDC PO ×2 (09:03→20:56)
[2022-11-10] MEDS: methylPREDNISolone SOD SUCC 125 MG VIAL 60 MG IV PUSH (09:04)
[2022-11-10] MEDS: LOSARTAN POTASSIUM 12.5 MG TABLET FEED TUBE (09:04)
[2022-11-10] MEDS: ASCORBIC ACID 500 MG TABLET FEED TUBE (09:04)
[2022-11-10] MEDS: PANTOPRAZOLE SODIUM IV 40 MG VIAL IV PUSH ×2 (09:04→20:56)
[2022-11-10] MEDS: DORZOLAMIDE/TIMOLOL OPHTH SOL 10 ML BOTTLE 1 DROP EACH EYE ×2 (09:04→20:56)
[2022-11-10] MEDS: INSULIN ASPART (*BKC) 100 UNITS/ML SUB-Q ×4 (09:05→21:17)
[2022-11-10 09:42] LABS: Alanine Aminotransferase 24 U/L (6-35); Albumin Level 2.9 g/dL (3.5-5.1); Alkaline Phosphatase 66 U/L (38-126); Anion Gap 5 mmol/L (8-16); Aspartate Amino Transferase 18 U/L (14-36); Bilirubin,Total 0.7 mg/dL (0.2-1.3); Blood Urea Nitrogen 60 mg/dL (7-17); Calcium 8.3 mg/dL (8.4-10.2); Carbon Dioxide 32 mmol/L (22-30); Chloride 92 mmol/L (98-107); Estimated CRCL calculation 37 ml/min; Estimated Glomerular Filt Rate 60; Glucose 325 mg/dL (65-110); Potassium 5.4 mmol/L (3.4-5.0); Sodium 129 mmol/L (137-145)
[2022-11-10 12:00] LABS: Glucose Point of Care 320 mg/dl (65-105)
--- NOTE | 2022-11-10 14:56 | PCPTNOTE ---
Attempted to see patient for PT, however patient just got done working with OT and declined PT. Patient reported she feels she is unable to work with PT. Patient short of breath laying in bed.
[2022-11-10 16:53] LABS: Glucose Point of Care 284 mg/dl (65-105)
[2022-11-10] MEDS: FAT EMULSIONS IV 20% 250 ML 21 ML IVPB (17:36)
[2022-11-10] MEDS: AMINO ACIDS 4.25%/D5W/LYTES/CA 2,000 ML 80 ML IV CONT (17:40)
--- NOTE | 2022-11-10 18:40 | PM.IMPN ---
Progress Note: A&P Assessment and Plan (1) CHF (congestive heart failure): Qualifiers: Heart failure chronicity: acute on chronic Heart failure type: unspecified Qualified Code(s): I50.9 - Heart failure, unspecified Code(s): I50.9 - Heart failure, unspecified Status: Acute Assessment and Plan: Heart failure with preserved ejection fraction. IV Bumex has been stopped presumably because of some prerenal azotemia. Increased shortness of breath today perhaps because of worsening CHF. Volume status appears to be improved. Continue to hold diuretic. 11/10/2022 interval history: on 11/02 patient was somnolent and hypoxic patient was placed on BiPAP, initial ABG showed 7.224/ 90.7/ 103, discussed with anesthesiology medical doctor, came and saw the patient adjusted her BiPAP and recommended to repeat ABG in 2 hours repeat ABG showed 7.329 74.4/ 105, today patient remains clinically stable still on BIPAP, general surgery had ordered CT scan of the abdomen and chest, there was no concern regarding previous abdominal surgery scan showed persistenting influenza A changes, patient completed course of Tamiflu, patient is being treated with steroid and bronchodilator, also on 11/02 patient was unable to take any p.o. due to BiPAP, and was start PPN, will continue to monitor, 11/07 patient clinically symptoms improved patient was off BiPAP, an attempt to give water orally patient had persistent cough, NG tube was placed to get the patient oral medication and start G-tube feeding, patient is daughter and son-in-law abrasion and give updates, patient with a atrial fibrillation with RVR seen by the Cardiology as patient was unable to take oral medication was switched to Lopressor p.r.n. and increased to q4 PRN, if needed may need to start diltiazem drip, also patient is being gently diuresed with Bumex, patient was positive for influenza A had been treated with Tamiflu, on 11/06 patient had rectal bleeding and seen by GI to further evaluate patient had EGD on 11/07, which did not show source of bleeding, recommended NM GI bleeding test which is also negative for any source of bleeding, will hold anticoagulation, patient had been complaining of RLQ pain seen by surgery had CT of abdomen, on pathology, seen by GI suspect constipation and started Miralax, today stats feeling better, was able to sit on the side of bed, discuss with patient regarding rehab and possible discharge planning. will continue to monitor, patient's daughter present in the answered all their questions (2) Influenza A: Code(s): J10.1 - Influenza due to other identified influenza virus with other respiratory manifestations Status: Acute Assessment and Plan: Management per hospitalist. (3) Atrial fibrillation with RVR: Code(s): I48.91 - Unspecified atrial fibrillation Status: Acute Assessment and Plan: Managed per Cardiology. Continue amiodarone. Currently on Xarelto (4) Chronic hyponatremia: Code(s): E87.1 - Hypo-osmolality and hyponatremia Status: Acute (5) Obstructive sleep apnea: Code(s): G47.33 - Obstructive sleep apnea (adult) (pediatric) Status: Acute (6) COPD (chronic obstructive pulmonary disease): Qualifiers: COPD type: COPD with acute exacerbation Qualified Code(s): J44.1 - Chronic obstructive pulmonary disease with (acute) exacerbation Code(s): J44.9 - Chronic obstructive pulmonary disease, unspecified Status: Acute Subjective Date/time seen: 11/10/22 18:40 11/10/2022 interval history: on 11/02 patient was somnolent and hypoxic patient was placed on BiPAP, initial ABG showed 7.224/ 90.7/ 103, discussed with anesthesiology medical doctor, came and saw the patient adjusted her BiPAP and recommended to repeat ABG in 2 hours repeat ABG showed 7.329 74.4/ 105, today patient remains clinically stable still on BIPAP, general surgery had ordered CT scan of the abdomen and chest
[2022-11-10] MEDS: MELATONIN 5 MG TABLET FEED TUBE (20:56)
[2022-11-10] MEDS: ATORVASTATIN 20 MG TABLET FEED TUBE (20:56)
[2022-11-10 21:22] LABS: Glucose Point of Care 318 mg/dl (65-105)
[2022-11-11] VITALS (13 sets, daily range): BP systolic 113–121; BP diastolic 70–80; PULSE 106–130; RESP 14–26; TEMP 36.1–37; O2SAT 92–98
[2022-11-11] MEDS: IPRATROPIUM BR 0.02% INH SOLN 0.5 MG/2.5 ML VIAL INHALATION ×4 (01:33→22:02)
[2022-11-11] MEDS: METOPROLOL TARTRATE INJ 5 MG/5 ML VIAL IV PUSH ×6 (01:45→20:48)
[2022-11-11] MEDS: CENTRAL LINE FLUSH 10 ML IV PUSH ×3 (04:20→20:49)
[2022-11-11 05:24] LABS: Hematocrit 28.9 % (37.0-47.0); Hemoglobin 9.3 g/dL (12.0-15.0); Mean Corpuscular HGB Conc 32.2 g/dl (32-36); Mean Corpuscular Volume 93.2 fl (80-100); Mean Platelet Volume 12.7 fl (7.4-10.4); Platelet Count Result 205 k/mm3 (150-375); White Blood Count 27.2 K/mm3 (4.5-10.0)
[2022-11-11 05:36] LABS: Alanine Aminotransferase 25 U/L (6-35); Albumin Level 2.9 g/dL (3.5-5.1); Alkaline Phosphatase 69 U/L (38-126); Anion Gap 6 mmol/L (8-16); Aspartate Amino Transferase 23 U/L (14-36); Bilirubin,Total 0.9 mg/dL (0.2-1.3); Blood Urea Nitrogen 63 mg/dL (7-17); Calcium 8.1 mg/dL (8.4-10.2); Carbon Dioxide 32 mmol/L (22-30); Chloride 86 mmol/L (98-107); Estimated CRCL calculation 41 ml/min; Estimated Glomerular Filt Rate > 60; Glucose 287 mg/dL (65-110); Magnesium 2.1 mg/dL (1.6-2.3); Potassium 4.8 mmol/L (3.4-5.0); Sodium 124 mmol/L (137-145)
[2022-11-11] MEDS: FLUTICASONE/SALMETEROL 45-21 MCG INHALER 1 PUFF 2 PUFF INHALATION ×2 (08:10→22:00)
[2022-11-11 08:30] LABS: Glucose Point of Care 321 mg/dl (65-105)
[2022-11-11] MEDS: CYANOCOBALAMIN 500 MCG TABLET 2500 MCG PO (08:53)
[2022-11-11] MEDS: DORZOLAMIDE/TIMOLOL OPHTH SOL 10 ML BOTTLE 1 DROP EACH EYE ×2 (08:54→20:48)
[2022-11-11] MEDS: PANTOPRAZOLE SODIUM IV 40 MG VIAL IV PUSH ×2 (08:54→20:48)
[2022-11-11] MEDS: polyethylene glycoL 3350 17 GM POWD.PACK PO ×2 (08:54→19:58)
[2022-11-11] MEDS: BENZONATATE 100 MG CAPSULE 200 MG PO ×3 (08:55→19:57)
[2022-11-11] MEDS: ASCORBIC ACID 500 MG TABLET PO (08:56)
[2022-11-11] MEDS: methylPREDNISolone SOD SUCC 125 MG VIAL 60 MG IV PUSH (08:57)
[2022-11-11] MEDS: LOSARTAN POTASSIUM 12.5 MG TABLET PO (08:57)
[2022-11-11] MEDS: BUMETANIDE INJ 1 MG/4 ML VIAL IV PUSH ×2 (08:57→19:58)
[2022-11-11] MEDS: INSULIN ASPART (*BKC) 100 UNITS/ML SUB-Q ×3 (08:58→21:53)
[2022-11-11] MEDS: ONDANSETRON INJ 4 MG/2 ML VIAL IV PUSH (09:06)
[2022-11-11] MEDS: guaiFENesin 200 MG/10 ML UDC 600 MG PO (09:12)
--- NOTE | 2022-11-11 10:16 | PCPTNOTE ---
Pt declined therapy this AM, stating that she feels too nauseated to get moving. Pt educated on the benefits of getting up and moving. Will continue per PT plan of care.
[2022-11-11 12:01] LABS: Glucose Point of Care 263 mg/dl (65-105)
--- NOTE | 2022-11-11 13:32 | PCNFU ---
Nutrition Follow-Up Complete: Inadequate oral intake related to continuous bipap, shortness of breath, loss of appetite as evidenced by need for full parenteral nutrition Goal: Meet estimated nutrition needs. Pt is meeting most of need via PPN Pt current nutrition is Level 5 minced and moist, level 2 thick liquids, Ensure compact TID w/ meals. Nutrition recommendation: continue with current plan of care. Last recorded weight is 65.5 kg - stable at this time. Bowel Motility: +BM 11/08 Labs Reviewed: Hgb:9.3, HCT:28.9, Alb:2.9, NA:124, BUN:63, Glu:321 Meds Noted: lovenox, novolog, solumedrol Skin: surgical wound Additional Notes: Pt continues on PPN @ 80ml/hr providing 1153kcals, 82g protein. Also on a diet but states she gags and is nauseous with food. Nursing stated ordered Ensure compact today. Pt is able to consume liquids well. Also stated no BM, asking for prune juice. Monitor labs, plan of care, tolerance, weights. Follow up Monday/Monday
--- NOTE | 2022-11-11 15:58 | PM.IMPN ---
Progress Note: A&P Assessment and Plan (1) CHF (congestive heart failure): Qualifiers: Heart failure chronicity: acute on chronic Heart failure type: unspecified Qualified Code(s): I50.9 - Heart failure, unspecified Code(s): I50.9 - Heart failure, unspecified Status: Acute Assessment and Plan: Heart failure with preserved ejection fraction. IV Bumex has been stopped presumably because of some prerenal azotemia. Increased shortness of breath today perhaps because of worsening CHF. Volume status appears to be improved. Continue to hold diuretic. 11/11/2022 interval history: on 11/02 patient was somnolent and hypoxic patient was placed on BiPAP, initial ABG showed 7.224/ 90.7/ 103, discussed with capacitor tester, came and saw the patient adjusted her BiPAP and recommended to repeat ABG in 2 hours repeat ABG showed 7.329 74.4/ 105, today patient remains clinically stable still on BIPAP, general surgery had ordered CT scan of the abdomen and chest, there was no concern regarding previous abdominal surgery scan showed persistenting influenza A changes, patient completed course of Tamiflu, patient is being treated with steroid and bronchodilator, also on 11/02 patient was unable to take any p.o. due to BiPAP, and was start PPN, will continue to monitor, 11/07 patient clinically symptoms improved patient was off BiPAP, an attempt to give water orally patient had persistent cough, NG tube was placed to get the patient oral medication and start G-tube feeding, patient is daughter and son-in-law abrasion and give updates, patient with a atrial fibrillation with RVR seen by the Cardiology as patient was unable to take oral medication was switched to Lopressor p.r.n. and increased to q4 PRN, if needed may need to start diltiazem drip, also patient is being gently diuresed with Bumex, patient was positive for influenza A had been treated with Tamiflu, on 11/06 patient had rectal bleeding and seen by GI to further evaluate patient had EGD on 11/07, which did not show source of bleeding, recommended NM GI bleeding test which is also negative for any source of bleeding, will hold anticoagulation, patient had been complaining of RLQ pain seen by surgery had CT of abdomen, on pathology, seen by GI suspect constipation and started Miralax, on 11/10 stated feeling better, was able to sit on the side of bed, today patient is sat in the chair, patient has not had BM for sometime patient is given MiraLax by GI, had a KUB does not show significant stool, patient does not have nausea or vomiting, patient continued complaint of right upper quadrant GI suspect from constipation, patient is encouraged to participate in physical therapy and ambulate, discuss with patient regarding rehab and possible discharge planning. will continue to monitor, patient's daughter present in the answered all their questions (2) Influenza A: Code(s): J10.1 - Influenza due to other identified influenza virus with other respiratory manifestations Status: Acute Assessment and Plan: Management per hospitalist. (3) Atrial fibrillation with RVR: Code(s): I48.91 - Unspecified atrial fibrillation Status: Acute Assessment and Plan: Managed per Cardiology. Continue amiodarone. Currently on Xarelto (4) Chronic hyponatremia: Code(s): E87.1 - Hypo-osmolality and hyponatremia Status: Acute (5) Obstructive sleep apnea: Code(s): G47.33 - Obstructive sleep apnea (adult) (pediatric) Status: Acute (6) COPD (chronic obstructive pulmonary disease): Qualifiers: COPD type: COPD with acute exacerbation Qualified Code(s): J44.1 - Chronic obstructive pulmonary disease with (acute) exacerbation Code(s): J44.9 - Chronic obstructive pulmonary disease, unspecified Status: Acute Subjective Date/time seen: 11/11/22 15:58 11/11/2022 interval history: on 11/02 patient was somnol
[2022-11-11] MEDS: AMINO ACIDS 4.25%/D5W/LYTES/CA 2,000 ML 80 ML IV CONT (16:13)
[2022-11-11] MEDS: FAT EMULSIONS IV 20% 250 ML 20.8 ML IVPB (16:13)
[2022-11-11 17:15] LABS: Glucose Point of Care 160 mg/dl (65-105)
[2022-11-11] MEDS: POTASSIUM CHLORIDE 20 MEQ PACKET (FOR LIQUID) PO (19:57)
[2022-11-11] MEDS: ATORVASTATIN 20 MG TABLET PO (20:48)
[2022-11-11] MEDS: DOCUSATE SODIUM LIQ 100 MG/10 ML UDC PO (20:48)
[2022-11-11] MEDS: MELATONIN 5 MG TABLET PO (20:48)
[2022-11-11 21:53] LABS: Glucose Point of Care 278 mg/dl (65-105)
[2022-11-12] VITALS (10 sets, daily range): BP systolic 126–131; BP diastolic 80–81; PULSE 95–118; RESP 12–21; TEMP 36.2–36.9; O2SAT 92–100
[2022-11-12] MEDS: METOPROLOL TARTRATE INJ 5 MG/5 ML VIAL IV PUSH ×6 (01:25→21:08)
[2022-11-12] MEDS: CENTRAL LINE FLUSH 10 ML IV PUSH ×3 (05:15→21:09)
[2022-11-12] MEDS: BISACODYL 10 MG SUPPOSITORY RECTAL (05:15)
[2022-11-12 06:28] LABS: Hematocrit 28.2 % (37.0-47.0); Hemoglobin 9.4 g/dL (12.0-15.0); Mean Corpuscular HGB Conc 33.3 g/dl (32-36); Mean Corpuscular Hemoglobin 30.1 pg (26-34); Mean Corpuscular Volume 90.4 fl (80-100); Mean Platelet Volume 12.4 fl (7.4-10.4); Platelet Count Result 178 k/mm3 (150-375); Red Blood Count 3.12 M/mm3 (4.2-5.4); Red Cell Distribution Width 20.4 % (11.5-14.5); White Blood Count 34.4 K/mm3 (4.5-10.0)
[2022-11-12 06:51] LABS: Alanine Aminotransferase 23 U/L (6-35); Albumin Level 2.7 g/dL (3.5-5.1); Alkaline Phosphatase 78 U/L (38-126); Anion Gap 3 mmol/L (8-16); Aspartate Amino Transferase 19 U/L (14-36); Bilirubin,Total 0.9 mg/dL (0.2-1.3); Blood Urea Nitrogen 72 mg/dL (7-17); Carbon Dioxide 34 mmol/L (22-30); Chloride 83 mmol/L (98-107); Estimated CRCL calculation 26 ml/min; Estimated Glomerular Filt Rate 39; Glucose 269 mg/dL (65-110); Magnesium 2.1 mg/dL (1.6-2.3); Potassium 5.5 mmol/L (3.4-5.0); Sodium 120 mmol/L (137-145)
[2022-11-12 08:11] LABS: Glucose Point of Care 257 mg/dl (65-105)
[2022-11-12] MEDS: DOCUSATE SODIUM LIQ 100 MG/10 ML UDC PO ×2 (08:14→21:05)
[2022-11-12] MEDS: CYANOCOBALAMIN 500 MCG TABLET 2500 MCG PO (08:15)
[2022-11-12] MEDS: BENZONATATE 100 MG CAPSULE 200 MG PO (08:15)
[2022-11-12] MEDS: LOSARTAN POTASSIUM 12.5 MG TABLET PO (08:15)
[2022-11-12] MEDS: ASCORBIC ACID 500 MG TABLET PO (08:15)
[2022-11-12] MEDS: polyethylene glycoL 3350 17 GM POWD.PACK PO (08:16)
[2022-11-12] MEDS: methylPREDNISolone SOD SUCC 125 MG VIAL 60 MG IV PUSH (08:16)
[2022-11-12] MEDS: DORZOLAMIDE/TIMOLOL OPHTH SOL 10 ML BOTTLE 1 DROP EACH EYE ×2 (08:16→21:06)
[2022-11-12] MEDS: BUMETANIDE INJ 1 MG/4 ML VIAL IV PUSH ×2 (08:16→17:15)
[2022-11-12] MEDS: PANTOPRAZOLE SODIUM IV 40 MG VIAL IV PUSH ×2 (08:16→21:06)
[2022-11-12] MEDS: INSULIN ASPART (*BKC) 100 UNITS/ML SUB-Q ×4 (08:16→22:07)
[2022-11-12] MEDS: IPRATROPIUM BR 0.02% INH SOLN 0.5 MG/2.5 ML VIAL INHALATION ×2 (09:17→21:07)
[2022-11-12] MEDS: FLUTICASONE/SALMETEROL 45-21 MCG INHALER 1 PUFF 2 PUFF INHALATION (09:17)
--- NOTE | 2022-11-12 11:37 | PCSTNOTE ---
Patient unavailable for speech therapy visit. Physician and family in room with patient. Will plan to see tomorrow.
[2022-11-12 12:05] LABS: Glucose Point of Care 266 mg/dl (65-105)
[2022-11-12 17:08] LABS: Glucose Point of Care 245 mg/dl (65-105)
[2022-11-12] MEDS: FAT EMULSIONS IV 20% 250 ML 20.8 ML IVPB (17:14)
[2022-11-12] MEDS: AMINO ACIDS 4.25%/D5W/LYTES/CA 2,000 ML 80 ML IV CONT (17:14)
--- NOTE | 2022-11-12 18:01 | PM.IMPN ---
Progress Note: A&P Assessment and Plan (1) CHF (congestive heart failure): Qualifiers: Heart failure chronicity: acute on chronic Heart failure type: unspecified Qualified Code(s): I50.9 - Heart failure, unspecified Code(s): I50.9 - Heart failure, unspecified Status: Acute Assessment and Plan: Heart failure with preserved ejection fraction. IV Bumex has been stopped presumably because of some prerenal azotemia. Increased shortness of breath today perhaps because of worsening CHF. Volume status appears to be improved. Continue to hold diuretic. 11/12/2022 interval history: on 11/02 patient was somnolent and hypoxic patient was placed on BiPAP, initial ABG showed 7.224/ 90.7/ 103, discussed with events administrative assistant, came and saw the patient adjusted her BiPAP and recommended to repeat ABG in 2 hours repeat ABG showed 7.329 74.4/ 105, today patient remains clinically stable still on BIPAP, general surgery had ordered CT scan of the abdomen and chest, there was no concern regarding previous abdominal surgery scan showed persistenting influenza A changes, patient completed course of Tamiflu, patient is being treated with steroid and bronchodilator, also on 11/02 patient was unable to take any p.o. due to BiPAP, and was start PPN, will continue to monitor, 11/07 patient clinically symptoms improved patient was off BiPAP, an attempt to give water orally patient had persistent cough, NG tube was placed to get the patient oral medication and start G-tube feeding, patient is daughter and son-in-law abrasion and give updates, patient with a atrial fibrillation with RVR seen by the Cardiology as patient was unable to take oral medication was switched to Lopressor p.r.n. and increased to q4 PRN, if needed may need to start diltiazem drip, also patient is being gently diuresed with Bumex, patient was positive for influenza A had been treated with Tamiflu, on 11/06 patient had rectal bleeding and seen by GI to further evaluate patient had EGD on 11/07, which did not show source of bleeding, recommended NM GI bleeding test which is also negative for any source of bleeding, will hold anticoagulation, patient had been complaining of RLQ pain seen by surgery had CT of abdomen, on pathology, seen by GI suspect constipation and started Miralax, on 11/10 stated feeling better, was able to sit on the side of bed, today patient is sat in the chair, patient has not had BM for sometime patient is given MiraLax by GI, had a KUB does not show significant stool, patient does not have nausea or vomiting, patient continued complaint of right upper quadrant GI suspect from constipation, patient is encouraged to participate in physical therapy and ambulate, today patient sitting in the continue to complain of right upper quadrant pain and has not had BM to further evaluate, did CT scan of the abdomen which showed liver cirrhosis and ascites recommended diagnostic paracentesis which is ordered, will re-consult GI for further recommendation, patient's family present answered all their questions, (2) Influenza A: Code(s): J10.1 - Influenza due to other identified influenza virus with other respiratory manifestations Status: Acute Assessment and Plan: Management per hospitalist. (3) Atrial fibrillation with RVR: Code(s): I48.91 - Unspecified atrial fibrillation Status: Acute Assessment and Plan: Managed per Cardiology. Continue amiodarone. Currently on Xarelto (4) Chronic hyponatremia: Code(s): E87.1 - Hypo-osmolality and hyponatremia Status: Acute (5) Obstructive sleep apnea: Code(s): G47.33 - Obstructive sleep apnea (adult) (pediatric) Status: Acute (6) COPD (chronic obstructive pulmonary disease): Qualifiers: COPD type: COPD with acute exacerbation Qualified Code(s): J44.1 - Chronic obstructive pulmonary disease with (acute) exacerbation Code(s): J44.9
[2022-11-12 18:49] LABS: Albumin Level 2.9 g/dL (3.5-5.1)
[2022-11-12] MEDS: ATORVASTATIN 20 MG TABLET PO (21:06)
[2022-11-12] MEDS: MELATONIN 5 MG TABLET PO (21:06)
[2022-11-12 21:44] LABS: Glucose Point of Care 318 mg/dl (65-105)
[2022-11-13] VITALS (16 sets, daily range): BP systolic 108–134; BP diastolic 54–68; PULSE 78–127; RESP 16–22; TEMP 36.6–36.7; O2SAT 95–100
[2022-11-13] MEDS: METOPROLOL TARTRATE INJ 5 MG/5 ML VIAL IV PUSH ×5 (02:10→21:09)
[2022-11-13 05:00] LABS: Glucose Point of Care 285 mg/dl (65-105)
[2022-11-13] MEDS: CENTRAL LINE FLUSH 10 ML IV PUSH ×3 (06:06→21:10)
[2022-11-13] MEDS: INSULIN ASPART (*BKC) 100 UNITS/ML SUB-Q ×4 (06:09→21:15)
[2022-11-13] MEDS: IPRATROPIUM BR 0.02% INH SOLN 0.5 MG/2.5 ML VIAL INHALATION ×2 (08:04→15:52)
[2022-11-13] MEDS: FLUTICASONE/SALMETEROL 45-21 MCG INHALER 1 PUFF 2 PUFF INHALATION (08:04)
[2022-11-13] MEDS: UMECLIDINIUM BROMIDE 62.5 MCG ELLIPTA 1 PUFF INHALATION (08:17)
[2022-11-13 08:24] LABS: Glucose Point of Care 290 mg/dl (65-105)
[2022-11-13] MEDS: CYANOCOBALAMIN 500 MCG TABLET 2500 MCG PO (09:18)
[2022-11-13] MEDS: PANTOPRAZOLE SODIUM IV 40 MG VIAL IV PUSH ×2 (09:18→21:09)
[2022-11-13] MEDS: DORZOLAMIDE/TIMOLOL OPHTH SOL 10 ML BOTTLE 1 DROP EACH EYE ×2 (09:18→21:10)
[2022-11-13] MEDS: LOSARTAN POTASSIUM 12.5 MG TABLET PO (09:18)
[2022-11-13] MEDS: BENZONATATE 100 MG CAPSULE 200 MG PO (09:18)
[2022-11-13] MEDS: predniSONE 40 MG, predniSONE 10 MG 50 MG PO (09:19)
[2022-11-13] MEDS: ASCORBIC ACID 500 MG TABLET PO (09:19)
[2022-11-13] MEDS: DOCUSATE SODIUM LIQ 100 MG/10 ML UDC PO ×2 (09:19→21:06)
[2022-11-13] MEDS: polyethylene glycoL 3350 17 GM POWD.PACK PO (09:21)
[2022-11-13] MEDS: BUMETANIDE INJ 1 MG/4 ML VIAL IV PUSH ×2 (09:21→18:16)
[2022-11-13] MEDS: ONDANSETRON INJ 4 MG/2 ML VIAL IV PUSH (09:34)
[2022-11-13 10:25] LABS: Hematocrit 27.9 % (37.0-47.0); Mean Corpuscular HGB Conc 32.3 g/dl (32-36); Mean Corpuscular Hemoglobin 29.6 pg (26-34); Mean Corpuscular Volume 91.8 fl (80-100); Mean Platelet Volume 12.6 fl (7.4-10.4); Platelet Count Result 181 k/mm3 (150-375); Red Blood Count 3.04 M/mm3 (4.2-5.4); Red Cell Distribution Width 20.4 % (11.5-14.5); White Blood Count 33.7 K/mm3 (4.5-10.0)
[2022-11-13 11:18] LABS: Alanine Aminotransferase 23 U/L (6-35); Albumin Level 2.8 g/dL (3.5-5.1); Alkaline Phosphatase 83 U/L (38-126); Anion Gap 8 mmol/L (8-16); Aspartate Amino Transferase 30 U/L (14-36); Bilirubin,Total 1.1 mg/dL (0.2-1.3); Blood Urea Nitrogen 91 mg/dL (7-17); Calcium 7.4 mg/dL (8.4-10.2); Carbon Dioxide 29 mmol/L (22-30); Chloride 86 mmol/L (98-107); Estimated CRCL calculation 30 ml/min; Estimated Glomerular Filt Rate 48; Glucose 231 mg/dL (65-110); Magnesium 2.4 mg/dL (1.6-2.3); Potassium 5.6 mmol/L (3.4-5.0); Sodium 123 mmol/L (137-145)
--- NOTE | 2022-11-13 12:21 | PM.IMPN ---
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 may need transfer for higher level of care (2) Bacteremia: Code(s): R78.81 - Bacteremia Status: Acute Assessment and Plan: gram negative bacilli growing in both blood cultures from 11/10, started on broad spectrum antibiotics today with vanc + zosyn (3) COPD (chronic obstructive pulmonary disease): Qualifiers: COPD type: COPD with acute exacerbation Qualified Code(s): J44.1 - Chronic obstructive pulmonary disease with (acute) exacerbation Code(s): J44.9 - Chronic obstructive pulmonary disease, unspecified Status: Acute Assessment and Plan: worsening on 2L nc, no home o2 prior to this admission, on steroids and nebulizers (4) CHF (congestive heart failure): Qualifiers: Heart failure chronicity: acute on chronic Heart failure type: unspecified Qualified Code(s): I50.9 - Heart failure, unspecified Code(s): I50.9 - Heart failure, unspecified Status: Acute Assessment and Plan: appreciate cardiology consultation, stable on current regimen (5) Influenza A: Code(s): J10.1 - Influenza due to other identified influenza virus with other respiratory manifestations Status: Acute Assessment and Plan: Status post 5 day course of Tamiflu Oct 28 (6) Atrial fibrillation with RVR: Code(s): I48.91 - Unspecified atrial fibrillation Status: Acute Assessment and Plan: monitor telemetry, rate controlled (7) Chronic hyponatremia: Code(s): E87.1 - Hypo-osmolality and hyponatremia Status: Acute Assessment and Plan: improving (8) Obstructive sleep apnea: Code(s): G47.33 - Obstructive sleep apnea (adult) (pediatric) Status: Acute Assessment and Plan: cpap at night Plan DVT prophylaxis with heparin drip GI prophylaxis with PPI Code status full code Subjective Date/time seen: 11/13/22 12:21 Interval history: No overnight events noted. No chest pain or shortness of breath. No nausea, vomiting or diarrhea. No fevers or chills. Patient states she has exquisite abdominal pain and tenderness, worsening over the last few days. She states she feels a little worse each day, and feels quite terrible today. Review of Systems Review of Systems: 12 point review of systems was assessed and was negative except as noted in the HPI Exam Narrative: General: Appears very uncomfortable HEENT: Atraumatic, normocephalic, mucous membranes moist CV: Regular rate and rhythm, S1, S2 Lungs: wheezes, decreased air entry Abdomen: Exquisitely tender to light palpation, some guarding noted Extremities: Normal to inspection Skin: No rashes noted, no lesions or wounds seen Objective Data Vital Signs Vital Signs: Vital Signs - 24 hr 11/12/22 14:00 11/12/22 21:08 11/12/22 21:08 Temperature 98.4 F Pulse Rate 112 H 95 98 Respiratory Rate 20 20 Blood Pressure 127/80 Pulse Oximetry 97 Oxygen Delivery Oxygen Flow Rate 11/12/22 23:23 11/13/22 02:10 11/13/22 06:03 Temperature 97.2 F L Pulse Rate 95 102 H 78 Respiratory Rate 12 20 Blood Pressure 126/81 108/68 Pulse Oximetry 100 100 Oxygen Delivery Oxygen Flow Rate 11/13/22 06:06 11/13/22 08:05 11/13/22 08:05 Temperature Pulse Rate 78 106 H 106 H Respiratory Rate 18 20 Blood Pressure Pulse Oximetry 97 Oxygen Delivery Nasal Cannula Oxyge
[2022-11-13 12:31] LABS: Glucose Point of Care 257 mg/dl (65-105)
[2022-11-13] MEDS: CALCIUM GLUC 1,000 MG/NS 50 ML 1,000 MG/50 ML BAG 100 MG IVPB (14:34)
[2022-11-13] MEDS: SODIUM BICARBONATE 8.4% 50 MEQ/50 ML VIAL IV PUSH (14:36)
[2022-11-13] MEDS: FUROSEMIDE INJ 40 MG/4 ML VIAL 20 MG IV PUSH (14:59)
[2022-11-13] MEDS: SODIUM POLYSTYRENE SULFONONATE 15 GM/60 ML BTL 30 GM PO (15:00)
--- NOTE | 2022-11-13 15:04 | PC.NURSE ---
Pt unable to tolerate sodium polystyrene suspension. Refusing to drink medication.
[2022-11-13 16:38] LABS: Lactic Acid Reflex 1.3 mmol/L (0.7-2.0)
[2022-11-13 16:47] LABS: Erythrocyte Sedimentation Rate 138 mm/hr (0-20)
[2022-11-13 16:56] LABS: Procalcitonin 14.4 ng/mL
[2022-11-13 16:58] LABS: CRP 23.1 mg/dL (<1.0)
[2022-11-13 17:49] LABS: Glucose Point of Care 242 mg/dl (65-105)
[2022-11-13] MEDS: FAT EMULSIONS IV 20% 250 ML 20.8 ML IVPB (17:58)
[2022-11-13] MEDS: AMINO ACIDS 4.25%/D5W/LYTES/CA 2,000 ML 80 ML IV CONT (17:59)
[2022-11-13] MEDS: metroNIDAZOLE 500 MG/ISO 100ML 500 MG/100 ML BAG 100 MG IVPB (18:15)
[2022-11-13] MEDS: HEPARIN SODIUM 5,000 UNITS/ML VIAL 5000 UNITS IV PUSH (18:16)
[2022-11-13 18:45] LABS: Basophils Absolute Auto 0.1 K/mm3 (0.0-0.1); Basophils Percent Auto 0.2 % (0.2-1.2); Hematocrit 25.8 % (37.0-47.0); Hemoglobin 8.5 g/dL (12.0-15.0); Immature Granulocyte Absolute 0.23 K/mm3 (0.00-0.031); Immature Granulocyte Percent A 0.8 % (0-0.5); Lymphocytes Absolute Auto 0.47 K/mm3 (0.9-3.2); Lymphocytes Percent Auto 1.6 % (18.3-44.2); Mean Corpuscular HGB Conc 32.9 g/dl (32-36); Mean Corpuscular Hemoglobin 30.2 pg (26-34); Mean Corpuscular Volume 91.8 fl (80-100); Mean Platelet Volume 12.3 fl (7.4-10.4); Monocytes Absolute Auto 0.6 K/mm3 (0.1-0.6); Monocytes Percent Auto 2.2 % (2.6-8.5); Neutrophils Absolute Auto 27.8 K/mm3 (1.3-6.7); Neutrophils Percent Auto 95.2 % (45.5-73.1); Platelet Count Result 167 k/mm3 (150-375); Red Blood Count 2.81 M/mm3 (4.2-5.4); Red Cell Distribution Width 20.2 % (11.5-14.5); White Blood Count 29.2 K/mm3 (4.5-10.0)
[2022-11-13 18:55] LABS: INR 1.3; Prothrombin Time 15.2 Seconds (11.1-14.7)
[2022-11-13 19:01] LABS: Anion Gap 5 mmol/L (8-16); Blood Urea Nitrogen 85 mg/dL (7-17); Calcium 7.7 mg/dL (8.4-10.2); Carbon Dioxide 33 mmol/L (22-30); Chloride 84 mmol/L (98-107); Estimated CRCL calculation 26 ml/min; Estimated Glomerular Filt Rate 39; Glucose 216 mg/dL (65-110); Potassium 4.9 mmol/L (3.4-5.0); Sodium 122 mmol/L (137-145)
[2022-11-13 19:12] LABS: Partial Thromboplastin Time > 200.0 SECONDS (22.3-36.8)
[2022-11-13] MEDS: MELATONIN 5 MG TABLET PO (21:08)
[2022-11-13] MEDS: ATORVASTATIN 20 MG TABLET PO (21:09)
[2022-11-13 21:20] LABS: Glucose Point of Care 243 mg/dl (65-105)
[2022-11-14] VITALS (22 sets, daily range): BP systolic 96–110; BP diastolic 50–63; PULSE 100–130; RESP 18–24; TEMP 36.3–36.8; O2SAT 93–97
[2022-11-14] MEDS: METOPROLOL TARTRATE INJ 5 MG/5 ML VIAL IV PUSH ×6 (00:05→20:14)
[2022-11-14] MEDS: metroNIDAZOLE 500 MG/ISO 100ML 500 MG/100 ML BAG 100 MG IVPB ×4 (00:05→18:00)
[2022-11-14 00:52] LABS: Partial Thromboplastin Time 24.8 SECONDS (22.3-36.8)
[2022-11-14] MEDS: HEPARIN SOD/D5W 100 UNITS/ML 25,000 UNITS/250 ML BAG 11 UNITS IV CONT ×2 (01:20→18:01)
[2022-11-14] MEDS: HEPARIN SODIUM 5,000 UNITS/ML VIAL 5000 UNITS IV PUSH (01:21)
[2022-11-14 04:34] LABS: Basophils Percent Auto 0.1 % (0.2-1.2); Eosinophils Absolute Auto 0.1 K/mm3 (0-0.3); Eosinophils Percent Auto 0.2 % (0-4.4); Hematocrit 24.7 % (37.0-47.0); Immature Granulocyte Absolute 0.25 K/mm3 (0.00-0.031); Immature Granulocyte Percent A 0.9 % (0-0.5); Immature Platelet Fraction Pct 13.2 % (0.9-11.2); Lymphocytes Absolute Auto 0.34 K/mm3 (0.9-3.2); Lymphocytes Percent Auto 1.2 % (18.3-44.2); Mean Corpuscular HGB Conc 32.4 g/dl (32-36); Mean Corpuscular Hemoglobin 29.4 pg (26-34); Mean Corpuscular Volume 90.8 fl (80-100); Monocytes Absolute Auto 0.8 K/mm3 (0.1-0.6); Monocytes Percent Auto 2.7 % (2.6-8.5); Neutrophils Absolute Auto 26.8 K/mm3 (1.3-6.7); Neutrophils Percent Auto 94.9 % (45.5-73.1); Platelet Count Result 161 k/mm3 (150-375); Red Blood Count 2.72 M/mm3 (4.2-5.4); Red Cell Distribution Width 20.2 % (11.5-14.5); White Blood Count 28.2 K/mm3 (4.5-10.0)
[2022-11-14 04:55] LABS: Add Urine Microscopic? YES; Appearance Urine Clear (Clear); Bilirubin Urine Negative (Negative); Blood Urine Trace-Intact (Negative); Color Urine Yellow (Yellow); Glucose Urine UA Negative (Negative); Ketones Urine Negative (Negative); Leukocyte Esterase Ur Trace LEU/UL (NEGATIVE); Nitrate Urine Negative (Negative); Protein Urine Negative (Negative); Urobilinogen Urine 0.2 mg/dL (<2.0); pH Urine 5.5 (5.0-9.0)
[2022-11-14 05:00] LABS: Alanine Aminotransferase 25 U/L (6-35); Albumin Level 2.4 g/dL (3.5-5.1); Alkaline Phosphatase 96 U/L (38-126); Anion Gap 7 mmol/L (8-16); Aspartate Amino Transferase 30 U/L (14-36); Bilirubin,Total 0.7 mg/dL (0.2-1.3); Blood Urea Nitrogen 91 mg/dL (7-17); Calcium 7.2 mg/dL (8.4-10.2); Carbon Dioxide 29 mmol/L (22-30); Chloride 84 mmol/L (98-107); Estimated CRCL calculation 28 ml/min; Estimated Glomerular Filt Rate 43; Glucose 234 mg/dL (65-110); Magnesium 2.2 mg/dL (1.6-2.3); Potassium 4.9 mmol/L (3.4-5.0); Sodium 120 mmol/L (137-145)
[2022-11-14 05:08] LABS: Bacteria Urine 2+ /hpf; Mucus Urine Rare /lpf; Squamous Epithelial Cell Urine Occasional /hpf (Few)
[2022-11-14] MEDS: CENTRAL LINE FLUSH 10 ML IV PUSH ×3 (05:09→20:14)
[2022-11-14 05:17] LABS: Anisocytosis 1+ (NORMAL); Platelet Estimate Adequate (Adequate); Poikilocytosis 1+ (NORMAL)
[2022-11-14 06:45] LABS: Glucose Point of Care 296 mg/dl (65-105)
[2022-11-14] MEDS: INSULIN ASPART (*BKC) 100 UNITS/ML SUB-Q ×2 (06:45→18:00)
[2022-11-14] MEDS: IPRATROPIUM BR 0.02% INH SOLN 0.5 MG/2.5 ML VIAL INHALATION ×2 (07:28→20:19)
[2022-11-14] MEDS: FLUTICASONE/SALMETEROL 45-21 MCG INHALER 1 PUFF 2 PUFF INHALATION (07:32)
[2022-11-14] MEDS: UMECLIDINIUM BROMIDE 62.5 MCG ELLIPTA 1 PUFF INHALATION (07:32)
[2022-11-14] MEDS: PANTOPRAZOLE SODIUM IV 40 MG VIAL IV PUSH ×2 (08:39→20:14)
[2022-11-14] MEDS: BUMETANIDE INJ 1 MG/4 ML VIAL IV PUSH ×2 (08:40→16:30)
[2022-11-14] MEDS: DORZOLAMIDE/TIMOLOL OPHTH SOL 10 ML BOTTLE 1 DROP EACH EYE ×2 (08:42→20:14)
[2022-11-14 09:08] LABS: Partial Thromboplastin Time 98.3 SECONDS (22.3-36.8)
--- NOTE | 2022-11-14 09:51 | PM.IMPN ---
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 may need transfer for higher level of care 11/14/22: discussed with general surgery, will initiate transfer to [place] for vascular surgery support. cont heparin drip, ngt decompression and empiric abx coverage. dx paracentesis pending, likely tomorrow. pain control with morphine. Patient accepted on waiting list. (2) Bacteremia: Code(s): R78.81 - Bacteremia Status: Acute Assessment and Plan: gram negative bacilli growing in both blood cultures from 11/10, started on broad spectrum antibiotics today with vanc + zosyn 11/14/22: cont zosyn, d/c vanc at this time (3) COPD (chronic obstructive pulmonary disease): Qualifiers: COPD type: COPD with acute exacerbation Qualified Code(s): J44.1 - Chronic obstructive pulmonary disease with (acute) exacerbation Code(s): J44.9 - Chronic obstructive pulmonary disease, unspecified Status: Acute Assessment and Plan: worsening on 2L nc, no home o2 prior to this admission, on steroids and nebulizers (4) CHF (congestive heart failure): Qualifiers: Heart failure chronicity: acute on chronic Heart failure type: unspecified Qualified Code(s): I50.9 - Heart failure, unspecified Code(s): I50.9 - Heart failure, unspecified Status: Acute Assessment and Plan: appreciate cardiology consultation, stable on current regimen (5) Influenza A: Code(s): J10.1 - Influenza due to other identified influenza virus with other respiratory manifestations Status: Acute Assessment and Plan: Status post 5 day course of Tamiflu Oct 28 (6) Atrial fibrillation with RVR: Code(s): I48.91 - Unspecified atrial fibrillation Status: Chronic Assessment and Plan: monitor telemetry, rate controlled (7) Chronic hyponatremia: Code(s): E87.1 - Hypo-osmolality and hyponatremia Status: Acute Assessment and Plan: improving (8) Obstructive sleep apnea: Code(s): G47.33 - Obstructive sleep apnea (adult) (pediatric) Status: Acute Assessment and Plan: cpap at night Plan 11/14/2022: On the waiting list with vascular surgery at [place] DVT prophylaxis with heparin drip GI prophylaxis with PPI Code status full code Subjective Date/time seen: 11/14/22 09:51 Interval history: Patient states she feels a little better than yesterday. Her abdomen is less painful. No overnight events. Review of Systems Review of Systems: 12 point review of systems was assessed and was negative except as noted in the HPI Exam Narrative: General: Appears very uncomfortable HEENT: Atraumatic, normocephalic, mucous membranes moist CV: Regular rate and rhythm, S1, S2 Lungs: wheezes, decreased air entry Abdomen: Tender to palpation Extremities: Normal to inspection Skin: No rashes noted, no lesions or wounds seen Objective Data Vital Signs Vital Signs: Vital Signs - 24 hr 11/13/22 15:52 11/13/22 16:03 11/13/22 18:18 Temperature Pulse Rate 101 H 82 87 Respiratory Rate 20 20 Blood Pressure Pulse Oximetry Oxygen Delivery Oxygen Flow Rate Fraction of Inspired Oxygen 11/13/22 16:00 11/13/22 20:36 11/13/22 21:09 Temperature 97.8 F 98.0 F Pulse Rate 111 H 116 H 127 H Respiratory Rate 16 22 H Blood Pressure 108/60 134/63 Pulse Oximetry 95 97 Oxygen Delivery Oxygen Flow Rate Fraction of
--- NOTE | 2022-11-14 10:07 | PM.CNPUL ---
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 She had PFTs in in [place] but has had none since. The patient on a good day can walk 1/2 block. Her last hospitalization for COPD was 2 years ago. She was recommended to wear oxygen in the past but she declined and wears no home oxygen. 11/14/2022 Today she has no wheezing. she is in no respiratory distress on 2 L with saturation 97%. I will place her on ipratropium nebulizer 0.5 mg q.6 hours, levalbuterol 1.25 mg nebulized Q 6 hours. She was on a low-dose of Symbicort at home and at this time I will hold inhaled corticosteroids. I have discontinued the p.o. prednisone which was started on 11/13/2022 as the patient has no evidence of a COPD exacerbation as there is no wheezing, no shortness of breath at rest, stable oxygenation and she has bacteremia. She does not need antibiotics from a pulmonary perspective. Her oxygen requirements are likely related to her COPD as she has been told she needed oxygen in the past, the left pleural effusion with compressive atelectasis, and bacteremia. discussed with Dr. Enciso, will follow with you. (2) Obstructive sleep apnea: Code(s): G47.33 - Obstructive sleep apnea (adult) (pediatric) Status: Acute Assessment and Plan: Regarding her obstructive sleep apnea many years ago she had a sleep study and was told that she needed a CPAP mask and she declined at that time. she tells me that she would not wear a mask at this time as well. I will check an overnight oximetry on 2 L nasal cannula to assess her oxygenation at night. (3) Influenza A: Code(s): J10.1 - Influenza due to other identified influenza virus with other respiratory manifestations Status: Acute Assessment and Plan: Status post Tamiflu for 5 days from 10/28/2022 through 11/01/2022. CT scan of the chest on 11/12/2022 demonstrated improved bilateral ground-glass patchy infiltrates compared to 11/03/2022. No active treatment required. (4) Bacteremia: Code(s): R78.81 - Bacteremia Status: Acute Assessment and Plan: Patient with right hemicolectomy, right abdominal pain, g positive bacilli and gram-negative bacilli in separate blood cultures indicating polymicrobial bacteremia with repeat blood cultures pending. Patient is currently on vancomycin, cefepime and Flagyl. Patient also noted to have an occluded inferior mesenteric artery and is on IV heparin. Management per hospitalist team. History of Present Illness History of Present Illness Consult date: 11/14/22 Chief complaint: CHF,Influenza A,Afib w/RVR Narrative: 11/14/2022: This is a new pulmonary consult for respiratory failure. 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 She had PFTs in s in [place] but has had none since. The patient on a good day can walk 1/2 block. Her last hospitalization for COPD was 2 years ago. She Was recommended to wear oxygen but she declined And wears no home oxygen. Regarding her obstructive sleep apnea many years ago she had a sleep crispin
--- NOTE | 2022-11-14 11:18 | PCSTNOTE ---
The patient treatment was not able to be completed on 11/14 due to NG tube and undergoing task with nursing. Will plan to continue treatment per plan of care.
--- NOTE | 2022-11-14 11:50 | PM.CNNEP ---
Assessment and Plan Assessment and plan (1) ANNEL (acute kidney injury): Code(s): N17.9 - Acute kidney failure, unspecified Status: Acute Assessment and Plan: elevated creatinine in the last 24 - 48 hours normal baseline creatinine/kidney function suspect her other acute medical issues (bacteremia, infection, abdominal issues...etc) are likely explanation for her fluctuating creatinine aside from her hyponatremia, no critical electrolytes and with reasonable urine output recent imaging (CT of abdomen/pelvis) does mention cortical thinning of the kidneys arguing she may have some mild renal insufficiency check urine electrolytes and urine eosinophils follow trend of repeat labs and UOP? (2) Hyponatremia: Code(s): E87.1 - Hypo-osmolality and hyponatremia Status: Acute Assessment and Plan: present since late September 2022 relatively stable until last several days suspect related to fluctuating fluid status, nutrition, TPN and possibly third spacing + ascites would change all carrier fluid for IV meds/IVPB/drips to normal saline if possible, reduce free water intake in TPN or add normal saline/sodium chloride to TPN already fluid restricted by NPO status check urine electrolytes (but maybe difficult to interpret as she is on diuretics) may need to consider 3% saline (but I am hesitant to do so given her CHF history) follow repeat sodium levels (3) Azotemia: Code(s): R79.89 - Other specified abnormal findings of blood chemistry Status: Acute Assessment and Plan: likely due to high degree of inflammation in association with catabolic state and use of TPN follow trend of BUN for now (4) Bacteremia: Code(s): R78.81 - Bacteremia Status: Acute Assessment and Plan: as noted by positive blood cultures follow identifications of organisms on broad spectrum of antibiotics (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 Status: Acute Assessment and Plan: as noted by recent CT scan findings on heparin gtt may need transfer to a higher level of care for possible intervention (6) CHF (congestive heart failure): Qualifiers: Heart failure chronicity: acute on chronic Heart failure type: unspecified Qualified Code(s): I50.9 - Heart failure, unspecified Code(s): I50.9 - Heart failure, unspecified Status: Acute Assessment and Plan: Cardiology following on diuretics clinically better (7) Influenza A: Code(s): J10.1 - Influenza due to other identified influenza virus with other respiratory manifestations Status: Acute Assessment and Plan: completed course of Tamiflu continue supportive therapy Long extensive discussion (> 20 minutes) with the patient and her daughter at bedside with regard to her fluctuating renal function and sodium level as noted by her labs in the last few days : Hopefully, with continued conservative therapy these issues will stabilize if not improve but time will tell. Will continue to follow. History of Present Illness Reason for Consult Consult date: 11/14/22 Reason for consult: acute renal failure and hyponatremia Chief Complaint Chief complaint: CHF,Influenza A,Afib w/RVR History of Present Illness Narrative: The patient is an 82-year-old female with an extensive past medical history who initially presented to [facility] Emergency room with complaints of shortness of breath. She was initially admitted in late September with severe anemia and workup at that time included colonoscopy demonstrated a cecal mass. Subsequently in early October, she underwent a hand this assisted laparoscopic right colectomy and did well postoperatively with subsequent discharged approximately 3 days later. Unfortunately, 3-4 days after her discharge, she came back to the emergency room with
--- NOTE | 2022-11-14 11:50 | P.CONNP_ITS ---
Assessment and Plan Assessment and plan (1) ANNEL (acute kidney injury): Code(s): N17.9 - Acute kidney failure, unspecified Status: Acute Assessment and Plan: * elevated creatinine in the last 24 - 48 hours * normal baseline creatinine/kidney function * suspect her other acute medical issues (bacteremia, infection, abdominal issues...etc) are likely explanation for her fluctuating creatinine * aside from her hyponatremia, no critical electrolytes and with reasonable urine output * recent imaging (CT of abdomen/pelvis) does mention cortical thinning of the kidneys arguing she may have some mild renal insufficiency * check urine electrolytes and urine eosinophils * follow trend of repeat labs and UOP? (2) Hyponatremia: Code(s): E87.1 - Hypo-osmolality and hyponatremia Status: Acute Assessment and Plan: * present since late September 2022 * relatively stable until last several days * suspect related to fluctuating fluid status, nutrition, TPN and possibly third spacing + ascites * would change all carrier fluid for IV meds/IVPB/drips to normal saline * if possible, reduce free water intake in TPN or add normal saline/sodium chloride to TPN * already fluid restricted by NPO status * check urine electrolytes (but maybe difficult to interpret as she is on diuretics) * may need to consider 3% saline (but I am hesitant to do so given her CHF histo ry) * follow repeat sodium levels (3) Azotemia: Code(s): R79.89 - Other specified abnormal findings of blood chemistry Status: Acute Assessment and Plan: * likely due to high degree of inflammation in association with catabolic state and use of TPN * follow trend of BUN for now (4) Bacteremia: Code(s): R78.81 - Bacteremia Status: Acute Assessment and Plan: * as noted by positive blood cultures * follow identifications of organisms * on broad spectrum of antibiotics (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 Status: Acute Assessment and Plan: * as noted by recent CT scan findings * on heparin gtt * may need transfer to a higher level of care for possible intervention (6) CHF (congestive heart failure): Qualifiers: Heart failure chronicity: acute on chronic Heart failure type: unspecified Qualified Code(s): I50.9 - Heart failure, unspecified Code(s): I50.9 - Heart failure, unspecified Status: Acute Assessment and Plan: * Cardiology following * on diuretics * clinically better (7) Influenza A: Code(s): J10.1 - Influenza due to other identified influenza virus with other respiratory manifestations Status: Acute Assessment and Plan: * completed course of Tamiflu * continue supportive therapy Long extensive discussion (> 20 minutes) with the patient and her daughter at bedside with regard to her fluctuating renal function and sodium level as noted by her labs in the last few days : Hopefully, with continued conservative therapy these issues will stabilize if not improve but time will tell. Will continue to follow. History of Present Illness Reason for Consult Consult date: 11/14/22 Reason for consult: acute renal failure and hyponatremia Chief Complaint Chief complaint: CHF,Influenza A,Afib w/RVR History of Present Illness Narrative: The patient is an 82-year-old female with an extensive past medical history who initially presented to [facility] Emergency ro
[2022-11-14] MEDS: MORPHINE SULFATE (*CRX) 2 MG/ML INJ IV PUSH (12:14)
--- NOTE | 2022-11-14 13:28 | PM.CNGS ---
Assessment and Plan Assessment and plan (1) Mesenteric vascular insufficiency: Code(s): K55.1 - Chronic vascular disorders of intestine Status: Acute Assessment and Plan: I discussed my evaluation with Dr. Marie and then with the patient and her family. 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 The NELY has thrombosed at some point between 11/03/2022 and 11/12/2022. Patient was off anticoagulation for a period of time due to rectal bleeding. Her abdominal pain and ascites are very likely from mesenteric insufficiency and I would recommend transfer to a facility with vascular surgery and ability to perform endovascular angioplasty with stenting particularly of the SMA. Anticoagulation with heparin seems to have helped and is likely the reason patient is not having as much abdominal pain today. Hopefully she can be transferred either today or tomorrow so this can be addressed by vascular surgery. (2) Mesenteric artery thrombosis: Code(s): K55.069 - Acute infarction of intestine, part and extent unspecified Status: Acute Assessment and Plan: Although not normally an artery of significant importance in mesenteric vascular perfusion, her NELY has occluded since 11/03/2022 and it seems her mesenteric insufficiency has worsened since then. The worsening ascites is likely from mesenteric vascular insufficiency and not likely from cirrhosis. Recommend continue heparin anticoagulation and antibiotic therapy with transfer as noted above. (3) Bacteremia: Code(s): R78.81 - Bacteremia Status: Acute Assessment and Plan: Blood cultures from 11/10 growing anaerobes. Zosyn will be restarted. Continue antibiotic therapy (4) CHF (congestive heart failure): Qualifiers: Heart failure chronicity: acute on chronic Heart failure type: unspecified Qualified Code(s): I50.9 - Heart failure, unspecified Code(s): I50.9 - Heart failure, unspecified Status: Acute Assessment and Plan: patient continues to cough and have problems with shortness of breath. This certainly is complicating the mesenteric vascular insufficiency as noted above. (5) Splenic infarction: Code(s): D73.5 - Infarction of spleen Status: Acute Assessment and Plan: This likely due to atrial fibrillation with rapid ventricular response and embolic phenomenon. Patient did have to have for anticoagulation stopped with the GI bleeding and this may have been a window the for this to occur. Surprisingly, patient really not having any symptoms from this and hopefully most of the splenic tissue will survive. No treatment needed at present but benefiting from anticoagulation as well. (6) Atrial fibrillation with RVR: Code(s): I48.91 - Unspecified atrial fibrillation Status: Chronic Assessment and Plan: chronic, has been addressed throughout her admission. History of Present Illness Consult details Consult date: 11/14/22 Reason for consult: abdominal pain ( mesenteric vascular disease) Requesting physician: Carly Marie DO Narrative: the patient is an 82-year-old woman who carries several chronic medical illnesses including congestive heart failure, atrial fibrillation, COPD, and pulmonary artery hypertension. Patient was admitted in late September with severe anemia and workup including colonoscopy showed a cecal cancer. On 10/21/2022 she underwent hand access laparoscopic right colectomy by my partner Dr. Cruz. she did well after the surgery and was able to be discharged 3 days later on a 10/23/2022. Unfortunately, 4 days later, the patient again presented to the emergency room with shortness of breath. She tested positive for influenza a and received 5 days of Tamiflu which she has completed. She was treated primarily with diuretics for congestive heart failure. She initially improved but
--- NOTE | 2022-11-14 14:11 | PCPTNOTE ---
Attempted to see patient for PT, however patient declined.
[2022-11-14 15:08] LABS: Partial Thromboplastin Time 82.6 SECONDS (22.3-36.8)
[2022-11-14] MEDS: AMINO ACIDS 4.25%/D5W/LYTES/CA 2,000 ML 80 ML IV CONT (16:29)
[2022-11-14] MEDS: FAT EMULSIONS IV 20% 250 ML 20.8 ML IVPB (16:29)
[2022-11-14 16:41] LABS: Glucose Point of Care 181 mg/dl (65-105)
[2022-11-14 17:03] LABS: Glucose Point of Care 208 mg/dl (65-105)
[2022-11-14] MEDS: MELATONIN 5 MG TABLET PO (20:14)
[2022-11-14] MEDS: ATORVASTATIN 20 MG TABLET PO (20:14)
[2022-11-14] MEDS: CEFEPIME 1 GM in SODIUM CHLORIDE 0.9% IV 50 ML IVPB (20:16)
[2022-11-14 20:40] LABS: Glucose Point of Care 188 mg/dl (65-105)
[2022-11-15] VITALS (25 sets, daily range): BP systolic 78–130; BP diastolic 41–56; PULSE 102–120; RESP 15–22; TEMP 36.3–36.7; O2SAT 93–100
[2022-11-15] MEDS: METOPROLOL TARTRATE INJ 5 MG/5 ML VIAL IV PUSH ×4 (01:17→13:35)
[2022-11-15] MEDS: metroNIDAZOLE 500 MG/ISO 100ML 500 MG/100 ML BAG 100 MG IVPB ×5 (01:17→23:55)
[2022-11-15 04:46] LABS: Hematocrit 22.4 % (37.0-47.0); Hemoglobin 7.3 g/dL (12.0-15.0); Mean Corpuscular HGB Conc 32.6 g/dl (32-36); Mean Corpuscular Hemoglobin 29.3 pg (26-34); Platelet Count Result 136 k/mm3 (150-375); Red Blood Count 2.49 M/mm3 (4.2-5.4); Red Cell Distribution Width 19.7 % (11.5-14.5); White Blood Count 19.8 K/mm3 (4.5-10.0)
[2022-11-15 04:54] LABS: Alanine Aminotransferase 19 U/L (6-35); Albumin Level 2.3 g/dL (3.5-5.1); Alkaline Phosphatase 87 U/L (38-126); Anion Gap 6 mmol/L (8-16); Aspartate Amino Transferase 19 U/L (14-36); Bilirubin,Total 0.7 mg/dL (0.2-1.3); Blood Urea Nitrogen 99 mg/dL (7-17); Carbon Dioxide 30 mmol/L (22-30); Chloride 86 mmol/L (98-107); Estimated CRCL calculation 21 ml/min; Estimated Glomerular Filt Rate 31; Glucose 188 mg/dL (65-110); Magnesium 2.2 mg/dL (1.6-2.3); Potassium 4.8 mmol/L (3.4-5.0); Sodium 122 mmol/L (137-145)
[2022-11-15] MEDS: CENTRAL LINE FLUSH 10 ML IV PUSH ×3 (05:46→21:12)
[2022-11-15 05:58] LABS: Glucose Point of Care 237 mg/dl (65-105)
[2022-11-15] MEDS: INSULIN ASPART (*BKC) 100 UNITS/ML SUB-Q (05:58)
[2022-11-15 08:33] LABS: Glucose Point of Care 172 mg/dl (65-105)
--- NOTE | 2022-11-15 08:52 | PM.IMPN ---
Progress Note: A&P Assessment and Plan (1) Mesenteric artery thrombosis: Code(s): K55.069 - Acute infarction of intestine, part and extent unspecified Status: Acute Assessment and Plan: 11/13/22: occlusion of proximal inferior mesenteric artery with moderate stenosis of celiax axis and sma noted on CT scan yesterday, start heparin drip, check lactate, broad spectrum antibiotics started, general surgery re-consulted, pain control with morphine, also noted splenic infarct, ascites, ileus, interstitial edema vs enterocolitis, cirrhosis, may need transfer for higher level of care 11/14/22: discussed with general surgery, will initiate transfer to [place] for vascular surgery support. cont heparin drip, ngt decompression and empiric abx coverage. dx paracentesis pending, likely tomorrow. pain control with morphine. Patient accepted on waiting list. 11/15/22: cont current management, await bed at [facility] (2) Bacteremia: Code(s): R78.81 - Bacteremia Status: Acute Assessment and Plan: 11/14/22: cont zosyn, d/c vanc at this time, MRSA swab pending, do not suspect MRSA infection however, GNB in both bld cx 11/15/22: leuk trending down, on cefepime + flagyl, d/c vanc + zosyn, blood cx from 11/10/22 showing b. fragilis in 1 bottle and clostridium species in the other bottle, should be covered by flagyl + cefepime, monitor cx and await sens (3) COPD (chronic obstructive pulmonary disease): Qualifiers: COPD type: COPD with acute exacerbation Qualified Code(s): J44.1 - Chronic obstructive pulmonary disease with (acute) exacerbation Code(s): J44.9 - Chronic obstructive pulmonary disease, unspecified Status: Acute Assessment and Plan: worsening on 2L nc, no home o2 prior to this admission, on steroids and nebulizers (4) CHF (congestive heart failure): Qualifiers: Heart failure chronicity: acute on chronic Heart failure type: unspecified Qualified Code(s): I50.9 - Heart failure, unspecified Code(s): I50.9 - Heart failure, unspecified Status: Acute Assessment and Plan: appreciate cardiology consultation, stable on current regimen (5) Influenza A: Code(s): J10.1 - Influenza due to other identified influenza virus with other respiratory manifestations Status: Acute Assessment and Plan: Status post 5 day course of Tamiflu Oct 28- (6) Atrial fibrillation with RVR: Code(s): I48.91 - Unspecified atrial fibrillation Status: Chronic Assessment and Plan: monitor telemetry, cont metoprolol consider amio due to hypotension and continued afib rvr, rate consistently in 110-120s appreciate cardio consult (7) Chronic hyponatremia: Code(s): E87.1 - Hypo-osmolality and hyponatremia Status: Acute Assessment and Plan: improving (8) Obstructive sleep apnea: Code(s): G47.33 - Obstructive sleep apnea (adult) (pediatric) Status: Acute Assessment and Plan: cpap at night (9) Hypotension: Code(s): I95.9 - Hypotension, unspecified Status: Acute Assessment and Plan: likely 2/2 hepatorenal syndrome, will trial albumin and then try low dose bumex, may need ICU and pressors Plan 11/14/2022: On the waiting list with vascular surgery at [place] 11/15/2022: Patient is still here 20 days later for high risk mesenteric artery occlusion, awaiting a bed at [place] for vascular surgery consultation and intervention. DVT prophylaxis with heparin drip GI prophylaxis with PPI Code status full code Subjective Date/time seen: 11/15/22 08:52 Interval history: No overnight events noted. No chest pain or shortness of breath. No nausea, vomiting or diarrhea. No fevers or chills. Patient feels much better today than yesterday. She denies abdominal pain. Review of Systems Review of Systems: 12 point review of systems was assessed and was negative except as noted in the HPI Ex[facility]
[2022-11-15] MEDS: CEFEPIME 1 GM in SODIUM CHLORIDE 0.9% IV 50 ML IVPB ×2 (09:13→21:48)
[2022-11-15] MEDS: CYANOCOBALAMIN 500 MCG TABLET 2500 MCG PO (09:14)
[2022-11-15] MEDS: ASCORBIC ACID 500 MG TABLET PO (09:14)
[2022-11-15] MEDS: DORZOLAMIDE/TIMOLOL OPHTH SOL 10 ML BOTTLE 1 DROP EACH EYE ×2 (09:14→21:12)
[2022-11-15] MEDS: PANTOPRAZOLE SODIUM IV 40 MG VIAL IV PUSH ×2 (09:15→21:18)
--- NOTE | 2022-11-15 10:07 | PM.PNPUL ---
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 She had PFTs in in [place] but has had none since. there is no emphysematous changes on her CT scan of the chest from 11/12/2022. The patient on a good day can walk 1/2 block. Her last hospitalization for COPD was 2 years ago. She was recommended to wear oxygen in the past but she declined and wears no home oxygen. 11/14/2022 Today she has no wheezing. she is in no respiratory distress on 2 L with saturation 97%. I will place her on ipratropium nebulizer 0.5 mg q.6 hours, levalbuterol 1.25 mg nebulized Q 6 hours. She was on a low-dose of Symbicort at home and at this time I will hold inhaled corticosteroids. I have discontinued the p.o. prednisone which was started on 11/13/2022 as the patient has no evidence of a COPD exacerbation as there is no wheezing, no shortness of breath at rest, stable oxygenation and she has bacteremia. She does not need antibiotics from a pulmonary perspective. Her oxygen requirements are likely related to her COPD as she has been told she needed oxygen in the past, the left pleural effusion with compressive atelectasis, and bacteremia. 11/15/2022 Overall patient states she is breathing close to her baseline. She has a cough which is dry. She has no wheezing. I do not believe she has an active COPD exacerbation at this time. She is on 2 L nasal cannula her saturations are 100%. Continue ipratropium nebulizer 0.5 mg q.6 hours, levalbuterol 1.25 mg nebulized Q 6 hours for now. (2) Obstructive sleep apnea: Code(s): G47.33 - Obstructive sleep apnea (adult) (pediatric) Status: Acute Assessment and Plan: Regarding her obstructive sleep apnea many years ago she had a sleep study and was told that she needed a CPAP mask and she declined at that time. she tells me that she would not wear a mask at this time as well. 11/14/2022 I will check an overnight oximetry on 2 L nasal cannula to assess her oxygenation at night. 11/15/22 Technical issues with the overnight oximetry last night and I will reorder for tonight. (3) Influenza A: Code(s): J10.1 - Influenza due to other identified influenza virus with other respiratory manifestations Status: Acute Assessment and Plan: Status post Tamiflu for 5 days from 10/28/2022 through 11/01/2022. CT scan of the chest on 11/12/2022 demonstrated improved bilateral ground-glass patchy infiltrates compared to 11/03/2022. No active treatment required. (4) Bacteremia: Code(s): R78.81 - Bacteremia Status: Acute Assessment and Plan: Patient with right hemicolectomy, right abdominal pain, g positive bacilli and gram-negative bacilli in separate blood cultures indicating polymicrobial bacteremia with repeat blood cultures pending. Patient is currently on vancomycin, cefepime and Flagyl. Patient also noted to have an occluded inferior mesenteric artery and is on IV heparin. Management per hospitalist and surgery teams. 11/15/2022: She has an NG tube in place to suction with less abdominal pain. Her white blood cell count is improved 19.8, creatinine is 1.60. She has grown out Bacteroides and Clostridium in her blood. She is on IV heparin drip. She is listed for transfer to higher level of care facility that has vascular surgery support. Subjective Date/time seen: 11/15/22 10:07 Interval history: ? 11/14/2022:? This is a new pulmonary consult for re
--- NOTE | 2022-11-15 10:17 | P.PNNP_ITS ---
Progress Note: A&P Assessment and Plan (1) ANNEL (acute kidney injury): Code(s): N17.9 - Acute kidney failure, unspecified Status: Acute Assessment and Plan: * elevated creatinine in the last 24 - 48 hours * normal baseline creatinine/kidney function * suspect her other acute medical issues (bacteremia, infection, abdominal issues...etc) are likely explanation for her fluctuating creatinine * aside from her hyponatremia, no critical electrolytes and with reasonable urine output * recent imaging (CT of abdomen/pelvis) does mention cortical thinning of the kidneys arguing she may have some mild renal insufficiency * hold ARB and reduce bumex to qday * recheck urine studies (UA, urine electrolytes, urine eosinophils) * follow trend of repeat labs and UOP? (2) Hyponatremia: Code(s): E87.1 - Hypo-osmolality and hyponatremia Status: Acute Assessment and Plan: * present since late September 2022 * relatively stable until last several days * suspect related to fluctuating fluid status, nutrition, TPN and possibly third spacing + ascites * changed all carrier fluid for IV meds/IVPB/drips to normal saline * unfortunately, unable to reduce free water intake in TPN or add normal saline/sodium chloride to TPN as this is premade * heparin gtt carrier fluid cannot be changed either (currently D5W) * already fluid restricted by NPO status * awaiting urine electrolytes (but maybe difficult to interpret as she is on diuretics) * may need to consider 3% saline (but I am hesitant to do so given her CHF history) * follow repeat sodium levels (3) Azotemia: Code(s): R79.89 - Other specified abnormal findings of blood chemistry Status: Acute Assessment and Plan: * likely due to high degree of inflammation in association with catabolic state and use of TPN * follow trend of BUN for now (4) Bacteremia: Code(s): R78.81 - Bacteremia Status: Acute Assessment and Plan: * as noted by positive blood cultures - Bacteroides and Clostridium * on broad spectrum of antibiotics * follow repeat blood cultures (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 Status: Acute Assessment and Plan: * as noted by recent CT scan findings * on heparin gtt * Surgery recommendations noted * noted possible transfer to a higher level of care for possible intervention (6) CHF (congestive heart failure): Qualifiers: Heart failure chronicity: acute on chronic Heart failure type: unspecified Qualified Code(s): I50.9 - Heart failure, unspecified Code(s): I50.9 - Heart failure, unspecified Status: Acute Assessment and Plan: * Cardiology following * on diuretics * clinically better (7) Influenza A: Code(s): J10.1 - Influenza due to other identified influenza virus with other respiratory manifestations Status: Acute Assessment and Plan: * completed course of Tamiflu * continue supportive therapy Will continue to follow. Subjective Date/time seen: 11/15/22 10:17 Respiratory status seems relatively stable at this time -- maintaining oxygen saturations on 2L by nasal cannula; abdominal pain seems to be doing better in general; unfortunately, renal function has worsened in the last 24 hours. Exam Narrative: General: ill appearing female in NAD Heart: tachycardic, normal S1 and S2; no rub Lungs: coarse breath sounds; decreased at
--- NOTE | 2022-11-15 10:17 | PM.PNNEP ---
Progress Note: A&P Assessment and Plan (1) ANNEL (acute kidney injury): Code(s): N17.9 - Acute kidney failure, unspecified Status: Acute Assessment and Plan: elevated creatinine in the last 24 - 48 hours normal baseline creatinine/kidney function suspect her other acute medical issues (bacteremia, infection, abdominal issues...etc) are likely explanation for her fluctuating creatinine aside from her hyponatremia, no critical electrolytes and with reasonable urine output recent imaging (CT of abdomen/pelvis) does mention cortical thinning of the kidneys arguing she may have some mild renal insufficiency hold ARB and reduce bumex to qday recheck urine studies (UA, urine electrolytes, urine eosinophils) follow trend of repeat labs and UOP? (2) Hyponatremia: Code(s): E87.1 - Hypo-osmolality and hyponatremia Status: Acute Assessment and Plan: present since late September 2022 relatively stable until last several days suspect related to fluctuating fluid status, nutrition, TPN and possibly third spacing + ascites changed all carrier fluid for IV meds/IVPB/drips to normal saline unfortunately, unable to reduce free water intake in TPN or add normal saline/sodium chloride to TPN as this is premade heparin gtt carrier fluid cannot be changed either (currently D5W) already fluid restricted by NPO status awaiting urine electrolytes (but maybe difficult to interpret as she is on diuretics) may need to consider 3% saline (but I am hesitant to do so given her CHF history) follow repeat sodium levels (3) Azotemia: Code(s): R79.89 - Other specified abnormal findings of blood chemistry Status: Acute Assessment and Plan: likely due to high degree of inflammation in association with catabolic state and use of TPN follow trend of BUN for now (4) Bacteremia: Code(s): R78.81 - Bacteremia Status: Acute Assessment and Plan: as noted by positive blood cultures - Bacteroides and Clostridium on broad spectrum of antibiotics follow repeat blood cultures (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 Status: Acute Assessment and Plan: as noted by recent CT scan findings on heparin gtt Surgery recommendations noted noted possible transfer to a higher level of care for possible intervention (6) CHF (congestive heart failure): Qualifiers: Heart failure chronicity: acute on chronic Heart failure type: unspecified Qualified Code(s): I50.9 - Heart failure, unspecified Code(s): I50.9 - Heart failure, unspecified Status: Acute Assessment and Plan: Cardiology following on diuretics clinically better (7) Influenza A: Code(s): J10.1 - Influenza due to other identified influenza virus with other respiratory manifestations Status: Acute Assessment and Plan: completed course of Tamiflu continue supportive therapy Will continue to follow. Subjective Date/time seen: 11/15/22 10:17 Respiratory status seems relatively stable at this time -- maintaining oxygen saturations on 2L by nasal cannula; abdominal pain seems to be doing better in general; unfortunately, renal function has worsened in the last 24 hours. Exam Narrative: General: ill appearing female in NAD Heart: tachycardic, normal S1 and S2; no rub Lungs: coarse breath sounds; decreased at bases Abdomen: soft, nontender, nondistended, positive bowel sounds Extremities: no cyanosis or clubbing; no edema Skin: warm and dry Objective Data Vital Signs Vital Signs: Vital Signs Temp Pulse Resp BP Pulse Ox O2 Del Method O2 Flow Rate 11/15/22 10:20 114 H 95 Nasal Cannula 2 11/15/22 10:10 115 H 20 11/15/22 08:00 Room Air 11/15/22 08:00 97.8 F 112 H 18 97/54 L 100 11/15/22 08:53 116 H 11/15/22 06:00 112 H
[2022-11-15] MEDS: IPRATROPIUM BR 0.02% INH SOLN 0.5 MG/2.5 ML VIAL INHALATION ×3 (10:19→21:04)
--- NOTE | 2022-11-15 11:17 | PC.NURSE ---
Heparin GTT paused per request from US for US guided paracentesis.
--- NOTE | 2022-11-15 11:34 | PCNFU ---
Nutrition Follow-Up Complete: Inadequate oral intake related to continuous bipap, shortness of breath, loss of appetite as evidenced by need for full parenteral nutrition Goal: Meet estimated nutrition needs Patient is progressing towards goal. We will continue current goal. Pt current nutrition is PPN Nutrition recommendation: TPN at 60 ml/hr Last recorded weight is 66.5 kg. Bowel Motility:Last BM reported 11/08-reporting ileus Labs Reviewed:Glu 188, Cr 1.6,BUN 99, GFR 31, Na 122, Alb 2.3 Meds Noted:Lovenox, NovoLog, Lopressor, Clinimix E 4.25/5 at 80 ml/hr with 250 ml of 20% Lipid Emulsion. Skin: WNL Additional Notes: Patient remains on PPN at this time with plans for transfer today. Plans for Paracentesis. Recommend changing over to TPN at 60 ml/hr providing 1522 kcals/72 gms protein. Monitor labs, plan of care, tolerance, weights. Follow up Monday/Monday
[2022-11-15 11:49] LABS: Add Urine Microscopic? YES; Appearance Urine Clear (Clear); Bilirubin Urine Negative (Negative); Blood Urine 1+ (Negative); Color Urine Yellow (Yellow); Glucose Urine UA Negative (Negative); Ketones Urine Negative (Negative); Leukocyte Esterase Ur Trace LEU/UL (Negative); Nitrate Urine Negative (Negative); Protein Urine Trace mg/dL (Negative); Specific Grav Ur 1.015 (1.001-1.035); Urobilinogen Urine 0.2 mg/dL (<2.0)
[2022-11-15 11:55] LABS: Glucose Point of Care 84 mg/dl (65-105)
[2022-11-15 11:55] LABS: Bacteria Urine Trace /hpf; Mucus Urine Rare /lpf; Squamous Epithelial Cell Urine Occasional /hpf (Few)
[2022-11-15 12:35] LABS: Creatinine Urine 36.4 mg/dL; Total Protein Urine Random 24 mg/dL; Ur Ttl Prot Creatinine Ratio 0.66 mg/mg (0-0.20)
[2022-11-15 12:42] LABS: Sodium Urine Random < 5 meq/L
[2022-11-15 13:12] LABS: Eosinophil Urine None Seen % (None Seen)
[2022-11-15] MEDS: AMINO ACIDS 4.25%/D5W/LYTES/CA 2,000 ML 80 ML IV CONT (15:25)
[2022-11-15] MEDS: FAT EMULSIONS IV 20% 250 ML 20.8 ML IVPB (15:26)
[2022-11-15 16:47] LABS: Glucose Point of Care 145 mg/dl (65-105)
[2022-11-15] MEDS: ALBUMIN HUMAN 25% 25 GM/100 ML 100 ML IVPB (17:52)
[2022-11-15] MEDS: HEPARIN SOD/D5W 100 UNITS/ML 25,000 UNITS/250 ML BAG 11 UNITS IV CONT (18:02)
--- NOTE | 2022-11-15 18:08 | PC.NURSE ---
Patient's heparin therapy discussed with MD. Per ok to cancel ptt scheduled during time patient was at procedure. Resume at prior dose and schedule PTT for 6 hours after start of heparin GTT, which was done.
[2022-11-15 20:27] LABS: Glucose Point of Care 148 mg/dl (65-105)
[2022-11-15 20:42] LABS: Partial Thromboplastin Time 128.8 SECONDS (22.3-36.8)
[2022-11-15] MEDS: SODIUM CHLORIDE 0.9% IV 250 ML 999 ML IV CONT (20:42)
[2022-11-15] MEDS: ATORVASTATIN 20 MG TABLET PO (21:18)
[2022-11-15 22:40] LABS: Albumin Level 2.5 g/dL (3.5-5.1); Anion Gap 7 mmol/L (8-16); Blood Urea Nitrogen 103 mg/dL (7-17); Carbon Dioxide 28 mmol/L (22-30); Chloride 87 mmol/L (98-107); Estimated CRCL calculation 20 ml/min; Estimated Glomerular Filt Rate 29; Glucose 134 mg/dL (65-110); Phosphorus 6.2 mg/dL (2.5-4.5); Potassium 4.5 mmol/L (3.4-5.0); Sodium 122 mmol/L (137-145)
[2022-11-16] VITALS (24 sets, daily range): BP systolic 94–139; BP diastolic 58–91; PULSE 94–118; RESP 18–24; TEMP 35.8–37.1; O2SAT 94–100
--- NOTE | 2022-11-16 02:04 | PCRCNOTE ---
Addendum entered by Angie Cole, RESEARCH COORDINATOR 11/16/22 02:08: pt called RN immediately after refusing asking for UPD treatment. Original Note: pt refusing 0200 UPD on 11/16 stating she is in too much pain and does not want treatment. RN notified.
[2022-11-16 03:18] LABS: Hematocrit 21.7 % (37.0-47.0); Immature Platelet Fraction Pct 15.8 % (0.9-11.2); Mean Corpuscular HGB Conc 30.9 g/dl (32-36); Mean Corpuscular Hemoglobin 29.5 pg (26-34); Mean Corpuscular Volume 95.6 fl (80-100); Mean Platelet Volume 13.3 fl (7.4-10.4); Platelet Count Result 126 k/mm3 (150-375); Red Blood Count 2.27 M/mm3 (4.2-5.4); Red Cell Distribution Width 20.1 % (11.5-14.5); White Blood Count 9.8 K/mm3 (4.5-10.0)
[2022-11-16 03:24] LABS: Hemoglobin 6.7 g/dL (12.0-15.0)
[2022-11-16 03:32] LABS: Alanine Aminotransferase 17 U/L (6-35); Albumin Level 2.7 g/dL (3.5-5.1); Alkaline Phosphatase 88 U/L (38-126); Anion Gap 8 mmol/L (8-16); Aspartate Amino Transferase 17 U/L (14-36); Bilirubin,Total 0.9 mg/dL (0.2-1.3); Blood Urea Nitrogen 101 mg/dL (7-17); Calcium 7.3 mg/dL (8.4-10.2); Carbon Dioxide 27 mmol/L (22-30); Chloride 88 mmol/L (98-107); Estimated CRCL calculation 19 ml/min; Estimated Glomerular Filt Rate 27; Glucose 179 mg/dL (65-110); Magnesium 2.4 mg/dL (1.6-2.3); Potassium 4.5 mmol/L (3.4-5.0); Sodium 123 mmol/L (137-145)
[2022-11-16 03:43] LABS: Partial Thromboplastin Time 126.2 SECONDS (22.3-36.8)
[2022-11-16] MEDS: CENTRAL LINE FLUSH 10 ML IV PUSH ×3 (05:33→20:35)
[2022-11-16] MEDS: metroNIDAZOLE 500 MG/ISO 100ML 500 MG/100 ML BAG 100 MG IVPB ×4 (06:16→23:47)
[2022-11-16] MEDS: METOPROLOL TARTRATE INJ 5 MG/5 ML VIAL IV PUSH ×5 (06:16→21:19)
[2022-11-16] MEDS: HYDROcodone/acetaminophen (*CRX) 5-325 MG TABLET 1 TAB PO (06:17)
[2022-11-16 07:54] LABS: Glucose Point of Care 230 mg/dl (65-105)
[2022-11-16] MEDS: IPRATROPIUM BR 0.02% INH SOLN 0.5 MG/2.5 ML VIAL INHALATION ×3 (08:04→19:14)
[2022-11-16 09:10] LABS: Basophils Percent Auto 0.3 % (0.2-1.2); Eosinophils Absolute Auto 0.2 K/mm3 (0-0.3); Eosinophils Percent Auto 1.7 % (0-4.4); Hematocrit 21.7 % (37.0-47.0); Immature Granulocyte Absolute 0.18 K/mm3 (0.00-0.031); Immature Granulocyte Percent A 1.9 % (0-0.5); Immature Platelet Fraction Pct 14.4 % (0.9-11.2); Lymphocytes Absolute Auto 0.34 K/mm3 (0.9-3.2); Lymphocytes Percent Auto 3.5 % (18.3-44.2); Mean Corpuscular HGB Conc 31.8 g/dl (32-36); Mean Corpuscular Hemoglobin 29.7 pg (26-34); Mean Corpuscular Volume 93.5 fl (80-100); Mean Platelet Volume 13.7 fl (7.4-10.4); Monocytes Absolute Auto 0.4 K/mm3 (0.1-0.6); Monocytes Percent Auto 4.6 % (2.6-8.5); Neutrophils Absolute Auto 8.5 K/mm3 (1.3-6.7); Platelet Count Result 134 k/mm3 (150-375); Red Blood Count 2.32 M/mm3 (4.2-5.4); Red Cell Distribution Width 19.9 % (11.5-14.5); White Blood Count 9.7 K/mm3 (4.5-10.0)
[2022-11-16 09:20] LABS: Hemoglobin 6.9 g/dL (12.0-15.0)
[2022-11-16 09:29] LABS: Partial Thromboplastin Time 74.7 SECONDS (22.3-36.8)
[2022-11-16 09:52] LABS: Platelet Estimate Decreased (Adequate); Schistocytes None Seen (NORMAL)
[2022-11-16 09:53] LABS: Anisocytosis 1+ (NORMAL)
[2022-11-16] MEDS: CEFEPIME 1 GM in SODIUM CHLORIDE 0.9% IV 50 ML IVPB (10:04)
[2022-11-16] MEDS: PANTOPRAZOLE SODIUM IV 40 MG VIAL IV PUSH ×2 (10:04→21:19)
--- NOTE | 2022-11-16 12:13 | PCSTNOTE ---
The patient treatment was not able to be completed on 11/16 due to refusal. Will plan to continue treatment per plan of care.
[2022-11-16] MEDS: INSULIN ASPART (*BKC) 100 UNITS/ML SUB-Q (12:15)
[2022-11-16] MEDS: DORZOLAMIDE/TIMOLOL OPHTH SOL 10 ML BOTTLE 1 DROP EACH EYE ×2 (12:15→21:19)
[2022-11-16 12:37] LABS: Glucose Point of Care 229 mg/dl (65-105)
--- NOTE | 2022-11-16 13:30 | PM.IMPN ---
Progress Note: A&P Assessment and Plan (1) Mesenteric artery thrombosis: Code(s): K55.069 - Acute infarction of intestine, part and extent unspecified Status: Acute Assessment and Plan: CT on 11/12 showing total occlusion of proximal inferior mesenteric artery with moderate stenosis of celiax axis and sma. Also noted splenic infarct, ascites, ileus, interstitial edema vs enterocolitis, cirrhosis. Started on heparin drip and broad spectrum antibiotics. General surgery re-consulted. NPO and on TPN for now. Plan for transfer for higher level of care. Cont current management, await bed at [facility]. (2) Bacteremia: Code(s): R78.81 - Bacteremia Status: Acute Assessment and Plan: 11/14/22: cont zosyn, d/c vanc at this time, MRSA swab pending, do not suspect MRSA infection however, GNB in both bld cx 11/15/22: leuk trending down, on cefepime + flagyl, d/c vanc + zosyn, blood cx from 11/10/22 showing b. fragilis in 1 bottle and clostridium species in the other bottle, should be covered by flagyl + cefepime, monitor cx and await sens 11/16/22: BCx 11/10 growing clostridium species in anaerobic bottle and bacteroides fragilis in the other anaerobic bottle. Was on Zosyn but changed to Flagyl and Cefepime. Discussed with ID who recommended Flagyl and Zosyn so will adjust abx. (3) Anemia: Code(s): D64.9 - Anemia, unspecified Status: Acute Assessment and Plan: Hgb 6.7 this morning. Hgb has been drifting down past few days. No evidence of acute blood loss. She is on Heparin. Will transfuse since this will help with BP and oncotic pressure. No Bumex since she has ANNEL (4) COPD (chronic obstructive pulmonary disease): Qualifiers: COPD type: COPD with acute exacerbation Qualified Code(s): J44.1 - Chronic obstructive pulmonary disease with (acute) exacerbation Code(s): J44.9 - Chronic obstructive pulmonary disease, unspecified Status: Acute Assessment and Plan: Stable on 2L nc. Not on home o2 prior to this admission.Continue nebulizers. Probably can wean O2 since 100%. (5) CHF (congestive heart failure): Qualifiers: Heart failure chronicity: acute on chronic Heart failure type: unspecified Qualified Code(s): I50.9 - Heart failure, unspecified Code(s): I50.9 - Heart failure, unspecified Status: Acute Assessment and Plan: Appreciate cardiology consultation, stable on current regimen. Will continue IV metoprolol (6) Atrial fibrillation with RVR: Code(s): I48.91 - Unspecified atrial fibrillation Status: Chronic Assessment and Plan: Heart rate 90-110 range. Continue to monitor telemetry, cont metoprolol IV. appreciate cardio consult (7) Chronic hyponatremia: Code(s): E87.1 - Hypo-osmolality and hyponatremia Status: Acute Assessment and Plan: na still 123 felt related to above. On TPN. Adjust TPN. (8) Obstructive sleep apnea: Code(s): G47.33 - Obstructive sleep apnea (adult) (pediatric) Status: Acute Assessment and Plan: She is refusing cpap. Continue to encourage cpap use (9) Hypotension: Code(s): I95.9 - Hypotension, unspecified Status: Acute Assessment and Plan: Likely 2/2 hepatorenal syndrome or effective intravascular volume loss due to 3rd spacing. BP drop to 78/44 last night but better now. Follow (10) ANNEL (acute kidney injury): Code(s): N17.9 - Acute kidney failure, unspecified Status: Acute Assessment and Plan: Creatinine now up to 1.8 probably related to diuretics. Normal Cr on 11/11/22. Bumex stopped. UOP 1250 yesterday. Folow off diuretics. (11) Splenic infarction: Code(s): D73.5 - Infarction of spleen Status: Acute Assessment and Plan: Noted by CT scan. Could explain her back pain. Follow for now. She is on heparin (12) Influenza A: Code(s): J10.1 - Influenza due to
--- NOTE | 2022-11-16 15:21 | PM.PNNEP ---
Progress Note: A&P Assessment and Plan (1) ANNEL (acute kidney injury): Code(s): N17.9 - Acute kidney failure, unspecified Status: Acute Assessment and Plan: normal baseline creatinine/kidney function suspect her other acute medical issues (bacteremia, infection, abdominal issues...etc) are likely explanation for her fluctuating creatinine aside from her hyponatremia, no critical electrolytes and with reasonable urine output recent imaging (CT of abdomen/pelvis) does mention cortical thinning of the kidneys arguing she may have some mild renal insufficiency holding ARB and bumex currently repeat urine electrolytes suggest prerenal azotemia trial of normal saline IVFs x 1 overnight follow trend of repeat labs and UOP? (2) Hyponatremia: Code(s): E87.1 - Hypo-osmolality and hyponatremia Status: Acute Assessment and Plan: present since late September 2022 relatively stable up until the the last several days suspect related to fluctuating fluid status, nutrition, TPN and possibly third spacing + ascites changed all carrier fluid for IV meds/IVPB/drips to normal saline unfortunately, unable to reduce free water intake in TPN or add normal saline/sodium chloride to TPN as this is pre-made heparin gtt carrier fluid cannot be changed either (currently D5W) already fluid restricted by NPO status urine electrolytes suggest prerenal azotemia may need to consider 3% saline (but I am hesitant to do so given her CHF history) if sodium keeps dropping follow repeat sodium levels (3) Azotemia: Code(s): R79.89 - Other specified abnormal findings of blood chemistry Status: Acute Assessment and Plan: likely due to high degree of inflammation in association with catabolic state and use of TPN follow trend of BUN for now (4) Bacteremia: Code(s): R78.81 - Bacteremia Status: Acute Assessment and Plan: as noted by positive blood cultures - Bacteroides and Clostridium on broad spectrum of antibiotics follow repeat blood cultures (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 Status: Acute Assessment and Plan: as noted by recent CT scan findings on heparin gtt Surgery recommendations noted noted possible transfer to a higher level of care for possible intervention (6) CHF (congestive heart failure): Qualifiers: Heart failure chronicity: acute on chronic Heart failure type: unspecified Qualified Code(s): I50.9 - Heart failure, unspecified Code(s): I50.9 - Heart failure, unspecified Status: Acute Assessment and Plan: Cardiology following holding diuretics due to #1 clinically better (7) Influenza A: Code(s): J10.1 - Influenza due to other identified influenza virus with other respiratory manifestations Status: Acute Assessment and Plan: completed course of Tamiflu continue supportive therapy Will continue to follow. Subjective Date/time seen: 11/16/22 15:21 No apparent distress voiced at the time of my visit; reports some back pain but tolerable; sodium slightly better by AM labs; remains on heparin gtt as well as TPN; still awaiting hospital transfer; issues with hypotension overnight requiring saline fluid bolus. Exam Narrative: General: ill appearing female in NAD Heart: tachycardic, normal S1 and S2; no rub Lungs: coarse breath sounds; decreased at bases Abdomen: soft, nontender, nondistended, positive bowel sounds Extremities: no cyanosis or clubbing; no edema Skin: warm and dry Objective Data Vital Signs Vital Signs: Vital Signs Temp Pulse Resp BP Pulse Ox O2 Del Method O2 Flow Rate 11/16/22 14:14 104 H 20 11/16/22 14:05 104 H 20 11/16/22 12:00 Room Air 11/16/22 12:15 112 H 11/16/22 12:00 97.6 F 94 24 H 136/80 100 11/16/22 08:00
--- NOTE | 2022-11-16 15:21 | P.PNNP_ITS ---
Progress Note: A&P Assessment and Plan (1) ANNEL (acute kidney injury): Code(s): N17.9 - Acute kidney failure, unspecified Status: Acute Assessment and Plan: * normal baseline creatinine/kidney function * suspect her other acute medical issues (bacteremia, infection, abdominal issues...etc) are likely explanation for her fluctuating creatinine * aside from her hyponatremia, no critical electrolytes and with reasonable urine output * recent imaging (CT of abdomen/pelvis) does mention cortical thinning of the kidneys arguing she may have some mild renal insufficiency * holding ARB and bumex currently * repeat urine electrolytes suggest prerenal azotemia * trial of normal saline IVFs x 1 overnight * follow trend of repeat labs and UOP? (2) Hyponatremia: Code(s): E87.1 - Hypo-osmolality and hyponatremia Status: Acute Assessment and Plan: * present since late September 2022 * relatively stable up until the the last several days * suspect related to fluctuating fluid status, nutrition, TPN and possibly third spacing + ascites * changed all carrier fluid for IV meds/IVPB/drips to normal saline * unfortunately, unable to reduce free water intake in TPN or add normal saline/sodium chloride to TPN as this is pre-made * heparin gtt carrier fluid cannot be changed either (currently D5W) * already fluid restricted by NPO status * urine electrolytes suggest prerenal azotemia * may need to consider 3% saline (but I am hesitant to do so given her CHF hi story) if sodium keeps dropping * follow repeat sodium levels (3) Azotemia: Code(s): R79.89 - Other specified abnormal findings of blood chemistry Status: Acute Assessment and Plan: * likely due to high degree of inflammation in association with catabolic state and use of TPN * follow trend of BUN for now (4) Bacteremia: Code(s): R78.81 - Bacteremia Status: Acute Assessment and Plan: * as noted by positive blood cultures - Bacteroides and Clostridium * on broad spectrum of antibiotics * follow repeat blood cultures (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 Status: Acute Assessment and Plan: * as noted by recent CT scan findings * on heparin gtt * Surgery recommendations noted * noted possible transfer to a higher level of care for possible intervention (6) CHF (congestive heart failure): Qualifiers: Heart failure chronicity: acute on chronic Heart failure type: unspecified Qualified Code(s): I50.9 - Heart failure, unspecified Code(s): I50.9 - Heart failure, unspecified Status: Acute Assessment and Plan: * Cardiology following * holding diuretics due to #1 * clinically better (7) Influenza A: Code(s): J10.1 - Influenza due to other identified influenza virus with other respiratory manifestations Status: Acute Assessment and Plan: * completed course of Tamiflu * continue supportive therapy Will continue to follow. Subjective Date/time seen: 11/16/22 15:21 No apparent distress voiced at the time of my visit; reports some back pain but tolerable; sodium slightly better by AM labs; remains on heparin gtt as well as TPN; still awaiting hospital transfer; issues with hypotension overnight requiring saline fluid bolus. Exam Narrative: General: ill appearing female in NAD Heart: tachycardic, normal S1 and S2; no rub Lungs: coarse breath
[2022-11-16 15:51] LABS: Partial Thromboplastin Time 45.8 SECONDS (22.3-36.8)
[2022-11-16] MEDS: FAT EMULSIONS IV 20% 250 ML 20.8 ML IVPB (16:10)
[2022-11-16] MEDS: AMINO ACIDS 4.25%/D5W/LYTES/CA 2,000 ML 80 ML IV CONT (16:10)
[2022-11-16] MEDS: HEPARIN SODIUM 5,000 UNITS/ML VIAL 5000 UNITS IV PUSH (16:26)
[2022-11-16 16:30] LABS: Glucose Point of Care 181 mg/dl (65-105)
[2022-11-16] MEDS: LORazepam INJ (*CRX) 2 MG/ML VIAL 0.5 MG IV PUSH (20:07)
[2022-11-16 20:27] LABS: Glucose Point of Care 197 mg/dl (65-105)
[2022-11-16] MEDS: HEPARIN SOD/D5W 100 UNITS/ML 25,000 UNITS/250 ML BAG 11 UNITS IV CONT (21:20)
[2022-11-16 23:09] LABS: Partial Thromboplastin Time > 200.0 SECONDS (22.3-36.8)
[2022-11-16] MEDS: SODIUM CHLORIDE 0.9% IV 500 ML 75 ML IV CONT (23:24)
[2022-11-17] VITALS (30 sets, daily range): BP systolic 98–149; BP diastolic 53–96; PULSE 87–118; RESP 18–22; TEMP 36–37.1; O2SAT 90–100
[2022-11-17] MEDS: METOPROLOL TARTRATE INJ 5 MG/5 ML VIAL IV PUSH ×6 (01:12→20:15)
[2022-11-17] MEDS: IPRATROPIUM BR 0.02% INH SOLN 0.5 MG/2.5 ML VIAL INHALATION ×3 (01:32→20:31)
[2022-11-17] MEDS: SODIUM CHLORIDE 0.9% IV 250 ML 30 ML IV CONT (03:18)
[2022-11-17] MEDS: metroNIDAZOLE 500 MG/ISO 100ML 500 MG/100 ML BAG 100 MG IVPB ×3 (06:45→17:28)
[2022-11-17] MEDS: CENTRAL LINE FLUSH 10 ML IV PUSH ×3 (06:58→21:13)
[2022-11-17 07:39] LABS: Hematocrit 27.9 % (37.0-47.0); Hemoglobin 9.1 g/dL (12.0-15.0); Immature Platelet Fraction Pct 15.9 % (0.9-11.2); Mean Corpuscular HGB Conc 32.6 g/dl (32-36); Mean Corpuscular Hemoglobin 29.7 pg (26-34); Mean Corpuscular Volume 91.2 fl (80-100); Mean Platelet Volume 13.4 fl (7.4-10.4); Platelet Count Result 130 k/mm3 (150-375); Red Blood Count 3.06 M/mm3 (4.2-5.4); Red Cell Distribution Width 19.2 % (11.5-14.5); White Blood Count 9.5 K/mm3 (4.5-10.0)
[2022-11-17 07:50] LABS: Alanine Aminotransferase 14 U/L (6-35); Albumin Level 2.6 g/dL (3.5-5.1); Alkaline Phosphatase 88 U/L (38-126); Anion Gap 7 mmol/L (8-16); Aspartate Amino Transferase 16 U/L (14-36); Bilirubin,Total 1.2 mg/dL (0.2-1.3); Blood Urea Nitrogen 101 mg/dL (7-17); Calcium 7.3 mg/dL (8.4-10.2); Carbon Dioxide 26 mmol/L (22-30); Chloride 87 mmol/L (98-107); Estimated CRCL calculation 20 ml/min; Estimated Glomerular Filt Rate 29; Glucose 149 mg/dL (65-110); Magnesium 2.3 mg/dL (1.6-2.3); Partial Thromboplastin Time 71.1 SECONDS (22.3-36.8); Phosphorus 6.2 mg/dL (2.5-4.5); Potassium 4.6 mmol/L (3.4-5.0); Sodium 120 mmol/L (137-145)
[2022-11-17 08:08] LABS: Anisocytosis 1+ (NORMAL); Band Neutrophils Percent 15 % (0-6); Hypochromasia 1+ (NORMAL); Lymphocytes Absolute Manual 0.09 K/mm3 (1.1-4.5); Monocytes Absolute Manual 0.19 K/mm3 (0.1-0.90); Monocytes Percent Manual 2 % (3-9); Neutrophils Absolute Manual 9.21 K/mm3 (1.7-7.2); Neutrophils Percent Manual 82 % (46-73); Schistocytes None Seen (NORMAL); Total Cells Counted 100
[2022-11-17 08:11] LABS: Glucose Point of Care 185 mg/dl (65-105)
[2022-11-17] MEDS: DORZOLAMIDE/TIMOLOL OPHTH SOL 10 ML BOTTLE 1 DROP EACH EYE ×2 (09:45→20:15)
[2022-11-17] MEDS: PANTOPRAZOLE SODIUM IV 40 MG VIAL IV PUSH ×2 (09:45→20:15)
[2022-11-17 12:13] LABS: Glucose Point of Care 189 mg/dl (65-105)
--- NOTE | 2022-11-17 12:42 | P.PNNP_ITS ---
Progress Note: A&P Assessment and Plan (1) ANNEL (acute kidney injury): Code(s): N17.9 - Acute kidney failure, unspecified Status: Acute Assessment and Plan: * normal baseline creatinine/kidney function * suspect her other acute medical issues (bacteremia, infection, abdominal issues...etc) are likely explanation for her fluctuating creatinine * aside from her hyponatremia, no critical electrolytes and with reasonable urine output * recent imaging (CT of abdomen/pelvis) does mention cortical thinning of the kidneys arguing she may have some mild renal insufficiency * holding ARB and bumex currently * repeat urine electrolytes suggest prerenal azotemia * follow trend of repeat labs and UOP? (2) Hyponatremia: Code(s): E87.1 - Hypo-osmolality and hyponatremia Status: Acute Assessment and Plan: * present since late September 2022 * relatively stable up until the the last several days * suspect related to fluctuating fluid status, nutrition, TPN and possibly third spacing + ascites * changed all carrier fluid for IV meds/IVPB/drips to normal saline * unfortunately, unable to reduce free water intake in TPN or add normal saline/sodium chloride to TPN as this is pre-made * heparin gtt carrier fluid cannot be changed either (currently D5W) * already fluid restricted by NPO status * urine electrolytes suggest prerenal azotemia * given persistent dropping sodium - will give a short course of 3% saline * follow repeat sodium levels (3) Azotemia: Code(s): R79.89 - Other specified abnormal findings of blood chemistry Status: Acute Assessment and Plan: * likely due to high degree of inflammation in association with catabolic state and use of TPN * follow trend of BUN for now (4) Bacteremia: Code(s): R78.81 - Bacteremia Status: Acute Assessment and Plan: * as noted by positive blood cultures - Bacteroides and Clostridium * on broad spectrum of antibiotics * follow repeat blood cultures (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 Status: Acute Assessment and Plan: * as noted by recent CT scan findings * on heparin gtt * Surgery recommendations noted * noted possible transfer to a higher level of care for possible intervention (6) CHF (congestive heart failure): Qualifiers: Heart failure chronicity: acute on chronic Heart failure type: unspecified Qualified Code(s): I50.9 - Heart failure, unspecified Code(s): I50.9 - Heart failure, unspecified Status: Acute Assessment and Plan: * Cardiology following * holding diuretics due to #1 * clinically better (7) Influenza A: Code(s): J10.1 - Influenza due to other identified influenza virus with other respiratory manifestations Status: Acute Assessment and Plan: * completed course of Tamiflu * continue supportive therapy Will continue to follow. Subjective Date/time seen: 11/17/22 12:42 Still have issues with abdominal pain despite heparin gtt; noted peritoneal flu id/ascites culture growing Bacteroides (same organism as blood cultures); despite trial of normal saline IVFs, sodium level has worsened by AM labs. Exam Narrative: General: ill appearing female in NAD Heart: tachycardic, normal S1 and S2; no rub Lungs: coarse breath sounds; decreased at bases Abdomen: soft, TTP note, mild distension, positive bowel sounds Extremities: no cyanosis or
--- NOTE | 2022-11-17 12:42 | PM.PNNEP ---
Progress Note: A&P Assessment and Plan (1) ANNEL (acute kidney injury): Code(s): N17.9 - Acute kidney failure, unspecified Status: Acute Assessment and Plan: normal baseline creatinine/kidney function suspect her other acute medical issues (bacteremia, infection, abdominal issues...etc) are likely explanation for her fluctuating creatinine aside from her hyponatremia, no critical electrolytes and with reasonable urine output recent imaging (CT of abdomen/pelvis) does mention cortical thinning of the kidneys arguing she may have some mild renal insufficiency holding ARB and bumex currently repeat urine electrolytes suggest prerenal azotemia follow trend of repeat labs and UOP? (2) Hyponatremia: Code(s): E87.1 - Hypo-osmolality and hyponatremia Status: Acute Assessment and Plan: present since late September 2022 relatively stable up until the the last several days suspect related to fluctuating fluid status, nutrition, TPN and possibly third spacing + ascites changed all carrier fluid for IV meds/IVPB/drips to normal saline unfortunately, unable to reduce free water intake in TPN or add normal saline/sodium chloride to TPN as this is pre-made heparin gtt carrier fluid cannot be changed either (currently D5W) already fluid restricted by NPO status urine electrolytes suggest prerenal azotemia given persistent dropping sodium - will give a short course of 3% saline follow repeat sodium levels (3) Azotemia: Code(s): R79.89 - Other specified abnormal findings of blood chemistry Status: Acute Assessment and Plan: likely due to high degree of inflammation in association with catabolic state and use of TPN follow trend of BUN for now (4) Bacteremia: Code(s): R78.81 - Bacteremia Status: Acute Assessment and Plan: as noted by positive blood cultures - Bacteroides and Clostridium on broad spectrum of antibiotics follow repeat blood cultures (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 Status: Acute Assessment and Plan: as noted by recent CT scan findings on heparin gtt Surgery recommendations noted noted possible transfer to a higher level of care for possible intervention (6) CHF (congestive heart failure): Qualifiers: Heart failure chronicity: acute on chronic Heart failure type: unspecified Qualified Code(s): I50.9 - Heart failure, unspecified Code(s): I50.9 - Heart failure, unspecified Status: Acute Assessment and Plan: Cardiology following holding diuretics due to #1 clinically better (7) Influenza A: Code(s): J10.1 - Influenza due to other identified influenza virus with other respiratory manifestations Status: Acute Assessment and Plan: completed course of Tamiflu continue supportive therapy Will continue to follow. Subjective Date/time seen: 11/17/22 12:42 Still have issues with abdominal pain despite heparin gtt; noted peritoneal fluid/ascites culture growing Bacteroides (same organism as blood cultures); despite trial of normal saline IVFs, sodium level has worsened by AM labs. Exam Narrative: General: ill appearing female in NAD Heart: tachycardic, normal S1 and S2; no rub Lungs: coarse breath sounds; decreased at bases Abdomen: soft, TTP note, mild distension, positive bowel sounds Extremities: no cyanosis or clubbing; no edema Skin: warm and intact Objective Data Vital Signs Vital Signs: Vital Signs Temp Pulse Resp BP Pulse Ox O2 Del Method O2 Flow Rate 11/17/22 12:00 100 Nasal Cannula 2 11/17/22 11:36 97.7 F 100 20 116/70 100 11/17/22 08:00 109 H 100 Nasal Cannula 2 11/17/22 08:00 110 H 11/17/22 09:45 109 H 11/17/22 08:32 107 H 20 11/17/22 08:25 111 H 20 11/17/22 08:03 96.8 F L 106 H 22
--- NOTE | 2022-11-17 13:23 | PM.PNGS ---
Progress Note: A&P Assessment and Plan (1) RLQ abdominal pain: Code(s): R10.31 - Right lower quadrant pain Status: Acute Assessment and Plan: Patient continues to have abdominal pain and now is showing sigsn of possible intraabdominal infection on her recent CT. Paracentesis showing bacteroides on culture suggesting enteric source. She is 4 weeks out from right hemicolectomy at this point but I am concerned about possible anastomotic leak or perforation as the possible source. Will get Gastrografin SBFT today to assess for any leak. Continue NPO and TPN for now. Might also need to speak with interventional radiology about drain placement. 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 Anticoagulation has been difficult due to anemia. Trying to arrange transfer to facility with Vascular interventionalist. She remains a concern for mesenteric ischemia. 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 Previous CT's have shown normal anastomosis without evidence of free air or abscess but CT done on 11/12 showed ascites and peritoneal thickening. Paracentesis shows bacteroides growing. Exam GI: Inspection: distended GI Palp: Yes Tenderness to palpation present (GI) (RLQ), No Guarding due to palpation present (GI) and No Rebound tenderness present Objective Data Vital Signs Vital Signs: Vital Signs - 24 hr 11/16/22 14:05 11/16/22 14:14 11/16/22 16:26 Temperature Pulse Rate 104 H 104 H 110 H Respiratory Rate 20 20 Blood Pressure Pulse Oximetry Oxygen Delivery Oxygen Flow Rate 11/16/22 16:00 11/16/22 19:15 11/16/22 19:15 Temperature 36.1 C L Pulse Rate 105 H 115 H 115 H Respiratory Rate 22 H 22 H 22 H Blood Pressure 114/58 L Pulse Oximetry 98 97 Oxygen Delivery Nasal Cannula Oxygen Flow Rate 2 11/16/22 14:00 11/16/22 16:00 11/16/22 16:00 Temperature Pulse Rate 106 H 98 Respiratory Rate Blood Pressure Pulse Oximetry 97 Oxygen Delivery Nasal Cannula Oxygen Flow Rate 2 11/16/22 18:00 11/16/22 20:00 11/16/22 21:19 Temperature 37.1 C Pulse Rate 109 H 113 H 105 H Respiratory Rate 20 Blood Pressure 131/91 H Pulse Oximetry 100 Oxygen Delivery Oxygen Flow Rate 11/16/22 20:00 11/16/22 20:00 11/16/22 22:00 Temperature Pulse Rate 118 H 103 H Respiratory Rate Blood Pressure Pulse Oximetry 97 Oxygen Delivery Nasal Cannula Oxygen Flow Rate 2 11/16/22 23:23 11/17/22 01:12 11/17/22 01:32 Temperature 36.6 C Pulse Rate 110 H 110 H 96 Respiratory Rate 18 20 Blood Pressure 139/75 Pulse Oximetry 98 Oxygen Delivery Oxygen Flow Rate 11/17/22 01:49 11/17/22 01:48 11/17/22 02:04 Temperature 37.1 C 37.1 C Pulse Rate 106 H 109 H 111 H Respiratory Rate 20 20 18 Blood Pressure 140/57 L 126/68 Pulse Oximetry 100 100 Oxygen Delivery Oxygen Flow Rate 11/17/22 00:00 11/17/22 02:00 11/17/22 03:04 Temperature 36.8 C Pulse Rate 118 H 118 H 101 H Respiratory Rate 20 Blood Pressure 119/96 H Pulse Oximetry 100 100 Oxygen Delivery Nasal Cannula Oxygen Flow Rate 2 11/17/22 04:04 11/17/22 04:00 11/17/22 05:04 Temperature 36.6 C 36.6 C 36.7 C Pulse Rate 107 H 107 H 101 H Respiratory Rate 20 20 20 Blood Pressure 149/81 H 149/81 H 141/72 H Pulse Oximetry 100 100 100 Oxygen Delivery Oxygen Flow Rate 11/17/22 04:00 11/17/22 04:00 11/17/22 06:53 Temperature Pulse Rate 104 H 104 H 105
[2022-11-17 13:40] LABS: Partial Thromboplastin Time 50.6 SECONDS (22.3-36.8)
--- NOTE | 2022-11-17 14:10 | PCOTNOTE ---
Attempted to see Patient at this time. Patient out of the room for testing, Per RN having a bowel follow through.
[2022-11-17] MEDS: SODIUM CHLORIDE 3% 180 ML 60 ML IV CONT (17:20)
[2022-11-17] MEDS: HEPARIN SOD/D5W 100 UNITS/ML 25,000 UNITS/250 ML BAG 11 UNITS IV CONT ×2 (17:26→21:18)
--- NOTE | 2022-11-17 17:55 | PM.IMPN ---
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 Also noted splenic infarct, ascites, ileus, ileum and sigmoid wall thickening, cirrhosis. Started on heparin drip and broad spectrum antibiotics. General surgery following. NPO and NGT secured. On TPN for now. Plan for transfer for higher level of care. Cont current management. Awaiting bed at [facility]. (2) Peritonitis: Code(s): K65.9 - Peritonitis, unspecified Status: Acute Assessment and Plan: Patient was noted to have ascites. She underwent ultrasound-guided paracentesis removal of 100 mL of opaque yellow mcnair fluid. No cell count available. G stain showed mixed bacterial janet and culture growing Bacteroides species. Discussed with General surgery. Concern for possible micro perforation as the etiology of her peritonitis. She may also have translocation possibly from bowel ischemia related to the NELY thrombosis. Suspect peritonitis is the source of her bacteremia. Small-bowel follow through has been ordered. Will follow up on this result. Continue TPN. Continue IV antibiotics. (3) Bacteremia: Code(s): R78.81 - Bacteremia Status: Acute Assessment and Plan: BCx 11/10 growing clostridium species in anaerobic bottle and bacteroides fragilis in the other anaerobic bottle. Was on Zosyn but changed to Flagyl and Cefepime. BCx 11/13/22 NGTD. MRSA nasal swab negative. Discussed with ID who recommended Flagyl and Zosyn so abx adjusted again. Gypsum the source is from the peritonitis. Continue Zosyn. (4) ANNEL (acute kidney injury): Code(s): N17.9 - Acute kidney failure, unspecified Status: Acute Assessment and Plan: Creatinine better at 1.7 probably related to diuretics. Consider also ATN from the HoTN. Or from poor intravascular volume. Last contrast exposure 11/12. Normal Cr on 11/11/22. Bumex stopped. UOP 1150 yesterday. Follow off diuretics. (5) Anemia: Code(s): D64.9 - Anemia, unspecified Status: Acute Assessment and Plan: Hgb 6.7 yesterday morning. Hgb has been drifting down past few days. No evidence of acute blood loss. She is on Heparin. She received 1U PRBC. Hgb better and BP more stable. Continue to monitor. (6) COPD (chronic obstructive pulmonary disease): Qualifiers: COPD type: COPD with acute exacerbation Qualified Code(s): J44.1 - Chronic obstructive pulmonary disease with (acute) exacerbation Code(s): J44.9 - Chronic obstructive pulmonary disease, unspecified Status: Acute Assessment and Plan: Stable on 2L NC. Not on home o2 prior to this admission. Continue nebulizers. Probably can wean O2 . (7) CHF (congestive heart failure): Qualifiers: Heart failure chronicity: acute on chronic Heart failure type: unspecified Qualified Code(s): I50.9 - Heart failure, unspecified Code(s): I50.9 - Heart failure, unspecified Status: Acute Assessment and Plan: Appreciate cardiology consultation, stable on current regimen. Will continue IV metoprolol (8) Atrial fibrillation with RVR: Code(s): I48.91 - Unspecified atrial fibrillation Status: Chronic Assessment and Plan: Heart rate reasonable 90-110 range. Continue to monitor telemetry. Cont metoprolol IV. Appreciate cardiology input (9) Chronic hyponatremia: Code(s): E87.1 - Hypo-osmolality and hyponatremia Status: Acute Assessment and Plan: Na down to 120 felt related to fluid overload, third spacing and from TPN. Can not adjust TPN. Nephrology managing. (10) Hypotension: Code(s): I95.9 - Hypotension, unspecified Status: Acute
[2022-11-17] MEDS: HEPARIN SODIUM 5,000 UNITS/ML VIAL 5000 UNITS IV PUSH (18:06)
[2022-11-17 18:19] LABS: Glucose Point of Care 130 mg/dl (65-105)
[2022-11-17 20:53] LABS: Glucose Point of Care 139 mg/dl (65-105)
[2022-11-17] MEDS: LORazepam INJ (*CRX) 2 MG/ML VIAL 0.5 MG IV PUSH (21:41)
[2022-11-18] VITALS (27 sets, daily range): BP systolic 105–169; BP diastolic 44–82; PULSE 83–107; RESP 16–24; TEMP 36.3–36.6; O2SAT 91–100
[2022-11-18] MEDS: metroNIDAZOLE 500 MG/ISO 100ML 500 MG/100 ML BAG 100 MG IVPB ×5 (00:45→23:38)
[2022-11-18 00:46] LABS: Sodium 125 mmol/L (137-145)
[2022-11-18 01:06] LABS: Albumin Peritoneal Fluid 0.5 g/dL
[2022-11-18] MEDS: AMINO ACIDS 4.25%/D5W/LYTES/CA 2,000 ML 80 ML IV CONT ×2 (01:34→17:00)
[2022-11-18] MEDS: FAT EMULSIONS IV 20% 250 ML 20.8 ML IVPB ×2 (01:35→17:00)
[2022-11-18] MEDS: METOPROLOL TARTRATE INJ 5 MG/5 ML VIAL IV PUSH ×6 (01:47→21:27)
--- NOTE | 2022-11-18 02:12 | PC.NURSE ---
Sodium level came back at 125. Called Dr. Jara as instructed. No new order provided
[2022-11-18] MEDS: IPRATROPIUM BR 0.02% INH SOLN 0.5 MG/2.5 ML VIAL INHALATION ×4 (02:31→20:42)
[2022-11-18] MEDS: CENTRAL LINE FLUSH 10 ML IV PUSH ×3 (05:21→21:33)
[2022-11-18 06:15] LABS: Basophils Absolute Auto 0.1 K/mm3 (0.0-0.1); Basophils Percent Auto 0.5 % (0.2-1.2); Eosinophils Absolute Auto 0.1 K/mm3 (0-0.3); Eosinophils Percent Auto 1.2 % (0-4.4); Hematocrit 26.5 % (37.0-47.0); Hemoglobin 8.4 g/dL (12.0-15.0); Immature Granulocyte Absolute 0.16 K/mm3 (0.00-0.031); Immature Granulocyte Percent A 1.5 % (0-0.5); Immature Platelet Fraction Pct 13.3 % (0.9-11.2); Lymphocytes Absolute Auto 0.48 K/mm3 (0.9-3.2); Lymphocytes Percent Auto 4.4 % (18.3-44.2); Mean Corpuscular HGB Conc 31.7 g/dl (32-36); Mean Corpuscular Hemoglobin 29.5 pg (26-34); Monocytes Absolute Auto 0.3 K/mm3 (0.1-0.6); Neutrophils Absolute Auto 9.8 K/mm3 (1.3-6.7); Neutrophils Percent Auto 89.4 % (45.5-73.1); Platelet Count Result 136 k/mm3 (150-375); Red Blood Count 2.85 M/mm3 (4.2-5.4)
[2022-11-18 06:26] LABS: Alanine Aminotransferase 13 U/L (6-35); Albumin Level 2.4 g/dL (3.5-5.1); Alkaline Phosphatase 79 U/L (38-126); Anion Gap 9 mmol/L (8-16); Aspartate Amino Transferase 17 U/L (14-36); Bilirubin,Total 0.8 mg/dL (0.2-1.3); Blood Urea Nitrogen 91 mg/dL (7-17); Calcium 7.1 mg/dL (8.4-10.2); Carbon Dioxide 21 mmol/L (22-30); Chloride 91 mmol/L (98-107); Estimated CRCL calculation 21 ml/min; Estimated Glomerular Filt Rate 31; Glucose 327 mg/dL (65-110); Magnesium 2.2 mg/dL (1.6-2.3); Potassium 3.9 mmol/L (3.4-5.0); Sodium 121 mmol/L (137-145)
[2022-11-18 06:48] LABS: Glucose Point of Care 168 mg/dl (65-105)
[2022-11-18] MEDS: DORZOLAMIDE/TIMOLOL OPHTH SOL 10 ML BOTTLE 1 DROP EACH EYE ×2 (08:48→21:25)
[2022-11-18] MEDS: PANTOPRAZOLE SODIUM IV 40 MG VIAL IV PUSH ×2 (08:48→21:32)
[2022-11-18 08:58] LABS: Glucose Point of Care 203 mg/dl (65-105)
[2022-11-18 10:30] LABS: Partial Thromboplastin Time > 200.0 SECONDS (22.3-36.8)
[2022-11-18 12:31] LABS: Glucose Point of Care 233 mg/dl (65-105)
--- NOTE | 2022-11-18 12:32 | PM.IMPN ---
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 Also noted splenic infarct, ascites, ileus, ileum and sigmoid wall thickening, cirrhosis. Started on heparin drip and broad spectrum antibiotics. General surgery following. NPO and NGT secured. On TPN for now. Plan for transfer for higher level of care. Continue current management. Awaiting bed at [facility]. (2) Peritonitis: Code(s): K65.9 - Peritonitis, unspecified Status: Acute Assessment and Plan: Patient was noted to have ascites. She underwent ultrasound-guided paracentesis 11/15/22 with removal of 100 mL of opaque yellow mcnair fluid. No cell count available. Gram stain showed mixed bacterial janet and culture polymicrobial. Concern for possible micro perforation as the etiology of her peritonitis. She may also have translocation possibly from bowel ischemia related to the NELY thrombosis. Suspect peritonitis is the source of her bacteremia. Small-bowel follow through showing mildly distended SB distally with delayed transition but no obstruction or extravasation. Continue TPN. Continue IV antibiotics. (3) Bacteremia: Code(s): R78.81 - Bacteremia Status: Acute Assessment and Plan: BCx 11/10 growing clostridium species in anaerobic bottle and bacteroides fragilis in the other anaerobic bottle. Was on Zosyn but changed to Flagyl and Cefepime. BCx 11/13/22 NGTD. MRSA nasal swab negative. Discussed with ID who recommended Flagyl and Zosyn so abx adjusted again. [place] the source is from the peritonitis with paracentesis culture noted above. Continue Zosyn. (4) ANNEL (acute kidney injury): Code(s): N17.9 - Acute kidney failure, unspecified Status: Acute Assessment and Plan: Creatinine better at 1.6. Mild ANNEL probably related to diuretics. Consider also ATN from the [facility]. Or from poor intravascular volume. Last contrast exposure 11/12. Normal Cr on 11/11/22. Bumex stopped. Continue to have excellent UOP - post-ATN diuresis?. Follow off diuretics. (5) Anemia: Code(s): D64.9 - Anemia, unspecified Status: Acute Assessment and Plan: Hgb 6.7 on 11/16/22. Hgb was drifting down past few days. No evidence of acute blood loss. She is on Heparin. She received 1U PRBC on 11/16/22. Hgb down to 8.4 today. Continue to monitor. (6) COPD (chronic obstructive pulmonary disease): Qualifiers: COPD type: COPD with acute exacerbation Qualified Code(s): J44.1 - Chronic obstructive pulmonary disease with (acute) exacerbation Code(s): J44.9 - Chronic obstructive pulmonary disease, unspecified Status: Acute Assessment and Plan: Stable on 2L NC. Not on home O2 prior to this admission. Continue nebulizers. Wean O2 . (7) CHF (congestive heart failure): Qualifiers: Heart failure chronicity: acute on chronic Heart failure type: unspecified Qualified Code(s): I50.9 - Heart failure, unspecified Code(s): I50.9 - Heart failure, unspecified Status: Acute Assessment and Plan: Appreciate cardiology consultation, stable on current regimen. Will continue IV metoprolol (8) Atrial fibrillation with RVR: Code(s): I48.91 - Unspecified atrial fibrillation Status: Chronic Assessment and Plan: Heart rate reasonable 90-110 range. Continue to monitor telemetry. Cont metoprolol IV. Appreciate cardiology input (9) Chronic hyponatremia: Code(s): E87.1 - Hypo-osmolality and hyponatremia Status: Acute Assessment and Plan: Na was down to 120 felt related to fluid overload, third spacing and from TPN. Nephrology managing. Na about the same (10) Hypotensio
--- NOTE | 2022-11-18 12:44 | PM.PNNEP ---
Progress Note: A&P Assessment and Plan (1) ANNEL (acute kidney injury): Code(s): N17.9 - Acute kidney failure, unspecified Status: Acute Assessment and Plan: normal baseline creatinine/kidney function suspect her other acute medical issues (bacteremia, infection, abdominal issues...etc) are likely explanation for her fluctuating creatinine aside from her hyponatremia, no critical electrolytes and with reasonable urine output recent imaging (CT of abdomen/pelvis) does mention cortical thinning of the kidneys arguing she may have some mild renal insufficiency holding ARB and bumex currently repeat urine electrolytes suggest prerenal azotemia follow trend of repeat labs and UOP? (2) Hyponatremia: Code(s): E87.1 - Hypo-osmolality and hyponatremia Status: Acute Assessment and Plan: present since late September 2022 relatively stable up until the the last several days suspect related to fluctuating fluid status, nutrition, TPN and possibly third spacing + ascites changed all carrier fluid for IV meds/IVPB/drips to normal saline unfortunately, unable to reduce free water intake in TPN or add normal saline/sodium chloride to TPN as this is pre-made heparin gtt carrier fluid cannot be changed either (currently D5W) already fluid restricted by NPO status urine electrolytes suggest prerenal azotemia better urine output noted -- perhaps this will help stabilize if not improve sodium follow repeat sodium levels (3) Azotemia: Code(s): R79.89 - Other specified abnormal findings of blood chemistry Status: Acute Assessment and Plan: likely due to high degree of inflammation in association with catabolic state and use of TPN follow trend of BUN for now (4) Bacteremia: Code(s): R78.81 - Bacteremia Status: Acute Assessment and Plan: as noted by positive blood cultures - Bacteroides and Clostridium ascites fluid with Bacteroides as well on broad spectrum of antibiotics follow repeat blood cultures (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 Status: Acute Assessment and Plan: as noted by recent CT scan findings on heparin gtt Surgery recommendations noted noted possible transfer to a higher level of care for possible intervention (6) CHF (congestive heart failure): Qualifiers: Heart failure chronicity: acute on chronic Heart failure type: unspecified Qualified Code(s): I50.9 - Heart failure, unspecified Code(s): I50.9 - Heart failure, unspecified Status: Acute Assessment and Plan: Cardiology following holding diuretics due to #1 not opposed to PRN diuretic use if needed clinically better (7) Influenza A: Code(s): J10.1 - Influenza due to other identified influenza virus with other respiratory manifestations Status: Acute Assessment and Plan: completed course of Tamiflu continue supportive therapy Will continue to follow. Subjective Date/time seen: 11/18/22 12:44 Minimal improvement noted with use of 3% saline yesterday afternoon; no real significant change noted at this time; no apparent distress voiced; no other acute issues/events overnight or earlier this morning; no worsening in abdominal pain. Exam Narrative: General: ill appearing female in NAD Heart: tachycardic, normal S1 and S2; no rub Lungs: coarse breath sounds; decreased at bases Abdomen: soft, TTP note, mild distension, positive bowel sounds Extremities: no cyanosis or clubbing; no edema Skin: no rash Objective Data Vital Signs Vital Signs: Vital Signs Temp Pulse Resp BP Pulse Ox O2 Del Method O2 Flow Rate 11/18/22 12:00 97.7 F 95 24 H 140/78 94 11/18/22 12:00 97 11/18/22 12:00 Room Air 11/18/22 09:29 102 H 20 11/18/22 09:12 102 H 20 11/18/22 09:12 102 H 20
--- NOTE | 2022-11-18 12:44 | P.PNNP_ITS ---
Progress Note: A&P Assessment and Plan (1) ANNEL (acute kidney injury): Code(s): N17.9 - Acute kidney failure, unspecified Status: Acute Assessment and Plan: * normal baseline creatinine/kidney function * suspect her other acute medical issues (bacteremia, infection, abdominal issues...etc) are likely explanation for her fluctuating creatinine * aside from her hyponatremia, no critical electrolytes and with reasonable urine output * recent imaging (CT of abdomen/pelvis) does mention cortical thinning of the kidneys arguing she may have some mild renal insufficiency * holding ARB and bumex currently * repeat urine electrolytes suggest prerenal azotemia * follow trend of repeat labs and UOP? (2) Hyponatremia: Code(s): E87.1 - Hypo-osmolality and hyponatremia Status: Acute Assessment and Plan: * present since late September 2022 * relatively stable up until the the last several days * suspect related to fluctuating fluid status, nutrition, TPN and possibly third spacing + ascites * changed all carrier fluid for IV meds/IVPB/drips to normal saline * unfortunately, unable to reduce free water intake in TPN or add normal saline/sodium chloride to TPN as this is pre-made * heparin gtt carrier fluid cannot be changed either (currently D5W) * already fluid restricted by NPO status * urine electrolytes suggest prerenal azotemia * better urine output noted -- perhaps this will help stabilize if not improve sodium * follow repeat sodium levels (3) Azotemia: Code(s): R79.89 - Other specified abnormal findings of blood chemistry Status: Acute Assessment and Plan: * likely due to high degree of inflammation in association with catabolic state and use of TPN * follow trend of BUN for now (4) Bacteremia: Code(s): R78.81 - Bacteremia Status: Acute Assessment and Plan: * as noted by positive blood cultures - Bacteroides and Clostridium * ascites fluid with Bacteroides as well * on broad spectrum of antibiotics * follow repeat blood cultures (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 Status: Acute Assessment and Plan: * as noted by recent CT scan findings * on heparin gtt * Surgery recommendations noted * noted possible transfer to a higher level of care for possible intervention (6) CHF (congestive heart failure): Qualifiers: Heart failure chronicity: acute on chronic Heart failure type: unspecified Qualified Code(s): I50.9 - Heart failure, unspecified Code(s): I50.9 - Heart failure, unspecified Status: Acute Assessment and Plan: * Cardiology following * holding diuretics due to #1 * not opposed to PRN diuretic use if needed * clinically better (7) Influenza A: Code(s): J10.1 - Influenza due to other identified influenza virus with other respiratory manifestations Status: Acute Assessment and Plan: * completed course of Tamiflu * continue supportive therapy Will continue to follow. Subjective Date/time seen: 11/18/22 12:44 Minimal improvement noted with use of 3% saline yesterday afternoon; no real significant change noted at this time; no apparent distress voiced; no other acute issues/events overnight or earlier this morning; no worsening in abdominal pain. Exam Narrative: General: ill appearing female in NAD Heart: tachycardic, normal S1 and S2; no rub Lungs: coarse breath
[2022-11-18] MEDS: INSULIN ASPART (*BKC) 100 UNITS/ML SUB-Q (12:55)
--- NOTE | 2022-11-18 13:01 | PCNFU ---
Nutrition Follow-Up Complete: Inadequate oral intake related to continuous bipap, shortness of breath, loss of appetite as evidenced by need for full parenteral nutrition Goal:Meet estimated nutrition needs - Meeting goal via PPN Pt current nutrition is PPN at 80 ml/h. Pt does have PICC, she is to be transferred to [facility] as soon as bed is available. Provides 1153 kcals, 82 g protein, 2170 ml free water. Nutrition recommendation: Continue PPN or transition to TPN via PICC Last recorded weight is 60.8 kg. Bowel Motility: +4 BMs 11/18/21 Labs Reviewed: Hgb 8.4, Hct 26.5, Alb 2.4, Na 121, eGFR 31, BUN 91, Cr 1.6, Glu 130-233 Meds Noted: Zofran, protonix, lovenox, novolog Skin: Surgical to abdomen Additional Notes: Plan is to transfer patient to higher level of care. Sodium remains low Monitor labs, plan of care, tolerance, weights. Follow up Monday/Monday
[2022-11-18 14:15] LABS: Chloride Rand Ur <20 mmol/L (32-290); Creatinine Random Urine 35 mg/dL (20-275)
[2022-11-18 16:17] LABS: Glucose Point of Care 175 mg/dl (65-105)
[2022-11-18 17:48] LABS: Sodium 125 mmol/L (137-145)
[2022-11-18 17:52] LABS: Partial Thromboplastin Time 112.6 SECONDS (22.3-36.8)
[2022-11-18 21:01] LABS: Glucose Point of Care 190 mg/dl (65-105)
[2022-11-18] MEDS: LORazepam INJ (*CRX) 2 MG/ML VIAL 0.5 MG IV PUSH (21:34)
[2022-11-18 21:56] LABS: Glucose Peritoneal Fluid <10 mg/dL; Total Protein Peritoneal Fluid <3.0 g/dL
[2022-11-19] VITALS (26 sets, daily range): BP systolic 115–137; BP diastolic 55–67; PULSE 91–108; RESP 16–20; TEMP 36.3–36.8; O2SAT 92–100
[2022-11-19 00:02] LABS: Sodium 124 mmol/L (137-145)
[2022-11-19] MEDS: METOPROLOL TARTRATE INJ 5 MG/5 ML VIAL IV PUSH ×6 (01:26→21:26)
[2022-11-19] MEDS: CENTRAL LINE FLUSH 20 ML IV PUSH ×3 (01:33→06:22)
[2022-11-19] MEDS: HEPARIN SODIUM 5,000 UNITS/ML VIAL 2500 UNITS IV PUSH (03:31)
[2022-11-19] MEDS: HEPARIN SOD/D5W 100 UNITS/ML 25,000 UNITS/250 ML BAG 9 UNITS IV CONT (05:00)
[2022-11-19] MEDS: CENTRAL LINE FLUSH 10 ML IV PUSH ×3 (05:02→21:28)
[2022-11-19] MEDS: metroNIDAZOLE 500 MG/ISO 100ML 500 MG/100 ML BAG 100 MG IVPB ×4 (05:14→23:09)
[2022-11-19 06:41] LABS: Glucose Point of Care 168 mg/dl (65-105)
[2022-11-19 06:59] LABS: Alanine Aminotransferase 13 U/L (6-35); Albumin Level 2.3 g/dL (3.5-5.1); Alkaline Phosphatase 70 U/L (38-126); Anion Gap 6 mmol/L (8-16); Aspartate Amino Transferase 21 U/L (14-36); Bilirubin,Total 0.8 mg/dL (0.2-1.3); Blood Urea Nitrogen 102 mg/dL (7-17); Calcium 7.4 mg/dL (8.4-10.2); Carbon Dioxide 24 mmol/L (22-30); Chloride 97 mmol/L (98-107); Estimated CRCL calculation 21 ml/min; Estimated Glomerular Filt Rate 31; Glucose 150 mg/dL (65-110); Magnesium 2.4 mg/dL (1.6-2.3); Phosphorus 6.2 mg/dL (2.5-4.5); Sodium 127 mmol/L (137-145)
[2022-11-19 08:19] LABS: Glucose Point of Care 189 mg/dl (65-105)
[2022-11-19] MEDS: DORZOLAMIDE/TIMOLOL OPHTH SOL 10 ML BOTTLE 1 DROP EACH EYE ×2 (08:42→21:24)
[2022-11-19] MEDS: PANTOPRAZOLE SODIUM IV 40 MG VIAL IV PUSH ×2 (08:45→21:27)
[2022-11-19 10:22] LABS: Basophils Absolute Auto 0.1 K/mm3 (0.0-0.1); Basophils Percent Auto 0.4 % (0.2-1.2); Eosinophils Absolute Auto 0.2 K/mm3 (0-0.3); Eosinophils Percent Auto 1.2 % (0-4.4); Hematocrit 25.6 % (37.0-47.0); Hemoglobin 8.2 g/dL (12.0-15.0); Immature Granulocyte Percent A 2.1 % (0-0.5); Immature Platelet Fraction Pct 12.6 % (0.9-11.2); Lymphocytes Percent Auto 2.8 % (18.3-44.2); Mean Corpuscular Hemoglobin 29.7 pg (26-34); Mean Corpuscular Volume 92.8 fl (80-100); Mean Platelet Volume 13.6 fl (7.4-10.4); Monocytes Absolute Auto 0.4 K/mm3 (0.1-0.6); Monocytes Percent Auto 2.6 % (2.6-8.5); Neutrophils Percent Auto 90.9 % (45.5-73.1); Nucleated Red Blood Cells Perc 0.2 % (0.0-0.2); Platelet Count Result 122 k/mm3 (150-375); Red Blood Count 2.76 M/mm3 (4.2-5.4); Red Cell Distribution Width 19.1 % (11.5-14.5); White Blood Count 14.3 K/mm3 (4.5-10.0)
[2022-11-19 10:38] LABS: Partial Thromboplastin Time 150.4 SECONDS (22.3-36.8)
--- NOTE | 2022-11-19 11:49 | P.PNNP_ITS ---
Progress Note: A&P Assessment and Plan (1) ANNEL (acute kidney injury): Code(s): N17.9 - Acute kidney failure, unspecified Status: Acute Assessment and Plan: * normal baseline creatinine/kidney function * suspect her other acute medical issues (bacteremia, infection, abdominal issues...etc) are likely explanation for her fluctuating creatinine * aside from her hyponatremia, no critical electrolytes and with reasonable urine output * recent imaging (CT of abdomen/pelvis) does mention cortical thinning of the kidneys arguing she may have some mild renal insufficiency * holding ARB and bumex currently * repeat urine electrolytes suggest prerenal azotemia * follow trend of repeat labs and UOP? (2) Hyponatremia: Code(s): E87.1 - Hypo-osmolality and hyponatremia Status: Acute Assessment and Plan: * present since late September 2022 * relatively stable up until the the last several days * suspect related to fluctuating fluid status, nutrition, TPN and possibly third spacing + ascites * changed all carrier fluid for IV meds/IVPB/drips to normal saline * unfortunately, unable to reduce free water intake in TPN or add normal saline/sodium chloride to TPN as this is pre-made * heparin gtt carrier fluid cannot be changed either (currently D5W) * already fluid restricted by NPO status * urine electrolytes suggest prerenal azotemia * better urine output noted -- perhaps this is helping stabilize sodium * follow repeat sodium levels (3) Azotemia: Code(s): R79.89 - Other specified abnormal findings of blood chemistry Status: Acute Assessment and Plan: * likely due to high degree of inflammation in association with catabolic state and use of TPN * follow trend of BUN for now (4) Bacteremia: Code(s): R78.81 - Bacteremia Status: Acute Assessment and Plan: * as noted by positive blood cultures - Bacteroides and Clostridium * ascites fluid with Bacteroides along with Klebsiella, Citrobacter,, and Streptococcus * on broad spectrum of antibiotics * follow repeat blood cultures (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 Status: Acute Assessment and Plan: * as noted by recent CT scan findings * on heparin gtt * Surgery recommendations noted * noted possible transfer to a higher level of care for possible intervention (6) CHF (congestive heart failure): Qualifiers: Heart failure chronicity: acute on chronic Heart failure type: unspecified Qualified Code(s): I50.9 - Heart failure, unspecified Code(s): I50.9 - Heart failure, unspecified Status: Acute Assessment and Plan: * Cardiology following * holding diuretics due to #1 * not opposed to PRN diuretic use if needed * clinically better (7) Influenza A: Code(s): J10.1 - Influenza due to other identified influenza virus with other respiratory manifestations Status: Acute Assessment and Plan: * completed course of Tamiflu * continue supportive therapy Will continue to follow. Subjective Date/time seen: 11/19/22 11:49 States she has had some bowel movement in the last 24 hours; abdominal pain seems stable if not improved at this time; noted improvement in sodium level by recent labs with no specific intervention; continues to have good urine output even with diuretic therapy on hold. Exam Narrative: General: ill appearing female in NAD Heart:
--- NOTE | 2022-11-19 11:49 | PM.PNNEP ---
Progress Note: A&P Assessment and Plan (1) ANNEL (acute kidney injury): Code(s): N17.9 - Acute kidney failure, unspecified Status: Acute Assessment and Plan: normal baseline creatinine/kidney function suspect her other acute medical issues (bacteremia, infection, abdominal issues...etc) are likely explanation for her fluctuating creatinine aside from her hyponatremia, no critical electrolytes and with reasonable urine output recent imaging (CT of abdomen/pelvis) does mention cortical thinning of the kidneys arguing she may have some mild renal insufficiency holding ARB and bumex currently repeat urine electrolytes suggest prerenal azotemia follow trend of repeat labs and UOP? (2) Hyponatremia: Code(s): E87.1 - Hypo-osmolality and hyponatremia Status: Acute Assessment and Plan: present since late September 2022 relatively stable up until the the last several days suspect related to fluctuating fluid status, nutrition, TPN and possibly third spacing + ascites changed all carrier fluid for IV meds/IVPB/drips to normal saline unfortunately, unable to reduce free water intake in TPN or add normal saline/sodium chloride to TPN as this is pre-made heparin gtt carrier fluid cannot be changed either (currently D5W) already fluid restricted by NPO status urine electrolytes suggest prerenal azotemia better urine output noted -- perhaps this is helping stabilize sodium follow repeat sodium levels (3) Azotemia: Code(s): R79.89 - Other specified abnormal findings of blood chemistry Status: Acute Assessment and Plan: likely due to high degree of inflammation in association with catabolic state and use of TPN follow trend of BUN for now (4) Bacteremia: Code(s): R78.81 - Bacteremia Status: Acute Assessment and Plan: as noted by positive blood cultures - Bacteroides and Clostridium ascites fluid with Bacteroides along with Klebsiella, Citrobacter,, and Streptococcus on broad spectrum of antibiotics follow repeat blood cultures (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 Status: Acute Assessment and Plan: as noted by recent CT scan findings on heparin gtt Surgery recommendations noted noted possible transfer to a higher level of care for possible intervention (6) CHF (congestive heart failure): Qualifiers: Heart failure chronicity: acute on chronic Heart failure type: unspecified Qualified Code(s): I50.9 - Heart failure, unspecified Code(s): I50.9 - Heart failure, unspecified Status: Acute Assessment and Plan: Cardiology following holding diuretics due to #1 not opposed to PRN diuretic use if needed clinically better (7) Influenza A: Code(s): J10.1 - Influenza due to other identified influenza virus with other respiratory manifestations Status: Acute Assessment and Plan: completed course of Tamiflu continue supportive therapy Will continue to follow. Subjective Date/time seen: 11/19/22 11:49 States she has had some bowel movement in the last 24 hours; abdominal pain seems stable if not improved at this time; noted improvement in sodium level by recent labs with no specific intervention; continues to have good urine output even with diuretic therapy on hold. Exam Narrative: General: ill appearing female in NAD Heart: normal S1 and S2; no rub Lungs: coarse breath sounds; decreased at bases Abdomen: soft, TTP note, mild distension, positive bowel sounds Extremities: no cyanosis or clubbing; no edema Skin: no nodules Objective Data Vital Signs Vital Signs: Vital Signs Temp Pulse Resp BP Pulse Ox O2 Del Method O2 Flow Rate 11/19/22 10:00 95 11/19/22 08:00 100 11/19/22 12:00 98.2 F 108 H 20 134/66 100 11/19/22 08:00 100 Nasal Cannula
[2022-11-19 11:50] LABS: Glucose Point of Care 186 mg/dl (65-105)
--- NOTE | 2022-11-19 12:36 | PM.IMPN ---
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 Also noted splenic infarct, ascites, ileus, ileum and sigmoid wall thickening, cirrhosis. Started on heparin drip and broad spectrum antibiotics. General surgery following. NPO and NGT secured and clampred. On TPN for now. Plan for transfer for higher level of care. Continue current management. Awaiting bed at [facility]. (2) Peritonitis: Code(s): K65.9 - Peritonitis, unspecified Status: Acute Assessment and Plan: Patient was noted to have ascites. She underwent ultrasound-guided paracentesis 11/15/22 with removal of 100 mL of opaque yellow mcnair fluid. No cell count available. Gram stain showed mixed bacterial janet and culture showing polymicrobial. Concern for possible micro perforation as the etiology of her peritonitis. She may also have translocation possibly from bowel ischemia related to the NELY thrombosis. Suspect peritonitis is the source of her bacteremia. Small-bowel follow through 11/17/22 showing mildly distended SB distally with delayed transition but no obstruction or extravasation. [place] having the NGT clamped and having BMs. Continue TPN. Continue IV antibiotics. Clear liquids? (3) Bacteremia: Code(s): R78.81 - Bacteremia Status: Acute Assessment and Plan: BCx 11/10 growing clostridium species in anaerobic bottle and bacteroides fragilis in the other anaerobic bottle. Was on Zosyn but changed to Flagyl and Cefepime. BCx 11/13/22 NGTD. MRSA nasal swab negative. Discussed with ID who recommended Flagyl and Zosyn so abx adjusted again. [place] the source is from the peritonitis with paracentesis culture noted above. Continue Zosyn and Flagyl. (4) ANNEL (acute kidney injury): Code(s): N17.9 - Acute kidney failure, unspecified Status: Acute Assessment and Plan: Creatinine better at 1.6 and now stable. Mild ANNEL probably related to diuretics. Consider also ATN from the [facility]. Or from poor intravascular volume. Last contrast exposure 11/12. Normal Cr on 11/11/22. Bumex stopped. Continue to have excellent UOP - post-ATN diuresis?. Still edematous. Follow off diuretics but consuider resuming soon. (5) Anemia: Code(s): D64.9 - Anemia, unspecified Status: Acute Assessment and Plan: Hgb 6.7 on 11/16/22. Hgb was drifting down past few days. No evidence of acute blood loss. She is on Heparin. She received 1U PRBC on 11/16/22. Hgb down to 8.2 today. Continue to monitor. (6) COPD (chronic obstructive pulmonary disease): Qualifiers: COPD type: COPD with acute exacerbation Qualified Code(s): J44.1 - Chronic obstructive pulmonary disease with (acute) exacerbation Code(s): J44.9 - Chronic obstructive pulmonary disease, unspecified Status: Acute Assessment and Plan: Stable on 2L NC. Not on home O2 prior to this admission. Continue nebulizers. Wean O2 . (7) CHF (congestive heart failure): Qualifiers: Heart failure chronicity: acute on chronic Heart failure type: unspecified Qualified Code(s): I50.9 - Heart failure, unspecified Code(s): I50.9 - Heart failure, unspecified Status: Acute Assessment and Plan: Appreciate cardiology consultation, stable on current regimen. Will continue IV metoprolol (8) Atrial fibrillation with RVR: Code(s): I48.91 - Unspecified atrial fibrillation Status: Chronic Assessment and Plan: Heart rate reasonable 90-110 range. Continue to monitor telemetry. Cont metoprolol IV. Appreciate cardiology input (9) Chronic hyponatremia: Code(s): E87.1 - Hypo-osmolality and hyponatremia Status: Acute
--- NOTE | 2022-11-19 12:44 | PC.NURSE ---
Spoke with [facility] transfer center at 1244. Update on patient condition and vital signs reported. No bed available at this time.
[2022-11-19] MEDS: IPRATROPIUM BR 0.02% INH SOLN 0.5 MG/2.5 ML VIAL INHALATION ×2 (14:15→20:41)
[2022-11-19] MEDS: AMINO ACIDS 4.25%/D5W/LYTES/CA 2,000 ML 80 ML IV CONT (15:27)
[2022-11-19] MEDS: FAT EMULSIONS IV 20% 250 ML 20.8 ML IVPB (15:28)
[2022-11-19 17:42] LABS: Glucose Point of Care 216 mg/dl (65-105)
[2022-11-19] MEDS: INSULIN ASPART (*BKC) 100 UNITS/ML SUB-Q ×2 (18:23→21:25)
[2022-11-19 18:38] LABS: Sodium 122 mmol/L (137-145)
[2022-11-19 21:17] LABS: Glucose Point of Care 215 mg/dl (65-105)
[2022-11-19] MEDS: HEPARIN SODIUM 5,000 UNITS/ML VIAL 5000 UNITS IV PUSH (21:28)
[2022-11-20] VITALS (29 sets, daily range): BP systolic 105–161; BP diastolic 58–83; PULSE 20–108; RESP 14–31; TEMP 36.1–36.6; O2SAT 89–100
[2022-11-20] MEDS: METOPROLOL TARTRATE INJ 5 MG/5 ML VIAL IV PUSH ×6 (01:17→20:22)
[2022-11-20] MEDS: CENTRAL LINE FLUSH 20 ML IV PUSH ×2 (01:17→04:06)
[2022-11-20 01:39] LABS: Sodium 125 mmol/L (137-145)
[2022-11-20] MEDS: IPRATROPIUM BR 0.02% INH SOLN 0.5 MG/2.5 ML VIAL INHALATION ×3 (02:52→13:43)
[2022-11-20 04:50] LABS: Basophils Percent Auto 0.3 % (0.2-1.2); Eosinophils Absolute Auto 0.2 K/mm3 (0-0.3); Eosinophils Percent Auto 1.2 % (0-4.4); Hematocrit 26.2 % (37.0-47.0); Hemoglobin 8.2 g/dL (12.0-15.0); Immature Granulocyte Absolute 0.33 K/mm3 (0.00-0.031); Immature Granulocyte Percent A 2.4 % (0-0.5); Immature Platelet Fraction Pct 14.7 % (0.9-11.2); Lymphocytes Absolute Auto 0.46 K/mm3 (0.9-3.2); Lymphocytes Percent Auto 3.3 % (18.3-44.2); Mean Corpuscular HGB Conc 31.3 g/dl (32-36); Mean Corpuscular Hemoglobin 29.9 pg (26-34); Mean Corpuscular Volume 95.6 fl (80-100); Mean Platelet Volume 13.8 fl (7.4-10.4); Monocytes Absolute Auto 0.3 K/mm3 (0.1-0.6); Monocytes Percent Auto 2.4 % (2.6-8.5); Neutrophils Absolute Auto 12.5 K/mm3 (1.3-6.7); Neutrophils Percent Auto 90.4 % (45.5-73.1); Nucleated Red Blood Cells Absolute Auto 0.1 K/mm3 (0.0-0.012); Nucleated Red Blood Cells Perc 0.4 % (0.0-0.2); Platelet Count Result 107 k/mm3 (150-375); Red Blood Count 2.74 M/mm3 (4.2-5.4); Red Cell Distribution Width 18.9 % (11.5-14.5); White Blood Count 13.8 K/mm3 (4.5-10.0)
[2022-11-20 04:58] LABS: Partial Thromboplastin Time 97.6 SECONDS (22.3-36.8)
[2022-11-20 05:06] LABS: Alanine Aminotransferase 11 U/L (6-35); Albumin Level 2.4 g/dL (3.5-5.1); Alkaline Phosphatase 85 U/L (38-126); Anion Gap 5 mmol/L (8-16); Aspartate Amino Transferase 13 U/L (14-36); Bilirubin,Total 0.7 mg/dL (0.2-1.3); Blood Urea Nitrogen 101 mg/dL (7-17); Calcium 7.4 mg/dL (8.4-10.2); Carbon Dioxide 23 mmol/L (22-30); Chloride 94 mmol/L (98-107); Estimated CRCL calculation 20 ml/min; Estimated Glomerular Filt Rate 29; Glucose 150 mg/dL (65-110); Magnesium 2.5 mg/dL (1.6-2.3); Potassium 4.6 mmol/L (3.4-5.0); Sodium 122 mmol/L (137-145)
[2022-11-20] MEDS: CENTRAL LINE FLUSH 10 ML IV PUSH ×3 (06:12→20:27)
[2022-11-20 06:17] LABS: Glucose Point of Care 165 mg/dl (65-105)
[2022-11-20] MEDS: metroNIDAZOLE 500 MG/ISO 100ML 500 MG/100 ML BAG 100 MG IVPB ×3 (06:49→17:25)
[2022-11-20 07:49] LABS: Amylase Peritoneal Fluid 32 U/L
[2022-11-20 08:07] LABS: Glucose Point of Care 195 mg/dl (65-105)
--- NOTE | 2022-11-20 08:42 | PCOTNOTE ---
Attempted to see pt for Occupational therapy treatment. Pt observed to be very lethargic and coughing during attempt. Per RN, pt requires use of maxi move for bed transfer, total assist for bed mobility due to pt inability to participate in mobility and repeatedly stating I can't... . Therapist encouraged pt to complete ROM for BUE and BLE however, pt would only shake head and refused to complete ROM. Pt was encouraged on benefits of increase participation in therapy for independence with daily occupations. Will continue per poc duration/frequency tomorrow.
[2022-11-20] MEDS: DORZOLAMIDE/TIMOLOL OPHTH SOL 10 ML BOTTLE 1 DROP EACH EYE ×2 (09:22→20:20)
[2022-11-20] MEDS: PANTOPRAZOLE SODIUM IV 40 MG VIAL IV PUSH ×2 (09:22→20:24)
--- NOTE | 2022-11-20 09:29 | P.PNNP_ITS ---
Progress Note: A&P Assessment and Plan (1) ANNEL (acute kidney injury): Code(s): N17.9 - Acute kidney failure, unspecified Status: Acute Assessment and Plan: * normal baseline creatinine/kidney function * suspect her other acute medical issues (bacteremia, infection, abdominal issues...etc) are likely explanation for her fluctuating creatinine * aside from her hyponatremia, no critical electrolytes and with reasonable urine output * recent imaging (CT of abdomen/pelvis) does mention cortical thinning of the kidneys arguing she may have some mild renal insufficiency * holding ARB and bumex currently * would not be opposed to resuming IV bumex PRN given issues with swelling/edema * repeat urine electrolytes suggest prerenal azotemia * follow trend of repeat labs and UOP? (2) Hyponatremia: Code(s): E87.1 - Hypo-osmolality and hyponatremia Status: Acute Assessment and Plan: * present since late September 2022 * relatively stable up until the the last week (starting 11/14/22) * suspect related to fluctuating fluid status, nutrition, TPN and possibly third spacing + ascites * changed all carrier fluid for IV meds/IVPB/drips to normal saline * unfortunately, unable to reduce free water intake in TPN or add normal saline/sodium chloride to TPN as this is pre-made * heparin gtt carrier fluid cannot be changed either (currently D5W) * already fluid restricted by NPO status * urine electrolytes suggest prerenal azotemia * stable urine output noted * follow repeat sodium levels (3) Azotemia: Code(s): R79.89 - Other specified abnormal findings of blood chemistry Status: Acute Assessment and Plan: * likely due to high degree of inflammation in association with catabolic state and use of TPN * follow trend of BUN for now (4) Bacteremia: Code(s): R78.81 - Bacteremia Status: Acute Assessment and Plan: * as noted by positive blood cultures - Bacteroides and Clostridium * ascites fluid with Bacteroides along with Klebsiella, Citrobacter,, and Streptococcus * on broad spectrum of antibiotics * follow repeat blood cultures (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 Status: Acute Assessment and Plan: * as noted by recent CT scan findings * on heparin gtt * Surgery recommendations noted * noted possible transfer to a higher level of care for possible intervention (6) CHF (congestive heart failure): Qualifiers: Heart failure chronicity: acute on chronic Heart failure type: unspecified Qualified Code(s): I50.9 - Heart failure, unspecified Code(s): I50.9 - Heart failure, unspecified Status: Acute Assessment and Plan: * Cardiology following * holding diuretics due to #1 * not opposed to PRN diuretic use if needed * clinically better (7) Influenza A: Code(s): J10.1 - Influenza due to other identified influenza virus with other respiratory manifestations Status: Acute Assessment and Plan: * completed course of Tamiflu * continue supportive therapy Will continue to follow. Subjective Date/time seen: 11/20/22 09:29 Sodium remains relatively stable at this time as does renal function; having b owel movement but still with occasional nausea; still with abdominal pain (but overall better) more so localized to right quadrant; major complaint is that of fatigue and weakness. Exam Narrative: Genera
--- NOTE | 2022-11-20 09:29 | PM.PNNEP ---
Progress Note: A&P Assessment and Plan (1) ANNEL (acute kidney injury): Code(s): N17.9 - Acute kidney failure, unspecified Status: Acute Assessment and Plan: normal baseline creatinine/kidney function suspect her other acute medical issues (bacteremia, infection, abdominal issues...etc) are likely explanation for her fluctuating creatinine aside from her hyponatremia, no critical electrolytes and with reasonable urine output recent imaging (CT of abdomen/pelvis) does mention cortical thinning of the kidneys arguing she may have some mild renal insufficiency holding ARB and bumex currently would not be opposed to resuming IV bumex PRN given issues with swelling/edema repeat urine electrolytes suggest prerenal azotemia follow trend of repeat labs and UOP? (2) Hyponatremia: Code(s): E87.1 - Hypo-osmolality and hyponatremia Status: Acute Assessment and Plan: present since late September 2022 relatively stable up until the the last week (starting 11/14/22) suspect related to fluctuating fluid status, nutrition, TPN and possibly third spacing + ascites changed all carrier fluid for IV meds/IVPB/drips to normal saline unfortunately, unable to reduce free water intake in TPN or add normal saline/sodium chloride to TPN as this is pre-made heparin gtt carrier fluid cannot be changed either (currently D5W) already fluid restricted by NPO status urine electrolytes suggest prerenal azotemia stable urine output noted follow repeat sodium levels (3) Azotemia: Code(s): R79.89 - Other specified abnormal findings of blood chemistry Status: Acute Assessment and Plan: likely due to high degree of inflammation in association with catabolic state and use of TPN follow trend of BUN for now (4) Bacteremia: Code(s): R78.81 - Bacteremia Status: Acute Assessment and Plan: as noted by positive blood cultures - Bacteroides and Clostridium ascites fluid with Bacteroides along with Klebsiella, Citrobacter,, and Streptococcus on broad spectrum of antibiotics follow repeat blood cultures (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 Status: Acute Assessment and Plan: as noted by recent CT scan findings on heparin gtt Surgery recommendations noted noted possible transfer to a higher level of care for possible intervention (6) CHF (congestive heart failure): Qualifiers: Heart failure chronicity: acute on chronic Heart failure type: unspecified Qualified Code(s): I50.9 - Heart failure, unspecified Code(s): I50.9 - Heart failure, unspecified Status: Acute Assessment and Plan: Cardiology following holding diuretics due to #1 not opposed to PRN diuretic use if needed clinically better (7) Influenza A: Code(s): J10.1 - Influenza due to other identified influenza virus with other respiratory manifestations Status: Acute Assessment and Plan: completed course of Tamiflu continue supportive therapy Will continue to follow. Subjective Date/time seen: 11/20/22 09:29 Sodium remains relatively stable at this time as does renal function; having bowel movement but still with occasional nausea; still with abdominal pain (but overall better) more so localized to right quadrant; major complaint is that of fatigue and weakness. Exam Narrative: General: ill appearing female in NAD Heart: normal S1 and S2; no rub Lungs: coarse breath sounds; decreased at bases Abdomen: soft, TTP note, mild distension, positive bowel sounds Extremities: no cyanosis or clubbing; no edema Skin: warm and dry Objective Data Vital Signs Vital Signs: Vital Signs Temp Pulse Resp BP Pulse Ox O2 Del Method O2 Flow Rate 11/20/22 09:22 98 11/20/22 09:07 87 16 11/20/22 09:07 87 98 Nasal Cannula 2 11/20
[2022-11-20 11:04] LABS: Sodium 125 mmol/L (137-145)
[2022-11-20 11:17] LABS: Partial Thromboplastin Time 185.7 SECONDS (22.3-36.8)
[2022-11-20 11:20] LABS: Glucose Point of Care 196 mg/dl (65-105)
--- NOTE | 2022-11-20 11:51 | PC.NURSE ---
Spoke with [facility] transfer center at 1151. Update on patient status and last set of vitals. No bed available at this time.
--- NOTE | 2022-11-20 12:31 | PM.IMPN ---
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 Also noted splenic infarct, ascites, ileus, ileum and sigmoid wall thickening, cirrhosis. Started on heparin drip and broad spectrum antibiotics. General surgery following. NPO and NGT secured and clamped. On TPN for now. Plan for transfer for higher level of care. Continue current management. Continue TPN and NPO. Awaiting bed at [facility]. (2) Peritonitis: Code(s): K65.9 - Peritonitis, unspecified Status: Acute Assessment and Plan: Patient was noted to have ascites. She underwent ultrasound-guided paracentesis 11/15/22 with removal of 100 mL of opaque yellow mcnair fluid. No cell count available. Gram stain showed mixed bacterial janet and culture showing polymicrobial (bacteroides, klebsiella, citrobacter, strept) sensitive to Zosyn. Concern for possible micro perforation as the etiology of her peritonitis. She may also have translocation possibly from bowel ischemia related to the NELY thrombosis. Suspect peritonitis is the source of her bacteremia. Small-bowel follow through 11/17/22 showing mildly distended SB distally with delayed transition but no obstruction or extravasation. Tolerating having the NGT clamped and having BMs but still with considerable RUQ pain. Continue TPN. Continue IV antibiotics. Discussed with GenSurg. Repeat CT A/P. (3) Bacteremia: Code(s): R78.81 - Bacteremia Status: Acute Assessment and Plan: BCx 11/10 growing clostridium species in anaerobic bottle and bacteroides fragilis in the other anaerobic bottle. Was on Zosyn but changed to Flagyl and Cefepime. BCx 11/13/22 NGTD. MRSA nasal swab negative. Discussed with PharmD ID who recommended Flagyl and Zosyn so abx adjusted again. [place] the source of bacteremia is from the peritonitis with paracentesis culture noted above. Continue Zosyn and Flagyl. (4) ANNEL (acute kidney injury): Code(s): N17.9 - Acute kidney failure, unspecified Status: Acute Assessment and Plan: Creatinine better overall at 1.7 and now stable. BUN at 101 related to the TPN. Mild ANNEL probably related to diuretics. Consider also ATN from the HoTN. Or from poor intravascular volume. Last contrast exposure 11/12. Normal Cr on 11/11/22. Bumex stopped. Still edematous. Follow off diuretics but consider resuming. Or albumin. Add Doron jerez (5) Anemia: Code(s): D64.9 - Anemia, unspecified Status: Acute Assessment and Plan: Hgb 6.7 on 11/16/22. Hgb was drifting down past few days. No evidence of acute blood loss. She is on Heparin. She received 1U PRBC on 11/16/22. Hgb stable in the 8 range. Continue to monitor. (6) COPD (chronic obstructive pulmonary disease): Qualifiers: COPD type: COPD with acute exacerbation Qualified Code(s): J44.1 - Chronic obstructive pulmonary disease with (acute) exacerbation Code(s): J44.9 - Chronic obstructive pulmonary disease, unspecified Status: Acute Assessment and Plan: Stable on 2L NC. Not on home O2 prior to this admission. Continue nebulizers. Wean O2 as tolerated. (7) CHF (congestive heart failure): Qualifiers: Heart failure chronicity: acute on chronic Heart failure type: unspecified Qualified Code(s): I50.9 - Heart failure, unspecified Code(s): I50.9 - Heart failure, unspecified Status: Acute Assessment and Plan: Appreciate cardiology consultation, stable on current regimen. Will continue IV metoprolol (8) Atrial fibrillation with RVR: Code(s): I48.91 - Unspecified atrial fibrillation Status: Chronic Assessment and Plan: Heart rate controlled. Continue to bita
[2022-11-20] MEDS: HEPARIN SOD/D5W 100 UNITS/ML 25,000 UNITS/250 ML BAG 7 UNITS IV CONT (14:19)
[2022-11-20] MEDS: AMINO ACIDS 4.25%/D5W/LYTES/CA 2,000 ML 80 ML IV CONT (15:46)
[2022-11-20] MEDS: FAT EMULSIONS IV 20% 250 ML 20.8 ML IVPB (15:47)
--- NOTE | 2022-11-20 16:25 | PCOTNOTE ---
Another attempt was made to have pt participate in therapy session. Pt was unavailable due to being with nursing and sleeping intermittently. Will continue per POC duration/frequency tomorrow.
[2022-11-20 16:38] LABS: Glucose Point of Care 200 mg/dl (65-105)
[2022-11-20 18:50] LABS: Partial Thromboplastin Time 69.6 SECONDS (22.3-36.8)
[2022-11-20] MEDS: ONDANSETRON INJ 4 MG/2 ML VIAL IV PUSH (19:15)
[2022-11-20] MEDS: HEPARIN SODIUM 5,000 UNITS/ML VIAL 2500 UNITS IV PUSH (19:19)
[2022-11-20] MEDS: BUMETANIDE INJ 1 MG/4 ML VIAL IV PUSH (20:19)
[2022-11-20] MEDS: MORPHINE SULFATE (*CRX) 4 MG/ML INJ IV PUSH (20:30)
[2022-11-20 20:47] LABS: Glucose Point of Care 259 mg/dl (65-105)
[2022-11-20] MEDS: INSULIN ASPART (*BKC) 100 UNITS/ML SUB-Q (20:55)
[2022-11-20] MEDS: NALOXONE HCL 0.4 MG/ML VIAL IV PUSH ×2 (21:16→21:20)
[2022-11-20 21:32] LABS: Alveolar/Arterial O2 Gradient 568.5 mmHg; Base Excess ABG -7.2 mEq/l (+/-2.0); Carboxyhemoglobin 0.3 % THb (0-2.0); Fractional Inspired Oxygen 100 %; HCO3 ABG 21.4 mEq/l (22.0-26.0); Methemoglobin ABG 0.3 %THb (0-1.5); Oxygen Content ABG 13.4 %vol (16.0-22.0); Oxygen Saturation ABG 93.6 % (95.0-100.0); Oxyhemoglobin 92.8 % THb (90.0-100.0); PCO2 ABG 59.2 mmHg (35.0-45.0); PO2 ABG 85.3 mmHg (80.0-100.0); PO2 FiO2 Ratio Arterial Blood 0.85 %; Reduced Hemoglobin 6.6 %THb (0-5.0); Total Hemoglobin 10.2 g/dL (12.0-18.0)
[2022-11-20 21:34] LABS: Glucose Point of Care 271 mg/dl (65-105)
[2022-11-20 21:35] LABS: Modified Allen's Test Pass; Site Drawn LEFT RADIAL
[2022-11-20] MEDS: ETOMIDATE 20 MG/10 ML AMPUL IV PUSH (21:35)
[2022-11-20 21:36] LABS: Expiratory Pressure 5 cmH2O; Inspiratory Pressure 16 cmH2O
[2022-11-20] MEDS: ROCURONIUM BROMIDE 50 MG/5 ML VIAL 30 MG IV PUSH (21:36)
[2022-11-20 21:37] LABS: Device BIPAP
--- NOTE | 2022-11-20 22:10 | PC.NURSE ---
This patient, Delilah Wynne, was received from [ [id number]] on 11/20/22 at 2210. Patient/family oriented to unit policies and routines
[2022-11-20 22:12] LABS: Basophils Percent Auto 0.3 % (0.2-1.2); Eosinophils Absolute Auto 0.1 K/mm3 (0-0.3); Eosinophils Percent Auto 0.7 % (0-4.4); Hematocrit 24.9 % (37.0-47.0); Hemoglobin 7.8 g/dL (12.0-15.0); Immature Granulocyte Absolute 0.42 K/mm3 (0.00-0.031); Immature Granulocyte Percent A 3.4 % (0-0.5); Immature Platelet Fraction Pct 14.9 % (0.9-11.2); Lymphocytes Absolute Auto 0.51 K/mm3 (0.9-3.2); Lymphocytes Percent Auto 4.1 % (18.3-44.2); Mean Corpuscular HGB Conc 31.3 g/dl (32-36); Mean Corpuscular Volume 95.8 fl (80-100); Mean Platelet Volume 12.3 fl (7.4-10.4); Monocytes Absolute Auto 0.2 K/mm3 (0.1-0.6); Monocytes Percent Auto 1.9 % (2.6-8.5); Neutrophils Absolute Auto 11.1 K/mm3 (1.3-6.7); Neutrophils Percent Auto 89.6 % (45.5-73.1); Nucleated Red Blood Cells Absolute Auto 0.1 K/mm3 (0.0-0.012); Nucleated Red Blood Cells Perc 0.6 % (0.0-0.2); Platelet Count Result 70 k/mm3 (150-375); Red Cell Distribution Width 18.8 % (11.5-14.5); White Blood Count 12.4 K/mm3 (4.5-10.0)
[2022-11-20 22:15] LABS: Ammonia 10 umol/L (9-30)
[2022-11-20 22:17] LABS: Alanine Aminotransferase 12 U/L (6-35); Albumin Level 2.3 g/dL (3.5-5.1); Alkaline Phosphatase 89 U/L (38-126); Anion Gap 11 mmol/L (8-16); Aspartate Amino Transferase 14 U/L (14-36); Bilirubin,Total 0.7 mg/dL (0.2-1.3); Blood Urea Nitrogen 104 mg/dL (7-17); Calcium 7.2 mg/dL (8.4-10.2); Carbon Dioxide 18 mmol/L (22-30); Chloride 94 mmol/L (98-107); Estimated CRCL calculation 20 ml/min; Estimated Glomerular Filt Rate 29; Glucose 233 mg/dL (65-110); Magnesium 2.4 mg/dL (1.6-2.3); Phosphorus 8.3 mg/dL (2.5-4.5); Potassium 4.9 mmol/L (3.4-5.0); Sodium 123 mmol/L (137-145)
[2022-11-20 22:18] LABS: Lactic Acid Reflex 1.5 mmol/L (0.7-2.0)
[2022-11-20 22:19] LABS: INR 1.3; Prothrombin Time 15.7 Seconds (11.1-14.7)
[2022-11-20 22:28] LABS: Troponin I < 0.012 ng/mL (0.000-0.034)
[2022-11-20] MEDS: FENTANYL 2,500MCG/NS250ML(*CRX 2,500 MCG/250 ML BAG IV CONT (22:34)
[2022-11-20] MEDS: MIDAZOLAM 100MG/NS 100ML(*CRX) 100 MG/100 ML BAG IV CONT (22:35)
[2022-11-20 22:42] LABS: Partial Thromboplastin Time 169.6 SECONDS (22.3-36.8)
--- NOTE | 2022-11-20 23:16 | WPDPROCEDUR ---
Procedures Intubation Intubation Date: 11/20/22 Intubation Time: 21:35 Consent: Patient was obtained in unresponsive. Procedure performed emergently. Sedative: etomidate Mg given: 20 Paralytic: rocuronium Mg given: 30 Laryngoscope: fiber optic video scope ET tube size: 7.5 Tube secured depth (cm): 26 Tube secured location: lips Tube placement confirmation: visualized tube passing through cords, equal breath sounds bilaterally, no breath sounds over epigastrium and confirmation by capnometry Patient tolerated procedure: well Intubation complications: none Additional comments: Chest x-ray personally reviewed. ET tube was 1 cm from the rashi rashi and was pulled back 1-2 cm. Will repeat chest x-ray in a.m.. Daily chest x-rays were ordered.
[2022-11-20] MEDS: SODIUM BICARBONATE 8.4% 50 MEQ/50 ML SYRINGE IV PUSH (23:18)
--- NOTE | 2022-11-20 23:40 | PC.NURSE ---
Held heparin drip for ptt and head CT results per Dr Magana. Patient went down for CT scan via bed with RN and RT
--- NOTE | 2022-11-20 23:57 | PM.CCN ---
Critical Care Event Note Summary Code activated: No Narrative: 11/20/2022 at 21:14 A rapid response was called. I arrived patient's bedside shortly thereafter. The patient has multiple organism peritonitis and bacteremia. She has known colon cancer and had recent bowel resection. She has had multiple CTs during her hospital stay with her most recent noncontrast CT being today demonstrating bilateral pleural effusions left greater than right an underlying compressive atelectasis underlying pneumonia not excluded. Small volume ascites mild mesenteric ischemia cirrhosis of the liver and single locule of free gas in the nondependent aspect of the upper abdomen anteriorly likely related to recent paracentesis. Improved small-bowel dilatation may represent resolving ileus. The patient has had an NG for several days that was clamped. At shift change the patient began having nausea and vomiting. The patient's NG was placed back to low intermittent suction in the patient received Zofran. Just after shift change the patient started complaining of 10/10 abdominal pain. She did not have any IV Tylenol and nursing staff gave the patient 4 mg of morphine that was her p.r.n. dose. She also received her scheduled Ativan which she had been receiving nightly in was not a change in dose. She received her morphine 4 mg at 20:30 due to severe abdominal pain. When respiratory therapy arrived in the patient's room shortly after 21:00 the they found the patient Guppy breathing. The patient's was not arousable to stimuli and was hypoxic with oxygen saturations of 70%. The patient was placed on a non-rebreather and a rapid response was called. When I arrived at the bedside the patient was on 15 L non-rebreather and was satting 98%. The patient had agonal respirations. The patient also had noted crackles bilaterally. Narcan was given 0.4 mg x 2. The patient became slightly more arousable but was not following commands or opening her eyes. She would respond to painful stimuli but could not quite localized to the stimuli. Between doses a Narcan the patient was placed on BiPAP. On BiPAP the patient was pulling variable tidal volumes with poor respiratory effort. The patient did not seem to be protecting her airway. After the 2nd dose of Narcan patient was slightly more arousable for a couple of minutes and was pulling better tidal volumes of over is a crying significance 4 with 20/5 in 50% FiO2. Stat ABG was performed which demonstrated was likely a decompensated metabolic acidosis. With slight increase in pCO2 from prior. PH was 7.1. She had marked anasarca. Decision was made to intubate the patient. I did look at the patient's airway prior to sedation the patient did have a gag reflex. The patient received 20 of etomidate and 30 of rocuronium and was intubated. The patient maintain oxygen saturations throughout intubation procedure. NG remained in place. Patient has equal breath sounds post intubation with crackles bilaterally. Post intubation chest x-ray demonstrated improved pulmonary edema compared to her x-ray on November 03. Small pleural effusions were also noted. ET tube was 1 severe from the rashi. The patient's ET tube was pulled back. The patient was backing well with change in ET tube position. The patient was transferred to the ICU in the game trapper was consulted. The patient was placed on a ventilator AC/CMV tidal volume 350 rate of 20 peep of 5 with 50% FiO2 with titrate for goal oxygen saturations of 92%. The patient was already on broad-spectrum antibiotic coverage with Zosyn and Flagyl given her bacteremia and peritonitis. Sedation was started with fentanyl and Versed. The patient's PTT was markedly elevated but she is on heparin drip due to SMA stenosis and occlusion. Given the sudden change in mental status S CT scan of the head without contrast was ordered. I reviewed the study and denies he any obvious evidence of bleed but stat read interpr
[2022-11-21] VITALS (33 sets, daily range): BP systolic 82–130; BP diastolic 49–81; PULSE 90–118; RESP 20–26; TEMP 36.3–37.2; O2SAT 99–100
--- NOTE | 2022-11-21 | ECHO_ITS ---
Patient Info Name: Delilah Wynne Age: 82 years : 1940 Gender: Female Ht: 64 in Wt: 165 lbs BSA: 1.86 m2 HR: 103 bpm BP: 103 / 56 mmHg Heart Rhythm: Atrial Fibrillation Technical Quality: Good Exam Date: 11/21/2022 1:18 PM Exam Location: [facility] Patient Status: Inpatient Admit Date: 10/27/2022 Staff Ordering Physician: Celso Braswell MD Dust Control Engineer: Ayla Bolivar RDCS Attending Provider: Amilcar Mast MD Exam Type: CA echo limited w contrast Study Info Indications - RULE OUT THROMBUS Limited two-dimensional transthoracic echocardiogram is performed with contrast. Contrast/Agitated Saline Contrast/Ag. Saline: Definity Amount: 3.00 ml Administered By: Ayla Bolivar RDCS Existing IV Access: Yes IV Access Condition: patent with no signs of infiltration Summary 1. Limited echocardiogram performed with definity contrast injection. 2. Normal left ventricular size and hyperdynamic systolic function. 3. Normal right ventricular size and systolic function. 4. Severe biatrial dilation. 5. Heavily calcified mitral valve annulus. 6. Trivial amount of MR. 7. No visualized thrombus in the left ventricle as contractility is hyperdynamic this would be highly unlikely. 8. Patient has significant atrial dilation and atrial fib/atrial thrombus certainly could be present but would not likely be seen on this transthoracic exam. Left Ventricle Left ventricular systolic function is hyperdynamic, estimated at >70%. There is mild concentric increased left ventricular wall thickness. Right Ventricle Right ventricular chamber dimension is normal. Left Atria Left atrial chamber dimension is moderately enlarged. Right Atria Right atrial chamber dimension is moderately enlarged. Aortic Valve The aortic valve is not well visualized. Pulmonic Valve The pulmonic valve is not well visualized. Mitral Valve The mitral valve has normal leaflets. There is trace mitral valve regurgitation. The mitral valve annulus is severely calcified. Tricuspid Valve The tricuspid valve leaflets are not well visualized. Pericardium/Pleural The pericardium appears normal. Aorta The aortic root size at the sinus of Valsalva is normal. Report Signatures
[2022-11-21] MEDS: metroNIDAZOLE 500 MG/ISO 100ML 500 MG/100 ML BAG 100 MG IVPB ×4 (00:45→18:10)
[2022-11-21] MEDS: INSULIN ASPART (*BKC) 100 UNITS/ML SUB-Q (00:46)
[2022-11-21 01:17] LABS: Glucose Point of Care 209 mg/dl (65-105)
[2022-11-21] MEDS: IPRATROPIUM BR 0.02% INH SOLN 0.5 MG/2.5 ML VIAL INHALATION ×4 (01:33→20:30)
[2022-11-21 02:47] LABS: Alveolar/Arterial O2 Gradient 68.9 mmHg; Base Excess ABG -3.8 mEq/l (+/-2.0); Carboxyhemoglobin 0.2 % THb (0-2.0); Fractional Inspired Oxygen 30 %; Methemoglobin ABG 0.5 %THb (0-1.5); Oxygen Content ABG 11.8 %vol (16.0-22.0); Oxygen Saturation ABG 95.1 % (95.0-100.0); Oxyhemoglobin 93.4 % THb (90.0-100.0); PCO2 ABG 50.6 mmHg (35.0-45.0); PO2 ABG 85.5 mmHg (80.0-100.0); PO2 FiO2 Ratio Arterial Blood 2.85 %; Reduced Hemoglobin 5.9 %THb (0-5.0); Total Hemoglobin 8.9 g/dL (12.0-18.0)
[2022-11-21 02:49] LABS: Device VENTILATOR; Modified Allen's Test Pass; Site Drawn RIGHT RADIAL; pH ABG 7.275 (7.350-7.450)
[2022-11-21 02:50] LABS: Arterial Blood Gas PEEP 5 cmH2O; Arterial Blood Gas Tidal Volume 350 ml; Arterial Blood Gas Vent Mode CMV; Arterial Blood Gas Ventilator rate 20 /MIN
[2022-11-21 05:45] LABS: Alveolar/Arterial O2 Gradient 61.4 mmHg; Base Excess ABG -3.5 mEq/l (+/-2.0); Carboxyhemoglobin 0.2 % THb (0-2.0); Device VENTILATOR; Fractional Inspired Oxygen 30 %; HCO3 ABG 21.9 mEq/l (22.0-26.0); Methemoglobin ABG 0.7 %THb (0-1.5); Modified Allen's Test Pass; Oxygen Content ABG 11.6 %vol (16.0-22.0); Oxygen Saturation ABG 97.5 % (95.0-100.0); Oxyhemoglobin 95.4 % THb (90.0-100.0); PCO2 ABG 41.3 mmHg (35.0-45.0); PO2 FiO2 Ratio Arterial Blood 3.47 %; Reduced Hemoglobin 3.7 %THb (0-5.0); Site Drawn LEFT RADIAL; Total Hemoglobin 8.5 g/dL (12.0-18.0); pH ABG 7.343 (7.350-7.450)
[2022-11-21 05:46] LABS: Arterial Blood Gas PEEP 5 cmH2O; Arterial Blood Gas Tidal Volume 350 ml; Arterial Blood Gas Vent Mode CMV; Arterial Blood Gas Ventilator rate 24 /MIN
[2022-11-21] MEDS: CENTRAL LINE FLUSH 10 ML IV PUSH ×3 (06:34→21:42)
[2022-11-21 06:55] LABS: Glucose Point of Care 165 mg/dl (65-105)
--- NOTE | 2022-11-21 08:02 | PCPTNOTE ---
Pt being discharged from PT due to currently being on a mechanical vent. Please re-order PT when pt becomes medically appropriate.
--- NOTE | 2022-11-21 08:10 | PCOTNOTE ---
Pt discharged from Ot due to being on mechanical vent. Please re-order when pt becomes medically appropriate.
[2022-11-21 08:19] LABS: Alanine Aminotransferase 12 U/L (6-35); Albumin Level 2.2 g/dL (3.5-5.1); Alkaline Phosphatase 80 U/L (38-126); Anion Gap 6 mmol/L (8-16); Aspartate Amino Transferase 15 U/L (14-36); Bilirubin,Total 0.6 mg/dL (0.2-1.3); Blood Urea Nitrogen 106 mg/dL (7-17); Calcium 7.3 mg/dL (8.4-10.2); Carbon Dioxide 22 mmol/L (22-30); Chloride 94 mmol/L (98-107); Estimated CRCL calculation 22 ml/min; Estimated Glomerular Filt Rate 27; Glucose 139 mg/dL (65-110); Magnesium 2.3 mg/dL (1.6-2.3); Partial Thromboplastin Time 41.4 SECONDS (22.3-36.8); Phosphorus 6.9 mg/dL (2.5-4.5); Potassium 4.4 mmol/L (3.4-5.0); Sodium 122 mmol/L (137-145)
[2022-11-21 08:23] LABS: Basophils Percent Auto 0.3 % (0.2-1.2); Eosinophils Absolute Auto 0.2 K/mm3 (0-0.3); Eosinophils Percent Auto 1.7 % (0-4.4); Hematocrit 23.5 % (37.0-47.0); Hemoglobin 7.3 g/dL (12.0-15.0); Immature Granulocyte Absolute 0.42 K/mm3 (0.00-0.031); Immature Granulocyte Percent A 3.6 % (0-0.5); Immature Platelet Fraction Pct 16.9 % (0.9-11.2); Lymphocytes Absolute Auto 0.71 K/mm3 (0.9-3.2); Lymphocytes Percent Auto 6.1 % (18.3-44.2); Mean Corpuscular HGB Conc 31.1 g/dl (32-36); Mean Corpuscular Hemoglobin 29.7 pg (26-34); Mean Corpuscular Volume 95.5 fl (80-100); Monocytes Absolute Auto 0.3 K/mm3 (0.1-0.6); Monocytes Percent Auto 2.9 % (2.6-8.5); Neutrophils Absolute Auto 9.9 K/mm3 (1.3-6.7); Neutrophils Percent Auto 85.4 % (45.5-73.1); Nucleated Red Blood Cells Absolute Auto 0.1 K/mm3 (0.0-0.012); Nucleated Red Blood Cells Perc 0.5 % (0.0-0.2); Platelet Count Result 48 k/mm3 (150-375); Red Blood Count 2.46 M/mm3 (4.2-5.4); Red Cell Distribution Width 18.4 % (11.5-14.5); White Blood Count 11.6 K/mm3 (4.5-10.0)
--- NOTE | 2022-11-21 08:59 | PM.IMPN ---
Progress Note: A&P Assessment and Plan (1) Acute respiratory failure: Code(s): J96.00 - Acute respiratory failure, unspecified whether with hypoxia or hypercapnia Status: Acute Assessment and Plan: Patient was tired appearing but still oriented on rounds. Lat night, she was nauseous with vomiting then developed abd pain at 10/10. She was given Morphine 4mg for the pain but a short time later, was noted to be unresponsive. Narcan given and BiPAP attempted but needed to be intubated on 11/20/22. Patient stabilized and admitted to ICU. Etiology probably related to the uremia, morphine and her untreated [id number]. Vent management per it support specialist. (2) Peritonitis: Code(s): K65.9 - Peritonitis, unspecified Status: Acute Assessment and Plan: Patient was noted to have ascites. -Ultrasound-guided paracentesis 11/15/22 with removal of 100 mL of opaque yellow mcnair fluid. No cell count available. -Pleural culture showing polymicrobial (bacteroides, klebsiella, citrobacter, strept) sensitive to Zosyn. -Concern for possible micro perforation as the etiology of her peritonitis. She may also have translocation possibly from bowel ischemia related to the NELY thrombosis. Suspect peritonitis is the source of her bacteremia. -SBFT 11/17/22 showing mildly distended SB distally with delayed transition but no obstruction or extravasation. -Now having BMs but still with considerable RUQ pain. -Repeat CT A/P 11/20 showing small volume ascites, cirrhosis, free air in the upper abd. 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 Also noted splenic infarct, ascites, ileus, ileum and sigmoid wall thickening, cirrhosis. Started on heparin drip and broad spectrum antibiotics. General surgery following. Plt count trending down. NPO and NGT secured. On TPN. Plan for transfer for higher level of care. Continue current management with TPN. Consider starting low rate TF. (4) Bacteremia: Code(s): R78.81 - Bacteremia Status: Acute Assessment and Plan: BCx 11/10 growing clostridium species in anaerobic bottle and bacteroides fragilis in the other anaerobic bottle. Was on Zosyn but changed to Flagyl and Cefepime. BCx 11/13/22 NGTD. MRSA nasal swab negative. Discussed with PharmD ID who recommended Flagyl and Zosyn so abx adjusted again. [place] the source of bacteremia is from the peritonitis with pleural culture noted above. WBC trending down. Continue Zosyn and Flagyl. (5) ANNEL (acute kidney injury): Code(s): N17.9 - Acute kidney failure, unspecified Status: Acute Assessment and Plan: Creatinine better overall at 1.7 and now stable. BUN at 101 related to the TPN or from poor circulating volume. Mild ANNEL probably related to diuretics. Consider also ATN from the HoTN. Or from poor intravascular volume. Last contrast exposure 11/12. Normal Cr on 11/11/22. Bumex stopped. Still edematous. Consider albumin. Continue Doron hose. Check urine Na (6) Anemia: Code(s): D64.9 - Anemia, unspecified Status: Acute Assessment and Plan: Hgb 6.7 on 11/16/22. Hgb was drifting down past few days. No evidence of acute blood loss. She is on Heparin. She received 1U PRBC on 11/16/22. Hgb stable in the 7-8 range. Continue to monitor. (7) CHF (congestive heart failure): Qualifiers: Heart failure chronicity: acute on chronic Heart failure type: unspecified Qualified Code(s): I50.9 - Heart failure, unspecified Code(s): I50.9 - Heart failure, unspecified Status: Acute Assessment and Plan: Appreciate cardiology consultation, stable on current regimen. IV metoprolol held (8) Atrial fibrillation with RV
--- NOTE | 2022-11-21 09:47 | PC.NURSE ---
11/20/221899- Pt C/O nausea and noted to vomited green/bile liquid. Pt's clamped NG placed to LIS yielding clear green bile and zofran given as ordered. 2021-Pt C/O 10/22 abdominal pain, abdomen tender to palpation. Pt is NPO except for ice chips, so 4 mg of morphine IV given as ordered. 2031-Pt C/O anxiety and is requesting her evening dose of PRN ativan. 2110-Respiratory therapy arrived to Pt's room and alerted staff that the Pt was unarousable and guppy breathing. The Pt would not arouse to noxious stimuli and was noted to be hypoxic with SPO2 in the 70's on RA. 2112-The Pt was then placed on a 15L non-rebreather with SPO2 increasing to 95-98% and a rapid response was called. Dr. Magana present at bedside and updated with Pt's condition. Narcan 0.4mg administered x2 as ordered with minimal improvement. Pt placed on BIPAP, but continued to have minimal arousability with agonal respirations. Pt intubated per Dr. Magana at bedside. Stat chest X-ray, ABG and labs obtained. Abnormal labs reported to Dr. Magana. 2204-This patient, Delilah Wynne, was transferred to ICU-5 on 11/20/2022 at 2205. Personal belongings sent with patient. Report given to ALEJANDRO Cruz. Appropriate documentation sent with patient. 2214-Pt's daughter, Becca called and updated with Pt's deteriorating condition and transfer to ICU-5.
[2022-11-21] MEDS: PANTOPRAZOLE SODIUM IV 40 MG VIAL IV PUSH ×2 (09:49→20:15)
[2022-11-21] MEDS: DORZOLAMIDE/TIMOLOL OPHTH SOL 10 ML BOTTLE 1 DROP EACH EYE ×2 (09:53→20:14)
[2022-11-21] MEDS: MINERAL OIL/WHITE PETROLATUM OINTMENT 1 APPLIC EACH EYE ×2 (09:57→20:14)
--- NOTE | 2022-11-21 10:08 | P.PNNP_ITS ---
Progress Note: A&P Assessment and Plan (1) ANNEL (acute kidney injury): Code(s): N17.9 - Acute kidney failure, unspecified Status: Acute Assessment and Plan: * normal baseline creatinine/kidney function * suspect her other acute medical issues (bacteremia, infection, abdominal issues...etc) are likely explanation for her fluctuating creatinine * aside from her hyponatremia, no critical electrolytes and with reasonable urine output * recent imaging (CT of abdomen/pelvis) does mention cortical thinning of the kidneys arguing she may have some mild renal insufficiency * agree with more aggressive IV diuresis at this time * repeat urine electrolytes suggest prerenal azotemia (despite evidence of volume overload) * follow trend of repeat labs and UOP? (2) Hyponatremia: Code(s): E87.1 - Hypo-osmolality and hyponatremia Status: Acute Assessment and Plan: * present since late September 2022 * relatively stable up until the the last week (starting 11/14/22) * suspect related to fluctuating fluid status, nutrition, TPN and possibly third spacing + ascites * changed all carrier fluid for IV meds/IVPB/drips to normal saline * unfortunately, unable to reduce free water intake in TPN or add normal saline/sodium chloride to TPN as this is pre-made -- seems reasonable to hold this for now (since now on ventilator) * heparin gtt carrier fluid cannot be changed either (currently D5W) * already fluid restricted by NPO status * urine electrolytes suggest prerenal azotemia * stable urine output noted -- agree with attempted diuresis * follow repeat sodium levels (3) Acute respiratory failure: Code(s): J96.00 - Acute respiratory failure, unspecified whether with hypoxia or hypercapnia Status: Acute Assessment and Plan: * on full ventilator support * precipitated by pain medications +/- volume overload * diuresis as tolerated * continue supportive therapy (4) Azotemia: Code(s): R79.89 - Other specified abnormal findings of blood chemistry Status: Acute Assessment and Plan: * likely due to high degree of inflammation in association with catabolic state and use of TPN * follow trend of BUN for now (5) Bacteremia: Code(s): R78.81 - Bacteremia Status: Acute Assessment and Plan: * as noted by positive blood cultures - Bacteroides and Clostridium * ascites fluid with Bacteroides along with Klebsiella, Citrobacter,, and Streptococcus * on broad spectrum of antibiotics * follow repeat blood cultures (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 Status: Acute Assessment and Plan: * as noted by recent CT scan findings * on heparin gtt * Surgery recommendations noted * noted possible transfer to a higher level of care for possible intervention (7) CHF (congestive heart failure): Qualifiers: Heart failure chronicity: acute on chronic Heart failure type: unspecified Qualified Code(s): I50.9 - Heart failure, unspecified Code(s): I50.9 - Heart failure, unspecified Status: Acute Assessment and Plan: * Cardiology following * most recent Echo noted * resume diuretic therapy * follow I/Os and daily weights (8) Influenza A: Code(s): J10.1 - Influenza due to other identified influenza virus with other respiratory manifestations Status: Acute Assessment and Plan: * completed course of Tamiflu * continue supportive therapy Extens
--- NOTE | 2022-11-21 10:08 | PM.PNNEP ---
Progress Note: A&P Assessment and Plan (1) ANNEL (acute kidney injury): Code(s): N17.9 - Acute kidney failure, unspecified Status: Acute Assessment and Plan: normal baseline creatinine/kidney function suspect her other acute medical issues (bacteremia, infection, abdominal issues...etc) are likely explanation for her fluctuating creatinine aside from her hyponatremia, no critical electrolytes and with reasonable urine output recent imaging (CT of abdomen/pelvis) does mention cortical thinning of the kidneys arguing she may have some mild renal insufficiency agree with more aggressive IV diuresis at this time repeat urine electrolytes suggest prerenal azotemia (despite evidence of volume overload) follow trend of repeat labs and UOP? (2) Hyponatremia: Code(s): E87.1 - Hypo-osmolality and hyponatremia Status: Acute Assessment and Plan: present since late September 2022 relatively stable up until the the last week (starting 11/14/22) suspect related to fluctuating fluid status, nutrition, TPN and possibly third spacing + ascites changed all carrier fluid for IV meds/IVPB/drips to normal saline unfortunately, unable to reduce free water intake in TPN or add normal saline/sodium chloride to TPN as this is pre-made -- seems reasonable to hold this for now (since now on ventilator) heparin gtt carrier fluid cannot be changed either (currently D5W) already fluid restricted by NPO status urine electrolytes suggest prerenal azotemia stable urine output noted -- agree with attempted diuresis follow repeat sodium levels (3) Acute respiratory failure: Code(s): J96.00 - Acute respiratory failure, unspecified whether with hypoxia or hypercapnia Status: Acute Assessment and Plan: on full ventilator support precipitated by pain medications +/- volume overload diuresis as tolerated continue supportive therapy (4) Azotemia: Code(s): R79.89 - Other specified abnormal findings of blood chemistry Status: Acute Assessment and Plan: likely due to high degree of inflammation in association with catabolic state and use of TPN follow trend of BUN for now (5) Bacteremia: Code(s): R78.81 - Bacteremia Status: Acute Assessment and Plan: as noted by positive blood cultures - Bacteroides and Clostridium ascites fluid with Bacteroides along with Klebsiella, Citrobacter,, and Streptococcus on broad spectrum of antibiotics follow repeat blood cultures (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 Status: Acute Assessment and Plan: as noted by recent CT scan findings on heparin gtt Surgery recommendations noted noted possible transfer to a higher level of care for possible intervention (7) CHF (congestive heart failure): Qualifiers: Heart failure chronicity: acute on chronic Heart failure type: unspecified Qualified Code(s): I50.9 - Heart failure, unspecified Code(s): I50.9 - Heart failure, unspecified Status: Acute Assessment and Plan: Cardiology following most recent Echo noted resume diuretic therapy follow I/Os and daily weights (8) Influenza A: Code(s): J10.1 - Influenza due to other identified influenza virus with other respiratory manifestations Status: Acute Assessment and Plan: completed course of Tamiflu continue supportive therapy Extensive discussion (> 20 minutes) with family member at bedside regarding her multitude of medical problems including CHF, respiratory failure, infection, renal failure...etc. Will continue to follow. Subjective Date/time seen: 11/21/22 10:08 Events noted overnight -- rapid response called due to being found unresponsive; intubated due as unable to protect airway and mentation did not improve with subsequent transfer to the ICU; remains intubated/sedat
--- NOTE | 2022-11-21 10:40 | PCNFU ---
Nutrition Follow-Up Complete: Inadequate oral intake related to continuous bipap, shortness of breath, loss of appetite as evidenced by need for full parenteral nutrition Goal: Meet estimated nutrition needs - Progressing toward goal Pt current nutrition is running PPN formula Clinmix E .06/04 via PICC line @ 80 ml/h. Nutrition recommendation: Switch to TPN Clinmix E 03/27 with lipids @ goal rate 60 ml/h for 1522 kcals and 72 g protein/day total volume 1690 ml/d. EER: 25 kcal/kg = 1895 kcals/day. 1.2 -1.4 g protein/kg = 90-105 g protein/day Last recorded weight is 75 kg. Bowel Motility: + 1 BM 1.9.22 Labs Reviewed: Hgb 7.8, Hct 24.9, Alb 2.2, Na 122, eGFR 27, BUN 106, Cre 1.8, BG 165-271 Meds Noted: Sedation off. No pressors. MAP 72. Novolog, lovenox Skin: Surgial to abdomen Additional Notes: Pt had to be intubated this morning. She has been on PPN since 11/02/22 secondary to peritonitis, ascites, cirrhosis, SBO. She would benefit from being changed to TPN formula to better meet nutrition needs and lower total volume. Monitor labs, plan of care, tolerance, weights. Follow up Monday/Monday. Daily in ICU wounds
--- NOTE | 2022-11-21 11:40 | WPDCNINT ---
Assessment and Plan Assessment and plan (1) Acute respiratory failure: Code(s): J96.00 - Acute respiratory failure, unspecified whether with hypoxia or hypercapnia Status: Acute Assessment and Plan: Acute multifactorial Respiratory failure secondary to encephalopathy, bilateral atelectasis, pleural effusion, obesity hypoventilation, pneumonia ABG and PCXR reviewed and will repeat in am. Low tidal volume ventilation strategy to prevent volutrauma Bronchodilators chest x-ray 1. Stable small left pleural effusion. 2. Mild atelectasis at left lung base. will give Lasix for volume overload as patient has significant volume overload (2) Sepsis: Code(s): A41.9 - Sepsis, unspecified organism Status: Acute Assessment and Plan: secondary to peritonitis and UTI peritoneal fluid grew Klebsiella pnemoniae Citrobacter werkmanii Streptococcus anginosus and Bacteroides urine culture grew Enterococcus check lactic acid level and procalcitonin level WBC 11.6 continue Zosyn and Flagyl (3) Peritonitis: Code(s): K65.9 - Peritonitis, unspecified Status: Acute Assessment and Plan: patient had abdominal pain and ascites on exam paracentesis done and patient grew multiple bugs in the fluid culture as above on empiric antibiotic a Gastrografin small-bowel follow-through was done to assess for any leak since patient had hemicolectomy and was negative for any leak (4) Anemia: Code(s): D64.9 - Anemia, unspecified Status: Acute Assessment and Plan: gradually trending down hemoglobin she received 1 unit of PRBC on 11/16. she is on anticoagulation continue PPI q.12 hours (5) STERLING (acute kidney injury): Code(s): N17.9 - Acute kidney failure, unspecified Status: Acute Assessment and Plan: patient developed [place] I during this hospitalization and crit creatinine has remained elevated with worsening uremia she has volume overload multifactorial acute kidney injury and patient is being followed by Nephrology at 25% albumin minimize third-spacing discontinue PPN to prevent volume overload will try IV diuretics with albumin may need dialysis if continues to worsen or does not improve (6) Encephalopathy: Code(s): G93.40 - Encephalopathy, unspecified Status: Acute Assessment and Plan: likely toxic metabolic encephalopathy. patient did receive some benzodiazepines and morphine for pain ABG reviewed head CT Moderate nonspecific cerebral white matter disease, which likely represents chronic small vessel ischemic disease. check ammonia hold sedatives at this time (7) Hyponatremia: Code(s): E87.1 - Hypo-osmolality and hyponatremia Status: Acute Assessment and Plan: hypervolemic hyponatremia hold PPN monitor sodium level diurese nephrology following (8) Ileus: Code(s): K56.7 - Ileus, unspecified Status: Acute Assessment and Plan: CT is done yesterday suggested improvement of ileus start trickle tube feeds (9) Cirrhosis: Code(s): K74.60 - Unspecified cirrhosis of liver Status: Acute Assessment and Plan: CT suggests liver architecture suggestive of cirrhosis low albumin level and coagulopathic but patient also on heparin infusion last ammonia level was normal will recheck (10) 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 patient has atrial fibrillation and could likely be the source of embolic phenomena currently patient is on in for anticoagulation but she has worsening thrombocytopenia and anemia. I will check echocardiogram evaluate for any cardiac thrombus as anti
[2022-11-21 11:53] LABS: Glucose Point of Care 137 mg/dl (65-105)
[2022-11-21 12:31] LABS: Creatinine Urine 23.9 mg/dL
[2022-11-21 12:32] LABS: Sodium Urine Random 10 meq/L
[2022-11-21] MEDS: PERFLUTREN LIPID MICROSPHERES 1.5 ML VIAL DILUTED TO 10 ML TOTAL VOLUME IV PUSH (13:35)
[2022-11-21 13:51] LABS: Ammonia < 9 umol/L (9-30); Lactic Acid Reflex 1.3 mmol/L (0.7-2.0)
[2022-11-21] MEDS: BUMETANIDE INJ 1 MG/4 ML VIAL 2 MG IV PUSH (13:58)
[2022-11-21 14:08] LABS: Fibrinogen 345 mg/dl (215-510)
[2022-11-21 14:10] LABS: Partial Thromboplastin Time 54.4 SECONDS (22.3-36.8)
[2022-11-21 14:11] LABS: D Dimer 2.77 ug/mL (<0.48)
[2022-11-21 14:29] LABS: Procalcitonin 4.2 ng/mL
--- NOTE | 2022-11-21 14:42 | PCSTNOTE ---
Patient treatment orders ended 11/20; rapid response, transfered to ICU. Orders discontinued at this time.
--- NOTE | 2022-11-21 15:34 | PC.NURSE ---
Please only call Power of Head Sampler Concepcion if consent is needed. All updates should go through daughter Becca Rivers. her Phone number is [phone]
[2022-11-21 18:31] LABS: Glucose Point of Care 157 mg/dl (65-105)
[2022-11-21 20:55] LABS: Partial Thromboplastin Time 71.9 SECONDS (22.3-36.8)
[2022-11-21] MEDS: NOREPINEPHRINE 8 MG/D5W 250 ML 8 MG/250 ML BAG 9.38 MG IV CONT (22:40)
[2022-11-21 22:47] LABS: Hematocrit 22.4 % (37.0-47.0); Hemoglobin 7.2 g/dL (12.0-15.0); Immature Platelet Fraction Pct 17.3 % (0.9-11.2); Mean Corpuscular HGB Conc 32.1 g/dl (32-36); Mean Corpuscular Hemoglobin 29.9 pg (26-34); Mean Corpuscular Volume 92.9 fl (80-100); Platelet Count Result 39 k/mm3 (150-375); Red Blood Count 2.41 M/mm3 (4.2-5.4); Red Cell Distribution Width 18.6 % (11.5-14.5)
[2022-11-22] VITALS (18 sets, daily range): BP systolic 93–117; BP diastolic 52–76; PULSE 92–119; RESP 15–25; TEMP 36.3–36.6; O2SAT 76–100
[2022-11-22 00:14] LABS: Glucose Point of Care 178 mg/dl (65-105)
[2022-11-22] MEDS: metroNIDAZOLE 500 MG/ISO 100ML 500 MG/100 ML BAG 100 MG IVPB ×2 (00:16→06:10)
[2022-11-22] MEDS: IPRATROPIUM BR 0.02% INH SOLN 0.5 MG/2.5 ML VIAL INHALATION ×2 (02:00→08:55)
[2022-11-22 05:47] LABS: Base Excess ABG -0.8 mEq/l (+/-2.0); Oxygen Saturation ABG 96.5 % (95.0-100.0); PCO2 ABG 34.1 mmHg (35.0-45.0); PO2 ABG 81.5 mmHg (80.0-100.0); Total Hemoglobin 8.4 g/dL (12.0-18.0); pH ABG 7.446 (7.350-7.450)
[2022-11-22 05:48] LABS: Alveolar/Arterial O2 Gradient 56.3 mmHg; Carboxyhemoglobin 0.3 % THb (0-2.0); Oxygen Content ABG 11.2 %vol (16.0-22.0); Oxyhemoglobin 93.8 % THb (90.0-100.0)
[2022-11-22 05:49] LABS: Device VENTILATOR; Fractional Inspired Oxygen 25 %; Methemoglobin ABG 0.4 %THb (0-1.5); Modified Allen's Test Pass; PO2 FiO2 Ratio Arterial Blood 3.26 %; Reduced Hemoglobin 5.5 %THb (0-5.0); Site Drawn LEFT RADIAL
[2022-11-22 05:50] LABS: Arterial Blood Gas PEEP 5 cmH2O; Arterial Blood Gas Tidal Volume 350 ml; Arterial Blood Gas Vent Mode CMV; Arterial Blood Gas Ventilator rate 24 /MIN
[2022-11-22] MEDS: CENTRAL LINE FLUSH 10 ML IV PUSH ×2 (06:10→11:07)
[2022-11-22 07:05] LABS: Basophils Percent Auto 0.3 % (0.2-1.2); Eosinophils Absolute Auto 0.2 K/mm3 (0-0.3); Eosinophils Percent Auto 1.3 % (0-4.4); Hematocrit 23.4 % (37.0-47.0); Hemoglobin 7.6 g/dL (12.0-15.0); Immature Granulocyte Absolute 0.28 K/mm3 (0.00-0.031); Immature Granulocyte Percent A 2.4 % (0-0.5); Immature Platelet Fraction Pct 17.4 % (0.9-11.2); Lymphocytes Absolute Auto 0.56 K/mm3 (0.9-3.2); Lymphocytes Percent Auto 4.8 % (18.3-44.2); Mean Corpuscular HGB Conc 32.5 g/dl (32-36); Mean Corpuscular Hemoglobin 29.1 pg (26-34); Mean Corpuscular Volume 89.7 fl (80-100); Monocytes Absolute Auto 0.3 K/mm3 (0.1-0.6); Monocytes Percent Auto 2.6 % (2.6-8.5); Neutrophils Absolute Auto 10.4 K/mm3 (1.3-6.7); Neutrophils Percent Auto 88.6 % (45.5-73.1); Nucleated Red Blood Cells Perc 0.3 % (0.0-0.2); Platelet Count Result 36 k/mm3 (150-375); Red Blood Count 2.61 M/mm3 (4.2-5.4); Red Cell Distribution Width 18.6 % (11.5-14.5); White Blood Count 11.7 K/mm3 (4.5-10.0)
[2022-11-22 07:28] LABS: Alanine Aminotransferase 12 U/L (6-35); Albumin Level 2.3 g/dL (3.5-5.1); Alkaline Phosphatase 105 U/L (38-126); Anion Gap 7 mmol/L (8-16); Aspartate Amino Transferase 14 U/L (14-36); Bilirubin,Total 0.5 mg/dL (0.2-1.3); Blood Urea Nitrogen 106 mg/dL (7-17); Calcium 7.4 mg/dL (8.4-10.2); Carbon Dioxide 23 mmol/L (22-30); Chloride 94 mmol/L (98-107); Estimated CRCL calculation 18 ml/min; Estimated Glomerular Filt Rate 25; Glucose 179 mg/dL (65-110); Magnesium 2.2 mg/dL (1.6-2.3); Sodium 124 mmol/L (137-145)
[2022-11-22 07:36] LABS: Platelet Estimate Decreased (Adequate)
[2022-11-22 07:37] LABS: Anisocytosis 2+ (NORMAL); Hypochromasia 1+ (NORMAL); Ovalocytes 1+ (NORMAL); Schistocytes None Seen (NORMAL)
[2022-11-22] MEDS: ALBUMIN HUMAN 25% 25 GM/100 ML 100 ML IVPB ×2 (08:31→11:07)
[2022-11-22] MEDS: MINERAL OIL/WHITE PETROLATUM OINTMENT 1 APPLIC EACH EYE (08:32)
[2022-11-22] MEDS: DORZOLAMIDE/TIMOLOL OPHTH SOL 10 ML BOTTLE 1 DROP EACH EYE ×2 (08:32→20:14)
[2022-11-22] MEDS: PANTOPRAZOLE SODIUM IV 40 MG VIAL IV PUSH ×2 (08:38→21:05)
[2022-11-22] MEDS: BUMETANIDE INJ 1 MG/4 ML VIAL IV PUSH (08:43)
--- NOTE | 2022-11-22 09:03 | PM.PNNEP ---
Progress Note: A&P Assessment and Plan (1) ANNEL (acute kidney injury): Code(s): N17.9 - Acute kidney failure, unspecified Status: Acute Assessment and Plan: normal baseline creatinine/kidney function suspect her other acute medical issues (bacteremia, infection, abdominal issues...etc) are likely explanation for her fluctuating creatinine aside from her hyponatremia, no critical electrolytes and with reasonable urine output recent imaging (CT of abdomen/pelvis) does mention cortical thinning of the kidneys arguing she may have some mild renal insufficiency agree with more aggressive IV diuresis at this time repeat urine electrolytes suggest prerenal azotemia (despite evidence of volume overload) follow trend of repeat labs and UOP? (2) Hyponatremia: Code(s): E87.1 - Hypo-osmolality and hyponatremia Status: Acute Assessment and Plan: present since late September 2022 relatively stable up until the the last week (starting 11/14/22) suspect related to fluctuating fluid status, nutrition, TPN and possibly third spacing + ascites changed all carrier fluid for IV meds/IVPB/drips to normal saline unfortunately, unable to reduce free water intake in TPN or add normal saline/sodium chloride to TPN as this is pre-made -- seems reasonable to hold this for now (since now on ventilator) heparin gtt carrier fluid cannot be changed either (currently D5W) already fluid restricted by NPO status urine electrolytes suggest prerenal azotemia stable urine output noted -- agree with attempted diuresis follow repeat sodium levels (3) Acute respiratory failure: Code(s): J96.00 - Acute respiratory failure, unspecified whether with hypoxia or hypercapnia Status: Acute Assessment and Plan: on full ventilator support precipitated by pain medications +/- volume overload diuresis as tolerated continue supportive therapy (4) Azotemia: Code(s): R79.89 - Other specified abnormal findings of blood chemistry Status: Acute Assessment and Plan: likely due to high degree of inflammation in association with catabolic state and use of TPN follow trend of BUN for now (5) Bacteremia: Code(s): R78.81 - Bacteremia Status: Acute Assessment and Plan: as noted by positive blood cultures - Bacteroides and Clostridium ascites fluid with Bacteroides along with Klebsiella, Citrobacter,, and Streptococcus on broad spectrum of antibiotics follow repeat blood cultures (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 Status: Acute Assessment and Plan: as noted by recent CT scan findings on heparin gtt Surgery recommendations noted noted possible transfer to a higher level of care for possible intervention (7) CHF (congestive heart failure): Qualifiers: Heart failure chronicity: acute on chronic Heart failure type: unspecified Qualified Code(s): I50.9 - Heart failure, unspecified Code(s): I50.9 - Heart failure, unspecified Status: Acute Assessment and Plan: Cardiology following most recent Echo noted resume diuretic therapy follow I/Os and daily weights (8) Influenza A: Code(s): J10.1 - Influenza due to other identified influenza virus with other respiratory manifestations Status: Acute Assessment and Plan: completed course of Tamiflu continue supportive therapy Will continue to follow. Subjective Date/time seen: 11/22/22 09:03 Remains intubated/sedated and on mechanical ventilation; initiated on levophed yesterday evening due hypotension (systolic BP dropped in the 80s) as she a limited response with IV albumin; overall, it would appear her clinical condition is deteriorating. Exam Narrative: General: ill appearing female intubated/sedated and on mechanical ventilation Heart: normal S1 and S
--- NOTE | 2022-11-22 09:21 | WPDINTPN ---
Progress Note: A&P Assessment and Plan (1) Acute respiratory failure: Code(s): J96.00 - Acute respiratory failure, unspecified whether with hypoxia or hypercapnia Status: Acute Assessment and Plan: Acute multifactorial Respiratory failure secondary to encephalopathy, bilateral atelectasis, pleural effusion, obesity hypoventilation, pneumonia - chest x-ray this morning: ?Stable small left pleural effusion. Stable airspace opacities at left lung base, likely atelectasis. -Low tidal volume ventilation strategy to prevent volutrauma - continue Bronchodilators -11/21: patient had good urine output with Bumex, will repeat Bumex again today - placed patient on pressure support ventilation 10/17 this morning as she is more awake and off all sedation (2) Sepsis: Code(s): A41.9 - Sepsis, unspecified organism Status: Acute Assessment and Plan: secondary to peritonitis and UTI - peritoneal fluid grew Klebsiella pnemoniae Citrobacter werkmanii Streptococcus anginosus and Bacteroides urine culture grew Enterococcus lactic acid levels are normal, prolactin is 4.2 is elevated WBC count remains stable - continue Zosyn and Flagyl (3) Peritonitis: Code(s): K65.9 - Peritonitis, unspecified Status: Acute Assessment and Plan: patient had abdominal pain and ascites on exam - 11/15/2022 paracentesis done and patient grew multiple organisms in the fluid culture as above on empiric antibiotic - Gastrografin small-bowel follow-through was done to assess for any leak since patient had hemicolectomy and was negative for any leak (4) Anemia: Code(s): D64.9 - Anemia, unspecified Status: Acute Assessment and Plan: she received 1 unit of PRBC on 11/16. patient was on heparin infusion which was discontinued overnight as a hemoglobin dropped to 7.2 on 11/21/2022 - hemoglobin this morning is stable at 7.6 continue PPI q.12 hours (5) ANNEL (acute kidney injury): Code(s): N17.9 - Acute kidney failure, unspecified Status: Acute Assessment and Plan: - patient developed acute kidney injury during this hospitalization and creatinine has remained elevated with worsening uremia - she is volume overloaded - appreciate nephrology following the patient - patient was diuresed with Bumex on 11/21/2022 with adequate urine output - will give albumin to prevent 3rd spacing and retry diuresing today may need dialysis if continues to worsen or does not improve (6) Encephalopathy: Code(s): G93.40 - Encephalopathy, unspecified Status: Acute Assessment and Plan: IMPROVING likely toxic metabolic encephalopathy. patient did receive some benzodiazepines and morphine for pain - 11/21/[address] Moderate nonspecific cerebral white matter disease, which likely represents chronic small vessel ischemic disease. - ammonia levels are normal - currently off sedation, opens her eyes, nods to questions, follows simple commands in all extremities (7) Hyponatremia: Code(s): E87.1 - Hypo-osmolality and hyponatremia Status: Acute Assessment and Plan: hypervolemic hyponatremia hold PPN monitor sodium level diurese nephrology following (8) Ileus: Code(s): K56.7 - Ileus, unspecified Status: Acute Assessment and Plan: 11/20/2022: CT scan of the abdomen and pelvis showed improved small-bowel dilatation which may represent resolving ileus 11/21/2022 patient started on trickle tube feeds and tolerating, well increase gradually to goal (9) Cirrhosis: Code(s): K74.60 - Unspecified cirrhosis of liver Status: Acute Assessment and Plan: 11/20/22: CT abdomen and pelvis suggestive of cirrhosis - low albumin level and coagulopathic, now off heparin infusion - ammonia level was normal on 11/21/2022 (10) Mesenteric vascular insufficiency: Code(s): K55.1 - Chronic vascular disorders of int
[2022-11-22] MEDS: INSULIN ASPART (*BKC) 100 UNITS/ML SUB-Q (11:11)
[2022-11-22 11:12] LABS: Glucose Point of Care 216 mg/dl (65-105)
--- NOTE | 2022-11-22 11:38 | PCNFU ---
Nutrition Follow-Up Complete: Inadequate oral intake related to continuous bipap, shortness of breath, loss of appetite as evidenced by need for full parenteral nutrition Goal: Meet estimated nutrition needs Patient is progressing towards goal. We will continue current goal. Pt current nutrition is Nepro at 320 ml/hr. Nutrition recommendation: Goal rate at 40 ml/hr. Last recorded weight is 70.6 kg. Bowel Motility:+Bm reported 11/22 Labs Reviewed:Glu 179,BUN 106,GFR 25, Cr 1.9,Na 124, Hct 23.4 Meds Noted:NovoLog, Atrovent, Flagyl,Protonix. Skin: WNL Additional Notes: Patient remains on mechanical vent. Plans for breathing trial today. No sedation. MD orders to increase tube feeding rate to 40 ml/hr, which will provide 1584 kcals/71 gms protein/640 ml water. Flush 30 ml q 4 hours. Current nutrition is meeting 99% kcal needs and 78% protein needs. Discussions regarding family meeting for further plan of care. Monitor labs, plan of care, tolerance, weights. Follow up Monday/Monday
[2022-11-22] MEDS: MORPHINE SULFATE (*CRX) 2 MG/ML INJ IV PUSH (16:36)
[2022-11-22] MEDS: LORazepam INJ (*CRX) 2 MG/ML VIAL 1 MG IV PUSH ×2 (16:37→20:14)
--- NOTE | 2022-11-22 17:53 | PCRCNOTE ---
1645: pt extubated to comfort care.
--- NOTE | 2022-11-22 18:12 | PM.IMPN ---
Progress Note: A&P Assessment and Plan (1) Acute respiratory failure: Code(s): J96.00 - Acute respiratory failure, unspecified whether with hypoxia or hypercapnia Status: Acute Assessment and Plan: Patient was tired appearing but still oriented on rounds. On the evening of 11/20, she was nauseous with vomiting then developed abd pain at 10/10. She was given Morphine 4mg for the pain but a short time later, was noted to be unresponsive. Narcan given and BiPAP attempted but needed to be intubated on 11/20/22. Patient stabilized and admitted to ICU. Etiology probably related to the uremia, morphine and her untreated SEGUNDO. 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 Morphine and Ativan for comfort (2) Peritonitis: Code(s): K65.9 - Peritonitis, unspecified Status: Acute Assessment and Plan: Patient was noted to have ascites. -Ultrasound-guided paracentesis 11/15/22 with removal of 100 mL of opaque yellow mcnair fluid. No cell count available. -Pleural culture showing polymicrobial (bacteroides, klebsiella, citrobacter, strept) sensitive to Zosyn. -Concern for possible micro perforation as the etiology of her peritonitis. She may also have translocation possibly from bowel ischemia related to the NELY thrombosis. Suspect peritonitis is the source of her bacteremia. -SBFT 11/17/22 showing mildly distended SB distally with delayed transition but no obstruction or extravasation. -Now having BMs but still with considerable RUQ pain. -Repeat CT A/P 11/20 showing small volume ascites, cirrhosis, free air in the upper abd. 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 Also noted splenic infarct, ascites, ileus, ileum and sigmoid wall thickening, cirrhosis. Started on heparin drip and broad spectrum antibiotics. General surgery following. Plt count trending down. NPO and NGT secured. On TPN. Plan for transfer for higher level of care. Continue current management with TPN. (4) Bacteremia: Code(s): R78.81 - Bacteremia Status: Acute Assessment and Plan: BCx 11/10 growing clostridium species in anaerobic bottle and bacteroides fragilis in the other anaerobic bottle. Was on Zosyn but changed to Flagyl and Cefepime. BCx 11/13/22 NGTD. MRSA nasal swab negative. Discussed with PharmD ID who recommended Flagyl and Zosyn so abx adjusted again. [place] the source of bacteremia is from the peritonitis with pleural culture noted above. WBC trending down. Continue Zosyn and Flagyl. (5) ANNEL (acute kidney injury): Code(s): N17.9 - Acute kidney failure, unspecified Status: Acute Assessment and Plan: Creatinine better overall at 1.7 and now stable. BUN at 101 related to the TPN or from poor circulating volume. Mild ANNEL probably related to diuretics. Consider also ATN from the HoTN. Or from poor intravascular volume. Last contrast exposure 11/12. Normal Cr on 11/11/22. Bumex stopped. Still edematous. Consider albumin. Continue Doron hose. Check urine Na (6) Anemia: Code(s): D64.9 - Anemia, unspecified Status: Acute Assessment and Plan: Hgb 6.7 on 11/16/22. Hgb was drifting down past few days. No evidence of acute blood loss. She is on Heparin. She received 1U PRBC on 11/16/22. Hgb stable in the 7-8 range. Continue to monitor. (7) CHF (congestive heart failure): Qualifiers: Heart failure chronicity: acute on chronic Heart failure type: unspecified Qualified Code(s): I50.9 - Heart failure, unspecified Code(s): I50.9 - Heart failure, unspecified Status: Acute Assessment and Plan: Appreciate cardiology consultation, stable on current regimen. IV metoprolol held (8) A
--- NOTE | 2022-11-22 22:28 | PC.NURSE ---
This patient, Delilah Wynne, was transferred to [room 320 ] on 11/22/22 at 2229. Personal belongings sent with patient. Report given to [ALEJANDRO Avalos ]. Appropriate documentation sent with patient.
--- NOTE | 2022-11-22 22:30 | PC.NURSE ---
Patient was received to unit for maintainence of comfort care. Patient condition has had no changes at this time. Patient resting awake and oriented as best can tell 2-4. Will continue to monitor for any further changes of patient's status as to alert family. Will continue to monitor.
[2022-11-23 03:21] VITALS: PULSE 108; O2SAT 79
--- NOTE | 2022-11-23 04:04 | PC.NURSE ---
Pt is a comfort care pt that was transferred up from the ICU. Pt is unable to participate or contribute in plan of care. Pt is resting comfortably. Will continue to monitor pt.
--- NOTE | 2022-11-23 05:16 | PC.NURSE ---
Patient resting at intervals. Patient refusing any cares at this tie. Patient continues to be full of edema and weeping. Patient denies any pain or discomfort at this time. VS previously obtained and comfort measures maintained with cares otherwise. Will continue to monitor patients status for any further changes.
[2022-11-23 08:00] VITALS: BP 113/54; PULSE 96; RESP 22; TEMP 36.4; O2SAT 85
[2022-11-23] MEDS: DORZOLAMIDE/TIMOLOL OPHTH SOL 10 ML BOTTLE 1 DROP EACH EYE (08:55)
[2022-11-23] MEDS: PANTOPRAZOLE SODIUM IV 40 MG VIAL IV PUSH ×2 (08:55→20:39)
[2022-11-23] MEDS: MORPHINE SULFATE (*CRX) 2 MG/ML INJ IV PUSH ×2 (12:31→20:39)
--- NOTE | 2022-11-23 15:36 | PM.IMPN ---
Progress Note: A&P Assessment and Plan (1) Acute respiratory failure: Code(s): J96.00 - Acute respiratory failure, unspecified whether with hypoxia or hypercapnia Status: Acute Assessment and Plan: Patient was tired appearing but still oriented on rounds. On the evening of 11/20, she was nauseous with vomiting then developed abd pain at 10/10. She was given Morphine 4mg for the pain but a short time later, was noted to be unresponsive. Narcan given and BiPAP attempted but needed to be intubated on 11/20/22. Patient stabilized and admitted to ICU. Etiology probably related to the uremia, morphine and her untreated SEGUNDO. Transferred to ICU subsequently family opted for comfort measures an extubated 11/22/2022. Continue comfort measures as ordered. (2) Peritonitis: Code(s): K65.9 - Peritonitis, unspecified Status: Acute Assessment and Plan: Patient was noted to have ascites. -Ultrasound-guided paracentesis 11/15/22 with removal of 100 mL of opaque yellow mcnair fluid. No cell count available. -Pleural culture showing polymicrobial (bacteroides, klebsiella, citrobacter, strept) sensitive to Zosyn. -Concern for possible micro perforation as the etiology of her peritonitis. She may also have translocation possibly from bowel ischemia related to the NELY thrombosis. Suspect peritonitis is the source of her bacteremia. -SBFT 11/17/22 showing mildly distended SB distally with delayed transition but no obstruction or extravasation. -Now having BMs but still with considerable RUQ pain. -Repeat CT A/P 11/20 showing small volume ascites, cirrhosis, free air in the upper abd. 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 Also noted splenic infarct, ascites, ileus, ileum and sigmoid wall thickening, cirrhosis. Started on heparin drip and broad spectrum antibiotics. General surgery following. Plt count trending down. NPO and NGT secured. On TPN. Plan for transfer for higher level of care. Continue current management with TPN. (4) Bacteremia: Code(s): R78.81 - Bacteremia Status: Acute Assessment and Plan: BCx 11/10 growing clostridium species in anaerobic bottle and bacteroides fragilis in the other anaerobic bottle. Was on Zosyn but changed to Flagyl and Cefepime. BCx 11/13/22 NGTD. MRSA nasal swab negative. Discussed with PharmD ID who recommended Flagyl and Zosyn so abx adjusted again. [place] the source of bacteremia is from the peritonitis with pleural culture noted above. WBC trending down. Continue Zosyn and Flagyl. (5) ANNEL (acute kidney injury): Code(s): N17.9 - Acute kidney failure, unspecified Status: Acute Assessment and Plan: Creatinine better overall at 1.7 and now stable. BUN at 101 related to the TPN or from poor circulating volume. Mild ANNEL probably related to diuretics. Consider also ATN from the HoTN. Or from poor intravascular volume. Last contrast exposure 11/12. Normal Cr on 11/11/22. Bumex stopped. Still edematous. Consider albumin. Continue Doron hose. Check urine Na (6) Anemia: Code(s): D64.9 - Anemia, unspecified Status: Acute Assessment and Plan: Hgb 6.7 on 11/16/22. Hgb was drifting down past few days. No evidence of acute blood loss. She is on Heparin. She received 1U PRBC on 11/16/22. Hgb stable in the 7-8 range. Continue to monitor. (7) CHF (congestive heart failure): Qualifiers: Heart failure chronicity: acute on chronic Heart failure type: unspecified Qualified Code(s): I50.9 - Heart failure, unspecified Code(s): I50.9 - Heart failure, unspecified Status: Acute Assessment and Plan: Appreciate cardiology consultation,
[2022-11-23 20:17] VITALS: BP 100/56; PULSE 94; RESP 10; TEMP 36.4; O2SAT 75
[2022-11-24] MEDS: MORPHINE SULFATE (*CRX) 2 MG/ML INJ IV PUSH ×3 (00:39→21:48)
--- NOTE | 2022-11-24 05:14 | PC.NURSE ---
Patient resting intermittently throughout night after pain medication given per patient and/or family's request with good results. Patient is end of life and comfort measures at this time and family stayed with patient overnight. Family anxious at times and both patient and family tearful intermittently. Patient turned when requested and staff offered at intervals. Patient condition remains guarded, but unchanged. Patient remains edematous with weeping of tissues. Patient otherwise has had no significant changes overnight.
[2022-11-24 08:00] VITALS: BP 98/61; PULSE 86; RESP 20; TEMP 35.7; O2SAT 68
[2022-11-24] MEDS: PANTOPRAZOLE SODIUM IV 40 MG VIAL IV PUSH ×2 (10:05→19:55)
[2022-11-24] MEDS: DORZOLAMIDE/TIMOLOL OPHTH SOL 10 ML BOTTLE 1 DROP EACH EYE ×2 (10:05→19:55)
--- NOTE | 2022-11-24 12:57 | P.PNIM_ITS ---
Progress Note: A&P Assessment and Plan (1) Acute respiratory failure: Code(s): J96.00 - Acute respiratory failure, unspecified whether with hypoxia or hypercapnia Status: Acute Assessment and Plan: Patient was tired appearing but still oriented on rounds. On the evening of 11/20, she was nauseous with vomiting then developed abd pain at 10/10. She was given Morphine 4mg for the pain but a short time later, was noted to be unresponsive. Narcan given and BiPAP attempted but needed to be intubated on 11/20/22. Patient stabilized and admitted to ICU. Etiology probably related to the uremia, morphine and her untreated SEGUNDO. Transferred to ICU subsequently family opted for comfort measures an extubated 11/22/2022. Continue comfort measures as ordered. Hospice consult Transfer to hospice (2) Peritonitis: Code(s): K65.9 - Peritonitis, unspecified Status: Acute Assessment and Plan: Patient was noted to have ascites. -Ultrasound-guided paracentesis 11/15/22 with removal of 100 mL of opaque yellow mcnair fluid. No cell count available. -Pleural culture showing polymicrobial (bacteroides, klebsiella, citrobacter, strept) sensitive to Zosyn. -Concern for possible micro perforation as the etiology of her peritonitis. She may also have translocation possibly from bowel ischemia related to the NELY thrombosis. Suspect peritonitis is the source of her bacteremia. -SBFT 11/17/22 showing mildly distended SB distally with delayed transition but no obstruction or extravasation. -Now having BMs but still with considerable RUQ pain. -Repeat CT A/P 11/20 showing small volume ascites, cirrhosis, free air in the upper abd. 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 Also noted splenic infarct, ascites, ileus, ileum and sigmoid wall thickening, cirrhosis. Started on heparin drip and broad spectrum antibiotics. General surgery following. Plt count trending down. NPO and NGT secured. On TPN. Plan for transfer for higher level of care. Continue current management with TPN. (4) Bacteremia: Code(s): R78.81 - Bacteremia Status: Acute Assessment and Plan: BCx 11/10 growing clostridium species in anaerobic bottle and bacteroides fragilis in the other anaerobic bottle. Was on Zosyn but changed to Flagyl and Cefepime. BCx 11/13/22 NGTD. MRSA nasal swab negative. Discussed with PharmD ID who recommended Flagyl and Zosyn so abx adjusted again. [place] the source of bacteremia is from the peritonitis with pleural culture noted above. WBC trending down. Continue Zosyn and Flagyl. (5) ANNEL (acute kidney injury): Code(s): N17.9 - Acute kidney failure, unspecified Status: Acute Assessment and Plan: Creatinine better overall at 1.7 and now stable. BUN at 101 related to the TPN or from poor circulating volume. Mild ANNEL probably related to diuretics. Consider also ATN from the HoTN. Or from poor intravascular volume. Last contrast exposure 11/12. Normal Cr on 11/11/22. Bumex stopped. Still edematous. Consider albumin. Continue Doron hose. Check urine Na (6) Anemia: Code(s): D64.9 - Anemia, unspecified Status: Acute Assessment and Plan: Hgb 6.7 on 11/16/22. Hgb was drifting down past few days. No evidence of acute blood loss. She is on Heparin. She received 1U PRBC on 11/16/22. Hgb stable in the 7-8 range.
[2022-11-24 15:13] LABS: Heparin Induced Platelet Antib Positive (Negative)
--- NOTE | 2022-11-24 17:13 | PM.DS ---
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 - Acute infarction of intestine, part and extent unspecified Status: Acute (4) Bacteremia: Code(s): R78.81 - Bacteremia Status: Acute (5) ANNEL (acute kidney injury): Code(s): N17.9 - Acute kidney failure, unspecified Status: Acute (6) Anemia: Code(s): D64.9 - Anemia, unspecified Status: Acute (7) CHF (congestive heart failure): Qualifiers: Heart failure chronicity: acute on chronic Heart failure type: unspecified Qualified Code(s): I50.9 - Heart failure, unspecified Code(s): I50.9 - Heart failure, unspecified Status: Acute (8) Atrial fibrillation with RVR: Code(s): I48.91 - Unspecified atrial fibrillation Status: Chronic (9) Chronic hyponatremia: Code(s): E87.1 - Hypo-osmolality and hyponatremia Status: Acute (10) Hypotension: Code(s): I95.9 - Hypotension, unspecified Status: Acute (11) Splenic infarction: Code(s): D73.5 - Infarction of spleen Status: Acute (12) Thrombocytopenia: Code(s): D69.6 - Thrombocytopenia, unspecified Status: Acute (13) Cirrhosis: Code(s): K74.60 - Unspecified cirrhosis of liver Status: Acute (14) Ileus: Code(s): K56.7 - Ileus, unspecified Status: Acute (15) COPD (chronic obstructive pulmonary disease): Qualifiers: COPD type: COPD with acute exacerbation Qualified Code(s): J44.1 - Chronic obstructive pulmonary disease with (acute) exacerbation Code(s): J44.9 - Chronic obstructive pulmonary disease, unspecified Status: Acute (16) Obstructive sleep apnea: Code(s): G47.33 - Obstructive sleep apnea (adult) (pediatric) Status: Acute (17) Influenza A: Code(s): J10.1 - Influenza due to other identified influenza virus with other respiratory manifestations Status: Acute DS: Summary Hospital Course Hospital Course: This is an 82-year-old female past medical history of colon cancer COPD/emphysema atrial fibrillation on chronic anticoagulation congestive heart failure hypertension stroke with sleep apnea pulmonary hypertension admitted on 10/27/2022 with complaint of shortness of breath.? She was evaluated initially by GI for anemia needing transfusion.? She was found to have peritonitis underwent paracentesis which showed multiple bacteria was started on antibiotics.? Small-bowel follow-through was done which was negative for anastomotic leak.? She is status post right hemicolectomy for her colon cancer done recently in last admission prior to this admission.? She developed acute renal failure with worsening uremia and hyponatremia for which Nephrology was consulted.? She received parenteral nutrition.? She was also found to have splenic infarct NELY thrombus and stenosis of other abdominal vessels.? For which she was started on heparin infusion however the blood worsening anemia thrombocytopenia.? She started developing acute hypoxic hypercapnic respiratory failure and needed to be intubated and placed on mechanical ventilation on 11/20/22.? Head CT was negative for any acute acute change.? She is diagnosed septic shock respiratory failure most likely related to underlying peritonitis/pneumonia.? Further discussion of goals of care with family led to opting for more comfort measures for the patient with multiple comorbid problems with overall clinical decline.? She was eventually extubated to comfort and was transferred to the floor.? She was continued on comfort measures and eventually was tra
--- NOTE | 2022-11-24 18:44 | PC.NURSE ---
bilateral arms very edematous, PICC line dressing not changed per family request
--- NOTE | 2022-11-24 18:59 | PC.NURSE ---
Carloz ged preparation teacher has arrived for family meeting
[2022-11-24 20:35] VITALS: BP 147/118; PULSE 84; RESP 12; TEMP 36.6; O2SAT 87
== END 2022-11-24 23:02 | disposition expired | DRG 291 ==
LOC: ANHED 19:41 → ANHIMU 21:16 → ANH3MEDSUR 11-08 15:31 → ANHIMU 11-13 20:42 → ANHICU 11-20 22:17 → ANH3MEDSUR 11-22 23:01
PROVIDERS: Family Medicine; Internal Medicine; Internal Medicine Gastroenterology; Internal Medicine Nephrology; Nurse Practitioner; Physician Assistant; Student in an Organized Health Care Education/Training Program; Admitting Provider Chiropractor; Emergency Provider Family Medicine; PCP Internal Medicine; Visit Provider Internal Medicine
PROC: 0DJ08ZZ Inspection of Upper Intestinal Tract, Via Natural or Artificial Opening Endoscopic (ICD-10-PCS; CPT 43235; principal; 2022-11-07 07:30)
DX: I11.0 Hypertensive heart disease with heart failure (principal); A41.9 Sepsis, unspecified organism; I50.33 Acute on chronic diastolic (congestive) heart failure; K65.9 Peritonitis, unspecified; G92.8 Other toxic encephalopathy; K55.069 Acute infarction of intestine, part and extent unspecified; E87.1 Hypo-osmolality and hyponatremia; N39.0 Urinary tract infection, site not specified; K56.7 Ileus, unspecified; K29.70 Gastritis, unspecified, without bleeding; J10.1 Influenza due to other identified influenza virus with other respiratory manifestations; I48.91 Unspecified atrial fibrillation; G47.33 Obstructive sleep apnea (adult) (pediatric); J43.9 Emphysema, unspecified; Z79.01 Long term (current) use of anticoagulants; I27.20 Pulmonary hypertension, unspecified; Z20.822 Contact with and (suspected) exposure to COVID-19; K74.60 Unspecified cirrhosis of liver; D69.6 Thrombocytopenia, unspecified; B96.1 Klebsiella pneumoniae [K. pneumoniae] as the cause of diseases classified elsewhere; B95.4 Other streptococcus as the cause of diseases classified elsewhere; B95.2 Enterococcus as the cause of diseases classified elsewhere; D73.5 Infarction of spleen; Z51.5 Encounter for palliative care; Z80.0 Family history of malignant neoplasm of digestive organs; Z82.49 Family history of ischemic heart disease and other diseases of the circulatory system; Z87.891 Personal history of nicotine dependence; Z79.51 Long term (current) use of inhaled steroids; Z79.899 Other long term (current) drug therapy
CPT/HCPCS: 36415; 36430; 36569; 36600; 49083; 70450; 71045; 71046; 71260; 74018; 74176; 74177; 74250; 78278; 80048; 80053; 80069; 81001; 81050; 82040; 82042; 82140; 82150; 82375; 82436; 82570; 82805; 82945; 82948; 83050; 83605; 83615; 83735; 83880; 84100; 84132; 84145; 84156; 84157; 84295; 84300; 84466; 84478; 84484; 85025; 85027; 85055; 85380; 85384; 85610; 85652; 85730; 85999; 86022; 86140; 86850; 86900; 86901; 86923; 87040; 87070; 87075; 87076; 87077; 87081; 87086; 87088; 87147; 87185; 87186; 87205; 87637; 88108; 88305; 89051; 92526; 92610; 93005; 93308; 93970; 93971; 94002; 94003; 94640; 94660; 94762; 96374; 97110; 97161; 97166; 97530; 97535; 99285; A9270; A9560; C1751; C8924; C9113; J0282; J0360; J0610; J0692; J1200; J1644; J1650; J1815; J1940; J2060; J2250; J2270; J2310; J2405; J2543; J2704; J2930; J3010; J3370; J3475; J7040; J7050; J7120; J7131; J7512; P9016; P9047; Q9957; Q9967

== ENCOUNTER 2022-11-24 23:04 | HOS | payer OTHER, MEDICARE, SELFPAY ==
[2022-11-24 23:04] VITALS: BP 147/118; PULSE 84; RESP 12; TEMP 36.6; O2SAT 87
[2022-11-25] MEDS: MORPHINE SULFATE INJ (*CRX) 50 MG in SODIUM CHLORIDE 0.9% IV 95 ML IV CONT (00:51)
[2022-11-25] MEDS: diazePAM INJ (*CRX) 10 MG/2 ML SYRINGE 5 MG IV PUSH (03:51)
--- NOTE | 2022-11-25 05:44 | PC.NURSE ---
0423 Becca Arnold, called this nurse down to patient's room to see if patient had passed. No breath sounds or heart beat heard upon auscultation. 0425 Charge nurse Charlene at bedside to verify. Time of noted to be 0425. 05:05 Button Breaker notified of patient's . All questions answered. 05:14 [facility]TS notified of patient's . All questions answered.
--- NOTE | 2022-11-25 09:06 | PM.DDS ---
Discharge Summary Date and Time Date of : 11/25/22 Time of : 04:25 Provider Pronounced By: Lina Santana RN, Evangelina Donovan RN Probable Cause of Probable Cause of : Acute respiratory failure Septic shock Peritonitis Pneumonia Summary Hospital Course: This is an 82-year-old female past medical history of colon cancer COPD/emphysema atrial fibrillation on chronic anticoagulation congestive heart failure hypertension stroke with sleep apnea pulmonary hypertension admitted on 10/27/2022 with complaint of shortness of breath. She was evaluated initially by GI for anemia needing transfusion. She was found to have peritonitis underwent paracentesis which showed multiple bacteria was started on antibiotics. Small-bowel follow-through was done which was negative for anastomotic leak. She is status post right hemicolectomy for her colon cancer done recently in last admission prior to this admission. She developed acute renal failure with worsening uremia and hyponatremia for which Nephrology was consulted. She received parenteral nutrition. She was also found to have splenic infarct NELY thrombus and stenosis of other abdominal vessels. For which she was started on heparin infusion however the blood worsening anemia thrombocytopenia. She started developing acute hypoxic hypercapnic respiratory failure and needed to be intubated and placed on mechanical ventilation on 11/20/22. Head CT was negative for any acute acute change. She is diagnosed septic shock respiratory failure most likely related to underlying peritonitis/pneumonia. Further discussion of goals of care with family led to opting for more comfort measures for the patient with multiple comorbid problems with overall clinical decline. She was eventually extubated to comfort and was transferred to the floor. She eventually on 11/25/2022. Mr. Arrangements were made. Additional Data Confirmation of as documented by pronouncing clinician: Pupillary Reflex, Palpable Pulses, Response to Stimuli, Heart Tones and Breath Sounds Name of Provider Notified: Dr. Truong Time Provider Notified: 05:47 Provider Requests Autopsy: No Family Requests Autopsy: No Building Construction Supervisor Notified: Yes Date [facility] Notified of : 11/25/22 Time [facility] Notified of : 05:14
--- NOTE | 2022-11-25 14:55 | PM.IMHP ---
H&P: HPI History of Present Illness Date/Time: 11/25/22 14:55 Chief Complaint: Uncontrolled dyspnea Narrative: This unfortunate 82 y/o f was admitted to [place] 10/21 after 10/06 discharge for adenoCA of cecum. She underwent hand-assisted lap hemicolectomy. Postop course was complicted by CHF, respiratory failure, ANNEL, peritonitis, and bacteremia (presumably of GI source). In spite of grain weigher ventilation support and broad spectrum antibx and control of fluid balance, she failed to improve. Family opted for symptom management on [facility] service. Review of Systems Review of Systems: ROS unobtainable: Yes unobtainable due to medical condition PMFSH Past Medical History Medical History Adenocarcinoma of colon Anemia Anemia due to GI blood loss Arthritis Atrial fibrillation Congestive heart failure EF 70%, indeterminate diastolic function, mildly increased left ventricular wall thickness, severe biatrial enlargement, [id number] mitral valve regurgitation, moderate tricuspid regurgitation moderate pulmonary hypertension Constipation COPD (chronic obstructive pulmonary disease) Glaucoma Hyperlipidemia Hypertension [place] Obstructive sleep apnea Pulmonary hypertension Moderate pulmonary hypertension with RVSP of 53 on echocardiogram 09/2022 Surgical History Surgical History H/O cervical polypectomy History of bilateral cataract extraction History of colonoscopy with polypectomy Hx of cholecystectomy Status post cataract extraction of both eyes with insertion of intraocular lens Family History Family History Sibling Cancer Carcinoma of colon Father Acute myocardial infarction Social History Social History (Updated 11/25/22 @ 15:00 by Gilson Hoff MD) Social History: The patient lives home alone. She is . She has 3 children. She made all 3 of her children the power tax attorney for healthcare. Drinks approximately 8 cans of beer per week. Some nights she may not drink another night she may drink 3 beers. She denies any marijuana or illicit drugs. 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 Code status DNR Smoking packs per day: 1 Smoking cigarettes per day: 20.0 Years smoked: 30 Smoking pack-years: 30.00 Smoking status: Former smoker Tobacco type: cigarettes Second hand tobacco smoke exposure: Yes Smoking end date: 11/13/98 Alcohol intake: current Drinks per week: 6 Alcohol use details: BEER Substance use: never Substance use type: does not use Lack of Transportation: No Lack of Food: Never True Current Housing: I Have Housing Concerned About Future Housing: No Difficulty Paying Gas/Electric Bills: No Difficulty Paying for Meds: No Currently Unemployed: No Education: High School Diploma/GED Difficulty w/ Childcare or Family Care: No Spiritual care concerns: No Meds Home Medications and Allergies Home Medications Medication Instructions Recorded Confirmed Type albuterol sulfate 90 mcg/actuation 2 inh inhalation Q6H PRN Shortness 09/30/22 11/25/22 History aerosol inhaler (ProAir HFA) Of Breath Or Wheezing ascorbic acid (vitamin C) 500 mg 250 mg PO DAILY 09/30/22 11/25/22 History tablet atorvastatin 20 mg tablet 20 mg PO HS 09/30/22 11/25/22 History budesonide-formoterol HFA 80 2 inh inhalation DAILY 09/30/22 11/25/22 History mcg-4.5 mcg/actuation aerosol inhaler (Symbicort) dorzolamide 22.3 mg-timolol 6.8 1 drp EACH EYE Q12H 09/30/22 11/25/22 History mg/mL eye drops hydroxyzine HCl 25 mg tablet 25 mg PO TID PRN Itching 09/30/22 11/25/22 History metoprolol succinate 25 mg 25 mg PO DAILY 09/30/22 11/25/22 History tablet,extended release 24 hr tiotropium bromide 18 mcg capsule 1 cap inhalation DAILY 09/30/22 11/25/22 History with inhalation
--- NOTE | 2022-11-25 15:04 | PM.DDS ---
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 Wynne peacefully Additional Data Confirmation of as documented by pronouncing clinician: Pupillary Reflex, Palpable Pulses, Response to Stimuli, Heart Tones and Breath Sounds Name of Provider Notified: Dr. Truong Time Provider Notified: 05:47 Provider Requests Autopsy: No Family Requests Autopsy: No [employer] Notified: Yes Date [facility] Notified of : 11/25/22 Time [facility] Notified of : 05:14
== END 2022-11-25 04:25 | disposition expired | DRG 951 ==
PROVIDERS: Admitting Provider Internal Medicine; PCP Internal Medicine; Visit Provider Internal Medicine
DX: Z51.5 Encounter for palliative care (principal); J96.01 Acute respiratory failure with hypoxia; A41.9 Sepsis, unspecified organism; J18.9 Pneumonia, unspecified organism; R65.21 Severe sepsis with septic shock; K65.9 Peritonitis, unspecified; C18.0 Malignant neoplasm of cecum; D69.6 Thrombocytopenia, unspecified; I50.9 Heart failure, unspecified; K74.60 Unspecified cirrhosis of liver; J43.9 Emphysema, unspecified
CPT/HCPCS: A9270; J2270; J3360